=== PATIENT | female | born 1975 | race Caucasian/White ===

== ENCOUNTER → 2018-01-11 14:23 | Outpatient (CLI) | payer BC, SELFPAY ==
[2018-01-11 18:06] LABS: Ferritin 22 ng/mL (8-252); Iron 159 ug/dL (50-170); Iron Binding Capacity,Total 268 ug/dL (250-450); PERCENT IRON SATURATION 59.3 % (15.0-55.0)
== END ==
PROVIDERS: Family Provider Student in an Organized Health Care Education/Training Program; PCP Student in an Organized Health Care Education/Training Program; Visit Provider Dermatology
DX: L64.8 Other androgenic alopecia (principal)
CPT/HCPCS: 36415; 82728; 83540; 83550

== ENCOUNTER → 2018-03-26 13:42 | Outpatient (CLI) | payer BC, SELFPAY ==
[2018-03-26 15:52] LABS: Absolute Lymphocyte Count 2.02 X10^3/ul (0.83-4.51); Absolute Neutrophil Count 3.7 X10^3/uL (2.0-7.7); Basophil# 0.04 X10^3/uL; Basophil% 0.6 % (0-1); Eosinophil# 0.16 X10^3/uL; Eosinophils% 2.5 % (0-5); Hematocrit 39.7 % (37-47); Hemoglobin 13.8 g/dl (12.0-15.0); Lymphocyte # 2.02 X10^3/ul (4.0); Lymphocyte % 31.5 % (19-41); Mean Corp Hgb Conc 34.8 g/gl (32-36); Mean Corpuscular Hgb 30.5 pg (27.0-32.0); Mean Corpuscular Volume 87.6 fL (81-99); Mean Platelet Vol. 11.7 fl (6.2-12.0); Monocyte# 0.45 X10^3/uL; Neutrophil # 3.73 X10^3/uL (2.7-7.7); Neutrophil % 58.2 % (47-70); Platelet Count 270 K/mm3 (150-450); RBC Distribution Width CV 13.3 % (11.6-14.6); RBC Distribution Width SD 41.9 fl (35.1-43.9); Red Blood Count 4.53 M/mm3 (4.2-5.4); White Blood Count 6.4 K/mm3 (4.4-11.0)
[2018-03-26 15:55] LABS: POSITIVE COUNT NO; POSITIVE DIFFERENTIAL NO; POSITIVE MORPHOLOGY NO
[2018-03-26 16:07] LABS: ALB/GLOB Ratio 1.1 RATIO (0.9-2.4); AST(SGOT) 17 U/L (15-37); Alanine Aminotransfer ALT/SGPT 21 U/L (13-56); Albumin, Serum 3.9 g/dL (3.2-5.0); Alkaline Phosphatase 61 U/L (45-117); Anion Gap 7 (5-15); BUN 13 mg/dL (7-18); BUN/Creat Ratio 14.9 RATIO (10-20); Calcium,Total 8.6 mg/dL (8.5-10.1); Chloride 106 mmol/L (98-107); Creatinine, Serum 0.88 mg/dL (0.55-1.02); EST Glomerular Filtration Rate 76 mL/min (>60); Est Glom Filt Rate - Afr Amer 92 mL/min (>60); Globulin 3.6 g/dL (2.2-4.2); Glucose 77 mg/dL (74-106); Protein, Total 7.5 g/dL (6.4-8.2); Sodium Level 140 mmol/L (136-145)
== END ==
PROVIDERS: Family Provider Student in an Organized Health Care Education/Training Program; PCP Student in an Organized Health Care Education/Training Program; Visit Provider Internal Medicine Rheumatology
DX: M06.4 Inflammatory polyarthropathy (principal); M21.40 Flat foot [pes planus] (acquired), unspecified foot; F41.9 Anxiety disorder, unspecified; F32.89 Other specified depressive episodes; G43.909 Migraine, unspecified, not intractable, without status migrainosus
CPT/HCPCS: 36415; 80053; 85025

== ENCOUNTER → 2018-04-26 15:28 | Outpatient (CLI) | payer BC, SELFPAY ==
--- NOTE | 2018-04-26 15:30 | CT_ITS ---
STUDY: CT BRAIN WITH AND WITHOUT CONTRAST REASON FOR EXAM: Female, 42 years old. Visual field disturbance. RADIATION DOSAGE (If Supplied By Facility): CTDIvol = ( 44.99 ) mGy, DLP = ( 1490.98 ) mGycm TECHNIQUE: Transaxial CT imaging of the brain was performed pre and post contrast administration. The examination was performed with intravenous administration of 50 ml of Isovue 370 contrast material. Individualized dose optimization techniques were used for this CT. COMPARISON: None. FINDINGS: There is no acute bleed or infarct. There are normal white matter tracts. There is no abnormal enhancement following contrast administration. There are no intracranial masses identified. The ventricles are normal in configuration. There is no hydrocephalus. The visualized paranasal sinuses are clear. The mastoid air cells are well aerated. There is no skull fracture. CT/Brain/Head W/WO Contrast IMPRESSION: Unremarkable CT of the brain performed without and with intravenous contrast Electronically Signed: Ethan Foster, at 18:36 EDT Tel , Service support ,
--- NOTE | 2018-04-26 15:32 | CT_ITS ---
STUDY: CT ORBITS BILATERAL REASON FOR EXAM: Female, 42 years old. Visual field disturbances. Left eye RADIATION DOSAGE (If Supplied By Facility): CTDIvol = ( 29.38 ) mGy, DLP = ( 595.39 ) mGycm. Individualized dose optimization techniques were used for this CT.? TECHNIQUE: Multiplanar multisequence CT imaging of the orbits was performed with and without IV contrast COMPARISON: None. FINDINGS: Visualized intracranial contents are within normal limits. 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 No discrete orbital mass with extraocular muscles appear symmetric. Normal newsome are within normal limits. Normal caliber of the superior ophthalmic veins. Mild mucosal thickening of the ethmoid air cells. The sphenoid sinuses and the frontal sinuses are clear. The mastoid air cells are clear. IMPRESSION: No discrete orbital mass. No evidence for orbital cellulitis. Left-sided optic nerve drusen Electronically Signed: Harlan Swanson, at 16:11 EDT Tel , Service support , CT/Orb Sella Post Fossa Ear W/WO
== END ==
PROVIDERS: Family Provider Student in an Organized Health Care Education/Training Program; PCP Student in an Organized Health Care Education/Training Program; Visit Provider Ophthalmology
DX: H47.322 Drusen of optic disc, left eye (principal); H53.452 Other localized visual field defect, left eye
CPT/HCPCS: 70470; 70482; Q9967

== ENCOUNTER → 2018-09-23 14:04 | Outpatient (CLI) | payer BC, SELFPAY ==
[2018-09-26 10:38] LABS: HPV Reflexed? NOT INDICATED
== END ==
PROVIDERS: Visit Provider Obstetrics & Gynecology
DX: Z12.4 Encounter for screening for malignant neoplasm of cervix (principal)
CPT/HCPCS: 88175; G0145

== ENCOUNTER → 2018-09-24 12:59 | Outpatient (CLI) | payer BC, SELFPAY ==
[2018-09-24 13:54] LABS: Absolute Lymphocyte Count 2.02 X10^3/ul (0.83-4.51); Absolute Neutrophil Count 4.5 X10^3/uL (2.0-7.7); Basophil# 0.04 X10^3/uL; Basophil% 0.6 % (0-1); Eosinophil# 0.12 X10^3/uL; Eosinophils% 1.7 % (0-5); Hematocrit 41.3 % (37-47); Hemoglobin 14.6 g/dl (12.0-15.0); Lymphocyte # 2.02 X10^3/ul (4.0); Lymphocyte % 28.1 % (19-41); Mean Corp Hgb Conc 35.4 g/gl (32-36); Mean Corpuscular Hgb 30.4 pg (27.0-32.0); Mean Platelet Vol. 10.8 fl (6.2-12.0); Monocyte# 0.45 X10^3/uL; Monocyte% 6.3 % (0-10); Neutrophil # 4.54 X10^3/uL (2.7-7.7); Neutrophil % 63.2 % (47-70); Platelet Count 292 K/mm3 (150-450); RBC Distribution Width CV 12.7 % (11.6-14.6); RBC Distribution Width SD 39.2 fl (35.1-43.9); White Blood Count 7.2 K/mm3 (4.4-11.0)
[2018-09-24 13:55] LABS: POSITIVE COUNT NO; POSITIVE DIFFERENTIAL NO; POSITIVE MORPHOLOGY NO
[2018-09-24 14:07] LABS: AST(SGOT) 15 U/L (15-37); Alanine Aminotransfer ALT/SGPT 20 U/L (13-56); Albumin, Serum 3.8 g/dL (3.2-5.0); Alkaline Phosphatase 61 U/L (45-117); Anion Gap 9 (5-15); BUN 15 mg/dL (7-18); Chloride 105 mmol/L (98-107); Creatinine, Serum 0.88 mg/dL (0.55-1.02); EST Glomerular Filtration Rate 75 mL/min (>60); Est Glom Filt Rate - Afr Amer 90 mL/min (>60); Globulin 3.8 g/dL (2.2-4.2); Glucose 88 mg/dL (74-106); Potassium 4.3 mmol/L (3.5-5.1); Protein, Total 7.6 g/dL (6.4-8.2); Sodium Level 139 mmol/L (136-145)
== END ==
PROVIDERS: Family Provider Student in an Organized Health Care Education/Training Program; PCP Student in an Organized Health Care Education/Training Program; Referring Provider Internal Medicine Rheumatology; Visit Provider Internal Medicine Rheumatology
DX: M06.4 Inflammatory polyarthropathy (principal); M21.40 Flat foot [pes planus] (acquired), unspecified foot; F41.9 Anxiety disorder, unspecified; F32.89 Other specified depressive episodes; G43.909 Migraine, unspecified, not intractable, without status migrainosus
CPT/HCPCS: 36415; 80053; 85025

== ENCOUNTER → 2018-12-16 07:42 | Outpatient (CLI) | payer BC, SELFPAY ==
--- NOTE | 2018-12-16 07:45 | BI_ITS ---
MAMMOGRAPHY - BILATERAL SCREENING REASON FOR EXAM: Female, 43 years old. Routine annual screening examination. PERTINENT HISTORY: Mother with breast cancer. Aunt with breast cancer. Bilateral breast implants. TECHNIQUE: Digital bilateral breast nikita (3D mammographic acquisition) in the CC and MLO projections. 2-D mediolateral oblique (MLO) and craniocaudad (CC) views of both breasts were obtained. CAD: Full Field Digital Mammography with Computer Added Detection was performed. COMPARISON: Comparison is made with prior examination February 02, 2017 and August 26, 2015. FINDINGS: Breast Composition: The breasts are heterogeneously dense, which may obscure small masses. There are no dominant masses or suspicious calcifications. Stable appearance of the bilateral breast implants. No other significant abnormalities are identified. There has been no significant change since the prior study. BI/SCREENING MAMM (CAD), BILAT IMPRESSION: Stable bilateral screening mammogram. Yearly follow-up mammogram recommended. (A) ASSESSMENT CATEGORY: BIRADS Category 2: Benign. A letter regarding these results will be sent to the patient by the facility within 30 days. Approximately 10% of breast cancers are not detected by mammography. A normal mammogram should not delay biopsy of a clinically suspicious abnormality. [id number] Electronically Signed: Bruno Franco MD at 9:16 EST Tel [phone], Service support ,
--- OUTSIDE RECORDS SUMMARY | 2019-02-17 15:13 | XMS RPT_ITS ---
:1975 Author Organization OHIP Care Team Providers Name Role Phone Kellen Mayfield Attending Unavailable Kellen Mayfield Referring Unavailable Kin Muñoz Primary Care Unavailable Rudy Solano Attending Unavailable Kin Muñoz Primary Care Unavailable Nel Monique Attending Unavailable Nel Monique Referring Unavailable Kin Muñoz Primary Care Unavailable Danna Solano Attending Unavailable Danna Solano Referring Unavailable Kin Muñoz Primary Care Unavailable Kellen Mayfield Attending Unavailable Nel Monique Attending Unavailable EneidaNel Referring Unavailable Kin Muñoz Primary Care Unavailable PROBLEMS PROBLEMS DATE TYPE CONDITION / CODE ATTENDING STATUS SOURCE 09/24/2018 Unknown 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, 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 / Community M06.4(ICD-10) Hospital Repository 09/24/2018 Unknown M21.40 - Flat foot Vellanki, Nel Active [place] [pes planus] Community (acquired), Hospital unspecified foot / Repository M21.40(ICD-10) 09/24/2018 Unknown F41.9 - Anxiety Vellanki, Nel Active [place] disorder, unspecified Community / F41.9(ICD-10) Hospital Repository 09/24/2018 Unknown F32.89 - Other Vellanki, Nel Active [place] specified depressive Community episodes / Hospital F32.89(ICD-10) Repository 09/24/2018 Unknown G43.909 - Migraine, Vellanki, Nel Active [place] unspecified, not Community intractable, without Hospital status migrainosus / Repository G43.909(ICD-10) 09/23/2018 Unknown Z12.4 - Encounter for MateojerelIvonKellen Active [place] screening for Community malignant neoplasm of Hospital cervix / Repository Z12.4(ICD-10) PROCEDURES PROCEDURES No Procedure Records FoundRESULTS RESULTS SCREENING MAMM (CAD), Observed: 12/16/2018 Status: F Source: [facility] 7:45 AM [facility] H[facility]PITAL REPOSITORY [facility] Imaging Services [address] [place] [id number] SCREENING MAMM (CAD), BILAT MR#: [id number] Acct: [id number] Name: DOC SHERIFF Rep #: [id number] : 1975 F 43 From: Bruno Franco MD PCP: Kin Foster DO Status: REG CLI Study: SCREENING MAMM (CAD), BILAT Date of Exam: 12/16/18 Exam# [id number] Ordering Dr: Kellen Mayfield MD MAMMOGRAPHY - BILATERAL SCREENING REASON FOR EXAM: Female, 43 years old. Routine annual screening examination. PERTINENT HISTORY: Mother with breast cancer. Aunt with breast cancer. Bilateral breast implants. TECHNIQUE: Digital bilateral breast nikita (3D mammographic acquisition) in the CC and MLO projections. 2-D mediolateral oblique (MLO) and craniocaudad (CC) views of both breasts were obtained. CAD: Full Field Digital Mammography with Computer Added Detection was performed. COMPARISON: Comparison is made with prior examination February 02, 2017 and August 26, 2015. FINDINGS: Breast Composition: The breasts are heterogeneously dense, which may obscure small masses. There are no dominant masses or suspicious calcifications. Stable appearance of the bilateral breast implants. No other significant abnormalities are identified. There has been no significant change since the prior study. BI/SCREENING MAMM (CAD), BILAT IMPRESSION: Stable bilateral screening mammogram. Yearly follow-up mammogram recommended. (A) ASSESSMENT CATEGORY: BIRADS Category 2: Benign. A letter regarding these results will be sent to the patient by the facility within 30 days. Approximately 10% of breast cancers are not detected by mammography. A normal mammogram should not delay biopsy of a clinically suspicious abnormality. [id number] Electronically Signed: Bruno Franco MD at 9:16 EST Tel [phone], Service support , CC: Kellen Mayfield MD; Kin Foster DO Dress Shoe Inspector: Signed CBC W/DIFF, AUTOMATED Collected: 09/24/2018 Status: F Source: [place] 1:05 PM [facility] REPOSITORY TYPE CODE TESTS RESULT OUT OF RANGE REFERENCE UNITS LAB L100.1000 4.4-11.0 K/mm3 Normal WBC 7.2 LAB L100.1200 4.2-5.4 M/mm3 Normal RBC 4.80 LAB L100.1300 12.0-15.0 g/dl Normal HGB 14.6 LAB L100.1400 37-47 % Normal HCT 41.3 LAB L100.1500 81-99 fL Normal MCV 86.0 LAB L100.1600 27.0-32.0 pg Normal MCH 30.4 LAB L100.1700 32-36 g/gl Normal MCHC 35.4 LAB L100.1810 11.6-14.6 % Normal RDW CV 12.7 LAB L100.1820 35.1-43.9 fl Normal RDW SD 39.2 LAB L100.1900 150-450 K/mm3 Normal PLT 292 LAB L100.2000 6.2-12.0 fl Normal MPV 10.8 LAB L100.2100 47-70 % Normal NEUT% 63.2 LAB L100.2200 19-41 % Normal LY% 28.1 LAB L100.2300 0-10 % Normal MONO% 6.3 LAB L100.2400 0-5 % Normal EO% 1.7 LAB L100.2500 0-1 % Normal BASO% 0.6 LAB L100.2550 0.0-0.9 % Normal IM GRAN % 0.100 Result Comment: IG% - Immature Granulocytes (promyelocytes, myelocytes and metamyelocytes) > 1% indicates that a LEFT SHIFT is Present. LAB L100.2620 2.0-7.7 X10 3/uL Normal Absolute Neut 4.5 LAB L100.2720 0.83-4.51 X10 3/ul Normal Absolute Lymph 2.02 Performed By: #### L100.0100 #### [facility] [address] [facility] [place], [address] COMPREHENSIVE METABOLIC Collected: 09/24/2018 Status: F Source: [facility] 1:05 PM [facility] REPOSITORY TYPE CODE TESTS RESULT OUT OF RANGE REFERENCE UNITS LAB L501.0100 74-106 mg/dL Normal GLU 88 Result Comment: Please note revised GLUCOSE reference range effective 2017. LAB L501.1000 7-18 mg/dL Normal BUN 15 LAB L501.1100 0.55-1.02 mg/dL Normal CREAT,SERUM 0.88 Result Comment: The validity of the calculated GFR AND GFRAA in patients over 70 years has not been determined. Clinical correlation is essential. LAB L501.1110 >60 mL/min Normal EST GFR 75 Result Comment: Non- GFR Calc LAB L501.1115 >60 mL/min Normal EST GFR - AA 90 Result Comment: GFR Calc LAB L501.1300 10-20 RATIO Normal BUN/CRE 17.0 LAB L501.1500 6.4-8.2 g/dL T Normal PROT 7.6 LAB L501.1800 3.2-5.0 g/dL Normal ALB 3.8 LAB L501.1950 2.2-4.2 g/dL Normal GLOB 3.8 LAB L501.2000 0.9-2.4 RATIO Normal A/G 1.0 LAB L501.2200 8.5-10.1 mg/dL CA Normal 9.0 LAB L501.4100 15-37 U/L Normal AST 15 LAB L501.4305 45-117 U/L Normal ALK P 61 LAB L501.4405 13-56 U/L Normal ALT 20 LAB L501.4600 0.20-1.00 mg/dL T Normal BILI 0.30 LAB L501.5300 136-145 mmol/L NA Normal 139 LAB L501.5600 3.5-5.1 mmol/L K Normal 4.3 LAB L501.5900 98-107 mmol/L CL Normal 105 LAB L501.6100 21.0-32.0 mmol/L Normal CO2 25.0 LAB L501.6200 5-15 Normal GAP 9 Performed By: #### L500.4050 #### [facility] [address] [facility] [place], [place], [address] PAP I-G W/RFX HRHPV Collected: 09/23/2018 Status: F Source: [place] 1:45 PM [facility] REPOSITORY Order Comment: CYTOLOGY INFORMATION: - CLINICAL INFORMATION: - DATE LMP/MENOPAUSE: 08-26-18 LMP - COLLECTION VIAL: Thin Prep Vial - ENDOSCOPY TECH SOURCE: CERVICAL/ENDOCERVICAL - COLLECTION TECHNIQUE: BRUSH/SPATULA Specimen Comment: [id number] Specimen Comment: Source.............Cervix;Endocervix Specimen Comment: LMP / Prev Treat...[id number] Specimen Comment: No. of containers..01 ThinPrep Vial TYPE CODE TESTS RESULT OUT OF RANGE REFERENCE UNITS LAB L7400.0800 . Normal DIAGN Comment Result Comment: NEGATIVE FOR INTRAEPITHELIAL LESION AND MALIGNANCY. LAB L7400.0900 . Normal ADEQ Comment Result Comment: Satisfactory for evaluation. No endocervical component is identified. LAB L7400.1400 . Normal PERFORM Comment Result Comment: Arianne Page, Horse Breaker (ASCP) LAB L7400.2575 . Normal TEST METHOD Comment Result Comment: This liquid based ThinPrep(R) pap test was screened with the use of an image guided system. LAB L7400.2600 . Normal . COMM LAB L7400.2700 . Normal PAPSMR Comment Result Comment: The Pap smear is a screening test designed to aid in the detection of premalignant and malignant conditions of the uterine cervix. It is not a diagnostic procedure and should not be used as the sole means of detecting cervical cancer. Both false-positive and false-negative reports do occur. LAB L7400.2800 . Normal HPV RFLX Comment Result Comment: The HPV DNA reflex criteria were not met with this specimen result therefore, no HPV testing was performed. Performed at: [address] [id number] Community Living Specialist: Carmen Blankenship MD, Phone: [phone] Performed By: #### L7400.0350 #### [facility] (refer to report for specific site) refer to report for address and phone number BRAIN/HEAD W/WO Observed: 04/26/2018 Status: F Source: [place] CONTRAST 3:33 PM [facility] REPOSITORY [facility] Imaging Services [address] [place] [address] Brain/Head W/WO Contrast MR#: [id number] Acct: [id number] Name: DOC SHERIFF Pratima Rep #: [id number] : 1975 F 42 From: Ethan Foster MD PCP: Kin Foster DO Status: REG CLI Study: Brain/Head W/WO Contrast Date of Exam: 04/26/18 Exam# [id number] Ordering Dr: Danna Solano MD STUDY: CT BRAIN WITH AND WITHOUT CONTRAST REASON FOR EXAM: Female, 42 years old. Visual field disturbance. RADIATION DOSAGE (If Supplied By Facility): CTDIvol = ( 44.99 ) mGy, DLP = ( 1490.98 ) mGycm TECHNIQUE: Transaxial CT imaging of the brain was performed pre and post contrast administration. The examination was performed with intravenous administration of 50 ml of Isovue 370 contrast material. Individualized dose optimization techniques were used for this CT. COMPARISON: None. FINDINGS: There is no acute bleed or infarct. There are normal white matter tracts. There is no abnormal enhancement following contrast administration. There are no intracranial masses identified. The ventricles are normal in configuration. There is no hydrocephalus. The visualized paranasal sinuses are clear. The mastoid air cells are well aerated. There is no skull fracture. CT/Brain/Head W/WO Contrast IMPRESSION: Unremarkable CT of the brain performed without and with intravenous contrast Electronically Signed: Ethan Foster, at 18:36 EDT Tel , Service support , CC: Kin Foster DO; Danna Solano Dress Shoe Inspector: Signed ORB SELLA POST Observed: 04/26/2018 Status: F Source: [place] FOSSA EAR W/WO 3:33 PM [facility] REPOSITORY [facility] Imaging Services [address] [place] [address] Orb Sella Post Fossa Ear W/WO MR#: [id number] Acct: [id number] Name: DOC SHERIFF Rep #: [id number] : 1975 F 42 From: Harlan Swanson MD PCP: Kin Foster DO Status: REG CLI Study: Orb Sella Post Fossa Ear W/WO Date of Exam: 04/26/18 Exam# [id number] Ordering Dr: Danna Solano MD STUDY: CT ORBITS BILATERAL REASON FOR EXAM: Female, 42 years old. Visual field disturbances. Left eye RADIATION DOSAGE (If Supplied By Facility): CTDIvol = ( 29.38 ) mGy, DLP = ( 595.39 ) mGycm. Individualized dose optimization techniques were used for this CT.? TECHNIQUE: Multiplanar multisequence CT imaging of the orbits was performed with and without IV contrast COMPARISON: None. FINDINGS: Visualized intracranial contents are within normal limits. 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 No discrete orbital mass with extraocular muscles appear symmetric. Normal newsome are within normal limits. Normal caliber of the superior ophthalmic veins. Mild mucosal thickening of the ethmoid air cells. The sphenoid sinuses and the frontal sinuses are clear. The mastoid air cells are clear. IMPRESSION: No discrete orbital mass. No evidence for orbital cellulitis. Left-sided optic nerve drusen Electronically Signed: Harlan Sky, at 16:11 EDT Tel , Service support , CT/Orb Sella Post Fossa Ear W/WO CC: Kin Foster DO; Danna Solano Dress Shoe Inspector: Signed CBC W/DIFF, AUTOMATED Collected: 03/26/2018 Status: F Source: [place] 1:48 PM [facility] REPOSITORY TYPE CODE TESTS RESULT OUT OF RANGE REFERENCE UNITS LAB L100.1000 4.4-11.0 K/mm3 Normal WBC 6.4 LAB L100.1200 4.2-5.4 M/mm3 Normal RBC 4.53 LAB L100.1300 12.0-15.0 g/dl Normal HGB 13.8 LAB L100.1400 37-47 % Normal HCT 39.7 LAB L100.1500 81-99 fL Normal MCV 87.6 LAB L100.1600 27.0-32.0 pg Normal MCH 30.5 LAB L100.1700 32-36 g/gl Normal MCHC 34.8 LAB L100.1810 11.6-14.6 % Normal RDW CV 13.3 LAB L100.1820 35.1-43.9 fl Normal RDW SD 41.9 LAB L100.1900 150-450 K/mm3 Normal PLT 270 LAB L100.2000 6.2-12.0 fl Normal MPV 11.7 LAB L100.2100 47-70 % Normal NEUT% 58.2 LAB L100.2200 19-41 % Normal LY% 31.5 LAB L100.2300 0-10 % Normal MONO% 7.0 LAB L100.2400 0-5 % Normal EO% 2.5 LAB L100.2500 0-1 % Normal BASO% 0.6 LAB L100.2550 0.0-0.9 % Normal IM GRAN % 0.200 Result Comment: IG% - Immature Granulocytes (promyelocytes, myelocytes and metamyelocytes) > 1% indicates that a LEFT SHIFT is Present. LAB L100.2620 2.0-7.7 X10 3/uL Normal Absolute Neut 3.7 LAB L100.2720 0.83-4.51 X10 3/ul Normal Absolute Lymph 2.02 Performed By: #### L100.0100 #### [facility] [address] [place], [address] COMPREHENSIVE METABOLIC Collected: 03/26/2018 Status: F Source: [facility] 1:48 PM [facility] REPOSITORY TYPE CODE TESTS RESULT OUT OF RANGE REFERENCE UNITS LAB L501.0100 74-106 mg/dL Normal GLU 77 Result Comment: Please note revised GLUCOSE reference range effective 2017. LAB L501.1000 7-18 mg/dL Normal BUN 13 LAB L501.1100 0.55-1.02 mg/dL Normal CREAT,SERUM 0.88 Result Comment: The validity of the calculated GFR AND GFRAA in patients over 70 years has not been determined. Clinical correlation is essential. LAB L501.1110 >60 mL/min Normal EST GFR 76 Result Comment: Non- GFR Calc LAB L501.1115 >60 mL/min Normal EST GFR - AA 92 Result Comment: GFR Calc LAB L501.1300 10-20 RATIO Normal BUN/CRE 14.9 LAB L501.1500 6.4-8.2 g/dL T Normal PROT 7.5 LAB L501.1800 3.2-5.0 g/dL Normal ALB 3.9 LAB L501.1950 2.2-4.2 g/dL Normal GLOB 3.6 LAB L501.2000 0.9-2.4 RATIO Normal A/G 1.1 LAB L501.2200 8.5-10.1 mg/dL CA Normal 8.6 LAB L501.4100 15-37 U/L Normal AST 17 LAB L501.4305 45-117 U/L Normal ALK P 61 LAB L501.4405 13-56 U/L Normal ALT 21 LAB L501.4600 0.20-1.00 mg/dL T Normal BILI 0.30 LAB L501.5300 136-145 mmol/L NA Normal 140 LAB L501.5600 3.5-5.1 mmol/L K Normal 4.0 LAB L501.5900 98-107 mmol/L CL Normal 106 LAB L501.6100 21.0-32.0 mmol/L Normal CO2 27.0 LAB L501.6200 5-15 Normal GAP 7 Performed By: #### L500.4050 #### [facility] [address] [place], [address] PROGRESS Observed: 03/11/2018 Status: COMPLETED Source: [place] 8:58 AM [facility] [place] REPOSITORY HNO ID: [id number] Author: Tiffani Nguyen) Kristopher Service: (none) Author Type: Physician Controller Repairer And Tester Type: Progress Notes Filed: 03/11/2018 12:58 PM Note Text: 03/11/2018 Patient presents with: Cough: x 2 weeks cough and chest congestion Fatigue: x 2 weeks Ear Pain: x 2 weeks intermittent right ear tenderness SUBJECTIVE: This is a 42 year old that is here today for Complaint(s) of cough and chest congestion x 2 weeks. + fatigue. Notes sinus pressure/pain x 2 weeks. + RUCHI ear pain, intermittent. Right ear is tender. Cough is keeping her awake at night. + purulent drainage. + SOB/wheezing, intermittent. Denies fever/chills, . Non-smoker. PAST MEDICAL HISTORY Diagnosis Date - NONE ALLERGIES Review of patient's allergies indicates no known allergies. MEDICATIONS Current Outpatient Prescriptions: B3,jennifer,clczTGQauc-RA-S3-zn-saumya (NICAZEL FORTE) [phone] vw-jel-kk-mg tab 1 tab daily sertraline (ZOLOFT) 50 mg tablet Take 1 tablet by mouth once daily. spironolactone (ALDACTONE) 50 mg ORAL tablet Take 100 mg by mouth once daily. albuterol HFA (VENTOLIN HFA) 90 mcg/actuation inhaler Inhale 2 Puffs as instructed every 4 hours as needed for Wheezing/Shortness of Breath. codeine-guaiFENesin (ROBITUSSIN AC) 10-100 mg/5 mL syrup Take 5-10 mL by mouth four times daily as needed for Cough. May cause drowsiness. iron polysaccharide complex (FERREX 150) 150 mg iron capsule 1 pill daily No current facility-administered medications for this visit. SOCIAL HISTORY Social History Marital status: Spouse name: Years of education: Number of children: Social History Main Topics Smoking status: Never Smoker Smokeless status: Never Used Alcohol use: Yes Comment: occasionally Drug use: No Sexual activity: Yes Partners with: Male REVIEW OF SYSTEMS All other reviewed and negative other than HPI. OBJECTIVE: BP 110/62 Pulse 91 Temp 36.2 ?C (97.1 ?F) (Left Tympanic) Resp 16 Wt 78 kg (172 lb) SpO2 98% APPEARANCE Well appearing, alert, in no acute distress, well-hydrated, well nourished. EYES PERRLA, conjunctiva and sclera normal. EARS External ears normal, canals clear. TMs normal RUCHI NOSE/SINUS Nares normal. Septum midline. Mucosa erythematous. No drainage. + RUCHI maxillary sinus tenderness. THROAT normal, no erythema NECK Supple, no adenopathy HEART RRR with normal S1 and S2 LUNG clear to auscultation, No wheezing, rhonchi, rales. ASSESSMENT/PLAN: 1. Sinobronchitis - ICD9: 473.9, 490, ICD10: J32.9, J40 - Will begin treatment with as per antibiotic as written, see orders - The patient should also be given OTC cough and cold meds as needed, behind the counter Pseudoephedrine, warm salt water gargles, throat lozenges and/or OTC throat spray as needed and nasal saline gtts and suction prn for the first 5-7 days of treatment. - Supportive care with plenty of fluids, rest, and analgesia prn. - Follow up in 3-5 days if symptoms persist or worsen. - BENZONATATE 100 MG CAPSULE - AMOXICILLIN 875 MG-POTASSIUM CLAVULANATE 125 MG TABLET The patient indicates understanding of these issues and agrees with the plan. Reviewed red flags and when to seek care sooner. SUSHILA Ornelas Observed: 03/11/2018 Status: COMPLETED Source: [place] [address]:45 AM [facility] REPOSITORY Office Visit (UCWSTR) DOC SHERIFF ([id number]) 1975 F Date Time Provider Department 03/11/18 8:45 AM TIFFANI WILLS) [facility] During your visit today, we recorded the following information about you: Temperature Pulse Respiration Blood pressure 97.1 degrees 91/minute 16/minute 110/62 Weight 78 kg Tiffani Wills PA-C 03/11/2018 12:58 PM Signed 03/11/2018 Patient presents with: Cough: x 2 weeks cough and chest congestion Fatigue: x 2 weeks Ear Pain: x 2 weeks intermittent right ear tenderness SUBJECTIVE: This is a 42 year old that is here today for Complaint(s) of cough and chest congestion x 2 weeks. + fatigue. Notes sinus pressure/pain x 2 weeks. + RUCHI ear pain, intermittent. Right ear is tender. Cough is keeping her awake at night. + purulent drainage. + SOB/wheezing, intermittent. Denies fever/chills, . Non-smoker. PAST MEDICAL HISTORY Diagnosis Date - NONE ALLERGIES Review of patient's allergies indicates no known allergies. MEDICATIONS Current Outpatient Prescriptions: jennifer Monge querANDamp;jfr-KN-S7-zn-saumya (NICAZEL FORTE) [phone] oj-iih-yp-mg tab 1 tab daily sertraline (ZOLOFT) 50 mg tablet Take 1 tablet by mouth once daily. spironolactone (ALDACTONE) 50 mg ORAL tablet Take 100 mg by mouth once daily. albuterol HFA (VENTOLIN HFA) 90 mcg/actuation inhaler Inhale 2 Puffs as instructed every 4 hours as needed for Wheezing/Shortness of Breath. codeine-guaiFENesin (ROBITUSSIN AC) 10-100 mg/5 mL syrup Take 5-10 mL by mouth four times daily as needed for Cough. May cause drowsiness. iron polysaccharide complex (FERREX 150) 150 mg iron capsule 1 pill daily No current facility-administered medications for this visit. SOCIAL HISTORY Social History Marital status: Spouse name: Years of education: Number of children: Social History Main Topics Smoking status: Never Smoker Smokeless status: Never Used Alcohol use: Yes Comment: occasionally Drug use: No Sexual activity: Yes Partners with: Male REVIEW OF SYSTEMS All other reviewed and negative other than HPI. OBJECTIVE: BP 110/62 Pulse 91 Temp 36.2 ?C (97.1 ?F) (Left Tympanic) Resp 16 Wt 78 kg (172 lb) SpO2 98% APPEARANCE Well appearing, alert, in no acute distress, well- hydrated, well nourished. EYES PERRLA, conjunctiva and sclera normal. EARS External ears normal, canals clear. TMs normal RUCHI NOSE/SINUS Nares normal. Septum midline. Mucosa erythematous. No drainage. + RUCHI maxillary sinus tenderness. THROAT normal, no erythema NECK Supple, no adenopathy HEART RRR with normal S1 and S2 LUNG clear to auscultation, No wheezing, rhonchi, rales. ASSESSMENT/PLAN: 1. Sinobronchitis - ICD9: 473.9, 490, ICD10: J32.9, J40 - Will begin treatment with as per antibiotic as written, see orders - The patient should also be given OTC cough and cold meds as needed, behind the counter Pseudoephedrine, warm salt water gargles, throat lozenges and/or OTC throat spray as needed and nasal saline gtts and suction prn for the first 5-7 days of treatment. - Supportive care with plenty of fluids, rest, and analgesia prn. - Follow up in 3-5 days if symptoms persist or worsen. - BENZONATATE 100 MG CAPSULE - AMOXICILLIN 875 MG-POTASSIUM CLAVULANATE 125 MG TABLET The patient indicates understanding of these issues and agrees with the plan. Reviewed red flags and when to seek care sooner. Tiffani Wills PA-C Referring Provider: SELF [200] Allergies As of Date: 03/11/2018 (No Known Allergies) Date Reviewed: 03/11/2018 Reviewed by: Karime Mead LPN - Fully Assessed Reason for Visit: Cough [28] Cmt: x 2 weeks cough and chest congestion Fatigue [46] Cmt: x 2 weeks Ear Pain [817] Cmt: x 2 weeks intermittent right ear tenderness Primary Visit Diagnosis:Sinobronchitis [J32.9, J40] Order(s):benzonatate (TESSALON PERLE) 100 mg capsuleTake 2 capsules by mouth three times daily as needed.Disp: 30 capsuleRfl: 0 amoxicillin-clavulanic acid (AUGMENTIN) 875-125 mg per tabletTake 1 tablet by mouth twice daily for 10 days.Disp: 20 tabletRfl: 0 Prescriptions as of 03/11/2018 Sig: [id number]* 1 tab daily SERTRALINE 50 MG TABLET Take 1 tablet by mouth once d* SPIRONOLACTONE 50 MG TABLET Take 100 mg by mouth once joanne* BENZONATATE 100 MG CAPSULE Take 2 capsules by mouth thre* AMOXICILLIN 875 MG-POTASSIUM * Take 1 tablet by mouth twice * ALBUTEROL SULFATE HFA 90 MCG/* Inhale 2 Puffs as instructed * CODEINE 10 MG-GUAIFENESIN 100* Take 5-10 mL by mouth four ti* POLYSACCHARIDE IRON COMPLEX 1* 1 pill daily Medication notes this encounter ALBUTEROL SULFATE HFA 90 MCG/ACTUATION AEROSOL INHALER >> Karime Mead TAIL TRIMMER 03/11/2018 8:44 AM >> KARIME MEAD TAIL TRIMMER SunMar 11, 2018 8:44 AM [place] done POLYSACCHARIDE IRON COMPLEX 150 MG IRON CAPSULE >> Karime E Lilia TAIL TRIMMER 03/11/2018 8:45 AM >> KARIME MEAD TAIL TRIMMER SunMar 11, 2018 8:45 AM Not taking Problem List As Of Date: 03/11/2018 (None) Prescriptions ordered this encounter Disp Refills Start End BENZONATATE 100 MG CAPSULE 30 c* 0 03/11/2018 Route: ORAL Sig: Take 2 capsules by mouth three times daily as needed. AMOXICILLIN 875 MG-POTASSIUM CLAVULA* 20 t* 0 03/11/2018 03/21/2018 Route: ORAL Sig: Take 1 tablet by mouth twice daily for 10 days. Encounter Status:Closed by TIFFANI WILLS PA-C on 03/11/18 IRON+IRON BINDING Collected: 01/11/2018 Status: F Source: [place] [facility] 2:26 PM [facility] REPOSITORY TYPE CODE TESTS RESULT OUT OF RANGE REFERENCE UNITS LAB L503.6075 250-450 ug/dL TIBC Normal 268 LAB L503.6150 50-170 ug/dL IRON Normal 159 LAB L503.6250 15.0-55.0 % High IRON SATURATION 59.3 Performed By: #### L503.6030, L503.6550 #### [facility] [address] [place], [address] FERRITIN Collected: 01/11/2018 Status: F Source: [place] 2:26 PM [facility] REPOSITORY TYPE CODE TESTS RESULT OUT OF RANGE REFERENCE UNITS LAB L503.6550 8-252 ng/mL Normal FERRITIN 22 Performed By: #### L503.6030, L503.6550 #### [facility] [address] [place], [address] ALLERGIES ALLERGIES DATE TYPE / CODE NAME / CODE REACTION SEVERITY SOURCE Drug NO KNOWN [facility] Class/96609 ALLERGIES [place] 1003(SNOMED Repository CT) ENCOUNTERS ENCOUNTERS ADMIT/DISCHARGE ACCOUNT ADMITTING ENCOUNTER LOCATION SOURCE NUMBER CLASS 12/16/2018 [id number] [facility] ing:OPBI Repository 09/24/2018 [id number] [facility] ing:MTLAB Repository 09/23/2018 [id number] [facility] ing:LABSPEC Repository 04/26/2018 [id number] [facility] ing:CT Repository 03/26/2018 [id number] [facility] ing:MTLAB Repository 03/11/2018/03/12/20 [id number] Ambulatory [address] Repository 01/11/2018 [id number] [facility] ing:MTLAB Repository PAYERS PAYERS ENCOUNTER GUARANTOR PAYER SUBSCRIBER SOURCE 12/16/2018 DOC SHERIFFDOB: [place] [id number] WHITE Insurance:ANTHEMPnyu [id number] KAREN, megan Number: [facility] [id number]: [id number] Repository Date:1629-53-33KT [address] () [address]UFERTQT, [place] [address]YU: 12/16/2018 Secondary NOT GIVENUNK [place] Insurance:SELF [facility]Y [facility]: Effective Repository Date:2018-09-24 09/24/2018 DOC D Primary Stacy HudsonDOB: [place] [id number] WHITE Insurance:ANTHEMPolic [id number] [place] Number: [facility] [address]Weu: [id number] Repository Date:3944-41-13CV [address] () [address]OGVQJSBERNARDINO BADILLO [address]KF: 09/24/2018 Secondary NOT GIVENUNK [place] Insurance:SELF PAY [facility]: Effective Repository Date:2018-09-24 09/23/2018 DOC D Primary Stacy HudsonDOB: [place] [id number] WHITE Insurance:ANTHEMPolic [id number] [place] Number: [facility] [id number]: [id number] Repository Date:3847-65-11ZF [address] () [address]LGJCWAO, [place] [address]JQ: 09/23/2018 Secondary NOT GIVENUNK [place] Insurance:SELF PAY [facility] Number: Effective Repository Date:2018-09-23 04/26/2018 DOC D Primary Stacy HudsonDOB: [place] [id number] WHITE Insurance:ANTHEMPolic [id number] [place] Number: [facility] [place] [address]Rgq: [id number] Repository Date:4730-96-63CB [address] () [address]MJPTFGH, [place] [address]EC: 04/26/2018 Secondary NOT GIVENUNK [place] Insurance:SELF PAY [facility] Number: Effective Repository Date:2018-04-18 03/26/2018 Stacy [id number] Primary Stacy EscotoB: [place] Insurance:ANTHEMPolic [id number] [place] Number[facility] [id number]: (330 [id number] Repository [phone] () Date:0786-50-51[address]YUXQYXD, [place] [address]RX: 03/26/2018 Secondary NOT GIVENUNK [place] Insurance:SELF PAY [facility] Number: Effective Repository Date:2018-03-26 01/11/2018 Stacy [id number] Primary Stacy EscotoB: [place] Insurance:[place]HEMPolic [id number] Number: Hospital [id number]: (330 [id number] Repository [phone] () Date:4097-86-40[address]JYPOUY, [place] [address]TF: 01/11/2018 Secondary NOT GIVENUNK [place] Insurance:SELF PAY [facility] Number: Effective Repository Date:2018-01-11
== END ==
PROVIDERS: Family Provider Student in an Organized Health Care Education/Training Program; PCP Student in an Organized Health Care Education/Training Program; Referring Provider Obstetrics & Gynecology; Visit Provider Obstetrics & Gynecology
DX: Z12.31 Encounter for screening mammogram for malignant neoplasm of breast (principal)
CPT/HCPCS: 77063; 77067

== ENCOUNTER → 2019-03-24 | Outpatient (CLI) | payer BC, SELFPAY ==
[2019-03-24 17:49] LABS: Absolute Lymphocyte Count 1.51 X10^3/ul (0.83-4.51); Absolute Neutrophil Count 4.5 X10^3/uL (2.0-7.7); Basophil# 0.05 X10^3/uL; Basophil% 0.7 % (0-1); Eosinophil# 0.29 X10^3/uL; Eosinophils% 4.3 % (0-5); Hematocrit 38.1 % (37-47); Hemoglobin 12.5 g/dl (12.0-15.0); Lymphocyte # 1.51 X10^3/ul (4.0); Lymphocyte % 22.2 % (19-41); Mean Corp Hgb Conc 32.8 g/gl (32-36); Mean Corpuscular Volume 85.2 fL (81-99); Mean Platelet Vol. 10.7 fl (6.2-12.0); Monocyte# 0.43 X10^3/uL; Monocyte% 6.3 % (0-10); Neutrophil % 66.4 % (47-70); Platelet Count 294 K/mm3 (150-450); RBC Distribution Width CV 13.6 % (11.6-14.6); RBC Distribution Width SD 42.1 fl (35.1-43.9); Red Blood Count 4.47 M/mm3 (4.2-5.4); White Blood Count 6.8 K/mm3 (4.4-11.0)
[2019-03-24 17:55] LABS: POSITIVE COUNT NO; POSITIVE DIFFERENTIAL NO; POSITIVE MORPHOLOGY NO
[2019-03-24 18:19] LABS: ALB/GLOB Ratio 1.1 RATIO (0.9-2.4); AST(SGOT) 21 U/L (15-37); Alanine Aminotransfer ALT/SGPT 22 U/L (13-56); Albumin, Serum 3.9 g/dL (3.2-5.0); Alkaline Phosphatase 79 U/L (45-117); Anion Gap 5 (5-15); BUN 9 mg/dL (7-18); BUN/Creat Ratio 9.4 RATIO (10-20); Calcium,Total 8.8 mg/dL (8.5-10.1); Chloride 107 mmol/L (98-107); Creatinine, Serum 0.96 mg/dL (0.55-1.02); EST Glomerular Filtration Rate 68 mL/min (>60); Est Glom Filt Rate - Afr Amer 82 mL/min (>60); Globulin 3.7 g/dL (2.2-4.2); Glucose 83 mg/dL (74-106); Potassium 4.1 mmol/L (3.5-5.1); Protein, Total 7.6 g/dL (6.4-8.2); Sodium Level 140 mmol/L (136-145)
== END | disposition home or self-care (01) ==
LOC: MTLAB 16:39
PROVIDERS: Family Provider Student in an Organized Health Care Education/Training Program; PCP Student in an Organized Health Care Education/Training Program; Referring Provider Internal Medicine Rheumatology; Visit Provider Internal Medicine Rheumatology
DX: M06.4 Inflammatory polyarthropathy (principal); M21.40 Flat foot [pes planus] (acquired), unspecified foot; F41.9 Anxiety disorder, unspecified; F32.89 Other specified depressive episodes; G43.909 Migraine, unspecified, not intractable, without status migrainosus
CPT/HCPCS: 36415; 80053; 85025

== ENCOUNTER → 2019-09-16 | Outpatient (CLI) | payer BC, SELFPAY ==
[2019-09-16 15:24] LABS: Absolute Lymphocyte Count 2.28 X10^3/uL (0.83-4.51); Absolute Neutrophil Count 3.8 X10^3/uL (2.0-7.7); Basophil# 0.05 X10^3/uL; Basophil% 0.7 % (0-1); Eosinophil# 0.06 X10^3/uL; Eosinophils% 0.9 % (0-5); Hematocrit 42.1 % (37-47); Hemoglobin 13.7 g/dL (12.0-15.0); Lymphocyte # 2.28 X10^3/ul (4.0); Lymphocyte % 33.9 % (19-41); Mean Corp Hgb Conc 32.5 g/dL (32-36); Mean Platelet Vol. 10.9 fl (6.2-12.0); Monocyte% 7.4 % (0-10); NRBC Flagged by Analyzer 0 % (0-5); Neutrophil # 3.81 X10^3/uL (2.7-7.7); Neutrophil % 56.8 % (47-70); Platelet Count 295 K/mm3 (150-450); RBC Distribution Width CV 13.4 % (11.6-14.6); RBC Distribution Width SD 43.7 fl (35.1-43.9); Red Blood Count 4.73 M/mm3 (4.2-5.4); White Blood Count 6.7 K/mm3 (4.4-11.0)
[2019-09-16 15:48] LABS: ALB/GLOB Ratio 1.1 RATIO (0.9-2.4); AST(SGOT) 18 U/L (15-37); Alanine Aminotransfer ALT/SGPT 21 U/L (13-56); Alkaline Phosphatase 61 U/L (45-117); Anion Gap 7 (5-15); BUN 11 mg/dL (7-18); BUN/Creat Ratio 10.6 RATIO (10-20); Calcium,Total 8.8 mg/dL (8.5-10.1); Chloride 106 mmol/L (98-107); Creatinine, Serum 1.04 mg/dL (0.55-1.02); EST Glomerular Filtration Rate 62 mL/min (>60); Est Glom Filt Rate - Afr Amer 74 mL/min (>60); Globulin 3.6 g/dL (2.2-4.2); Glucose 63 mg/dL (74-106); Protein, Total 7.6 g/dL (6.4-8.2); Sodium Level 139 mmol/L (136-145)
== END | disposition home or self-care (01) ==
LOC: MTLAB 13:26
PROVIDERS: Family Provider Student in an Organized Health Care Education/Training Program; PCP Student in an Organized Health Care Education/Training Program; Referring Provider Internal Medicine Rheumatology; Visit Provider Internal Medicine Rheumatology
DX: M06.4 Inflammatory polyarthropathy (principal); M21.40 Flat foot [pes planus] (acquired), unspecified foot; F41.9 Anxiety disorder, unspecified; F32.89 Other specified depressive episodes; G43.909 Migraine, unspecified, not intractable, without status migrainosus
CPT/HCPCS: 36415; 80053; 85025

== ENCOUNTER → 2019-12-22 13:11 | Outpatient (CLI) | payer BC, SELFPAY ==
--- NOTE | 2019-12-22 13:14 | BI_ITS ---
MAMMOGRAPHY - BILATERAL SCREENING REASON FOR EXAM: Female, 44 years old. Routine annual screening examination. PERTINENT HISTORY: Mother with breast cancer. Aunt with breast cancer. Bilateral breast implants. TECHNIQUE: Digital bilateral breast concha (3D mammographic acquisition) in the CC and MLO projections. 2-D mediolateral oblique (MLO) and craniocaudad (CC) views of both breasts were obtained. CAD: Full Field Digital Mammography with Computer Added Detection was performed. COMPARISON: Comparison is made with prior study dated June 15, 2019 and February 02, 2017. FINDINGS: Breast Composition: The breasts are heterogeneously dense, which may obscure small masses. There are no dominant masses or suspicious calcifications. Stable appearance of the bilateral prostheses. No other significant abnormalities are identified. There has been no significant change since the prior study. BI/SCREEN MAMM (CAD) W/CONCHA BILAT IMPRESSION: Stable bilateral screening mammogram. Yearly follow-up mammogram recommended. (A) ASSESSMENT CATEGORY: BIRADS Category 2: Benign. A letter regarding these results will be sent to the patient by the facility within 30 days. Approximately 10% of breast cancers are not detected by mammography. A normal mammogram should not delay biopsy of a clinically suspicious abnormality. [id number] Electronically Signed: Bruno Franco, at 14:17 EST , Service support ,
== END ==
PROVIDERS: Family Provider Student in an Organized Health Care Education/Training Program; PCP Student in an Organized Health Care Education/Training Program; Referring Provider Obstetrics & Gynecology; Visit Provider Obstetrics & Gynecology
DX: Z12.31 Encounter for screening mammogram for malignant neoplasm of breast (principal)
CPT/HCPCS: 77063; 77067

== ENCOUNTER → 2020-06-23 17:45 | Outpatient (CLI) | payer BC, SELFPAY | PROVIDERS: PCP Student in an Organized Health Care Education/Training Program; Referring Provider Obstetrics & Gynecology; Visit Provider Obstetrics & Gynecology | DX: N39.0 Urinary tract infection, site not specified (principal) | CPT/HCPCS: 87077; 87086; 87088; 87186 ==

== ENCOUNTER → 2020-09-07 12:49 | Outpatient (CLI) | payer BC, SELFPAY ==
[2020-09-07 15:42] LABS: Absolute Lymphocyte Count 1.55 X10^3/uL (0.83-4.51); Absolute Neutrophil Count 3.2 X10^3/uL (2.0-7.7); Basophil# 0.03 X10^3/uL; Basophil% 0.6 % (0-1); Eosinophil# 0.08 X10^3/uL; Eosinophils% 1.5 % (0-5); Hematocrit 41.9 % (37-47); Hemoglobin 13.8 g/dL (12.0-15.0); Lymphocyte # 1.55 X10^3/ul (4.0); Mean Corp Hgb Conc 32.9 g/dL (32-36); Mean Corpuscular Hgb 30.3 pg (27.0-32.0); Mean Corpuscular Volume 91.9 fL (81-99); Mean Platelet Vol. 11.5 fl (6.2-12.0); Monocyte# 0.28 X10^3/uL; Monocyte% 5.4 % (0-10); NRBC Flagged by Analyzer 0 % (0-5); Neutrophil # 3.22 X10^3/uL (2.7-7.7); Neutrophil % 62.3 % (47-70); Platelet Count 252 K/mm3 (150-450); RBC Distribution Width CV 12.7 % (11.6-14.6); RBC Distribution Width SD 42.7 fl (35.1-43.9); Red Blood Count 4.56 M/mm3 (4.2-5.4); White Blood Count 5.2 K/mm3 (4.4-11.0)
[2020-09-07 16:17] LABS: ALB/GLOB Ratio 1.2 RATIO (0.9-2.4); AST(SGOT) 17 U/L (15-37); Alanine Aminotransfer ALT/SGPT 24 U/L (13-56); Alkaline Phosphatase 44 U/L (45-117); Anion Gap 7 (5-15); BUN 9 mg/dL (7-18); BUN/Creat Ratio 9.5 RATIO (10-20); Calcium,Total 8.8 mg/dL (8.5-10.1); Chloride 104 mmol/L (98-107); Creatinine, Serum 0.95 mg/dL (0.55-1.02); EST Glomerular Filtration Rate 68 mL/min (>60); Est Glom Filt Rate - Afr Amer 83 mL/min (>60); Globulin 3.4 g/dL (2.2-4.2); Glucose 92 mg/dL (74-106); Potassium 3.8 mmol/L (3.5-5.1); Protein, Total 7.4 g/dL (6.4-8.2); Sodium Level 137 mmol/L (136-145)
== END ==
PROVIDERS: PCP Student in an Organized Health Care Education/Training Program; Referring Provider Internal Medicine Rheumatology; Visit Provider Internal Medicine Rheumatology
DX: M06.4 Inflammatory polyarthropathy (principal); M21.40 Flat foot [pes planus] (acquired), unspecified foot; F41.9 Anxiety disorder, unspecified; F32.89 Other specified depressive episodes; G43.909 Migraine, unspecified, not intractable, without status migrainosus
CPT/HCPCS: 36415; 80053; 85025

== ENCOUNTER → 2020-10-18 09:19 | Outpatient (CLI) | payer BC, SELFPAY ==
--- NOTE | 2020-10-18 09:21 | CT_ITS ---
STUDY: LEFT LOWER EXTREMITY CT SCAN REASON FOR EXAM: Female, 44 years old. 5TH METATARSAL FX LEFT FOOT RADIATION DOSAGE (If Supplied By Facility): CTDIvol = ( 15.35 ) mGy, DLP = ( 311.55 ) mGycm. Individualized dose optimization techniques were used for this CT.? TECHNIQUE: Axial multidetector CT scan of the left foot. Coronal and sagittal reformatted images. COMPARISON: None. FINDINGS: Acute minimally displaced fifth metatarsal base fracture (sagittal images 26 through 31 series 601). No acute dislocation. No acute bone destruction. Tiny bone fragment adjacent the fifth metatarsal base (sagittal image 29 01/29/2001). Remainder of the osseous structures intact. No significant joint space narrowing/degenerative features. Ankle mortise maintained. Mild soft tissue swelling. CT/Extremity Lower without Contra IMPRESSION: Acute minimally displaced fifth metatarsal base fracture Mild soft tissue swelling Electronically Signed: Aaron Jose DO at 11:21 EST Tel , Service support ,
== END ==
PROVIDERS: PCP Student in an Organized Health Care Education/Training Program; Referring Provider Registered Nurse; Visit Provider Registered Nurse
DX: S92.352A Displaced fracture of fifth metatarsal bone, left foot, initial encounter for closed fracture (principal)
CPT/HCPCS: 73700

== ENCOUNTER 2020-10-28 05:56 | Day surgery (SDC) | payer BC, SELFPAY ==
--- NOTE | 2020-10-20 15:02 | EKG12_ITS ---
Test Reason : PREO Blood Pressure : / mmHG Vent. Rate : 074 BPM Atrial Rate : 074 BPM P-R Int : 142 ms QRS Dur : 074 ms QT Int : 396 ms P-R-T Axes : 053 002 042 degrees QTc Int : 439 ms Normal sinus rhythm Normal ECG Confirmed by LOLA ROGERS, KYLE ([id number]), development editor DIAMOND ORTEGA ([id number]) on 10/22/2020 11:22:37 AM Referred By: BEVERLY Confirmed By:KYLE DAVILA MD
--- NOTE | 2020-10-20 15:03 | RAD_ITS ---
STUDY: X-RAY CHEST REASON FOR EXAM: Female, 44 years old. Pre-op foot surgery. TECHNIQUE: Frontal and lateral views COMPARISON: 07/20/2011 FINDINGS: The lungs are clear and expanded. There is no demonstrated pleural abnormality. Normal size heart. Normal mediastinum and shanae. Normal visualized pulmonary arteries. Normal visualized aortic arch and descending thoracic aorta. Normal visualized thoracic spine. Normal visualized ribs, clavicles, and shoulders. There is no demonstrated abnormality of the visualized soft tissue structures of the upper abdomen. RAD/Chest PA and Lateral IMPRESSION: Normal x-ray examination of the chest. Electronically Signed: Philip Ball DO at 22:03 EST Tel [phone], Service support ,
[2020-10-20 15:28] LABS: Hematocrit 42.4 % (37-47); Hemoglobin 14.1 g/dL (12.0-15.0); Mean Corp Hgb Conc 33.3 g/dL (32-36); Mean Corpuscular Hgb 30.5 pg (27.0-32.0); Mean Corpuscular Volume 91.6 fL (81-99); Mean Platelet Vol. 11.1 fl (6.2-12.0); Platelet Count 312 K/mm3 (150-450); RBC Distribution Width CV 12.5 % (11.6-14.6); RBC Distribution Width SD 41.4 fl (35.1-43.9); Red Blood Count 4.63 M/mm3 (4.2-5.4); White Blood Count 5.9 K/mm3 (4.4-11.0)
[2020-10-20 15:39] LABS: Prothrombin Time (Protime)PT. 12.3 SECONDS (11.7-14.9)
[2020-10-20 15:40] LABS: Partial Thromboplast Time 25.5 Seconds (24.1-36.2)
[2020-10-20 15:58] LABS: Anion Gap 4 (5-15); BUN 14 mg/dL (7-18); BUN/Creat Ratio 13.2 RATIO (10-20); Calcium,Total 8.6 mg/dL (8.5-10.1); Chloride 106 mmol/L (98-107); Creatinine, Serum 1.06 mg/dL (0.55-1.02); EST Glomerular Filtration Rate 60 mL/min (>60); Est Glom Filt Rate - Afr Amer 72 mL/min (>60); Glucose 84 mg/dL (74-106); Potassium 4.2 mmol/L (3.5-5.1); Sodium Level 138 mmol/L (136-145)
[2020-10-20 16:30] LABS: Hemoglobin A1c 4.9 % (3.8-5.6)
[2020-10-28] VITALS (7 sets, daily range): BP systolic 93–127; BP diastolic 50–71; PULSE 77–90; RESP 16–18; TEMP 36.3–36.6; O2SAT 93–98; BMI 27.6
[2020-10-28] MEDS: Lactated Ringers 1,000 ML 100 ML IV (06:45)
[2020-10-28] MEDS: Cefazolin 2 GM in 0.9% Normal Saline 100 ML IV (07:28)
--- NOTE | 2020-10-28 07:48 | RAD_ITS ---
STUDY: X-RAY - LEFT FOOT CLINICAL: Female, 44 years old. ORIF LEFT 5TH MT TECHNIQUE: 8 intraoperative view(s) of the foot. COMPARISON: None. FINDINGS: Intraoperative imaging provided for screw fixation of the fracture at the base of the fifth metatarsal. RAD/Foot min 3 Views IMPRESSION: Intraoperative imaging provided for screw fixation of the fracture at the base of the fifth metatarsal. There is good alignment. Electronically Signed: Bruno Franco, at 10:40 EST , Service support ,
--- NOTE | 2020-10-28 08:38 | DCINST_ITS ---
Discharge Diet: Light diet - advance as tolerated Discharge Activity: May Not Drive, May Not Shower, Use Walker, Use Crutches Weight Bearing Status: No weight bearing Keep extremity elevated above heart level: Left Leg Additional Activity Instructions:: 1. Keep dressing to left leg clean, dry, intact. Do not get dressing wet. If get dressing wet, call office for further instruction. I recommend sponge bathing at this time. 2. Ice around left knee 30 minutes every hour as needed for pain. 3. Elevate left foot above level of heart as often as possible until further instructed. 4. No walking/standing/placing any pressure or weight on left foot. Use crutches/walker/knee scooter for assistance. 5. Begin taking doxycycline (antibiotic) tomorrow, October 29, 2020 twice a day as instructed. 6. Resume aspirin 81 mg twice a day tomorrow, October 29, 2020. 7. Begin taking Percocet (pain medication) today, October 28, 2020 as needed and as instructed on bottle. 8. Follow-up with Dr. Soto in 1 week as previously scheduled. Call your doctor if your incision/area has: Continuous Slow Oozing, Sudden Increased Bleeding, Increased Pain/ Swelling Call your doctor if you observe: Fever of 101 or Higher, Coldness, Increased Pain, Inability to have a bowel movement, Shortness of breath, Chest pain, Increased palpitations (irregular heartbeat), Calf discomfort, Uncontrolled pain Cleanse incision/area with: Keep Dressing Clean & Dry Allergies/Adverse Reactions: Allergies No Known Allergies Allergy (Verified 10/22/20 14:14) Medications to take at Discharge Aspirin/Acetaminophen/Caffeine [Excedrin Migraine Caplet] 1 ea PO PRN PRN 10/22/20 Hydroxychloroquine Sulfate [Plaquenil] 200 mg PO BID 10/22/20 Omeprazole Magnesium [Prilosec Otc] 20 mg PO PRN PRN 10/22/20 Sertraline HCl [Zoloft] 100 mg PO DAILY 10/22/20 Spironolactone [Aldactone] 50 mg PO DAILY 10/22/20 Primary Care Physician: Kin Muñoz DO [Primary Care Provider] - Test Results: Test results from this visit will be discussed in further detail at your follow- up appointment, if applicable. Please Follow Up With: Dane Soto DPM When: in 1 week in [place] Office as previously scheduled Proposed Discharge Date: 10/28/20
--- NOTE | 2020-10-28 08:41 | OP.PCM_ITS ---
Problem List (1) Fracture of fifth metatarsal bone of left foot Status: Acute Qualifiers: Encounter type: initial encounter Fracture type: closed Fracture alignment: displaced Qualified Code(s): S92.352A - Displaced fracture of fifth metatarsal bone, left foot, initial encounter for closed fracture Report of Operation Date of Procedure: 10/28/20 Pre-Operative Diagnosis: 1. Left foot fifth metatarsal fracture, closed, displaced Post-Operative Diagnosis: 1. Left foot fifth metatarsal fracture, closed, displaced Surgery/Procedure Performed:: 1. Open reduction with internal fixation of left foot fifth metatarsal fracture. Description of Surgical Findings:: Consistent with diagnosis. Reduction of deformity achieved and held with internal fixation. marine structural designer: Judith Castro NP Type of Anesthesia:: General/Regional - With a popliteal block given to the left lower extremity preoperatively Anesthesiologist: Aaron Burnett Special Medications: 2 g of Ancef given preoperatively for antibiotic prophylaxis Specimen's removed: None Drains: None Estimated Blood Loss (mL): 5 Description of Procedure: Hemostasis: Anatomic dissection Estimated blood loss: 5 mL Materials: #1. Arthrex 4.5 x 40 mm partially-threaded screw. 2. Size 3-0 Vicryl. 3. Size 3-0 nylon. Injectables: None Complications: None Condition: Stable Indications: Patient is a 44-year-old female who suffered a left foot injury on October 15, 2020. She was at home and fell off a step. She rolled her left foot and ankle. Patient had pain in the area of the base of the fifth metatarsal after the injury, and was unable to bear weight due to the pain. After the injury, she presented to an urgent care center where x-rays were taken. She was told that she had a fifth metatarsal fracture. She was placed in a pneumatic cam boot and was instructed to remain nonweightbearing with follow-up. A CT scan was performed on 10/18/2020. Patient initially saw Judith Casrto, nurse practitioner, and October 19, 2020 for initial exam. Patient was placed in a below the knee cast at this time, and was sent to me for further evaluation. I initially saw the patient on Sunday, October 25, 2020. I discussed with her the x-rays and the CT scan finding revealing a fifth metatarsal avulsion fracture that was displaced in nature. I discussed these terms in detail along with the nature of her condition. I discussed conservative therapy with her, including continued nonweightbearing and a below the knee cast for a period of up to 3 months. I discussed surgical intervention with her, including an open reduction with internal fixation of the fifth metatarsal fracture. I discussed the risks and benefits of both conservative and surgical intervention. Risks of surgical intervention include but not limited to delayed or nonhealing wounds, delayed or nonhealing bone, DVT, infection, decreased function of limb, continued pain, damage to surrounding structures, loss of limb, loss of life. Furthermore, patient does have a family history of malignant hyperthermia due to anesthesia, and I discussed with her that she is at an increased risk for postoperative complications and intraoperative complications due to this. Furthermore, she is diagnosed with rheumatoid arthritis, which does increase her postoperative complications as well. Patient displayed verbal understanding to this. Due to the fracture that was present and the lifestyle that she leads, I recommended surgical interventi on. Patient displayed verbal understanding, and was willing to accept the risks of surgical intervention and agreed to proceed with surgical intervention at that time. Consent was then signed by the patient. Medical clearance was obtained from the patient's banquet steward. Surgery was planned for today, October 28, 2020. Operative report: Before the patient was brought to the operating room, the risks, benefits, possible outcomes, possible complications of the procedure were discussed with the patient once again. These include but not limited to delayed or nonhealing wounds, delayed or nonhealing bone, DVT, infection, decreased function of limb, continued pain, damage to surrounding structures, loss of limb, loss of life. Furthermore, patient does have a family history of malignant hyperthermia due to anesthesia, and I discussed with her that she is at an increased risk for postoperative complications and intraoperative complications due to this. Furthermore, she is diagnosed with rheumatoid arthritis, which does increase her her postoperative complications as well. Patient displayed verbal understanding to this, was willing to accept the risks and agreed to proceed with surgical intervention. Before the patient was brought to the operating room, the anesthesiologist administered a popliteal block to the left lower extremity. Patient was then brought to the operating room and placed on the operating table in supine position. After a timeout, once general anesthesia was obtained and anesthesia took control the airway and the IV access, 2 g of Ancef was given preoperatively. A well-padded pneumatic calf tourniquet was placed the level of the left calf. The plan was not to inflate this unless it was needed. At this time, the left foot, ankle, leg were then scrubbed, prepped, draped in the usual sterile manner. At this time, radiograph evaluation was used to identify the base of the fifth metatarsal fracture, styloid process, tarsometatarsal joint, and midshaft of the fifth metatarsal. These were all marked on the patient. Next, a K wire for the intramedullary screw was placed posterior to the base of the fifth metatarsal aiming at the fifth metatarsal into the medullary canal. Multiple radiographic views were used to make sure that this K wire was well contained within the medullary canal. The K wire was used to help reduce the fifth metatarsal fracture and hold the fifth metatarsal in the correct the reduced position. Once this K wire had adequate placement, a transverse incision parallel to the plantar foot was made at the level of the K wire and skin junction. This incision was approximately 1 cm in length. This incision was deepened utilizing sharp and blunt dissection to the level of the base of the fifth metatarsal. At this time, the fifth metatarsal was drilled and tapped in standard fashion. A second K wire was used for temporary fixation while the initial K wire was removed. At this time, the Arthrex 4.5 x 40 mm partially-threaded screw was placed through the base of the fifth metatarsal into the medullary canal in standard fashion. Of note during insertion of the screw was the adequate compression of the base of the fifth metatarsal fracture. Furthermore, no shifting of the fracture occurred during insertion of the screw. Once the screw was fully inserted, all temporary fixation was then removed. Radiograph evaluation was then performed. The base of the fifth metatarsal fracture was noted to be reduced when compared to preoperative assessment. The screw was noted to be well contained within the medullary canal and was not penetrating any of the cortices. Overall, reduction was achieved. The surgical site was then irrigated with copious amounts of normal sterile saline. The subcutaneous tissues were then reapproximated and coapted utilizing size 3-0 Vicryl. The skin was reapproximated coapted utilizing size 3-0 nylon in a simple interrupted and horizontal mattress fashion. Neurovascular status was assessed at the end of the procedure and deemed intact to the left lower extremity. The surgical site was then dressed with Betadine soaked gauze, and a dry sterile dressing setting of 4 x 4 gauze, ABD pads, wrapped with Kerlix. The left foot and ankle were then wrapped with an Jamel bandage. Next, a stockinette was placed over the left lower extremity. Cast padding was wrapped from the metatarsal heads extending proximally to the level just distal to the tibial tuberosity. A posterior splint was fashioned to the left lower extremity and was adhered to the left lower extremity utilizing Jamel bandages. Neurovascular status was assessed at the end of the application and deemed intact to left lower extremity. The patient tolerated the anesthesia and the procedure well and was transported to the PACU with vital signs stable and neurovascular status intact to left lower extremity. After period of postoperative monitoring, patient will be discharged home with written and oral instructions for wound care and follow-up. The surgical device sales representative, the nurse practitioner, was utilized at the entire procedure. She helped with patient positioning, holding of limb, holding of retractors. She helped with exposure throughout. She helped with bandage application, and cast application. Without the surgical device sales representative, surgical time would have been increased and surgical outcome could have been less optimal. - Complications None - Admit VTE Documentation VTE Present on Admission: No - Aspirin 81 mg twice a day will be resumed postoperatively for DVT prophylax VTE Mechan Device Prophylaxis: SCD's VTE Pharm Prophylaxis ordered?: Yes
--- NOTE | 2020-10-28 09:00 | RAD_ITS ---
STUDY: X-RAY - LEFT FOOT CLINICAL: Female, 44 years old. POST OP TECHNIQUE: 3 view(s) of the foot. COMPARISON: None. FINDINGS: Normal talus, calcaneus, and tarsal bones. Normal visualized subtalar, talonavicular, calcaneocuboid, tarsal and tarsometatarsal articulations. Status post screw fixation of the transverse fracture at the base of the fifth metatarsal. There is good alignment. Normal metatarsophalangeal joint of the great toe. Normal tibial and fibular sesamoid bones. Normal interphalangeal joint of the great toe. Normal phalanges of the great toe. Normal second through fifth metatarsophalangeal joints. Normal interphalangeal joints and phalanges of the lesser toes. Postoperative soft tissue changes. RAD/Foot min 3 Views IMPRESSION: Status post screw fixation of the transverse fracture at the base of the fifth metatarsal. There is good alignment. Postoperative soft tissue changes. Electronically Signed: Bruno Franco, at 10:38 EST , Service support ,
[2020-10-28] MEDS: HYDROcodone Bitartrate/Apap 5/325 Tablet PO (10:18)
== END 2020-10-28 10:56 | disposition home or self-care (01) ==
LOC: SDC 05:56 → AC 05:57
PROVIDERS: PCP Student in an Organized Health Care Education/Training Program; Visit Provider Podiatrist Foot & Ankle Surgery
PROC: (CPT 28485; principal; 2020-10-28 07:15)
DX: S92.352A Displaced fracture of fifth metatarsal bone, left foot, initial encounter for closed fracture (principal); W10.9XXA Fall (on) (from) unspecified stairs and steps, initial encounter; Y93.9 Activity, unspecified; Y92.9 Unspecified place or not applicable; Y99.9 Unspecified external cause status; Z20.828 Contact with and (suspected) exposure to other viral communicable diseases; M06.9 Rheumatoid arthritis, unspecified; Z79.899 Other long term (current) drug therapy; K21.9 Gastro-esophageal reflux disease without esophagitis
CPT/HCPCS: 01480; 28485; 36415; 71046; 73630; 76000; 80048; 83036; 85027; 85610; 85730; 87426; 93005; C1713; C9803; J7120; A4216; J2405

== ENCOUNTER → 2021-03-04 13:17 | Outpatient (CLI) | payer BC, SELFPAY ==
[2020-10-28 06:24] VITALS: BMI 27.6
[2021-03-04 15:21] LABS: Absolute Lymphocyte Count 1.82 X10^3/uL (0.83-4.51); Absolute Neutrophil Count 2.8 X10^3/uL (2.0-7.7); Basophil# 0.05 X10^3/uL; Eosinophil# 0.14 X10^3/uL; Eosinophils% 2.7 % (0-5); Hemoglobin 13.6 g/dL (12.0-15.0); Lymphocyte # 1.82 X10^3/ul (4.0); Lymphocyte % 35.4 % (19-41); Mean Corpuscular Hgb 30.4 pg (27.0-32.0); Mean Corpuscular Volume 89.3 fL (81-99); Mean Platelet Vol. 11.6 fl (6.2-12.0); Monocyte# 0.31 X10^3/uL; NRBC Flagged by Analyzer 0 % (0-5); Neutrophil # 2.81 X10^3/uL (2.7-7.7); Neutrophil % 54.7 % (47-70); Platelet Count 232 K/mm3 (150-450); RBC Distribution Width CV 12.6 % (11.6-14.6); Red Blood Count 4.48 M/mm3 (4.2-5.4); White Blood Count 5.1 K/mm3 (4.4-11.0)
[2021-03-04 15:50] LABS: ALB/GLOB Ratio 1.2 RATIO (0.9-2.4); AST(SGOT) 21 U/L (15-37); Alanine Aminotransfer ALT/SGPT 25 U/L (13-56); Alkaline Phosphatase 50 U/L (45-117); Anion Gap 4 (5-15); BUN 12 mg/dL (7-18); BUN/Creat Ratio 11.8 RATIO (10-20); Calcium,Total 8.8 mg/dL (8.5-10.1); Chloride 104 mmol/L (98-107); Creatinine, Serum 1.02 mg/dL (0.55-1.02); EST Glomerular Filtration Rate 63 mL/min (>60); Est Glom Filt Rate - Afr Amer 76 mL/min (>60); Globulin 3.4 g/dL (2.2-4.2); Glucose 72 mg/dL (74-106); Potassium 3.9 mmol/L (3.5-5.1); Protein, Total 7.4 g/dL (6.4-8.2); Sodium Level 137 mmol/L (136-145)
== END ==
PROVIDERS: PCP Student in an Organized Health Care Education/Training Program; Referring Provider Internal Medicine Rheumatology; Visit Provider Internal Medicine Rheumatology
DX: M06.4 Inflammatory polyarthropathy (principal); M21.40 Flat foot [pes planus] (acquired), unspecified foot; F41.9 Anxiety disorder, unspecified; F32.89 Other specified depressive episodes; G43.909 Migraine, unspecified, not intractable, without status migrainosus
CPT/HCPCS: 36415; 80053; 85025

== ENCOUNTER → 2021-09-01 15:49 | Outpatient (CLI) | payer BC, SELFPAY ==
[2021-09-01 18:03] LABS: Absolute Lymphocyte Count 2.06 X10^3/uL (0.83-4.51); Absolute Neutrophil Count 4.5 X10^3/uL (2.0-7.7); Basophil# 0.06 X10^3/uL; Basophil% 0.8 % (0-1); Eosinophil# 0.06 X10^3/uL; Eosinophils% 0.8 % (0-5); Hematocrit 40.5 % (37-47); Hemoglobin 13.4 g/dL (12.0-15.0); Lymphocyte # 2.06 X10^3/ul (0.83-4.51); Lymphocyte % 28.9 % (19-41); Mean Corp Hgb Conc 33.1 g/dL (32-36); Mean Corpuscular Hgb 29.4 pg (27.0-32.0); Mean Corpuscular Volume 88.8 fL (81-99); Mean Platelet Vol. 10.8 fl (6.2-12.0); Monocyte# 0.46 X10^3/uL; Monocyte% 6.5 % (0-10); NRBC Flagged by Analyzer 0 % (0-5); Neutrophil # 4.46 X10^3/uL (2.7-7.7); Neutrophil % 62.7 % (47-70); Platelet Count 380 K/mm3 (150-450); RBC Distribution Width CV 12.5 % (11.6-14.6); RBC Distribution Width SD 40.6 fl (35.1-43.9); Red Blood Count 4.56 M/mm3 (4.2-5.4); White Blood Count 7.1 K/mm3 (4.4-11.0)
[2021-09-01 18:22] LABS: AST(SGOT) 18 U/L (15-37); Alanine Aminotransfer ALT/SGPT 24 U/L (13-56); Albumin, Serum 3.9 g/dL (3.2-5.0); Alkaline Phosphatase 52 U/L (45-117); Anion Gap 8 (5-15); BUN 12 mg/dL (7-18); BUN/Creat Ratio 12.7 RATIO (10-20); Chloride 103 mmol/L (98-107); Creatinine, Serum 0.94 mg/dL (0.55-1.02); EST Glomerular Filtration Rate 68 mL/min (>60); Est Glom Filt Rate - Afr Amer 82 mL/min (>60); Globulin 3.9 g/dL (2.2-4.2); Glucose 82 mg/dL (74-106); Protein, Total 7.8 g/dL (6.4-8.2); Sodium Level 137 mmol/L (136-145)
== END ==
PROVIDERS: PCP Student in an Organized Health Care Education/Training Program; Referring Provider Internal Medicine Rheumatology; Visit Provider Internal Medicine Rheumatology
DX: M06.4 Inflammatory polyarthropathy (principal); M21.40 Flat foot [pes planus] (acquired), unspecified foot; F41.9 Anxiety disorder, unspecified; F32.89 Other specified depressive episodes; G43.909 Migraine, unspecified, not intractable, without status migrainosus
CPT/HCPCS: 36415; 80053; 85025

== ENCOUNTER 2022-02-16 10:23 | Outpatient (CLI) | payer BC, SELFPAY ==
[2022-02-22 11:09] LABS: HSV 1 By PCR Negative (Negative)
[2022-02-22 13:58] LABS: HSV 2 By PCR Negative (Negative)
== END 2022-02-16 23:59 | disposition home or self-care (01) ==
LOC: LABSPEC 10:26
PROVIDERS: PCP Student in an Organized Health Care Education/Training Program; Visit Provider Dermatology
DX: L08.9 Local infection of the skin and subcutaneous tissue, unspecified (principal)
CPT/HCPCS: 87070; 87077; 87186; 87205; 87529

== ENCOUNTER 2022-03-02 12:42 | Outpatient (CLI) | payer BC, SELFPAY ==
[2022-03-02 15:15] LABS: Absolute Lymphocyte Count 1.99 X10^3/uL (0.83-4.51); Basophil# 0.06 X10^3/uL; Basophil% 0.8 % (0-1); Eosinophil# 0.11 X10^3/uL; Eosinophils% 1.4 % (0-5); Hematocrit 39.6 % (37-47); Hemoglobin 13.8 g/dL (12.0-15.0); Lymphocyte # 1.99 X10^3/ul (0.83-4.51); Mean Corp Hgb Conc 34.8 g/dL (32-36); Mean Corpuscular Hgb 29.4 pg (27.0-32.0); Mean Corpuscular Volume 84.3 fL (81-99); Mean Platelet Vol. 11.3 fl (6.2-12.0); Monocyte# 0.48 X10^3/uL; Monocyte% 6.3 % (0-10); NRBC Flagged by Analyzer 0 % (0-5); Neutrophil % 65.4 % (47-70); Platelet Count 305 K/mm3 (150-450); RBC Distribution Width CV 13.2 % (11.6-14.6); RBC Distribution Width SD 40.9 fl (35.1-43.9); White Blood Count 7.7 K/mm3 (4.4-11.0)
[2022-03-02 15:36] LABS: ALB/GLOB Ratio 1.2 RATIO (0.9-2.4); AST(SGOT) 23 U/L (15-37); Alanine Aminotransfer ALT/SGPT 28 U/L (13-56); Albumin, Serum 4.1 g/dL (3.2-5.0); Alkaline Phosphatase 54 U/L (45-117); Anion Gap 6 (5-15); BUN 13 mg/dL (7-18); Calcium,Total 8.8 mg/dL (8.5-10.1); Chloride 106 mmol/L (98-107); Creatinine, Serum 0.93 mg/dL (0.55-1.02); EST Glomerular Filtration Rate 69 mL/min (>60); Est Glom Filt Rate - Afr Amer 84 mL/min (>60); Globulin 3.3 g/dL (2.2-4.2); Glucose 93 mg/dL (74-106); Potassium 3.9 mmol/L (3.5-5.1); Protein, Total 7.4 g/dL (6.4-8.2); Sodium Level 137 mmol/L (136-145)
== END 2022-03-02 23:59 | disposition home or self-care (01) ==
LOC: MTLAB 12:44
PROVIDERS: PCP Student in an Organized Health Care Education/Training Program; Referring Provider Internal Medicine Rheumatology; Visit Provider Internal Medicine Rheumatology
DX: M06.4 Inflammatory polyarthropathy (principal); M21.40 Flat foot [pes planus] (acquired), unspecified foot; F41.9 Anxiety disorder, unspecified; F32.89 Other specified depressive episodes; G43.909 Migraine, unspecified, not intractable, without status migrainosus
CPT/HCPCS: 36415; 80053; 85025

== ENCOUNTER → 2022-08-23 | Outpatient (CLI) | payer BC, SELFPAY ==
[2022-08-23 15:23] LABS: Absolute Lymphocyte Count 1.47 X10^3/uL (0.83-4.51); Absolute Neutrophil Count 3.4 X10^3/uL (2.0-7.7); Basophil# 0.02 X10^3/uL; Basophil% 0.4 % (0-1); Eosinophil# 0.04 X10^3/uL; Eosinophils% 0.8 % (0-5); Hematocrit 37.3 % (37-47); Hemoglobin 12.4 g/dL (12.0-15.0); Lymphocyte # 1.47 X10^3/ul (0.83-4.51); Lymphocyte % 27.7 % (19-41); Mean Corp Hgb Conc 33.2 g/dL (32-36); Mean Corpuscular Hgb 29.5 pg (27.0-32.0); Mean Corpuscular Volume 88.8 fL (81-99); Mean Platelet Vol. 11.4 fl (6.2-12.0); Monocyte# 0.36 X10^3/uL; Monocyte% 6.8 % (0-10); NRBC Flagged by Analyzer 0 % (0-5); Neutrophil # 3.41 X10^3/uL (2.7-7.7); Neutrophil % 64.1 % (47-70); Platelet Count 271 K/mm3 (150-450); RBC Distribution Width CV 12.2 % (11.6-14.6); RBC Distribution Width SD 39.4 fl (35.1-43.9); White Blood Count 5.3 K/mm3 (4.4-11.0)
[2022-08-23 15:41] LABS: ALB/GLOB Ratio 1.2 RATIO (0.9-2.4); AST(SGOT) 14 U/L (15-37); Alanine Aminotransfer ALT/SGPT 22 U/L (13-56); Albumin, Serum 3.8 g/dL (3.2-5.0); Alkaline Phosphatase 41 U/L (45-117); Anion Gap 6 (5-15); BUN 10 mg/dL (7-18); Calcium,Total 8.5 mg/dL (8.5-10.1); Chloride 107 mmol/L (98-107); Creatinine, Serum 0.91 mg/dL (0.55-1.02); EST Glomerular Filtration Rate 71 mL/min (>60); Est Glom Filt Rate - Afr Amer 86 mL/min (>60); Globulin 3.2 g/dL (2.2-4.2); Glucose 82 mg/dL (74-106); Potassium 3.9 mmol/L (3.5-5.1); Sodium Level 140 mmol/L (136-145)
== END | disposition home or self-care (01) ==
LOC: MTLAB 13:11
PROVIDERS: PCP Student in an Organized Health Care Education/Training Program; Referring Provider Internal Medicine Rheumatology; Visit Provider Internal Medicine Rheumatology
DX: M06.4 Inflammatory polyarthropathy (principal)
CPT/HCPCS: 36415; 80053; 85025

== ENCOUNTER → 2023-02-14 | Outpatient (CLI) | payer BC, SELFPAY ==
[2023-02-14 15:43] LABS: Absolute Lymphocyte Count 1.66 X10^3/uL (0.83-4.51); Absolute Neutrophil Count 2.8 X10^3/uL (2.0-7.7); Basophil# 0.05 X10^3/uL; Eosinophil# 0.07 X10^3/uL; Eosinophils% 1.4 % (0-5); Hematocrit 35.9 % (37-47); Hemoglobin 11.5 g/dL (12.0-15.0); Lymphocyte # 1.66 X10^3/ul (0.83-4.51); Mean Corpuscular Hgb 27.8 pg (27.0-32.0); Mean Corpuscular Volume 86.7 fL (81-99); Mean Platelet Vol. 11.4 fl (6.2-12.0); Monocyte# 0.34 X10^3/uL; NRBC Flagged by Analyzer 0 % (0-5); Neutrophil # 2.75 X10^3/uL (2.7-7.7); Neutrophil % 56.4 % (47-70); Platelet Count 255 K/mm3 (150-450); RBC Distribution Width CV 14.3 % (11.6-14.6); RBC Distribution Width SD 45.1 fl (35.1-43.9); Red Blood Count 4.14 M/mm3 (4.2-5.4); White Blood Count 4.9 K/mm3 (4.4-11.0)
[2023-02-14 16:21] LABS: ALB/GLOB Ratio 1.1 RATIO (0.9-2.4); AST(SGOT) 22 U/L (15-37); Alanine Aminotransfer ALT/SGPT 26 U/L (13-56); Albumin, Serum 3.6 g/dL (3.2-5.0); Alkaline Phosphatase 46 U/L (45-117); Anion Gap 5 (5-15); BUN 12 mg/dL (7-18); Calcium,Total 8.7 mg/dL (8.5-10.1); Chloride 107 mmol/L (98-107); Creatinine, Serum 0.86 mg/dL (0.55-1.02); EST Glomerular Filtration Rate 76 mL/min (>60); Est Glom Filt Rate - Afr Amer 92 mL/min (>60); Globulin 3.2 g/dL (2.2-4.2); Glucose 117 mg/dL (74-106); Potassium 4.1 mmol/L (3.5-5.1); Protein, Total 6.8 g/dL (6.4-8.2); Sodium Level 140 mmol/L (136-145)
== END | disposition home or self-care (01) ==
LOC: MTLAB 13:19
PROVIDERS: PCP Student in an Organized Health Care Education/Training Program; Visit Provider Internal Medicine Rheumatology
DX: M06.4 Inflammatory polyarthropathy (principal)
CPT/HCPCS: 36415; 80053; 85025

== ENCOUNTER → 2023-08-27 | Outpatient (CLI) | payer BC, SELFPAY ==
[2023-08-27 15:19] LABS: Absolute Lymphocyte Count 2.13 X10^3/uL (0.83-4.51); Absolute Neutrophil Count 4.4 X10^3/uL (2.0-7.7); Basophil# 0.05 X10^3/uL; Basophil% 0.7 % (0-1); Eosinophil# 0.11 X10^3/uL; Eosinophils% 1.5 % (0-5); Hemoglobin 13.4 g/dL (12.0-15.0); Lymphocyte # 2.13 X10^3/ul (0.83-4.51); Lymphocyte % 29.6 % (19-41); Mean Corp Hgb Conc 33.5 g/dL (32-36); Mean Corpuscular Hgb 29.6 pg (27.0-32.0); Mean Corpuscular Volume 88.5 fL (81-99); Mean Platelet Vol. 11.8 fl (6.2-12.0); Monocyte# 0.45 X10^3/uL; Monocyte% 6.3 % (0-10); NRBC Flagged by Analyzer 0 % (0-5); Neutrophil # 4.43 X10^3/uL (2.7-7.7); Neutrophil % 61.6 % (47-70); Platelet Count 265 K/mm3 (150-450); RBC Distribution Width CV 12.4 % (11.6-14.6); RBC Distribution Width SD 40.5 fl (35.1-43.9); Red Blood Count 4.52 M/mm3 (4.2-5.4); White Blood Count 7.2 K/mm3 (4.4-11.0)
[2023-08-27 16:04] LABS: ALB/GLOB Ratio 1.1 RATIO (0.9-2.4); AST(SGOT) 24 U/L (15-37); Alanine Aminotransfer ALT/SGPT 35 U/L (13-56); Albumin, Serum 3.7 g/dL (3.2-5.0); Alkaline Phosphatase 50 U/L (45-117); Anion Gap 6 (5-15); BUN 13 mg/dL (7-18); BUN/Creat Ratio 14.3 RATIO (10-20); Calcium,Total 8.7 mg/dL (8.5-10.1); Chloride 108 mmol/L (98-107); Creatinine, Serum 0.91 mg/dL (0.55-1.02); EST Glomerular Filtration Rate 70 mL/min (>60); Est Glom Filt Rate - Afr Amer 85 mL/min (>60); Globulin 3.4 g/dL (2.2-4.2); Glucose 81 mg/dL (74-106); Potassium 4.1 mmol/L (3.5-5.1); Protein, Total 7.1 g/dL (6.4-8.2); Sodium Level 141 mmol/L (136-145)
== END | disposition home or self-care (01) ==
PROVIDERS: PCP Student in an Organized Health Care Education/Training Program; Referring Provider Internal Medicine Rheumatology; Visit Provider Internal Medicine Rheumatology
DX: M06.4 Inflammatory polyarthropathy (principal); M21.40 Flat foot [pes planus] (acquired), unspecified foot
CPT/HCPCS: 36415; 80053; 85025

== ENCOUNTER → 2024-12-09 | Outpatient (CLI) | payer BC, SELFPAY ==
[2024-12-09 17:48] LABS: Absolute Lymphocyte Count 1.66 X10^3/uL (0.83-4.51); Absolute Neutrophil Count 2.6 X10^3/uL (2.0-7.7); Basophil# 0.04 X10^3/uL; Basophil% 0.8 % (0-1); Eosinophil# 0.09 X10^3/uL; Eosinophils% 1.8 % (0-5); Hematocrit 32.7 % (37-47); Hemoglobin 10.3 g/dL (12.0-15.0); Lymphocyte # 1.66 X10^3/ul (0.83-4.51); Mean Corp Hgb Conc 31.5 g/dL (32-36); Mean Corpuscular Hgb 25.7 pg (27.0-32.0); Mean Corpuscular Volume 81.5 fL (81-99); Mean Platelet Vol. 10.8 fl (6.2-12.0); Monocyte# 0.52 X10^3/uL; Monocyte% 10.7 % (0-10); NRBC Flagged by Analyzer 0 % (0-5); Neutrophil # 2.56 X10^3/uL (2.7-7.7); Neutrophil % 52.5 % (47-70); Platelet Count 282 K/mm3 (150-450); RBC Distribution Width CV 14.6 % (11.6-14.6); RBC Distribution Width SD 42.8 fl (35.1-43.9); Red Blood Count 4.01 M/mm3 (4.2-5.4); White Blood Count 4.9 K/mm3 (4.4-11.0)
[2024-12-09 19:10] LABS: ALB/GLOB Ratio 1.3 RATIO (0.9-2.4); AST(SGOT) 17 U/L (15-37); Alanine Aminotransfer ALT/SGPT 18 U/L (13-56); Albumin, Serum 3.9 g/dL (3.2-5.0); Alkaline Phosphatase 43 U/L (45-117); Anion Gap 2 (5-15); BUN 14 mg/dL (7-18); BUN/Creat Ratio 16.3 RATIO (10-20); Calcium,Total 8.9 mg/dL (8.5-10.1); Chloride 108 mmol/L (98-107); Creatinine, Serum 0.86 mg/dL (0.55-1.02); EST Glomerular Filtration Rate 75 mL/min (>60); Est Glom Filt Rate - Afr Amer 91 mL/min (>60); Globulin 3.1 g/dL (2.2-4.2); Glucose 89 mg/dL (74-106); Sodium Level 138 mmol/L (136-145)
== END | disposition home or self-care (01) ==
LOC: MTLAB 15:22
PROVIDERS: PCP Student in an Organized Health Care Education/Training Program; Referring Provider Internal Medicine Rheumatology; Visit Provider Internal Medicine Rheumatology
DX: M06.4 Inflammatory polyarthropathy (principal); M21.40 Flat foot [pes planus] (acquired), unspecified foot
CPT/HCPCS: 36415; 80053; 85025

== ENCOUNTER → 2025-05-25 | Outpatient (CLI) | payer BC, SELFPAY ==
[2025-05-25 15:08] LABS: Absolute Lymphocyte Count 1.64 X10^3/uL (0.83-4.51); Absolute Neutrophil Count 2.8 X10^3/uL (2.0-7.7); Basophil# 0.06 X10^3/uL; Basophil% 1.2 % (0-1); Eosinophil# 0.13 X10^3/uL; Eosinophils% 2.7 % (0-5); Hematocrit 36.5 % (37-47); Hemoglobin 11.5 g/dL (12.0-15.0); Lymphocyte # 1.64 X10^3/ul (0.83-4.51); Lymphocyte % 33.5 % (19-41); Mean Corp Hgb Conc 31.5 g/dL (32-36); Mean Corpuscular Hgb 24.4 pg (27.0-32.0); Mean Corpuscular Volume 77.5 fL (81-99); Mean Platelet Vol. 10.6 fl (6.2-12.0); Monocyte# 0.28 X10^3/uL; Monocyte% 5.7 % (0-10); NRBC Flagged by Analyzer 0 % (0-5); Neutrophil # 2.79 X10^3/uL (2.7-7.7); Neutrophil % 56.9 % (47-70); Platelet Count 384 K/mm3 (150-450); RBC Distribution Width CV 15.2 % (11.6-14.6); RBC Distribution Width SD 41.6 fl (35.1-43.9); Red Blood Count 4.71 M/mm3 (4.2-5.4); White Blood Count 4.9 K/mm3 (4.4-11.0)
[2025-05-25 15:41] LABS: ALB/GLOB Ratio 1.6 RATIO (0.9-2.4); AST(SGOT) 23 U/L (<=31); Alanine Aminotransfer ALT/SGPT 12 U/L (<=34); Albumin, Serum 4.5 g/dL (3.5-5.0); Alkaline Phosphatase 63 U/L (35-104); Anion Gap 13 (5-15); BUN 12 mg/dL (4-19); BUN/Creat Ratio 11.6 RATIO (10-20); Calcium,Total 9.7 mg/dL (7.6-11.0); Carbon Dioxide 23.7 mmol/L (21.0-32.0); Chloride 104 mmol/L (98-108); EST Glomerular Filtration Rate 70 (>60); Globulin 2.9 g/dL (2.2-4.2); Glucose 82 mg/dL (70-99); Potassium 4.4 mmol/L (3.3-5.1); Protein, Total 7.4 g/dL (5.9-8.4); Sodium Level 141 mmol/L (133-145); Total Bilirubin 0.37 mg/dL (0.00-1.30)
--- OUTSIDE RECORDS SUMMARY | 2025-05-25 23:33 | XMS RPT_ITS | CCD ---
Author Organization [facility] Care Team Providers Care Poultry Pathologist Name Role Phone Kin Muñoz DO Primary Care Provider Kin Muñoz Primary Care Unavailable Nel Monique Referring Unavailable Nel Monique Attending Unavailable Kin Muñoz DO Primary Care Provider Rosario NURSING HOME ASSISTANT.Muna STORY Unavailable Mary NURSING HOME ASSISTANT.Clara STORY Unavailable Rosario NURSING HOME ASSISTANT.Muna STORY Unavailable Sujit NURSING HOME ASSISTANT.Deedee STORY Unavailable KIN MUÑOZ Referring Unavailable KIN MUÑOZ Primary Care Unavailable KIN MUÑOZ Attending Unavailable KIN MUÑOZ Primary Care Unavailable KIN MUÑOZ Primary Care Unavailable JOHN DURON Referring Unavailable JOHN DURON Attending Unavailable CLARA HERNANDEZ Attending Unavailable KIN MUÑOZ Primary Care Unavailable KIN MUÑOZ Primary Care Unavailable KIN MUÑOZ Referring Unavailable TRES CAMPBELL Attending Unavailable KIN MUÑOZ Primary Care Unavailable Medications Current Medications Medication Drug Class(es) Dates Sig (Normalized) Sig (Original) acetaminophen 250 mg / aspirin 250 mg / caffeine 65 mg oral tablet (3 sources) Platelet Aggregation Inhibitor, Nonsteroidal Anti-inflammatory Drug, Central Nervous System Stimulant, Methylxanthine Start: 10-22-2020 Aspirin-Acetamin ophen-Caffeine Active 1 EACH PO NEEDED October 22, 2020 3:36pm [id number] 200 actuat albuterol 0.09 mg/actuat metered dose inhaler (20 sources) beta2-Adrenergic Agonist Start: 08-13-2021 take 2 puff(s) by inhalation every four hours as needed albuterol HFA (PROAIR HFA) 90 mcg/actuation inhaler Inhale 2 Puffs as instructed every 4 hours as needed. 18 g 08/13/2021 Active Start: 01-01-2021 End: 08-13-2021 take 2 puff(s) by inhalation every six hours as needed albuterol HFA (PROAIR HFA) 90 mcg/actuation inhaler Inhale 2 Puffs as instructed every 6 hours as needed. 8 g 01/01/2021 08/13/2021 Discontinued (Course of therapy completed) Start: 03-08-2019 End: 08-13-2021 take 2 puff(s) by inhalation every four hours as needed albuterol HFA (PROAIR HFA) 90 mcg/actuation inhaler Indications: Cough Inhale 2 Puffs as instructed every 4 hours as needed. 1 Inhaler 03/08/2019 08/13/2021 Discontinued (Course of therapy completed) Comment on above: Inhale 2 Puffs as in structed every 4 hours as needed. ALPRAZolam 0.5 mg oral tablet (2 sources) Benzodiazepine Start: 10-30-2024 End: 12-01-2024 ALPRAZolam (XANAX) 0.5 mg tablet Indications: Insomnia secondary to anxiety , Anxiety with depression Take 1 tablet by mouth twice daily as needed for situational anxiety. May take additionally 1-2 tablets as needed at nighttime for anxiety, insomnia. Maximum of 4 pills/day. 45 tablet 10/30/2024 12/01/2024 Active Start: 04-09-2023 End: 05-10-2023 ALPRAZolam (XANAX) 0.25 mg t ablet Indications: Insomnia secondary to anxiety Take 1-2 tablets by mouth as needed at bedtime for anxiety, insomnia 30 tablet 1 04/09/2023 05/10/2023 Active Comment on above: Take 1-2 tablets by mouth as needed at bedtime for anxiety, insomnia amoxicillin 875 mg / clavulanate 125 mg oral tablet (6 sources) Penicillin-class Antibacterial Start: End: take 1 tablet by mouth twice daily amoxicillin-clavula joe potassium (AUGMENTIN) 875-125 mg per tablet Indications: Acute non-recurrent sinusitis, unspecified location Take 1 tablet by mouth two times a day for 5 days. 10 tablet 05/04/2025 05/09/2025 Active Start: 11-15-2022 End: 11-25-2022 take 1 tablet by mouth twice daily amoxicillin-clavulanic acid (AUGMENTIN) 875-125 mg per tablet Indications: Acute cough , Chest congestion , Fever, unspecified fever cause , Chills Take 1 tablet by mouth twice daily for 10 days. 20 tablet 0 11/15/2022 11/25/2022 Active Start: 10-20-2022 End: 10-25-2022 take 1 tablet by mouth twice daily amoxicillin-clavulanic acid (AUGMENTIN) 875-125 mg per tablet Indications: Acute non-recurrent sinusitis, unspecified location Take 1 tablet by mouth twice daily for 5 days. 10 tablet 0 10/20/2022 10/25/2022 Active Start: 03-13-2022 End: 03-20-2022 take 1 tablet by mouth twice daily amoxicillin-clavulanic acid (AUGMENTIN) 875-125 mg per tablet Take 1 tablet by mouth twice daily for 7 days. 14 tablet 0 03/13/2022 03/20/2022 Active Comment on above: Take 1 tablet by maureen twice daily for 7 days. Take 1 tablet by maureen th twice daily for 5 days. Take 1 tablet by maureen twice daily for 10 days. azithromycin 250 mg oral tablet (1 source) Macrolide Antimicrobial Start: 02-14-20 End: 02-19-20 azithromycin (ZITHROMAX Z-JUAN) 250 mg tablet Take 2 tablets day one, then, 1 tablet daily until gone. 6 tablet 02/13/2025 02/18/2025 Active benzonatate 100 mg oral capsule (1 source) Non-narcotic Antitussive Start: 10-20-20 End: 11-04-20 take 1 capsule by mouth every eight hours as needed for cough and cough benzonatate (TESSALON PERLE) 100 mg capsule Indications: Subacute cough Take 1 capsule by mouth every 8 hours as needed for cough for up to 15 days. 30 capsule 0 10/20/2022 11/04/2022 Active Comment on above: Take 1 capsule by mo [facility] every 8 hours as needed for cough for up to 15 days. cephalexin 500 mg oral capsule (1 source) Cephalosporin Antibacterial Start: 09-25-20 End: 09-30-20 take 1 capsule by mouth four times daily cephALEXin (KEFLEX) 500 mg capsule Take 1 capsule by mouth four times daily for 5 days. 20 capsule 0 09/25/2022 09/30/2022 Active Comment on above: Take 1 capsule by mo [facility] four times daily for 5 days. ciprofloxacin 500 mg oral tablet (2 sources) Quinolone Antimicrobial Start: 02-14-20 End: 02-28-20 take 1 tablet by mouth twice daily ciprofloxacin HCl (CIPRO) 500 mg tablet Take 1 tablet by mouth two times a day for 14 days. 28 tablet 02/13/2025 02/27/2025 Active Start: 10-10-2022 End: 10-17-2022 take 1 tablet by mouth twice daily ciprofloxacin HCl (CIPRO) 500 mg tablet Take 1 tablet by mouth twice daily for 7 days. 14 tablet 0 10/10/2022 10/17/2022 Active Comment on above: Take 1 tablet by [facility] twice daily for 7 days. fluconazole 150 mg oral tablet (5 sources) Azole Antifungal Start: 05-19-2025 fluconazole (DIFLUCAN) 150 mg tablet Take 1 tablet once and repeat in 3 days as needed for vaginal itching 2 tablet 05/19/2025 Active Start: 10-30-2024 End: 10-30-2024 take 1 tablet by mouth once fluconazole (DIFLUCAN) 150 mg tablet Take 1 tablet by mouth one time only for 1 dose. 10 tablet 10/30/2024 10/30/2024 Active Start: 10-24-2024 End: 10-24-2024 take 1 tablet by mouth once fluconazole (DIFLUCAN) 150 mg tablet Take 1 tablet by mouth one time only for 1 dose. 1 tablet 10/24/2024 10/24/2024 Active Start: 11-15-2022 End: 11-15-2022 fluconazole (DIFLUCAN) 150 m g tablet Indications: Acute cough , Chest congestion , Fever, unspecified fever cause , Chills Take 1 tablet by mouth one time only for 1 dose. Repeat in 3 days as needed. 10 tablet 1 11/15/2022 11/15/2022 Active Start: 03-22-2022 End: 03-22-2022 take 1 tablet by mouth once fluconazole (DIFLUCAN) 150 mg tablet Indications: Acute vaginitis Take 1 tablet by mouth one time only for 1 dose. 1 tablet 0 03/22/2022 03/22/2022 Active Comment on above: Take 1 tablet by maureen th one time only for 1 dose. Take 1 tablet by maureen th one time only for 1 dose. Repeat in 3 days as needed. fluticasone propionate 0.05 mg/actuat metered dose nasal spray (20 sources) Corticosteroid Start: 2021 take 2 spray(s) by mouth once daily fluticasone (FLONASE) 50 mcg/actuation nasal spray Indications: Acute cough , Chest congestion , Fever, unspecified fever cause , Chills Use 2 Sprays in each nostril once daily. Rinse mouth after use. 16 g 1 11/15/2022 Active Comment on above: Use 2 Sprays in each nostril once daily. Rinse mouth after use. hydroxychloroquine sulfate 200 mg oral tablet (20 sources) Antimalarial, Antirheumatic Agent Start: 2019 take 200 mg by mouth twice daily Hydroxychloroquine Active 200 MG PO TWICE A DAY October 22, 2020 3:15pm Comment on above: Take by mouth twice daily. LORazepam 0.5 mg oral tablet (4 sources) Benzodiazepine Start: 2024 End: 2024 take 1 tablet by mouth twice daily as needed LORazepam (ATIVAN) 0.5 mg Indications: Travel advice encounter Take 1 tablet by mouth two times a day as needed (travel anxiety) for up to 7 days. 14 tablet 02/13/2025 02/20/2025 Active Start: 01-31-2024 End: 02-10-2024 take 1 tablet by mouth three times daily as needed for anxiety LORazepam (ATIVAN) 0.5 mg Indications: Travel advice encounter Take 1 tablet by mouth three times a day as needed (anxiety) for up to 10 days. 20 tablet 0 01/31/2024 02/10/2024 Active Start: 07-12-2023 End: 07-22-2023 take 1 tablet by mouth three times daily as needed for anxiety LORazepam (ATIVAN) 0.5 mg Indications: Travel advice encounter Take 1 tablet by mouth three times daily as needed (anxiety) for up to 10 days. 20 tablet 0 07/12/2023 07/22/2023 Active Start: 01-22-2023 End: 02-01-2023 take 1 tablet by mouth three times daily as needed for anxiety LORazepam (ATIVAN) 0.5 mg Indications: Travel advice encounter Take 1 tablet by mouth three times daily as needed (anxiety) for up to 10 days. 20 tablet 0 01/22/2023 02/01/2023 Active Comment on above: Take 1 tablet by maureen th three times daily as needed (anxiety) for up to 10 days. Take 1 tablet by maureen th three times a day as needed (anxiety) for up to 10 days. 24 hr metoprolol succinate 25 mg extended release oral tablet (20 sources) beta-Adrenergic Kristopher Start: 08-20-20 End: 09-01-20 take 1 tablet by mouth once daily metoprolol succinate ER (TOPROL XL) 25 mg 24 hr tablet Indications: Tachycardia Take 1 tablet by mouth once daily. 360 tablet 3 09/01/2024 Active Comment on above: Take 1 tablet by maureen once daily. metroNIDAZOLE 500 mg oral tablet (1 source) Nitroimidazole Antimicrobial Start: 04-07-20 End: 04-14-20 take 1 tablet by mouth twice daily metroNIDAZOLE (FLAGYL) 500 mg tablet Indications: BV (bacterial vaginosis) Take 1 tablet by mouth twice daily for 7 days. 14 tablet 0 04/07/2022 04/14/2022 Active Comment on above: Take 1 tablet by maureen twice daily for 7 days. minoxidil 2.5 mg oral tablet (20 sources) Arteriolar Vasodilator Start: 08-08-20 minoxidil (LONITEN) 2.5 mg tablet 08/08/2023 Active omeprazole 20 mg delayed release oral tablet (3 sources) Proton Pump Inhibitor Start: 10-22-20 Omeprazole Magnesium Active 20 MG PO NEEDED October 22, 2020 3:36pm ondansetron 8 mg oral tablet (10 sources) Serotonin-3 Receptor Antagonist Start: 02-14-20 take 1 tablet by mouth every eight hours as needed ondansetron (ZOFRAN) 8 mg tablet Take 1 tablet by mouth every 8 hours as needed for nausea/vomiting. 20 tablet 02/13/2025 Active Start: 05-11-2021 End: 08-13-2021 take 1 tablet by mouth every eight hours as needed for nausea ondansetron orally disintegrating (ZOFRAN ODT) 4 mg disintegrating tablet Indications: Travel advice encounter Take 1 tablet by mouth every 8 hours as needed for nausea/vomiting. 15 tablet 05/11/2021 08/13/2021 Discontinued (Course of therapy completed) perflutren lipid microsphere s 1.3 mL in NaCl (PF) 0.9% 10 mL injection (DEFINITY) (18 sources) Start: 08-20-2023 End: 11-18-2024 perflutren lipid microsphere s 1.3 mL in NaCl (PF) 0.9% 10 mL injection (DEFINITY) Start: 09-21-2020 End: 12-21-2021 perflutren lipid microsphere s 1.3 mL in NaCl (PF) 0.9% 10 mL injection (DEFINITY) pramoxine hydrochloride 10 mg/ml rectal foam (5 sources) Start: 05-08-2025 End: 05-17-2025 Pramoxine (PROCTOFOAM) 1 % foam 1 applicator by RECTAL route three times a day as needed for up to 5 days. 15 g 1 05/12/2025 05/17/2025 Active predniSONE 10 mg oral tablet (20 sources) Start: 03-06-2022 take 1 tablet by mouth once daily predniSONE (DELTASONE) 10 mg tablet take 1 tablet by mouth once daily if needed for 3 to 5 days with FLARES 03/06/2022 Active Start: 04-28-2019 End: 03-18-2021 predniSONE (DELTASONE) 10 mg tablet Take 40 mg x 3 days, 20 mg x 3 days, 10 mg x 3 days. Take with food, once daily 21 tablet 04/28/2019 03/18/2021 Discontinued Comment on above: take 1 tablet by maureen once daily if needed for 3 to 5 days with FLARES sertraline 100 mg oral tablet (20 sources) Serotonin Reuptake Inhibitor Start: 10-30-2024 End: 04-28-2025 take 1 tablet by mouth once daily sertraline (ZOLOFT) 100 mg tablet Indications: Insomnia secondary to anxiety , Anxiety with depression Take 1 tablet by mouth once daily. 90 tablet 1 10/30/2024 Active Start: 12-10-2020 End: 10-30-2024 take 1 tablet by mouth once daily sertraline (ZOLOFT) 50 mg tablet Take 1 tablet by mouth once daily. 30 tablet 11 07/08/2024 10/30/2024 Discontinued Start: 10-22-2020 take 100 mg by mouth once marcella y Sertraline Active 100 MG PO DAILY October 22, 2020 3:15pm Start: 10-06-2015 End: 12-08-2020 take 1 tablet by mouth once daily sertraline (ZOLOFT) 50 mg tablet Take 1 tablet by mouth once daily. 0 10/06/2015 12/08/2020 Discontinued Comment on above: Take 1 tablet by maureen th once daily. 125 ml sodium chloride 9 mg/ml prefilled syringe (18 sources) Start: 08-20-2023 End: 11-18-2024 sodium chloride 0.9 % (flush) 10 mL (BD POSIFLUSH) Start: 09-21-2020 End: 12-21-2021 sodium chloride 0.9 % (flush ) 10 mL (BD POSIFLUSH) spironolactone 50 mg oral tablet (19 sources) Aldosterone Antagonist Start: 10-22-2020 take 50 mg by mouth once daily Spironolactone Active 50 MG PO DAILY October 22, 2020 3:15pm Start: 07-06-2011 End: 01-01-2023 take 2 tablets by mouth once daily spironolactone (ALDACTONE) 50 mg tablet Take 100 mg by mouth once daily. 0 07/06/2011 01/01/2023 Discontinued Comment on above: Take 100 mg by mouth once daily. sulfamethoxazole 800 mg / trimethoprim 160 mg oral tablet (1 source) Dihydrofolate Reductase Inhibitor Antibacterial, Sulfonamide Antimicrobial Start: 3 End: 3 take 1 tablet by mouth twice daily sulfamethoxazo le-trimethopri m (BACTRIM DS) 800-160 mg per tablet Take 1 tablet by mouth two times a day for 5 days. 10 tablet 0 09/06/2023 09/11/2023 Active Comment on above: Take 1 tablet by maureen th two times a day for 5 days. Completed/Discontinued Medications Medication Drug Class(es) Dates Sig (Normalized) Sig (Original) nitrofurantoin, macrocrystals 25 mg / nitrofurantoin, monohydrate 75 mg oral capsule (2 sources) Nitrofuran Antibacterial Start: 09-04-2023 End: 09-11-2023 take 1 capsule by mouth twice daily nitrofurantoin monohydrate and macrocrystal (MACROBID) 100 mg capsule Indications: Urinary urgency , Urinary frequency Take 1 capsule by mouth two times a day for 7 days. 14 capsule 0 09/04/2023 09/06/2023 Discontinued Comment on above: Take 1 capsule by mo uth two times a day for 7 days. norethindrone acetate 5 mg oral tablet (11 sources) Start: 06-07-2022 End: 01-01-2023 take 2 tablets by mouth once daily norethindrone (AYGESTIN) 5 mg tablet Take 2 tablets by mouth once daily. 14 tablet 0 06/07/2022 01/01/2023 Discontinued Start: 06-07-2021 End: 04-06-2022 take 1 tablet by mouth once daily norethindrone (AYGESTIN) 5 mg tablet Take 1 tablet by mouth once daily for 14 days. 14 tablet 06/07/2021 04/06/2022 Discontinued Comment on above[facility] Take 2 tablets by mo [facility] once daily. Problems Active Problems Problem Classification Problem Date Documented Date Episodic/Chronic Abdominal pain (1 source) Pain in pelvis; Translations: [Pelvic and perineal pain] 09-04-2023 Episodic Anxiety disorders (5 sources) Insomnia disorder related to another mental disorder; Translations: [Anxiety disorder, unspecified] Onset: 10-30-2024 Chronic Fever of unknown origin (2 sources) Fever; Translations: [Fever, unspecified] Episodic Fracture of lower limb (3 sources) Metatarsal bone fracture; Translations: [Displaced fracture of fifth metatarsal bone, left foot, initial encounter for closed fracture] Episodic Genitourinary symptoms and ill-defined conditions (2 sources) Urgent desire to urinate; Translations: [Urgency of urination] 09-04-2023 Episodic Inflammatory diseases of female pelvic organs (2 sources) Acute vaginitis; Translations: [Acute vaginitis] Episodic Miscellaneous mental health disorders (1 source) Insomnia due to other mental disorder; Translations: [Insomnia secondary to anxiety] Onset: 10-30-2024 Chronic Nonspecific chest pain (2 sources) Tight chest; Translations: [Other chest pain] Episodic Other circulatory disease (1 source) Pulmonary congestion ; Translations: [Other specified symptoms and signs involving the circulatory and respiratory systems] Episodic Other female genital disorders (1 source) Vaginal discharge; Translations: [Other specified noninflammatory disorders of vagina] Episodic Other female genital disorders (1 source) History of gynecological disorder; Translations: [Personal history of other diseases of the female genital tract] 09-04-2023 Episodic Other injuries and conditions due to external causes (1 source) Injury of left foot; Translations: [Unspecified injury of left foot, initial encounter] 10-16-2020 Episodic Other lower respiratory disease (3 sources) Cough; Translations: [Subacute cough] Episodic Other lower respiratory disease (2 sources) Dyspnea on exertion; Translations: [Shortness of breath] Episodic Other nervous system disorders (1 source) Cold extremity; Translations: [Unspecified disturbances of skin sensation] Episodic Other upper respiratory infections (5 sources) Acute maxillary sinusitis; Translations: [Acute maxillary sinusitis, unspecified] Onset: 05-04-2025 Episodic Residual codes; unclassified (1 source) Chill; Translations: [Chills (without fever)] Episodic Residual codes; unclassified (1 source) Family history of malignant neoplasm of breast in first degree relative; Translations: [Family history of malignant neoplasm of breast] 09-23-2024 Episodic Residual codes; unclassified (1 source) Family history of malignant lymphoma; Translations: [Family history of other malignant neoplasms of lymphoid, hematopoietic and related tissues] 09-23-2024 Episodic Rheumatoid arthritis and related disease (20 sources) Rheumatoid arthritis of multiple joints; Translations: [Rheumatoid arthritis with rheumatoid factor of multiple sites without organ or systems involvement] Onset: 01-01-2023 Chronic Past or Other Problems Problem Classification Problem Date Documented Date Episodic/Chronic Cardiac dysrhythmias (20 sources) Palpitations; Translations: [Palpitations] Onset: 02-21-2023 Episodic Immunizations and screening for infectious disease (2 sources) At risk of sexually transmitted infection ; Translations: [Contact with and (suspected) exposure to infections with a predominantly sexual mode of transmission] Onset: 10-30-2024 10-30-2024 Episodic Nutritional deficiencies (20 sources) Cobalamin deficiency; Translations: [Deficiency of other specified B group vitamins] Onset: 02-21-2023 Episodic Other screening for suspected conditions (not mental disorders or infectious disease) (20 sources) Patient encounter status; Translations: [Encounter for screening mammogram for malignant neoplasm of breast] Onset: 02-21-2023 Episodic Residual codes; unclassified (1 source) Family history of malignant neoplasm of breast; Translations: [Family history of breast cancer in mother] Onset: 09-23-2024 Episodic Residual codes; unclassified (1 source) Family history of other malignant neoplasms of lymphoid, hematopoietic and related tissues; Translations: [Family history of lymphoma] Onset: 09-23-2024 Episodic Screening and history of mental health and substance abuse codes (2 sources) Encounter for screening examination for other mental health and behavioral disorders; Translations: [Encounter for screening for depression] Onset: 10-30-2024 Episodic Results Test Name Value Interpretation Reference Range [facility] C[facility] Tele[facility] (FAMPWS) MICHELLE COLLINS ([id number]) 1975 F Date Time Provider Department 05/19/25 KIN MUÑOZ [facility] During your visit today, we recorded the following information about you: Diana Mckenna MA 05/19/2025 10:15 AM Signed Patient was in urgent care on 05/04 treated with Augmentin for sinusitis. Has yeast infection can we send fluconazole? I believe I have a yeast infection from the antibiotic that I was on for my sinus infection. Is there anyway that you can send in a script for Fluconazole? Kin Muñoz DO 05/19/2025 10:54 AM Signed The following approved medication requests have been transmitted electronically. Requested Prescriptions Signed Prescriptions Disp Refills fluconazole (DIFLUCAN) 150 mg tablet 2 tablet 0 Sig: Take 1 tablet once and repeat in 3 days as needed for vaginal itching Authorizing Provider: KIN MUÑOZ DO Detwiler-Green, Arlene WIRER 05/19/2025 10:59 AM Signed Pt. informed Allergies As of Date: 05/19/2025 (No Known Allergies) Date Reviewed: 05/04/2025 Reviewed by: Cristina Perez MA - Fully Assessed Reason for Visit: Vaginal Problem [117] Order(s):fluconazole (DIFLUCAN) 150 mg tabletTake 1 tablet once and repeat in 3 days as needed for vaginal itchingDisp: 2 tabletRfl: 0 Prescriptions as of 05/19/2025 - fluconazole (DIFLUCAN) 150 mg tablet Take 1 tablet once and repeat in 3 days as needed for vaginal itching - ondansetron (ZOFRAN) 8 mg tablet Take 1 tablet by mouth every 8 hours as needed for nausea/vomiting. - sertraline (ZOLOFT) 100 mg tablet Take 1 tablet by mouth once daily. - metoprolol succinate ER (TOPROL XL) 25 mg 24 hr tablet Take 1 tablet by mouth once daily. - minoxidil (LONITEN) 2.5 mg tablet - fluticasone (FLONASE) 50 mcg/actuation nasal spray Use 2 Sprays in each nostril once daily. Rinse mouth after use. - predniSONE (DELTASONE) 10 mg tablet take 1 tablet by mouth once daily if needed for 3 to 5 days with FLARES - albuterol HFA (PROAIR HFA) 90 mcg/actuation inhaler Inhale 2 Puffs as instructed every 4 hours as needed. - hydrOXYchloroQUINE (PLAQUENIL) 200 mg tablet Take by mouth twice daily. Problem List As Of Date 05/19/2025 Noted Resolved RA (rheumatoid arthritis) (HCC) [M06.9] 01/01/2023 Rheumatoid arthritis involving multiple sites w*02/21/2023 Vitamin B12 deficiency [E53.8] 02/21/2023 Tachycardia [R00.0] 02/21/2023 Palpitations [R00.2] 02/21/2023 Borderline abnormal thyroid function test [R94.*02/21/2023 Prescriptions ordered this encounter Disp Refills Start End FLUCONAZOLE 150 MG TABLET 2 ta* 0 05/19/2025 Sig: Take 1 tablet once and repeat in 3 days as needed for vaginal itching Encounter Status:Closed by ARLENE ROLLINS LPN on 05/19/25 [facility] 05-09-2025 CNPN Telephone (FAMPWS) MICHELLE COLLINS ([id number]) 1975 F Date Time Provider Department 05/09/25 [facility] During your visit today, we recorded the following information about you: Keiry Orellana 05/09/2025 9:16 AM Signed Mercedes is calling Kin Muñoz DO today with concern regarding change in pharmacy Patient asking to have the following medication Pramoxine (PROCTOFOAM) 1 % foam sent to [facility] Patient has been identified by name and birthdate. Duration of symptoms: N/A Person calling: self Call patient at: on cell [phone] (home) [phone] (cell) Was an appointment scheduled: No Closing statement: Results or non-symptom based questions: Thank you for calling [facility], your call will be returned within the next business day. Kin Vergara DO 05/12/2025 4:43 PM Signed The following approved medication requests have been transmitted electronically. Requested Prescriptions Signed Prescriptions Disp Refills Pramoxine (PROCTOFOAM) 1 % foam 15 g 1 Si applicator by RECTAL route three times a day as needed for up to 5 days. Authorizing Provider: KIN MUÑOZ DO Allergies As of Date: 05/09/2025 (No Known Allergies) Date Reviewed: 05/04/2025 Reviewed by: Cristina Perez MA - Fully Assessed Reason for Visit: change in pharmacy [Other] Order(s):Pramoxine (PROCTOFOAM) 1 % foam1 applicator by RECTAL route three times a day as needed for up to 5 days.Disp: 15 gRfl: 1 Prescriptions as of 05/12/2025 - Pramoxine (PROCTOFOAM) 1 % foam 1 applicator by RECTAL route three times a day as needed for up to 5 days. - ondansetron (ZOFRAN) 8 mg tablet Take 1 tablet by mouth every 8 hours as needed for nausea/vomiting. - sertraline (ZOLOFT) 100 mg tablet Take 1 tablet by mouth once daily. - metoprolol succinate ER (TOPROL XL) 25 mg 24 hr tablet Take 1 tablet by mouth once daily. - minoxidil (LONITEN) 2.5 mg tablet - fluticasone (FLONASE) 50 mcg/actuation nasal spray Use 2 Sprays in each nostril once daily. Rinse mouth after use. - predniSONE (DELTASONE) 10 mg tablet take 1 tablet by mouth once daily if needed for 3 to 5 days with FLARES - albuterol HFA (PROAIR HFA) 90 mcg/actuation inhaler Inhale 2 Puffs as instructed every 4 hours as needed. - hydrOXYchloroQUINE (PLAQUENIL) 200 mg tablet Take by mouth twice daily. Problem List As Of Date 05/09/2025 Noted Resolved RA (rheumatoid arthritis) (HCC) [M06.9] 01/01/2023 Rheumatoid arthritis involving multiple sites w*02/21/2023 Vitamin B12 deficiency [E53.8] 02/21/2023 Tachycardia [R00.0] 02/21/2023 Palpitations [R00.2] 02/21/2023 Borderline abnormal thyroid function test [R94.*02/21/2023 Prescriptions ordered this encounter Disp Refills Start End PRAMOXINE 1 % TOPICAL FOAM 15 g 1 05/12/2025 05/17/2025 Route: CO Si applicator by RECTAL route three times a day as needed for up to 5 days. Medications Discontinued During This Encounter Prescriptions - Pramoxine (PROCTOFOAM) 1 % foam (Discontinued) 1 applicator by RECTAL route three times a day as needed for up to 5 days. Encounter Status:Closed by ARLENE ROLLINS LPN on 05/12/25 [facility] Cristina 05-08-2025 ORTI[facility] Telephone (NOELLE) MICHELLE COLLINS ([id number]) 1975 F Date Time Provider Department 05/08/25 KIN MUÑOZ During your visit today, we recorded the following information about you: Chrissy Hector MA 05/08/2025 10:42 AM Signed Pt sends Isowalk message below: Mercedes Collins [facility] My Chart Rx Pool I had to go to the walk in clinic the other day for a sinus infection. The antibiotic seems to have given me diarrhea which has then given me hemorrhoids. Over the counter meds seem to help a little but I think I may need something stronger to get rid of them. I had them back when I was a long time ago and I had to have a prescription to get rid of them then too. Muna Rosario APRN.JEZ 05/08/2025 11:38 AM Signed The following approved medication requests have been transmitted electronically. Requested Prescriptions Signed Prescriptions Disp Refills Pramoxine (PROCTOFOAM) 1 % foam 15 g 1 Si applicator by RECTAL route three times a day as needed for up to 5 days. Authorizing Provider: MUNA ROSARIO APRN.CNP Quattrocchi, Beth, LPN 05/08/2025 12:41 PM Signed Patient calling [facility] does not have cream in stock and will not order it, asking to send rx to [facility]'s pharmacy. Reset to file. Please advise The patient has been identified by name and date of : Yes Caregiver verified no other encounters exist for this prescription request: Yes Caregiver confirmed with patient/requestor that no other refills are due, in the near future, with this provider at this time: Yes The last office visit in the department: Visit date not found Does the patient have a future office visit with this provider/department: No no future appt scheduled Requested Prescriptions Pending Prescriptions Disp Refills Pramoxine (PROCTOFOAM) 1 % foam 15 g 1 Si applicator by RECTAL route three times a day as needed for up to 5 days. Signed Prescriptions Disp Refills Pramoxine (PROCTOFOAM) 1 % foam 15 g 1 Si applicator by RECTAL route three times a day as needed for up to 5 days. Authorizing Provider: MUAN ROSARIO LPN May 08, 2025 12:40 PM Muna Rosario APRN.FABRIC SEPARATOR OPERATOR 05/08/2025 12:51 PM Signed The following approved medication requests have been transmitted electronically. Requested Prescriptions Signed Prescriptions Disp Refills Pramoxine (PROCTOFOAM) 1 % foam 15 g 1 Si applicator by RECTAL route three times a day as needed for up to 5 days. Authorizing Provider: MUNA ROSARIO APRN.Batsheva Garcia LPN 05/08/2025 1:11 PM Signed Spoke with pt gave information provided. Pt voices understanding. Allergies As of Date: 05/08/2025 (No Known Allergies) Date Reviewed: 05/04/2025 Reviewed by: Cristina Perez MA - Fully Assessed Reason for Visit: Medication Request [138] Order(s):Pramoxine (PROCTOFOAM) 1 % foam1 applicator by RECTAL route three times a day as needed for up to 5 days.Disp: 15 gRfl: 1 Prescriptions as of 05/08/2025 - Pramoxine (PROCTOFOAM) 1 % foam 1 applicator by RECTAL route three times a day as needed for up to 5 days. - amoxicillin-clavulanate potassium (AUGMENTIN) 875-125 mg per tablet Take 1 tablet by mouth two times a day for 5 days. - ondansetron (ZOFRAN) 8 mg tablet Take 1 tablet by mouth every 8 hours as needed for nausea/vomiting. - sertraline (ZOLOFT) 100 mg tablet Take 1 tablet by mouth once daily. - metoprolol succinate ER (TOPROL XL) 25 mg 24 hr tablet Take 1 tablet by mouth once daily. - minoxidil (LONITEN) 2.5 mg tablet - fluticasone (FLONASE) 50 mcg/actuation nasal spray Use 2 Sprays in each nostril once daily. Rinse mouth after use. - predniSONE (DELTASONE) 10 mg tablet take 1 tablet by mouth once daily if needed for 3 to 5 days with FLARES - albuterol HFA (PROAIR HFA) 90 mcg/actuation inhaler Inhale 2 Puffs as instructed every 4 hours as needed. - hydrOXYchloroQUINE (PLAQUENIL) 200 mg tablet Take by mouth twice daily. Problem List As Of Date 05/08/2025 Noted Resolved RA (rheumatoid arthritis) (HCC) [M06.9] 01/01/2023 Rheumatoid arthritis involving multiple sites w*02/21/2023 Vitamin B12 deficiency [E53.8] 02/21/2023 Tachycardia [R00.0] 02/21/2023 Palpitations [R00.2] 02/21/2023 Borderline abnormal thyroid function test [R94.*02/21/2023 Prescriptions ordered this encounter Disp Refills Start End PRAMOXINE 1 % TOPICAL FOAM 15 g 1 05/08/2025 05/08/2025 Route: CO Si applicator by RECTAL route three times a day as needed for up to 5 days. PRAMOXINE 1 % TOPICAL FOAM 15 g 1 05/08/2025 05/13/2025 Route: CO Si applicator by RECTAL route three times a day as needed for up to 5 days. Medications Discontinued During This Encounter Prescriptions - Pramoxine (PROCTOFOAM) 1 % foam (D (more content not included)... Normal [facility] CNOVon 05-04-2025 CNOV Office Visit (UCWSTR ) MICHELLE COLLINS ([id number]) 1975 F Date Time Provider Department 05/04/25 11:15 AM [facility] During your visit today, we recorded the following information about you: Temperature Pulse Respiration Blood pressure 100 degrees 114/minute 20/minute 100/64 Weight 66.2 kg Tres Campbell MD 05/04/2025 11:59 AM Signed [facility] Subjective Michelle Collins is a 49 year old female. Patient presents with: Nasal Congestion: Sinus issues, RUCHI ear pain x 2 weeks Feeling congested for 1-1/2 to 2 weeks. Symptoms worse in the last couple of days. She has ear pressure, increasing cough sinus pressure, resolved sore throat. Denies shortness of breath, wheezing, chest pain. She was unaware of low-grade fever today. She has been using Sudafed and nasal steroid spray. Denies known history of seasonal allergies. Her daughter was sick along with her at the onset of symptoms. Nasal Congestion Associated symptoms include congestion. Review of Systems HENT: Positive for congestion. Objective BP 100/64 Pulse 114 Temp 37.8 ?C (100 ?F) Resp 20 Wt 66.2 kg (145 lb 15.1 oz) LMP 08/11/2024 (Exact Date) SpO2 99% BMI 24.02 kg/m? Physical Exam Constitutional: General: She is not in acute distress. HENT: Right Ear: Ear canal normal. No middle ear effusion. Tympanic membrane is retracted. Tympanic membrane is not injected or erythematous. Left Ear: Tympanic membrane and ear canal normal. Nose: Congestion present. Right Sinus: No maxillary sinus tenderness or frontal sinus tenderness. Left Sinus: No maxillary sinus tenderness or frontal sinus tenderness. Mouth/Throat: Mouth: Mucous membranes are moist. Pharynx: No oropharyngeal exudate or posterior oropharyngeal erythema. Eyes: Extraocular Movements: Extraocular movements intact. Conjunctiva/sclera: Conjunctivae normal. Pupils: Pupils are equal, round, and reactive to light. Cardiovascular: Rate and Rhythm: Normal rate and regular rhythm. Heart sounds: No murmur heard. Pulmonary: Effort: No respiratory distress. Breath sounds: No wheezing, rhonchi or rales. Musculoskeletal: Cervical back: Neck supple. Lymphadenopathy: Cervical: No cervical adenopathy. Neurological: Mental Status: She is alert. {ASSESSMENT/PLAN: 1. Acute non-recurrent sinusitis, unspecified location - ICD9: 461.9, ICD10: J01.90 Continue supportive care treatment with decongestant and nasal steroid spray. - Will begin treatment with - AMOXICILLIN 875 MG-POTASSIUM CLAVULANATE 125 MG TABLET She may also had as needed ibuprofen for pain. Tres Campbell MD Differential Diagnoses - secondary bacterial sinusitis is more likely for the following reason(s): suggested by HANDP - multiple viral URIs - seasonal allergic rhinitis is less likely for the following reason(s): no prior history of condition Procedures Allergies As of Date: 05/04/2025 (No Known Allergies) Date Reviewed: 05/04/2025 Reviewed by: Cristina Perez MA - Fully Assessed Reason for Visit: Nasal Congestion [235] Cmt: Sinus issues, RUCHI ear pain x 2 weeks Primary Visit Diagnosis:Acute non-recurrent sinusitis, unspecified location [J01.90] Order(s):amoxicillin-clavul anate potassium (AUGMENTIN) 875-125 mg per tabletTake 1 tablet by mouth two times a day for 5 days.Disp: 10 tabletRfl: 0 Prescriptions as of 05/04/2025 - amoxicillin-clavulanate potassium (AUGMENTIN) 875-125 mg per tablet Take 1 tablet by mouth two times a day for 5 days. - ondansetron (ZOFRAN) 8 mg tablet Take 1 tablet by mouth every 8 hours as needed for nausea/vomiting. - sertraline (ZOLOFT) 100 mg tablet Take 1 tablet by mouth once daily. - metoprolol succinate ER (TOPROL XL) 25 mg 24 hr tablet Take 1 tablet by mouth once daily. - minoxidil (LONITEN) 2.5 mg tablet - fluticasone (FLONASE) 50 mcg/actuation nasal spray Use 2 Sprays in each nostril once daily. Rinse mouth after use. - predniSONE (DELTASONE) 10 mg tablet take 1 tablet by mouth once daily if needed for 3 to 5 days with FLARES - albuterol HFA (PROAIR HFA) 90 mcg/actuation inhaler Inhale 2 Puffs as instructed every 4 hours as needed. - hydrOXYchloroQUINE (PLAQUENIL) 200 mg tablet Take by mouth twice daily. Problem List As Of Date 05/04/2025 Noted Resolved RA (rheumatoid arthritis) ([facility]) [M06.9] 01/01/2023 Rheumatoid arthritis involving multiple sites w*02/21/2023 Vitamin B12 deficiency [E53.8] 02/21/2023 Tachycardia [R00.0] 02/21/2023 Palpitations [R00.2] 02/21/2023 Borderline abnormal thyroid function test [R94.*02/21/2023 Prescriptions ordered this encounter Disp Refills Start End AMOXICILLIN 875 MG-POTASSIUM CLAVULA* 10 t* 0 05/04/2025 05/09/2025 Route: PO Sig: Take 1 tablet by mouth two times a day for 5 days. Level of Service: OFFICE/OUTPATIENT ESTABLISHED MOD MDM 30 MIN [65425] (more content not included)... Normal [facility] CBC W/Diff, Automatedon 11-26 Absolute Lymph 1.66 X10 3/uL Normal 0.83-4.51 [facility] Comment on above: Performed By: #### L 100.0100, L500.4050 #### [facility] [address] [place], [address] Absolute Neut 2.6 X10 3/uL Normal 2.0-7.7 [facility] Comment on above: Performed By: #### L 100.0100, [id number] #### [facility] [address] [place], [address] Basophils/100 WBC (Bld) 0.8 % Normal 0-1 [facility] Comment on above: Performed By: #### L 100.0100, [id number] #### [facility] [address] [place], [address] Eosinophils/100 WBC (Bld) 1.8 % Normal 0-5 [facility] Comment on above: Performed By: #### L 100.0100, [id number] #### [facility] [address] [place], [address] Erythrocyte distribution width (RBC) [Ratio] 14.6 % Normal 11.6-14.6 [facility] Comment on above: Performed By: #### L 100.0100, [id number] #### [facility] [address] [place], [address] Hematocrit (Bld) [Volume fraction] 32.7 % Low 37-47 [facility] Comment on above: Performed By: #### L 100.0100, [id number] #### [facility] [address] [place], [address] Hemoglobin (Bld) [Mass/Vol] 10.3 g/dL Low 12.0-15.0 [facility] Comment on above: Performed By: #### L 100.0100, L500.4050 #### [facility] [address] [place], [address] IG% 0.200 Normal 0.0-0.9 [facility] Comment on above: Result Comment: IG% - Immature Granulocytes (promyelocytes, myelocytes and metamyelocytes) > 1% indicates that a LEFT SHIFT is Present. Performed By: #### L 100.0100, L500.4050 #### [facility] [address] [place], [address] Lymphocytes/100 WBC (Bld) 34.0 % Normal 19-41 [facility] Comment on above: Performed By: #### L 100.0100, [id number] #### [facility] [address] [place], [address] MCH (RBC) [Entitic mass] 25.7 pg Low 27.0-32.0 [facility] Comment on above: Performed By: #### L 100.0100, [id number] #### [facility] [address] [place], [address] MCHC (RBC) [Mass/Vol] 31.5 g/dL Low 32-36 [facility] Comment on above: Performed By: #### L 100.0100, [id number] #### [facility] [address] [place], [address] MCV (RBC) [Entitic vol] 81.5 fL Normal 81-99 [facility] Comment on above: Performed By: #### L 100.0100, [id number] #### [facility] [address] [place], [address] Monocytes/100 WBC (Bld) 10.7 % High 0-10 [facility] Comment on above: Performed By: #### L 100.0100, [id number] #### [facility] [address] [place], [address] Neutrophils/100 WBC (Bld) 52.5 % Normal 47-70 [facility] Comment on above: Performed By: #### L 100.0100, [id number] #### [facility] [address] [place], [address] Nucleated RBC (Bld) [#/Vol] 0 10*3/uL Normal 0-5 [facility] Comment on above: Performed By: #### L 100.0100, [id number] #### [facility] [address] [place], [address] Platelet mean volume (Bld) [Entitic vol] 10.8 fL Normal 6.2-12.0 [facility] Comment on above: Performed By: #### L 100.0100, [id number] #### [facility] [address] [place], [address] Platelets (Bld) [#/Vol] 282 10*3/uL Normal 150-450 [facility] Comment on above: Performed By: #### L 100.0100, [id number] #### [facility] [address] [place], [address] RBC (Bld) [#/Vol] 4.01 10*6/uL Low 4.2-5.[address] [facility] Comment on above: Performed By: #### L 100.0100, [id number] #### [facility] [address] [place], [address] RDW SD 42.8 fl Normal 35.1-43.9 [facility] Comment on above: Performed By: #### L 100.0100, [id number] #### [facility] [address] [place], [address] WBC (Bld) [#/Vol] 4.9 10*3/uL Normal 4.4-11.0 [facility] Comment on above: Performed By: #### L 100.0100, [id number] #### [facility] [address] [place], [address] Comprehensive Metabolic Prof ilon 12-09-2024 Albumin [Mass/Vol] 3.9 g/dL Normal 3.2-5.0 [facility] Comment on above: Performed By: #### L 100.0100, [id number] #### [facility] [address] [place], [address] Albumin/Globulin [Mass ratio] 1.3 {ratio} Normal 0.9-2.4 [facility] Comment on above: Performed By: #### L 100.0100, [id number] #### [facility] [address] [place], [address] ALK P 43 U/L Low 45-117 [facility] Comment on above: Performed By: #### L 100.0100, [id number] #### [facility] [address] [place], [address] ALT [Catalytic activity/Vol] 18 U/L Normal 13-56 [facility] Comment on above: Performed By: #### L 100.0100, [id number] #### [facility] [address] [place], [address] AST [Catalytic activity/Vol] 17 U/L Normal 15-37 [facility] Comment on above: Performed By: #### L 100.0100, [id number] #### [facility] [address] [place], [address] Bilirubin [Mass/Vol] 0.20 mg/dL Normal 0.20-1.00 [facility] Comment on above: Result Comment: For patients on eltrombopag therapy, use of Dimension [place] TBIL is not recommended. Performed By: #### L 100.0100, [id number] #### [facility] [address] [place], [address] BUN/CRE 16.3 RATIO Normal 10-20 [facility] Comment on above: Performed By: #### L 100.0100, [id number] #### [facility] [address] [place], [address] CA,Total 8.9 mg/dL Normal 8.5-10.1 [facility] Comment on above: Performed By: #### L 100.0100, [id number] #### [facility] [address] [place], [address] Chloride [Moles/Vol] 108 mmol/L High 98-107 [facility] Comment on above: Performed By: #### L 100.0100, [id number] #### [facility] [address] [place], [address] CO2 [Moles/Vol] 28.0 mmol/L Normal 21.0-32.0 [facility] Comment on above: Performed By: #### L 100.0100, [id number] #### [facility] [address] [place], [address] Creatinine [Mass/Vol] 0.86 mg/dL Normal 0.55-1.02 [facility] Comment on above: Result Comment: The validity of the calculated GFR GFRAA in patients over 70 years has not been determined. Clinical correlation is essential. Performed By: #### L 100.0100, [id number] #### [facility] [address] [place], [address] EST GFR - AA 91 mL/min Normal >60 [facility] Comment on above: Result Comment: Afri can Danish GFR Calc Performed By: #### L 100.0100, [id number] #### [facility] [address] [place], [address] GAP 2 Low 5-15 [facility] Comment on above: Performed By: #### L 100.0100, [id number] #### [facility] [address] [place], [address] GFR/1.73 sq M.predicted among non-blacks MDRD (S/P/Bld) [Vol rate/Area] 75 mL/min/{1.73_m2} Normal >60 [facility] Comment on above: Result Comment: Non- GFR Calc Performed By: #### L 100.0100, [id number] #### [facility] [address] [place], [address] Globulin (S) [Mass/Vol] 3.1 g/dL Normal 2.2-4.2 [facility] Comment on above: Performed By: #### L 100.0100, [id number] #### [facility] [address] [place], [address] Glucose [Mass/Vol] 89 mg/dL Normal 74-106 [facility] Comment on above: Performed By: #### L 100.0100, [id number] #### [facility] [address] [place], [address] Potassium [Moles/Vol] 4.0 mmol/L Normal 3.5-5.1 [facility] Comment on above: Performed By: #### L 100.0100, [id number] #### [facility] [address] [place], [address] Sodium [Moles/Vol] 138 mmol/L Normal 136-145 [facility] Comment on above: Performed By: #### L 100.0100, [id number] #### [facility] [address] [place], [address] T PROT 7.0 g/dL Normal 6.4-8.2 [facility] Comment on above: Performed By: #### L 100.0100, [id number] #### [facility] [address] [place], [address] Urea nitrogen [Mass/Vol] 14 mg/dL Normal 7-18 [facility] Comment on above: Performed By: #### L 100.0100, [id number] #### [facility] [address] [place], [address] [facility] ([facility]) MICHELLE COLLINS ([id number]) 1975 F Date Time Provider Department 11/05/24 CLARA HERNANDEZ [facility] During your visit today, we recorded the following information about you: Clara Hernandez APRN.FABRIC SEPARATOR OPERATOR 11/05/2024 6:06 PM Signed Please let her know that her test results show a likely yeast infection. I'm sending in 3 days of tx for this for her. Otherwise everything is negative, no concerns. The following approved medication requests have been transmitted electronically. Requested Prescriptions Signed Prescriptions Disp Refills fluconazole (DIFLUCAN) 100 mg tablet 3 tablet 0 Sig: Take 1 tablet by mouth once daily for 3 days. Authorizing Provider: CLARA HERNANDEZ APRN.FABRIC SEPARATOR OPERATOR Cami Wong MA 11/05/2024 6:28 PM Signed Pt informed, verbalized understanding Cami Wong MA Allergies As of Date: 11/05/2024 (No Known Allergies) Date Reviewed: 10/30/2024 Reviewed by: Cami Wong MA - Fully Assessed Reason for Visit: Results [95] Order(s):fluconazole (DIFLUCAN) 100 mg tabletTake 1 tablet by mouth once daily for 3 days.Disp: 3 tabletRfl: 0 Prescriptions as of 11/05/2024 - fluconazole (DIFLUCAN) 100 mg tablet Take 1 tablet by mouth once daily for 3 days. - ALPRAZolam (XANAX) 0.5 mg tablet Take 1 tablet by mouth twice daily as needed for situational anxiety. May take additionally 1-2 tablets as needed at nighttime for anxiety, insomnia. Maximum of 4 pills/day. - sertraline (ZOLOFT) 100 mg tablet Take 1 tablet by mouth once daily. - metoprolol succinate ER (TOPROL XL) 25 mg 24 hr tablet Take 1 tablet by mouth once daily. - minoxidil (LONITEN) 2.5 mg tablet - fluticasone (FLONASE) 50 mcg/actuation nasal spray Use 2 Sprays in each nostril once daily. Rinse mouth after use. - predniSONE (DELTASONE) 10 mg tablet take 1 tablet by mouth once daily if needed for 3 to 5 days with FLARES - albuterol HFA (PROAIR HFA) 90 mcg/actuation inhaler Inhale 2 Puffs as instructed every 4 hours as needed. - hydrOXYchloroQUINE (PLAQUENIL) 200 mg tablet Take by mouth twice daily. Facility-Administered Medications as of 11/05/2024 - perflutren lipid microspheres 1.3 mL in NaCl (PF) 0.9% 10 mL injection (DEFINITY) - sodium chloride 0.9 % (flush) 10 mL (BD POSIFLUSH) Problem List As Of Date 11/05/2024 Noted Resolved RA (rheumatoid arthritis) (HCC) [M06.9] 01/01/2023 Rheumatoid arthritis involving multiple sites w*02/21/2023 Vitamin B12 deficiency [E53.8] 02/21/2023 Tachycardia [R00.0] 02/21/2023 Palpitations [R00.2] 02/21/2023 Borderline abnormal thyroid function test [R94.*02/21/2023 Prescriptions ordered this encounter Disp Refills Start End FLUCONAZOLE 100 MG TABLET 3 ta* 0 11/05/2024 11/08/2024 Route: ORAL Sig: Take 1 tablet by mouth once daily for 3 days. Encounter Status:Closed by CAMI WONG on 11/05/24 Normal [facility] BACTERIAL VAGINOSIS NAATon 1 12-31-2023 Lactobacillus crispatus+gasseri +jensenii + Gardnerella vaginalis + Atopobium vaginae rRNA YUMIKO+probe Ql (Vag fld) Not detected Normal Not detected [facility] Comment on above: Order Comment: Speci men Type: SWABOrdering Facility: [facility] Address: [address] [place] [address] Performed By: #### 3 6902-5, BVAMP, CVTV ####[facility] LABCLIA [id number] [place] [address] [place] C. trachomatis+N. gonorrhoea e DNA YUMIKO+probe Ql (Unsp spec)on 10-30-2024 C. trachomatis rRNA YUMIKO+probe Ql (Unsp spec) Not detected Normal Not detected [facility] Comment on above: Order Comment: Speci men Type: SWABOrdering Facility: [facility] Address: [address] [place] [address] Performed By: #### 3 6902-5, BVAMP, CVTV ####[facility] LABIA [id number] [place] [address] [place] N. gonorrhoeae rRNA YUMIKO+probe Ql (Unsp spec) Not detected Normal Not detected [facility] Comment on above: Order Comment: Speci men Type: SWABOrdering Facility: [facility] Address: [address] [place] [address] Performed By: #### 3 6902-5, BVAMP, CVTV ####[facility] LABCLIA [id number] [place] [address] [place] [facility] [place] LEE/TRICHOMONAS NAATon 1 12-31-2023 C. glabrata RNA YUMIKO+probe Ql (Vag fld) Not detected Normal Not detected [facility] Comment on above: Order Comment: Speci men Type: SWABOrdering Facility: [facility] Address: [address] [place] [address] Performed By: #### 3 6902-5, BVAMP, CVTV ####[facility] LABCLIA [id number] [place] [address] [place] Lee sp DNA YUMIKO+probe Ql (Vag fld) Detected Abnormal Not detected [facility] Comment on above: Order Comment: Speci men Type: SWABOrdering Facility: [facility] Address: [address] [place] [address] Result Comment: The Lee species group target includes C. albicans, C. tropicalis, C. parapsilosis, and C. dubliniensis. Performed By: #### 3 6902-5, BVAMP, CVTV ####[facility] LABIA [id number] [place] [address] [place] T. vaginalis DNA YUMIKO+probe Ql (Unsp spec) Not detected Normal Not detected [facility] Comment on above: Order Comment: Speci men Type: SWABOrdering Facility: [facility] Address: [address] [place] [address] Performed By: #### 3 6902-5, BVAMP, CVTV ####[facility] LABIA [id number] [place] [address] [place] CNOVon 10-30-2024 CNOV Office Visit (FAMPWS ) MICHELLE COLLINS ([id number]) 1975 F Date Time Provider Department 10/30/24 12:40 PM CLARA HERNANDEZ During your visit today, we recorded the following information about you: Pulse Respiration Blood pressure Weight 101/minute 16/minute 120/72 66.1 kg Clara Hernandez APRN.FABRIC SEPARATOR OPERATOR 10/30/2024 2:50 PM Signed Chief Complaint Patient presents with: Anxiety: Situational Insomnia HPI Michelle Collins is a 48 year old female who presents here today for Above Complaints.. Recently found out over the weekend that her is having an affair. She is having a host of mood swings-anger, irritability, sadness, anxiety, insomnia. Denies SI/HI. Past medical history, appointments, medications, allergies reviewed. Previous Medical History PAST MEDICAL HISTORY Diagnosis Date Palpitations 2022 metoprolol RA (rheumatoid arthritis) (HCC) Previous Surgical History PAST SURGICAL HISTORY Procedure Laterality Date BREAST AUGMENTATION W/PROSTHETIC IMPLANT Bilateral 2006 BREAST BIOPSY NEEDLE LEFT 2020 benign DELIVERY ONLY 11/26/2002 , low cervical - x2 FOOT SURGERY HX Left LIGATE FALLOPIAN TUBE 2006 Family History FAMILY HISTORY Problem Relation Age of Onset Breast Cancer Mother 32 other (non-Hodgkin's lymphoma) Mother 72 Heart disease Maternal Grandmother Heart Paternal Grandmother Cancer Paternal Grandfather lung, smoker Breast Cancer Paternal Aunt 35 Patient Allergies ALLERGIES No Known Allergies Current Medications Current Outpatient Medications on File Prior to Visit Medication Sig metoprolol succinate ER (TOPROL XL) 25 mg 24 hr tablet Take 1 tablet by mouth once daily. sertraline (ZOLOFT) 50 mg tablet Take 1 tablet by mouth once daily. minoxidil (LONITEN) 2.5 mg tablet fluticasone (FLONASE) 50 mcg/actuation nasal spray Use 2 Sprays in each nostril once daily. Rinse mouth after use. predniSONE (DELTASONE) 10 mg tablet take 1 tablet by mouth once daily if needed for 3 to 5 days with FLARES albuterol HFA (PROAIR HFA) 90 mcg/actuation inhaler Inhale 2 Puffs as instructed every 4 hours as needed. hydrOXYchloroQUINE (PLAQUENIL) 200 mg tablet Take by mouth twice daily. Current Facility-Administered Medications on File Prior to Visit Medication perflutren lipid microspheres 1.3 mL in NaCl (PF) 0.9% 10 mL injection (DEFINITY) sodium chloride 0.9 % (flush) 10 mL (BD POSIFLUSH) Social History Social History Tobacco Use Smoking status: Never Smokeless tobacco: Never Vaping Use Vaping status: Never Used Substance Use Topics Alcohol use: Yes Comment: occasionally Drug use: No Review of Symptoms REVIEW OF SYSTEMS See HPI, otherwise negative EXAM: BP 120/72 (BP Site: Left Arm, BP Position: Sitting, BP Cuff Size: Regular Adult) Pulse 101 Resp 16 Wt 66.1 kg (145 lb 12.8 oz) LMP 08/11/2024 (Exact Date) SpO2 96% BMI 24.00 kg/m? General Appearance: Well appearing, alert, in no acute distress, well-hydrated, well nourished.. Lungs: Lungs clear to auscultation. No wheezing, rhonchi, rales.. Heart: RRR without murmur, gallop, or rubs. No ectopy. Psychiatric: pleasant, cooperative, tearful. Health Maintenance List Depression Screening Never done Anxiety Screening Never done HIV Screening Never done DTaP,Tdap,Td Vaccine(1 - Tdap) Never done Influenza Vaccine(1) due on 05/25/2025 Covid-19 Vaccine(3 - season) due on 09/23/2025 Mammogram Screening due on 10/01/2025 Cervical Cancer Screening due on 03/18/2026 Diabetes Screening due on 10/04/2027 Colorectal Cancer Screening due on 10/11/2027 Lipid Screening due on 10/04/2029 Hepatitis C Screening Completed Data reviewed Previous records, office notes, PDMP report PDMP website checked and validated. All prescriptions have been APPROPRIATELY filled. No suspicious activity was identified. 10/30/2024 by Clara Hernandez CNP. ASSESSMENT/PLAN: 1. 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 Encounter for screening examination for other mental health and behavioral disorders - ICD9: V79.8, ICD10: Z13.39 - ANXIETY SCREENING - GONORRHEA/CHLAMYDIA NAAT - LEE/TRICHOMONAS NAAT - BACTERIAL VAGINOSIS NAAT 3. Screening for depression - ICD9: V79.0, ICD10: Z13.31 - DEPRESSION SCREENING 4. Anxiety with depression - ICD9: 300.4, ICD10: F41.8 - ALPRAZOLAM 0.5 MG TABLET - SERTRALINE 100 MG TABLET 5. Possible exposure to STD - ICD9: V01.6, ICD10: Z20.2 - GONORRHEA/CHLAMYDIA NAAT - LEE/TRICHOMONAS NAAT - BACTERIAL VAGINOSIS NAAT Clara Hernandez APRN.Kyle Borja 11/01/2024 12:43 AM Signed Addended by: KYLE PENN on: 11/01/2024 12:43 AM Modules accepted: Orders Allergies As of Date: 10/30/2024 ( (more content not included)... Normal [facility] 10-24-2024 [facility] MICHELLE COLLINS ([id number]) 1975 F Date Time Provider Department 10/24/24 [facility] During your visit today, we recorded the following information about you: Nader Collins RN 10/24/2024 9:10 AM Signed Patient reports she was seen by morgue attendant the other day for an infected bite on her face, and prescribed doxycycline. Since starting doxy has developed a vaginal yeast infection: discharge, itching, burning. Asking if provider could send diflucan Rx to [facility]. Pended previous Rx. Please phone patient with reply Muna Rosario APRN.JEZ 10/24/2024 10:29 AM Signed Rx sent. If no improvement, needs office visit. Thank you, Muan Rosario APRN.[facility] The following approved medication requests have been transmitted electronically. Requested Prescriptions Signed Prescriptions Disp Refills fluconazole (DIFLUCAN) 150 mg tablet 1 tablet 0 Sig: Take 1 tablet by mouth one time only for 1 dose. Authorizing Provider: MUNA ROSARIO APRN.Batsheva Garcia LPN 10/24/2024 10:48 AM Signed Pt notified of below. Allergies As of Date: 10/24/2024 (No Known Allergies) Date Reviewed: 09/23/2024 Reviewed by: Arlene Rollins LPN - Fully Assessed Reason for Visit: Patient Question [6567] Order(s):fluconazole (DIFLUCAN) 150 mg tabletTake 1 tablet by mouth one time only for 1 dose.Disp: 1 tabletRfl: 0 Prescriptions as of 10/24/2024 - fluconazole (DIFLUCAN) 150 mg tablet Take 1 tablet by mouth one time only for 1 dose. - metoprolol succinate ER (TOPROL XL) 25 mg 24 hr tablet Take 1 tablet by mouth once daily. - sertraline (ZOLOFT) 50 mg tablet Take 1 tablet by mouth once daily. - minoxidil (LONITEN) 2.5 mg tablet - fluticasone (FLONASE) 50 mcg/actuation nasal spray Use 2 Sprays in each nostril once daily. Rinse mouth after use. - predniSONE (DELTASONE) 10 mg tablet take 1 tablet by mouth once daily if needed for 3 to 5 days with FLARES - albuterol HFA (PROAIR HFA) 90 mcg/actuation inhaler Inhale 2 Puffs as instructed every 4 hours as needed. - hydrOXYchloroQUINE (PLAQUENIL) 200 mg tablet Take by mouth twice daily. Facility-Administered Medications as of 10/24/2024 - perflutren lipid microspheres 1.3 mL in NaCl (PF) 0.9% 10 mL injection (DEFINITY) - sodium chloride 0.9 % (flush) 10 mL (BD POSIFLUSH) Problem List As Of Date 10/24/2024 Noted Resolved RA (rheumatoid arthritis) ([facility]) [M06.9] 01/01/2023 Rheumatoid arthritis involving multiple sites w*02/21/2023 Vitamin B12 deficiency [E53.8] 02/21/2023 Tachycardia [R00.0] 02/21/2023 Palpitations [R00.2] 02/21/2023 Borderline abnormal thyroid function test [R94.*02/21/2023 Prescriptions ordered this encounter Disp Refills Start End FLUCONAZOLE 150 MG TABLET 1 ta* 0 10/24/2024 10/24/2024 Route: ORAL Sig: Take 1 tablet by mouth one time only for 1 dose. Medications Discontinued During This Encounter Prescriptions - fluconazole (DIFLUCAN) 150 mg tablet (Discontinued) Take 1 tablet by mouth one time only for 1 dose. Encounter Status:Closed by BATSHEVA RAMON on 10/24/24 [facility] Cristina 10-22-2024 [facility] Telephone ([facility]) MICHELLE COLLINS ([id number]) 1975 F Date Time Provider Department 10/22/24 [facility] During your visit today, we recorded the following information about you: Kin Muñoz DO 10/22/2024 2:36 PM Signed Please let her know that cologuard is negative DO Ayleen Maharaj Susan LPN 10/22/2024 3:06 PM Signed Pt. informed via my Chart. Allergies As of Date: 10/22/2024 (No Known Allergies) Date Reviewed: 09/23/2024 Reviewed by: Arlene Rollins LPN - Fully Assessed Prescriptions as of 10/22/2024 - metoprolol succinate ER (TOPROL XL) 25 mg 24 hr tablet Take 1 tablet by mouth once daily. - sertraline (ZOLOFT) 50 mg tablet Take 1 tablet by mouth once daily. - minoxidil (LONITEN) 2.5 mg tablet - fluticasone (FLONASE) 50 mcg/actuation nasal spray Use 2 Sprays in each nostril once daily. Rinse mouth after use. - predniSONE (DELTASONE) 10 mg tablet take 1 tablet by mouth once daily if needed for 3 to 5 days with FLARES - albuterol HFA (PROAIR HFA) 90 mcg/actuation inhaler Inhale 2 Puffs as instructed every 4 hours as needed. - hydrOXYchloroQUINE (PLAQUENIL) 200 mg tablet Take by mouth twice daily. Facility-Administered Medications as of 10/22/2024 - perflutren lipid microspheres 1.3 mL in NaCl (PF) 0.9% 10 mL injection (DEFINITY) - sodium chloride 0.9 % (flush) 10 mL (BD POSIFLUSH) Problem List As Of Date 10/22/2024 Noted Resolved RA (rheumatoid arthritis) (HCC) [M06.9] 01/01/2023 Rheumatoid arthritis involving multiple sites w*02/21/2023 Vitamin B12 deficiency [E53.8] 02/21/2023 Tachycardia [R00.0] 02/21/2023 Palpitations [R00.2] 02/21/2023 Borderline abnormal thyroid function test [R94.*02/21/2023 Encounter Status:Closed by ARLENE ROLLINS LPN on 10/22/24 Normal [facility] 25(OH)D3 SerPl-tomion 2023 25-hydroxyvitamin D3 [Mass/Vol] 34.6 ng/mL Normal 31.0-80.0 [facility] Comment on above: Order Comment: Speci men Type: BLOOD SPECIMENOrdering Facility: [facility] Address: [address] [place] [address] Result Comment: Clas sification of 25 OH Vitamin D status: Deficiency/Insufficiency: < or = 30 ng/ml. Sufficiency/Optimal Levels: 31-80 ng/mL Toxicity: > 100 ng/mL. Test performed by chemiluminescent immunoassay. Performed By: #### 1 989-3 ####[facility] LABCLIA [id number] [place] [address] [place] CBC W Auto Differential pane l (Bld)on 10-04-2024 Basophils (Bld) [#/Vol] 0.05 10*3/uL Normal <0.11 [facility] Comment on above: Order Comment: Speci men Type: BLOOD SPECIMENOrdering Facility: [facility] Address: [address] [place] [address] Performed By: #### 5 7021-8 ####[facility] LABCLIA [id number] [place] [address] [place] Basophils/100 WBC (Bld) 1.1 % Normal [facility] Comment on above: Order Comment: Speci men Type: BLOOD SPECIMENOrdering Facility: [facility] Address: [address] [place] [address] Performed By: #### 5 7021-8 ####[facility] LABCLIA [id number] [place] [address] [place] Differential cell count method Nom (Bld) Auto Normal [facility] Comment on above: Order Comment: Speci men Type: BLOOD SPECIMENOrdering Facility: [facility] Address: [address] [place] [address] Performed By: #### 5 7021-8 ####[facility] LABCLIA [id number] [place] [address] [place] Eosinophils (Bld) [#/Vol] 0.11 10*3/uL Normal <0.46 [facility] Comment on above: Order Comment: Speci men Type: BLOOD SPECIMENOrdering Facility: [facility] Address: [address] [place] [address] Performed By: #### 5 7021-8 ####[facility] LABCLIA [id number] [place] [address] [place] Eosinophils/100 WBC (Bld) 2.4 % Normal [facility] Comment on above: Order Comment: Speci men Type: BLOOD SPECIMENOrdering Facility: [facility] Address: [address] [place] [address] Performed By: #### 5 7021-8 ####[facility] LABCLIA [id number] [place] [address] [place] Erythrocyte distribution width (RBC) [Ratio] 13.6 % Normal 11.5-15.0 [facility] Comment on above: Order Comment: Speci men Type: BLOOD SPECIMENOrdering Facility: [facility] Address: [address] [place] [address] Performed By: #### 5 7021-8 ####[facility] LABCLIA [id number] [place] [address] [place] Hematocrit (Bld) [Volume fraction] 37.8 % Normal 36.0-46.0 [facility] Comment on above: Order Comment: Speci men Type: BLOOD SPECIMENOrdering Facility: [facility] Address: [address] [place] [address] Performed By: #### 5 7021-8 ####[facility] LABCLIA [id number] [place] [address] [place] Hemoglobin (Bld) [Mass/Vol] 12.3 g/dL Normal 11.5-15.5 [facility] Comment on above: Order Comment: Speci men Type: BLOOD SPECIMENOrdering Facility: [facility] Address: [address] [place] [address] Performed By: #### 5 7021-8 ####[facility] LABIA [id number] [place] [address] [place] Immature granulocytes (Bld) [#/Vol] 10*3/uL Normal <0.10 [facility] Comment on above: Order Comment: Speci men Type: BLOOD SPECIMENOrdering Facility: [facility] Address: [address] [place] [address] Performed By: #### 5 7021-8 ####[facility] LABCLIA [id number] [place] [address] [place] Immature granulocytes/100 WBC (Bld) 0.2 % Normal [facility] Comment on above: Order Comment: Speci men Type: BLOOD SPECIMENOrdering Facility: [facility] Address: [address] [place] [address] Performed By: #### 5 7021-8 ####[facility] LABCLIA [id number] [place] [address] [place] Lymphocytes (Bld) [#/Vol] 1.62 10*3/uL Normal 1.00-4.00 [facility] Comment on above: Order Comment: Speci men Type: BLOOD SPECIMENOrdering Facility: [facility] Address: [address] [place] [address] Performed By: #### 5 7021-8 ####[facility] LABCLIA [id number] [place] [address] [place] Lymphocytes/100 WBC (Bld) 35.1 % Normal [facility] Comment on above: Order Comment: Speci men Type: BLOOD SPECIMENOrdering Facility: [facility] Address: [address] [place] [address] Performed By: #### 5 7021-8 ####[facility] LABCLIA [id number] [place] [address] [place] MCH (RBC) [Entitic mass] 26.8 pg Normal 26.0-34.0 [facility] Comment on above: Order Comment: Speci men Type: BLOOD SPECIMENOrdering Facility: [facility] Address: [address] [place] [address] Performed By: #### 5 7021-8 ####[facility] LABCLIA [id number] [place] [address] [place] MCHC (RBC) [Mass/Vol] 32.5 g/dL Normal 30.5-36.0 [facility] Comment on above: Order Comment: Speci men Type: BLOOD SPECIMENOrdering Facility: [facility] Address: [address] [place] [address] Performed By: #### 5 7021-8 ####[facility] LABCLIA [id number] [place] [address] [place] MCV (RBC) [Entitic vol] 82.4 fL Normal 80.0-100.0 [facility] Comment on above: Order Comment: Speci men Type: BLOOD SPECIMENOrdering Facility: [facility] Address: [address] [place] [address] Performed By: #### 5 7021-8 ####[facility] LABCLIA [id number] [place] [address] [place] Monocytes (Bld) [#/Vol] 0.36 10*3/uL Normal <0.87 [facility] Comment on above: Order Comment: Speci men Type: BLOOD SPECIMENOrdering Facility: [facility] Address: [address] [place] [address] Performed By: #### 5 7021-8 ####[facility] LABCLIA [id number] [place] [address] [place] Monocytes/100 WBC (Bld) 7.8 % Normal [facility] Comment on above: Order Comment: Speci men Type: BLOOD SPECIMENOrdering Facility: [facility] Address: [address] [place] [address] Performed By: #### 5 7021-8 ####[facility] LABCLIA [id number] [place] [address] [place] Neutrophils (Bld) [#/Vol] 2.47 10*3/uL Normal 1.45-7.50 [facility] Comment on above: Order Comment: Speci men Type: BLOOD SPECIMENOrdering Facility: [facility] Address: [address] [place] [address] Performed By: #### 5 7021-8 ####[facility] LABCLIA [id number] [place] [address] [place] Neutrophils/100 WBC (Bld) 53.4 % Normal [facility] Comment on above: Order Comment: Speci men Type: BLOOD SPECIMENOrdering Facility: [facility] Address: [address] [place] [address] Performed By: #### 5 7021-8 ####[facility] LABCLIA [id number] [place] [address] [place] Nucleated RBC (Bld) [#/Vol] 10*3/uL Normal <0.01 [facility] Comment on above: Order Comment: Speci men Type: BLOOD SPECIMENOrdering Facility: [facility] Address: [address] [place] [address] Performed By: #### 5 7021-8 ####[facility] LABCLIA [id number] [place] [address] [place] Nucleated RBC/100 WBC (Bld) [Ratio] 0.0 /100 WBC Normal [facility] Comment on above: Order Comment: Speci men Type: BLOOD SPECIMENOrdering Facility: [facility] Address: [address] [place] [address] Performed By: #### 5 7021-8 ####[facility] LABCLIA [id number] [place] [address] [place] Platelet mean volume (Bld) [Entitic vol] 11.0 fL Normal 9.0-12.7 [facility] Comment on above: Order Comment: Speci men Type: BLOOD SPECIMENOrdering Facility: [facility] Address: [address] [place] [address] Performed By: #### 5 7021-8 ####[facility] LABCLIA [id number] [place] [address] [place] Platelets (Bld) [#/Vol] 313 10*3/uL Normal 150-400 [facility] Comment on above: Order Comment: Speci men Type: BLOOD SPECIMENOrdering Facility: [facility] Address: [address] [place] [address] Performed By: #### 5 7021-8 ####[facility] LABCLIA [id number] [address] [address] [place] RBC (Bld) [#/Vol] 4.59 10*6/uL Normal 3.90-5.20 [facility] Comment on above: Order Comment: Speci men Type: BLOOD SPECIMENOrdering Facility: [facility] Address: [address] [place] [address] Performed By: #### 5 7021-8 ####[facility] LABCLIA [id number] [place] [id number] [place] WBC (Bld) [#/Vol] 4.62 10*3/uL Normal 3.70-11.00 [facility] Comment on above: Order Comment: Speci men Type: BLOOD SPECIMENOrdering Facility: [facility] Address: [address] [place] [address] Performed By: #### 5 7021-8 ####[facility] LABIA [id number] [place] [address] [place] [facility] Comprehensive metabolic 2000 panelon 10-04-2024 Albumin [Mass/Vol] 4.3 g/dL Normal 3.9-4.9 [facility] Comment on above: Order Comment: Speci men Type: BLOOD SPECIMENOrdering Facility: [facility] Address: [address] [place] [address] Performed By: #### 2 132-9, 16078-3 ####[facility] LABIA [id number] [place] [id number] [place] ALP [Catalytic activity/Vol] 47 U/L Normal 34-123 [facility] Comment on above: Order Comment: Speci men Type: BLOOD SPECIMENOrdering Facility: [facility] Address: [address] [place] [address] Performed By: #### 2 132-9, 61954-2 ####[facility] LABIA [id number] [place] [address] [place] ALT [Catalytic activity/Vol] 14 U/L Normal 7-38 [facility] Comment on above: Order Comment: Speci men Type: BLOOD SPECIMENOrdering Facility: [facility] Address: [address] [place] [address] Performed By: #### 2 132-9, 92634-7 ####[facility] LABCLIA [id number] [place] [address] [place] Anion gap [Moles/Vol] 10 mmol/L Normal 8-15 [facility] Comment on above: Order Comment: Speci men Type: BLOOD SPECIMENOrdering Facility: [facility] Address: [address] [place] [address] Performed By: #### 2 132-9, 04442-9 ####[facility] LABCLIA [id number] [place] [address] [place] AST [Catalytic activity/Vol] 21 U/L Normal 13-35 [facility] Comment on above: Order Comment: Speci men Type: BLOOD SPECIMENOrdering Facility: [facility] Address: [address] [place] [address] Performed By: #### 2 132-9, ####[facility] LABCLIA [id number] [place] [address] [place] Bilirubin [Mass/Vol] 0.2 mg/dL Normal 0.2-1.3 [facility] Comment on above: Order Comment: Speci men Type: BLOOD SPECIMENOrdering Facility: [facility] Address: [address] [place] [address] Performed By: #### 2 132-9, 16932-1 ####[facility] LABCLIA [id number] [place] [address] [place] Calcium [Mass/Vol] 9.0 mg/dL Normal 8.5-10.2 [facility] Comment on above: Order Comment: Speci men Type: BLOOD SPECIMENOrdering Facility: [facility] Address: [address] [place] [address] Performed By: #### 2 132-9, 66160-6 ####[facility] LABCLIA [id number] [place] [id number] [place] Chloride [Moles/Vol] 107 mmol/L Normal 98-107 [facility] Comment on above: Order Comment: Speci men Type: BLOOD SPECIMENOrdering Facility: [facility] Address: [address] [place] [address] Performed By: #### 2 132-9, 50064-2 ####[facility] LABCLIA [id number] [place] [address] [place] CO2 [Moles/Vol] 22 mmol/L Normal 22-30 [facility] Comment on above: Order Comment: Speci men Type: BLOOD SPECIMENOrdering Facility: [facility] Address: [address] [place] [address] Performed By: #### 2 132-9, 43486-9 ####[facility] LABCLIA [id number] [place] [address] [place] Creatinine [Mass/Vol] 0.99 mg/dL High 0.58-0.96 [facility] Comment on above: Order Comment: Speci men Type: BLOOD SPECIMENOrdering Facility: [facility] Address: [address] [place] [address] Performed By: #### 2 132-9, 38806-5 ####[facility] LABCLIA [id number] [place] [id number] [place] Creatinine and Glomerular filtration rate.predicted panel (S/P/Bld) 71 mL/min/1.73m??? Normal >=60 [facility] Comment on above: Order Comment: Speci men Type: BLOOD SPECIMENOrdering Facility: [facility] Address: [address] [place] [address] Result Comment: Kavya mated Glomerular Filtration Rate (eGFR) is calculated using the 2020 CKD-EPI creatinine equation. This equation utilizes serum creatinine, sex, and age as parameters. The creatinine assay has traceable calibration to isotope dilution-mass spectrometry. Refer to KDIGO guidelines for clinical interpretation. In patients with unstable renal function, e.g. those with acute kidney injury, the eGFR may not accurately reflect actual GFR. Performed By: #### 2 132-9, 42617-7 ####[facility] LABCLIA [id number] [place] [address] [place] Glucose [Mass/Vol] 86 mg/dL Normal 74-99 [facility] Comment on above: Order Comment: Zora greco Type: BLOOD SPECIMENOrdering Facility: [facility] Address: [address] [place] [address] Result Comment: The [place] Diabetes Association (ADA) provides guidance for cutoff values for fasting glucose and random glucose. The ADA defines fasting as no caloric intake for at least 8 hours. Fasting plasma glucose results between 100 to 125 mg/dL indicate increased risk for diabetes (prediabetes). Fasting plasma glucose results greater than or equal to 126 mg/dL meet the criteria for diagnosis of diabetes. In the absence of unequivocal hyperglycemia, results should be confirmed by repeat testing. In a patient with classic symptoms of hyperglycemia or hyperglycemic crisis, random plasma glucose results greater than or equal to 200 mg/dL meet the criteria for diagnosis of diabetes. Reference: Standards of Medical Care in Diabetes 2016, [place] Diabetes Association. Diabetes Care. 2016.39(Suppl 1). Performed By: #### 2 132-9, 82423-1 ####[facility] LABCLIA [id number] [place] [address] [place] Potassium [Moles/Vol] 4.7 mmol/L Normal 3.7-5.1 [facility] Comment on above: Order Comment: Zora greco Type: BLOOD SPECIMENOrdering Facility: [facility] Address: [address] [place] [id number] Performed By: #### 2 132-9, 53118-0 ####[facility] LABCLIA [id number] [place] [address] [place] Protein [Mass/Vol] 6.5 g/dL Normal 6.3-8.0 [facility] Comment on above: Order Comment: Speci men Type: BLOOD SPECIMENOrdering Facility: [facility] Address: [address] [place] [address] Performed By: #### 2 132-9, 25896-3 ####[facility] LABCLIA [id number] [place] [address] [place] Sodium [Moles/Vol] 139 mmol/L Normal 136-144 [facility] Comment on above: Order Comment: Speci men Type: BLOOD SPECIMENOrdering Facility: [facility] Address: [address] [place] [address] Performed By: #### 2 132-9, 04178-9 ####[facility] LABCLIA [id number] [place] [address] [place] Urea nitrogen [Mass/Vol] 14 mg/dL Normal 7-21 [facility] Comment on above: Order Comment: Speci men Type: BLOOD SPECIMENOrdering Facility: [facility] Address: [address] [place] [address] Performed By: #### 2 132-9, 65939-5 ####[facility] LABCLIA [id number] [place] [address] [place] HbA1c (Bld)on 10-04-2024 Average glucose Estimated from glycated hemoglobin (Bld) [Mass/Vol] 94 mg/dL Normal [facility] Comment on above: Order Comment: Speci men Type: BLOOD SPECIMENOrdering Facility: [facility] Address: [address] [place] [address] Result Comment: eAG: (Estimated average glucose) is a calculated value from HgbA1c and is employee representative of the average blood glucose level in the last 2-3 month period. Performed By: #### 5 5454-3 ####[facility] LABCLIA [id number] [place] [address] [place] HbA1c (Bld) [Mass fraction] 4.9 % Normal 4.3-5.6 [facility] Comment on above: Order Comment: Zora greco Type: BLOOD SPECIMENOrdering Facility: [facility] Address: [address] [place] [address] Result Comment: Sara ican Diabetes Association guidelines indicate that patients with HgbA1c in the range 5.7-6.4% are at increased risk for development of diabetes, and intervention by lifestyle modification may be beneficial. HgbA1c greater or equal to 6.5% is considered diagnostic of diabetes. Performed By: #### 5 5454-3 ####[facility] LABCLIA [id number] [place] [address] [place] Iron and Iron binding capaci ty panelon 10-04-2024 Iron [Mass/Vol] 38 ug/dL Low 41-186 [facility] Comment on above: Order Comment: Zora greco Type: BLOOD SPECIMENOrdering Facility: [facility] Address: [address] [place] [address] Performed By: #### 2 4331-1, 3016-3, 85042-7, 3024-7 ####[facility] LABIA [id number] [address] [place] Iron binding capacity [Mass/Vol] 299 ug/dL Normal 232-386 [facility] Comment on above: Order Comment: Zora greco Type: BLOOD SPECIMENOrdering Facility: [facility] Address: [address] [place] [address] Performed By: #### 2 4331-1, 3016-3, 39905-4, 3024-7 ####[facility] LABIA [id number] [address] [place] Iron/TIBC [Molar ratio] 12.7 % Low 15.0-57.0 [facility] Comment on above: Order Comment: Zora greco Type: BLOOD SPECIMENOrdering Facility: [facility] Address: [address] [place] [address] Performed By: #### 2 4331-1, 3016-3, 75398-9, 302-7 ####[facility] LABCLIA [id number] [address] [address] [place] Lipid 1996 panelon 4 Cholesterol [Mass/Vol] 193 mg/dL Normal <200 [facility] Comment on above: Order Comment: Cindyi men Type: BLOOD SPECIMENOrdering Facility: [facility] Address: [address] [place] [address] Result Comment: <200 mg/dL, Desirable 200-239 mg/dL, Borderline high >239 mg/dL, High Performed By: #### 2 4331-1, 3016-3, 89148-4, 3023-7 ####[facility] LABCLIA [id number] [place] [address] [place] Cholesterol in HDL [Mass/Vol] 55 mg/dL Normal >39 [facility] Comment on above: Order Comment: Zora greco Type: BLOOD SPECIMENOrdering Facility: [facility] Address: [address] [place] [address] Result Comment: 40-5 9 mg/dL, Acceptable >59 mg/dL, High: Negative risk factor for coronary heart disease <40 mg/dL, Low: Positive risk factor for coronary heart disease Performed By: #### 2 4331-1, 3016-3, 84838-5, 3023-7 ####[facility] LABCLIA [id number] [address] [place] Cholesterol in LDL [Mass/Vol] 126 mg/dL High <100 [facility] Comment on above: Order Comment: Zora men Type: BLOOD SPECIMENOrdering Facility: [facility] Address: [address] [place] [address] Result Comment: <100 mg/dL, Optimal 100-129 mg/dL, Near optimal/above optimal 130-159 mg/dL, Borderline high 160-189 mg/dL, High >189 mg/dL, Very high Secondary prevention optimal LDL Cholesterol levels are recommended to be < 70 mg/dL Performed By: #### 2 4331-1, 3016-3, 73206-3, 3024-7 ####[facility] LABIA [id number] [place] [address] [place] Cholesterol in LDL/Cholesterol in HDL [Mass ratio] 2.29 {ratio} Normal <2.54 [facility] Comment on above: Order Comment: Speci men Type: BLOOD SPECIMENOrdering Facility: [facility] Address: [address] [place] [address] Result Comment: Refe humzace: 1. National Cholesterol Education Program ATP III Guideline At-A-Glance Quick Desk Reference: National Heart, Lung, and Blood [place]. National Institutes of Health. 2001: NIH Publication No. 01-3305. 2. An International Atherosclerosis Society position paper: global recommendations for the management of dyslipidemia: executive summary, Atherosclerosis. 2014: 232(2):410-413. Performed By: #### 2 4331-1, 3016-3, 50383-5, 3024-7 ####[facility] LABIA [id number] [place] [address] [place] Cholesterol in VLDL [Mass/Vol] 12 mg/dL Normal <30 [facility] Comment on above: Order Comment: Speci men Type: BLOOD SPECIMENOrdering Facility: [facility] Address: [address] [place] [address] Performed By: #### 2 4331-1, 3016-3, 56391-8, 3024-7 ####[facility] LABIA [id number] [address] [address] [place] Cholesterol non HDL [Mass/Vol] 138 mg/dL High <130 [facility] Comment on above: Order Comment: Speci men Type: BLOOD SPECIMENOrdering Facility: [facility] Address: [address] [place] [address] Result Comment: <130 mg/dL, Optimal 130-159 mg/dL, Near optimal/above optimal 160-189 mg/dL, Borderline high 190-219 mg/dL, High >219 mg/dL, Very high Secondary prevention optimal non HDL Cholesterol levels are recommended to be <100 mg/dL Performed By: #### 2 4331-1, 6-3, 02204-0, 7 ####[facility] LABCLIA [id number] [address] [address] [place] Cholesterol.total /Cholesterol in HDL [Mass ratio] 3.51 {ratio} Normal <5.10 [facility] Comment on above: Order Comment: Speci men Type: BLOOD SPECIMENOrdering Facility: [facility] Address: [address] [place] [address] Performed By: #### 2 4331-1, 3015-3, 93240-3, 3024-05 ####[facility] LABCLIA [id number] [place] [address] [place] FASTING TIME 11 hrs Normal [facility] Comment on above: Order Comment: Speci men Type: BLOOD SPECIMENOrdering Facility: [facility] Address: [address] [place] [address] Performed By: #### 2 4331-1, 3015-3, 43299-2, 3024-05 ####[facility] LABCLIA [id number] [place] [address] [place] Triglyceride [Mass/Vol] 60 mg/dL Normal <150 [facility] Comment on above: Order Comment: Speci men Type: BLOOD SPECIMENOrdering Facility: [facility] Address: [address] [place], [place] [address] Result Comment: <150 mg/dL, Normal 150-199 mg/dL, Borderline high 200-499 mg/dL, High >499 mg/dL, Very high Performed By: #### 2 4331-1, 3015-3, 01676-9, 7 ####[facility] LABCLIA [id number] [address] [address] [place] T4 Free SerPl-mCncon 024 Free T4 [Mass/Vol] 1.1 ng/dL Normal 0.9-1.7 [facility] Comment on above: Order Comment: Speci men Type: BLOOD SPECIMENOrdering Facility: [facility] Address: [address] [place] [address] Performed By: #### 2 4331-1, 3016-3, 05223-3, 3024-7 ####[facility] LABCLIA [id number] [place] [address] [place] TSH SerPl-aCncon 10-04-2024 TSH Qn 1.650 m[IU]/L Normal 0.270-4.200 [facility] Comment on above: Order Comment: Zora greco Type: BLOOD SPECIMENOrdering Facility: [facility] Address: [address] [place] [address] Result Comment: If t he patient is , TSH reference range varies by gestational period: First Trimester (weeks 9-12): 0.180-2.990 mIU/L Second Trimester: 0.110-3.980 mIU/L Third Trimester: 0.480-4.710 mIU/L Elie Garrison et al. A Practical Approach for the Verifications and Determination of Site- and Trimester-Specific Reference Intervals for Thyroid Function tests in . Thyroid, 2019:29:3:412-420. Stefan Prabhakar, et al. 2017 Guidelines of the [place] Thyroid Association for the Diagnosis and Management of Thyroid Disease during and the . Thyroid, 2017:27:3:315-389. Performed By: #### 2 4331-1, 3016-3, 99113-3, 3024-7 ####[facility] LABCLIA [id number] [place] [address] [place] Vit B12 SerPl-mCncon 024 Cobalamin (Vitamin B12) [Mass/Vol] 380 pg/mL Normal 232-1245 [facility] Comment on above: Order Comment: Speci men Type: BLOOD SPECIMENOrdering Facility: [facility] Address: [address] [place] [address] Performed By: #### 2 132-9, 41644-3 ####[facility] LABCLIA [id number] [place] [address] [place] JANEEN SCREENING W TOMOon 10-01 JANEEN SCREENING W CONCHA * * *Final Report* * * DATE OF EXAM: Oct 01 2024 1:31PM [facility] [id number] - JANEEN SCREENING W CONCHA / PROCEDURE REASON: Encounter for screening mammogram for breast cancer * * * * Physician Interpretation * * * * RESULT: [facility] [address] [place] [address] HISTORY: Patient is 48 years old and is seen for screening and is asymptomatic in both breasts. Patient states no personal history of breast cancer. Patient states no personal history of other cancers. COMPARISON STUDIES: The present examination has been compared to prior imaging studies dated 04/17/2022 (mammogram) and 02/28/2023 (mammogram). MAMMOGRAM TECHNIQUE: The study was acquired using full field digital technology and interpreted from soft copy. Digital Breast Tomosynthesis (DBT) images were obtained and used to assist in the interpretation of this examination. Computer-aided detection was utilized by the radiologist in the interpretation of this examination. MAMMOGRAM FINDINGS: The breasts are heterogeneously dense, which may obscure small masses. There are bilateral saline implants. The implants appear smooth in contour with no evidence of rupture or leak. No suspicious masses, calcifications or other abnormalities are seen in either breast. IMPRESSION: There is no mammographic evidence of malignancy. Routine screening mammogram is recommended. Annual mammogram will be due in 1 year. BI-RADS Category 2: Benign RISK: Based on the Tyrer-Cuzick (TC) risk assessment model, this patient has a 22.4% lifetime risk of developing breast cancer, meaning they are at high risk for developing breast cancer. However, this is only an estimate based on available history provided on the patient's questionnaire. Because patients with a lifetime risk of 20% or greater may benefit from additional supplemental screening, we encourage a full breast clinical evaluation and comprehensive breast cancer risk assessment to guide further decision making. For more information regarding the management of high-risk patients, the following is a link to the [facility] care path [email or web address]://ccf.IBTgames.Telnic/ dotNet/documents/?glfqb=702 04. Additionally, a referral to the [facility] is also appropriate. Interpreting Radiologist: Darien Sellers M.D. Electronically signed on: 10/05/2024 [employer]: [id number] Transcribe Date/Time: Oct 01 2024 1:14P Dictated by: DARIEN SELLERS MD This examination was interpreted and the report reviewed and electronically signed by: DARIEN SELLERS MD on Oct 05 2024 11:07AM EST [id number] Normal [facility] CNOVon 09-23-2024 CNOV Office Visit (FAMPWS ) MICHELLE COLLINS ([id number]) 1975 F Date Time Provider Department 09/23/24 1:20 PM KIN MUÑOZ FAMPWS During your visit today, we recorded the following information about you: Temperature Pulse Respiration Blood pressure 97.1 degrees 80/minute 12/minute 120/60 Weight Height Last Period 68.5 kg 1.66 m 08/11/24 Kin Muñoz, DO 09/23/2024 5:11 PM Signed CC: Michelle Andujar Dennis is a 48 year old female who presents to the office for physical HPI: Overall she is doing well Palpitations, she was seen by Clinical Biostatistics Director, improved symptoms with metoprolol medication use. No new symptoms Has occasional fatigue Would like to consider meeting with genetics regarding genetic testing- mother with breast cancer and lymphoma, father with prostate CA PAST MEDICAL HISTORY Diagnosis Date Palpitations 2022 metoprolol RA (rheumatoid arthritis) (HCC) PAST SURGICAL HISTORY Procedure Laterality Date BREAST AUGMENTATION W/PROSTHETIC IMPLANT Bilateral 2006 BREAST BIOPSY NEEDLE LEFT 2020 benign DELIVERY ONLY 11/26/2002 , low cervical - x2 FOOT SURGERY HX Left LIGATE FALLOPIAN TUBE 2005 Social History: Social History Tobacco Use Smoking status: Never Smokeless tobacco: Never Vaping Use Vaping status: Never Used Substance Use Topics Alcohol use: Yes Comment: occasionally Drug use: No FAMILY HISTORY Problem Relation Age of Onset Breast Cancer Mother 32 other (non-Hodgkin's lymphoma) Mother 72 Heart disease Maternal Grandmother Heart Paternal Grandmother Cancer Paternal Grandfather lung, smoker Breast Cancer Paternal Aunt 35 Current Outpatient prescriptions: metoprolol succinate ER (TOPROL XL) 25 mg 24 hr tabletTake 1 tablet by mouth once daily.Disp: 360 tabletRfl: 3 sertraline (ZOLOFT) 50 mg tabletTake 1 tablet by mouth once daily.Disp: 30 tabletRfl: 11 minoxidil (LONITEN) 2.5 mg tabletDisp: Rfl: fluticasone (FLONASE) 50 mcg/actuation nasal sprayUse 2 Sprays in each nostril once daily. Rinse mouth after use.Disp: 16 gRfl: 1 predniSONE (DELTASONE) 10 mg tablettake 1 tablet by mouth once daily if needed for 3 to 5 days with FLARESDisp: Rfl: albuterol HFA (PROAIR HFA) 90 mcg/actuation inhalerInhale 2 Puffs as instructed every 4 hours as needed.Disp: 18 gRfl: 0 hydrOXYchloroQUINE (PLAQUENIL) 200 mg tabletTake by mouth twice daily.Disp: Rfl: Allergies: ALLERGIES No Known Allergies ROS: See HPI PE: 09/23/24 1321 BP: 120/60 Pulse: 80 Resp: 12 Temp: 36.2 ?C (97.1 ?F) TempSrc: Temporal Weight: 68.5 kg (151 lb 0.2 oz) Height: 166 cm (5' 5.35) Gen: AANDO, NAD, non-toxic appearing, Pleasant, cooperative HEENT: NT/AC, PERRLA, EOMs intact b/l, nares clear and patent b/l, pharynx without erythema, exudate or lesions. MMM, Uvula midline. EACs without erythema or debris. TMs pearly zhang with intact landmarks b/l. Neck: supple, No cervical LAD, no thyromegaly, no carotid bruits CV: RRR, normal S1 and S2, no murmurs, no gallops, no rubs, Pulses 2+ and symmetric in UE and LE b/l Lungs: normal respiratory effort, CTA b/l, no wheezing or rhonchi or rales Abd: soft, NT, ND, +BS, no hepatosplenomegaly MS: FROM all 4 extremities Neuro: CN II-XII intact b/l, strength 5/5 b/l UE and LE, DTRs 2/4 UE and LE, sensation intact. Skin: warm, dry, intact, No rashes or lesions on exposed skin. No edema, normal pulses ASSESSMENT/PLAN: 1. Well adult exam - ICD9: V70.0, ICD10: Z00.00 (primary diagnosis) - Counseled on healthy diet and regular exercise - THYROID STIMULATING HORMONE - COMPLETE BLOOD COUNT AND DIFFERENTIAL - COMPREHENSIVE METABOLIC PANEL - LIPID PANEL BASIC - HEMOGLOBIN A1C - T4 FREE/FREE THYROXINE - VITAMIN B12 - VITAMIN D 25 HYDROXY - IRON AND TIBC 2. Family history of breast cancer in mother - ICD9: V16.3, ICD10: Z80.3 - CONSULT TO MEDICAL GENETICS - CANCER 3. Family history of lymphoma - ICD9: V16.7, ICD10: Z80.7 - CONSULT TO MEDICAL GENETICS - CANCER 4. Screening for colon cancer - ICD9: V76.51, ICD10: Z12.11 She is willing to do cologuard, not colonoscopy although she is aware this is the gold standard that is recommended for colon cancer screening. - COLOGUARD 5. Rheumatoid arthritis involving multiple sites with positive rheumatoid factor (HCC) - ICD9: 714.0, ICD10: M05.79 stable 6. Palpitations - ICD9: 785.1, ICD10: R00.2 Stable, taking metoprolol Kin Muñoz DO To ER if develops chest pain, shortness of breath, or severe worsening of symptoms. Discussed risks, benefits, alternatives, and potential side effects of medications. Patient expressed understanding and agreed with the plan. Kin Muñoz DO [address] [place] [address] Allergies As of Date: 09/23/2024 (No Known Allergies) Date Reviewed: (more content not included)... Normal [facility] CNOVon 09-01-2024 CNOV Office Visit (CAWSTR ) MICHELLE COLLINS ([id number]) 1975 F Date Time Provider Department 09/01/24 1:20 PM JOHN DURON During your visit today, we recorded the following information about you: Pulse Blood pressure Weight 87/minute 115/72 69.4 kg John Duron MD 09/01/2024 1:28 PM Signed [facility] Cardiology ([facility]) [address] [facility] [id number] OUTPATIENT VISIT DATE 09/01/2024 PRIMARY CARE PHYSICIAN: Kin Muñoz [address] [place] [address] REFERRING PHYSICIAN: Kin Muñoz [address] [facility] [address] CHIEF COMPLAINT: Palpitations HISTORY OF PRESENT ILLNESS: Ms. Collins is a 48 year old woman with a history of palpitations and SVT who presents for follow-up. Since her last visit, she has been doing well. She does note that if she misses her metoprolol she has increased symptoms of palpitations. Her functional capacity has remained adequate. She has not had symptoms of shortness of breath or dyspnea on exertion. PAST MEDICAL HISTORY Diagnosis Date Palpitations 2022 metoprolol RA (rheumatoid arthritis) (HCC) PAST SURGICAL HISTORY Procedure Laterality Date BREAST AUGMENTATION W/PROSTHETIC IMPLANT Bilateral 2006 BREAST BIOPSY NEEDLE LEFT 2020 benign DELIVERY ONLY 11/26/2002 , low cervical - x2 FOOT SURGERY HX Left LIGATE FALLOPIAN TUBE 2006 SOCIAL HISTORY Social History Tobacco Use Smoking status: Never Smokeless tobacco: Never Vaping Use Vaping status: Never Used Substance Use Topics Alcohol use: Yes Comment: occasionally Drug use: No FAMILY HISTORY Problem Relation Age of Onset Breast Cancer Mother 32 other (non-Hodgkin's lymphoma) Mother 72 Heart disease Maternal Grandmother Heart Paternal Grandmother Cancer Paternal Grandfather lung, smoker Breast Cancer Paternal Aunt 35 ALLERGIES: ALLERGIES No Known Allergies MEDICATIONS: metoprolol succinate ER (TOPROL XL) 25 mg 24 hr tablettake 1 tablet by mouth once dailyDisp: 360 tabletRfl: 3 sertraline (ZOLOFT) 50 mg tabletTake 1 tablet by mouth once daily.Disp: 30 tabletRfl: 11 minoxidil (LONITEN) 2.5 mg tabletDisp: Rfl: fluticasone (FLONASE) 50 mcg/actuation nasal sprayUse 2 Sprays in each nostril once daily. Rinse mouth after use.Disp: 16 gRfl: 1 predniSONE (DELTASONE) 10 mg tablettake 1 tablet by mouth once daily if needed for 3 to 5 days with FLARESDisp: Rfl: albuterol HFA (PROAIR HFA) 90 mcg/actuation inhalerInhale 2 Puffs as instructed every 4 hours as needed.Disp: 18 gRfl: 0 hydrOXYchloroQUINE (PLAQUENIL) 200 mg tabletTake by mouth twice daily.Disp: Rfl: REVIEW OF SYSTEMS: Review of Systems Constitutional: Negative for chills, fever, malaise/fatigue and weight loss. HENT: Negative for hearing loss and sore throat. Eyes: Negative for blurred vision and double vision. Respiratory: Negative. Cardiovascular: Positive for palpitations. Gastrointestinal: Negative. Genitourinary: Negative for dysuria, frequency, hematuria and urgency. Musculoskeletal: Negative. Skin: Negative. Neurological: Negative for dizziness, seizures, loss of consciousness, weakness and headaches. Endo/Heme/Allergies: Negative for environmental allergies. Does not bruise/bleed easily. Psychiatric/Behavioral: Negative for depression. PHYSICAL EXAMINATION: BP 115/72 Pulse 87 Wt 153 lb (69.4kg) SpO2 99% LMP 06/19/2023 General: Pleasant woman sitting appears comfortable no apparent distress she is alert and oriented x3 HEENT: Carotid upstrokes are brisk without bruits no JVD appreciated. Pulmonary: Lungs are clear no rales, wheezes, rhonchi Cardiovascular: Normal S1, S2 with regular rate and rhythm. No murmurs, rubs, or gallops Extremities: Warm, well-perfused, no lower extremity edema. 2+ distal pulses CARDIOVASCULAR MEDICINE TESTING: Echocardiogram 11/20/2023: - The left ventricle is normal in size. Left ventricular systolic function is normal. EF = 56 ? 5% (2D 4-ch.) Normal left ventricular diastolic function. - The right ventricle is normal in size. Right ventricular systolic function is normal. - There are no significant valvular abnormalities. - Estimated right ventricular systolic pressure is not reported due to an insufficient tricuspid regurgitation signal. Estimated right atrial pressure is 3 mmHg (although IVC not seen). - The patient has not had a prior CC echocardiographic exam for comparison. Echocardiogram 09/30/2020 - Technically difficult exam due to body habitus and breast augmentation. - Exam indication: Rheumatoid arthritis - The left ventricle is normal in size. Left ventricular systolic function is normal. EF = 61 ? 5% (2D 4-ch.) Normal left ventricular lee (more content not included)... Normal [facility] BACTERIAL VAGINOSIS NAATon 1 Lactobacillus crispatus+gasseri +jensenii + Gardnerella vaginalis + Atopobium vaginae rRNA YUMIKO+probe Ql (Vag fld) Negative Negative for bacterial vaginosis [facility] LEE/TRICHOMONAS NAATon 1 C. glabrata RNA YUMIKO+probe Ql (Vag fld) Negative Negative for Lee glabrata [facility] Lee sp DNA YUMIKO+probe Ql (Vag fld) Negative Negative for Lee species [facility] T. vaginalis DNA YUMIKO+probe Ql (Unsp spec) Negative Negative for Trichomonas vaginalis by amplification [facility] UA DIP, URINE (POC)on 2022 BILIRUBIN UA (POCT) Negative Negative [facility] CLARITY UA (POCT) Clear [facility] COLOR UA (POCT) Yellow [facility] GLUCOSE UA (POCT) Negative Negative mg/dL [facility] Hemoglobin Ql (U) Trace-intact Abnormal Negative [facility] KETONE UA (POCT) Negative Negative mg/dL [facility] LEUKOCYTES UA (POCT) Small Abnormal Negative [facility] NITRITE UA (POCT) Negative Negative [facility] PH UA (POCT) 5.5 4.5 - 8.0 [facility] Protein Ql (U) 30 mg/dL Abnormal Negative mg/dL [facility] SPECIFIC GRAVITY UA (POCT) >=1.030 1.005 - 1.030 [facility] UROBILINOGEN UA (POCT) 0.2 E.U./dL Normal E.U./dL [facility] JANEEN SCREENING W TOMOon 02-28 [facility] Iron and Iron binding capaci ty panelon 02-17-2023 Iron [Mass/Vol] 37 ug/dL Low 41 - 186 ug/dL [facility] Iron binding capacity [Mass/Vol] 309 ug/dL 232 - 386 ug/dL [facility] Iron/TIBC [Molar ratio] 12.0 % Low 15.0 - 57.0 % [facility] MAGNESIUM [facility] 02-17-2023 Magnesium [Mass/Vol] 1.8 mg/dL 1.7 - 2.3 mg/dL [facility] T3 FREE BLDon 02-17-2023 Free T3 [Mass/Vol] 2.6 pg/mL 2.3 - 4.1 pg/mL [facility] T4 FREE/FREE THYROXon 2022 Free T4 [Mass/Vol] 0.9 ng/dL 0.9 - 1.7 ng/dL [facility] TSH [facility] 02-17-2023 TSH Qn 2.080 m[IU]/L 0.270 - 4.200 mIU/L [facility] VITAMIN B12 BLOODon 02-18-20 Cobalamin (Vitamin B12) [Mass/Vol] 388 pg/mL 232 - 1,245 pg/mL [facility] CBC W Auto Differential pane l (Bld)on 01-01-2023 Basophils (Bld) [#/Vol] 0.06 10*3/uL <0.11 k/uL [facility] Basophils/100 WBC (Bld) 1.0 % [facility] Differential cell count method Nom (Bld) Auto [facility] Eosinophils (Bld) [#/Vol] 0.05 10*3/uL <0.46 k/uL [facility] Eosinophils/100 WBC (Bld) 0.8 % [facility] Erythrocyte distribution width (RBC) [Ratio] 13.6 % 11.5 - 15.0 % [facility] Hematocrit (Bld) [Volume fraction] 39.2 % 36.0 - 46.0 % [facility] Hemoglobin (Bld) [Mass/Vol] 12.7 g/dL 11.5 - 15.5 g/dL [facility] Immature granulocytes (Bld) [#/Vol] <0.10 k/uL [facility] Immature granulocytes/100 WBC (Bld) 0.2 % [facility] Lymphocytes (Bld) [#/Vol] 2.16 10*3/uL 1.00 - 4.00 k/uL [facility] Lymphocytes/100 WBC (Bld) 35.8 % [facility] MCH (RBC) [Entitic mass] 27.6 pg 26.0 - 34.0 pg [facility] MCHC (RBC) [Mass/Vol] 32.4 g/dL 30.5 - 36.0 g/dL [facility] MCV (RBC) [Entitic vol] 85.2 fL 80.0 - 100.0 fL [facility] Monocytes (Bld) [#/Vol] 0.33 10*3/uL <0.87 k/uL [facility] Monocytes/100 WBC (Bld) 5.5 % [facility] Neutrophils (Bld) [#/Vol] 3.42 10*3/uL 1.45 - 7.50 k/uL [facility] Neutrophils/100 WBC (Bld) 56.7 % [facility] Nucleated RBC (Bld) [#/Vol] <0.01 k/uL [facility] Nucleated RBC/100 WBC (Bld) [Ratio] 0.0 /100 WBC [facility] Platelet mean volume (Bld) [Entitic vol] 10.9 fL 9.0 - 12.7 fL [facility] Platelets (Bld) [#/Vol] 307 10*3/uL 150 - 400 k/uL [facility] RBC (Bld) [#/Vol] 4.60 10*6/uL 3.90 - 5.2 0 m/uL [facility] WBC (Bld) [#/Vol] 6.03 10*3/uL 3.70 - 11. 00 k/uL [facility] HbA1c (Bld)on 01-01-2023 Average glucose Estimated from glycated hemoglobin (Bld) [Mass/Vol] 88 mg/dL [facility] HbA1c (Bld) [Mass fraction] 4.7 % 4.3 - 5.6 % [facility] Absolute lymphocyte counton 08-23-2022 Lymphocytes Auto (Unsp spec) [#/Vol] 1.47 10*3/uL 0.83-4.51 [facility] Work Phone: Basophil percentageon 2021 Basophils/100 WBC (Bld) 0.4 % 0-1 [facility] Work Phone: [phone] Bilirubin [Mass/Vol] 0.40 mg/dL 0.20-1.00 [facility] Work Phone: [phone] Comment on above: For patients on eltr ombopag therapy, use of Dimension [place] TBIL is not recommended. Chloride [Moles/Vol] 107 mmol/L 98-107 [facility] Work Phone: [phone] Eosinophils/100 WBC (Bld) 0.8 % 0-5 [facility] Work Phone: [phone] Glucose [Mass/Vol] 82 mg/dL 74-106 [facility] Work Phone: Neutrophils (Bld) [#/Vol] 3.4 10*3/uL 2.0-7.7 [facility] Work Phone: Neutrophils/100 WBC (Bld) 64.1 % 47-70 [facility] Work Phone: Potassium [Moles/Vol] 3.9 mmol/L 3.5-5.1 [facility] Work Phone: Protein [Mass/Vol] 7.0 g/dL 6.4-8.2 [facility] Work Phone: Sodium [Moles/Vol] 140 mmol/L 136-145 [facility] Work Phone: [phone] WBC (Bld) [#/Vol] 5.3 10*3/uL 4.4-11.0 [facility] Work Phone: Blood erythrocytes count (nu mber/volume)on 08-23-2022 RBC (Bld) [#/Vol] 4.20 10*6/uL 4.2-5.[address] [facility] Work Phone: Blood hemoglobin measurement (mass/volume)on 08-23-2022 Hemoglobin (Bld) [Mass/Vol] 12.4 g/dL 12.0-15.0 [facility] Work Phone: Blood lymphocytes/100 leukoc yteson 08-23-2022 Lymphocytes/100 WBC (Bld) 27.7 % 19-41 [facility] Work Phone: Blood monocytes/100 leukocyt eson 08-23-2022 Monocytes/100 WBC (Bld) 6.8 % 0-10 [facility] Work Phone: Blood platelet mean volumeon 08-23-2022 Platelet mean volume (Bld) [Entitic vol] 11.4 fL 6.2-12.0 [facility] Work Phone: Determination of erythrocyte mean corpuscular volume (MCV)on 08-23-2022 MCV (RBC) [Entitic vol] 88.8 fL 81-99 [facility] Work Phone: Hematocrit Auto (Bld) [Volum e fraction]on 08-23-2022 Hematocrit (Bld) [Volume fraction] 37.3 % 37-47 [facility] Work Phone: Laboratory - Chemistry and C hemistry - challengeon 08-23-2022 ALP [Catalytic activity/Vol] 41 U/L 45-117 [facility] Work Phone: ALT [Catalytic activity/Vol] 22 U/L 13-56 [facility] Work Phone: CO2 [Moles/Vol] 27.0 mmol/L 21.0-32.0 [facility] Work Phone: Globulin (S) [Mass/Vol] 3.2 g/dL 2.2-4.2 [facility] Work Phone: [phone] Urea nitrogen/Creatini ne [Mass ratio] 11.0 mg/mg 10-20 [facility] Work Phone: Laboratory - Hematology and Cell countson 08-23-2022 Erythrocyte distribution width (RBC) [Entitic vol] 39.4 fL 35.1-43.9 [facility] Work Phone: Erythrocyte distribution width (RBC) [Ratio] 12.2 % 11.6-14.6 [facility] Work Phone: Immature granulocytes/100 WBC (Bld) 0.200 % 0.0-0.9 [facility] Work Phone: Comment on above: IG% - Immature Granu locytes (promyelocytes, myelocytes and metamyelocytes) > 1% indicates that a LEFT SHIFT is Present. MCH (RBC) [Entitic mass] 29.5 pg 27.0-32.0 [facility] Work Phone: Nucleated RBC/100 WBC (Bld) [Ratio] 0 % 0-5 [facility] Work Phone: MCHC Auto (RBC) [Mass/Vol]on 08-23-2022 MCHC (RBC) [Mass/Vol] 33.2 g/dL 32-36 [facility] Work Phone: No Panel Informationon 08-23 Estimated GFR (MDRD) Amer 86 mL/min >60 [facility] Work Phone: Comment on above: GFR Calc Estimated GFR (MDRD) Non-Af Amer 71 mL/min >60 [facility] Work Phone: Comment on above: Non- GFR Calc Platelets bldon 08-23-2022 Platelets (Bld) [#/Vol] 271 10*3/uL 150-450 [facility] Work Phone: Serum or plasma albumin bradly urement (mass/volume)on 08-23-2022 Albumin [Mass/Vol] 3.8 g/dL 3.2-5.0 [facility] Work Phone: Serum or plasma albumin/glob ulin mass ratioon 08-23-2022 Albumin/Globulin [Mass ratio] 1.2 {ratio} 0.9-2.4 [facility] Work Phone: Serum or plasma calcium bradly urement (mass/volume)on 08-23-2022 Calcium [Mass/Vol] 8.5 mg/dL 8.5-10.1 [facility] Work Phone: Serum or plasma creatinine m easurement (mass/volume)on 08-23-2022 Creatinine [Mass/Vol] 0.91 mg/dL 0.55-1.02 [facility] Work Phone: Comment on above: The validity of the calculated GFR & GFRAA in patients over 70 years has not been determined. Clinical correlation is essential. Serum or plasma urea nitroge n measurement (mass/volume)on 08-23-2022 Urea nitrogen [Mass/Vol] 10 mg/dL 7-18 [facility] Work Phone: Thin prep Papanicolaou smear with manual screeningon 08-23-2022 Thin prep Papanicolaou smear with manual screening 14 U/L 15-37 [facility] Work Phone: Thin prep Papanicolaou smear with manual screening 6 5-15 [facility] Work Phone: Absolute lymphocyte counton 03-02-2022 Lymphocytes Auto (Unsp spec) [#/Vol] 1.99 10*3/uL 0.83-4.51 [facility] Work Phone: Basophil percentageon 2021 Basophils/100 WBC (Bld) 0.8 % 0-1 [facility] Work Phone: Bilirubin [Mass/Vol] 0.40 mg/dL 0.20-1.00 [facility] Work Phone: Comment on above: For patients on eltr ombopag therapy, use of [place] TBIL is not recommended. Chloride [Moles/Vol] 106 mmol/L 98-107 [facility] Work Phone: Eosinophils/100 WBC (Bld) 1.4 % 0-5 [facility] Work Phone: Glucose [Mass/Vol] 93 mg/dL 74-106 [facility] Work Phone: Neutrophils (Bld) [#/Vol] 5.0 10*3/uL 2.0-7.7 [facility] Work Phone: Neutrophils/100 WBC (Bld) 65.4 % 47-70 [facility] Work Phone: Potassium [Moles/Vol] 3.9 mmol/L 3.5-5.1 [facility] Work Phone: Protein [Mass/Vol] 7.4 g/dL 6.4-8.2 [facility] Work Phone: Sodium [Moles/Vol] 137 mmol/L 136-145 [facility] Work Phone: WBC (Bld) [#/Vol] 7.7 10*3/uL 4.4-11.0 [facility]: Blood erythrocytes count (nu mber/volume)on 03-02-2022 RBC (Bld) [#/Vol] 4.70 10*6/uL 4.2-5.[address] [facility] Work Phone: Blood hemoglobin measurement (mass/volume)on 03-02-2022 Hemoglobin (Bld) [Mass/Vol] 13.8 g/dL 12.0-15.0 [facility] Work Phone: [phone] Blood lymphocytes/100 leukoc yteson 03-02-2022 Lymphocytes/100 WBC (Bld) 26.0 % 19-41 [facility] Work Phone: Blood monocytes/100 leukocyt eson 03-02-2022 Monocytes/100 WBC (Bld) 6.3 % 0-10 [facility] Work Phone: Blood platelet mean volumeon 03-02-2022 Platelet mean volume (Bld) [Entitic vol] 11.3 fL 6.2-12.0 [facility] Work Phone: Determination of erythrocyte mean corpuscular volume (MCV)on 03-02-2022 MCV (RBC) [Entitic vol] 84.3 fL 81-99 [facility] Work Phone: Hematocrit Auto (Bld) [Volum e fraction]on 03-02-2022 Hematocrit (Bld) [Volume fraction] 39.6 % 37-47 [facility] Work Phone: Laboratory - Chemistry and C hemistry - challengeon 03-02-2022 ALP [Catalytic activity/Vol] 54 U/L 45-117 [facility] Work Phone: ALT [Catalytic activity/Vol] 28 U/L 13-56 [facility] Work Phone: CO2 [Moles/Vol] 25.0 mmol/L 21.0-32.0 [facility] Work Phone: Globulin (S) [Mass/Vol] 3.3 g/dL 2.2-4.2 [facility] Work Phone: Urea nitrogen/Creatini ne [Mass ratio] 14.0 mg/mg 10-20 [facility] Work Phone: Laboratory - Hematology and Cell countson 03-02-2022 Erythrocyte distribution width (RBC) [Entitic vol] 40.9 fL 35.1-43.9 [facility] Work Phone: Erythrocyte distribution width (RBC) [Ratio] 13.2 % 11.6-14.6 [facility] Work Phone: Immature granulocytes/100 WBC (Bld) 0.100 % 0.0-0.9 [facility] Work Phone: Comment on above: IG% - Immature Granu locytes (promyelocytes, myelocytes and metamyelocytes) > 1% indicates that a LEFT SHIFT is Present. MCH (RBC) [Entitic mass] 29.4 pg 27.0-32.0 [facility] Work Phone: Nucleated RBC/100 WBC (Bld) [Ratio] 0 % 0-5 [facility] Work Phone: MCHC Auto (RBC) [Mass/Vol]on 03-02-2022 MCHC (RBC) [Mass/Vol] 34.8 g/dL 32-36 [facility] Work Phone: No Panel Informationon 03-02 Estimated GFR (MDRD) Amer 84 mL/min >60 [facility] Work Phone: Comment on above: GFR Calc Estimated GFR (MDRD) Non-Af Amer 69 mL/min >60 [facility] Work Phone: Comment on above: Non- GFR Calc Platelets bldon 03-02-2022 Platelets (Bld) [#/Vol] 305 10*3/uL 150-450 [facility] Work Phone: Serum or plasma albumin bradly urement (mass/volume)on 03-02-2022 Albumin [Mass/Vol] 4.1 g/dL 3.2-5.0 [facility] Work Phone: Serum or plasma albumin/glob ulin mass ratioon 03-02-2022 Albumin/Globulin [Mass ratio] 1.2 {ratio} 0.9-2.4 [facility] Work Phone: Serum or plasma calcium bradly urement (mass/volume)on 03-02-2022 Calcium [Mass/Vol] 8.8 mg/dL 8.5-10.1 [facility] Work Phone: Serum or plasma creatinine m easurement (mass/volume)on 03-02-2022 Creatinine [Mass/Vol] 0.93 mg/dL 0.55-1.02 [facility] Work Phone: Comment on above: The validity of the calculated GFR & GFRAA in patients over 70 years has not been determined. Clinical correlation is essential. Serum or plasma urea nitroge n measurement (mass/volume)on 03-02-2022 Urea nitrogen [Mass/Vol] 13 mg/dL 7-18 [facility] Work Phone: Thin prep Papanicolaou smear with manual screeningon 03-02-2022 Thin prep Papanicolaou smear with manual screening 23 U/L 15-37 [facility] Work Phone: Thin prep Papanicolaou smear with manual screening 6 5-15 [facility] Work Phone: Bacteria identified Cx Nom ( Wound)on 02-16-2022 Wound Culture Staphylococcus aureus [facility] Work Phone: Gram stain for investigation of transfusion reactionon 02-16-2022 Microscopic observation Gram stain Nom (Unsp spec) [facility] Work Phone: Herpes simplex virus 1+2 DNA detection by probe and target amplification methodon 02-16-2022 HSV 1+2 DNA YUMIKO+probe Ql (Unsp spec) Negative Negative [facility] Work Phone: No Panel Informationon 02-16 Herpes Simplex Virus II DNA (PCR) Negative Negative [facility] Work Phone: Comment on above: This test was develo ped and its performance characteristicsdetermined by [employer]. It has not been clearedor approved by the U.S. Food and Drug Administration. TheFDA has determined that such clearance or approval is notnecessary. This test is used for clinical purposes. Itshould not be regarded as investigational or research.Performed at: [facility] [address] [id number] Director: Akira Jenkins MD, Phone: [phone] XR Chest PA and Lateralon IMPRESSION: Relative ly shallow inspiration. Patchy infrahilar and lower lobe airspace opacities, concerning for multifocal infection, given history of cough and fever. [employer]: [employer] Transcribe Date/Time: Aug 13 2021 10:43A Dictated by : CHELSIE DAMON MD This examination was interpreted and the report reviewed and electronically signed by: CHELSIE DAMON MD on Aug 13 2021 10:45AM [facility] DIVISION OF RADIOLOGY * * *Final Report* * * DATE OF EXAM: Aug 13 2021 10:36AM WOX 5291 - XR CHEST 2V FRONTAL/LAT / PROCEDURE REASON: multiple diagnoses * * * * Physician Interpretation * * * * EXAMINATION: CHEST RADIOGRAPH (2 VIEW FRONTAL & LATERAL) CLINICAL HISTORY: Cough Fever, unspecified fever cause MQ: [id number] EXAM DATE/TIME: 08/13/2021 10:36 AM COMPARISON: 03/08/2019 RESULT: There has been a relatively shallow inspiration. There are patchy infrahilar and lower lobe airspace opacities, concerning for multifocal infection, given history of cough and fever. There is no overt pleural effusion, pneumothorax, or pulmonary vascular redistribution. There is scoliosis of the spine. The heart is normal in size. DIVISION OF RADIOLOGY Provider, Jose valencia Dillingham - 08/13/2021 * * *Final Report* * * DATE OF EXAM: Aug 13 2021 10:36AM WOX 5291 - XR CHEST 2V FRONTAL/LAT / PROCEDURE REASON: multiple diagnoses * * * * Physician Interpretation * * * * EXAMINATION: CHEST RADIOGRAPH (2 VIEW FRONTAL & LATERAL) CLINICAL HISTORY: Cough Fever, unspecified fever cause MQ: [id number] EXAM DATE/TIME: 08/13/2021 10:36 AM COMPARISON: 03/08/2019 RESULT: There has been a relatively shallow inspiration. There are patchy infrahilar and lower lobe airspace opacities, concerning for multifocal infection, given history of cough and fever. There is no overt pleural effusion, pneumothorax, or pulmonary vascular redistribution. There is scoliosis of the spine. The heart is normal in size. IMPRESSION IMPRESSION: Relatively shallow inspiration. Patchy infrahilar and lower lobe airspace opacities, concerning for multifocal infection, given history of cough and fever. [employer]: [employer] Transcribe Date/Time: Aug 13 2021 10:43A Dictated by : CHELSIE DAMON MD This examination was interpreted and the report reviewed and electronically signed by: CHELSIE DAMON MD on Aug 13 2021 10:45AM EST [facility] Radiology Study observation (narrative) [facility] XR Chest PA and LateralOrder ed By: [facility] Provider on 08-13-2021 [facility] XR Foot - left AP and Latera l and obliqueon 10-16-2020 IMPRESSION: Fracture of the proximal LEFT 5th metatarsal. [employer]: [employer] Transcribe Date/Time: Oct 16 2020 9:06A Dictated by : DIANA SCHWARTZ MD This examination was interpreted and the report reviewed and electronically signed by: DIANA SCHWARTZ MD on Oct 16 2020 9:08AM EST DIVISION OF RADIOLOGY * * *Final Report* * * DATE OF EXAM: Oct 16 2020 8:58AM WOX 5336 - XR FOOT 3V AP/LAT/OBL LT / PROCEDURE REASON: Foot injury, left, initial encounter * * * * Physician Interpretation * * * * EXAMINATION: XR FOOT 3V AP/LAT/OBL LT CLINICAL HISTORY: rolled left foot. pain lateral 5th PIP of metatarsal Foot injury, left, initial encounter Technique: XR FOOT 3V AP/LAT/OBL LT -- LEFT foot with 3 views on 3 images Comparison: None RESULT: There is an acute fracture of the base of the LEFT 5th metatarsal. No additional fracture or dislocation is identified. No radiopaque foreign body.z DIVISION OF RADIOLOGY [facility]16/2020 * * *Final Report* * * DATE OF EXAM: Oct 16 2020 8:58AM WOX 5336 - XR FOOT 3V AP/LAT/OBL LT / PROCEDURE REASON: Foot injury, left, initial encounter * * * * Physician Interpretation * * * * EXAMINATION: XR FOOT 3V AP/LAT/OBL LT CLINICAL HISTORY: rolled left foot. pain lateral 5th PIP of metatarsal Foot injury, left, initial encounter Technique: XR FOOT 3V AP/LAT/OBL LT -- LEFT foot with 3 views on 3 images Comparison: None RESULT: There is an acute fracture of the base of the LEFT 5th metatarsal. No additional fracture or dislocation is identified. No radiopaque foreign body.z IMPRESSION IMPRESSION: Fracture of the proximal LEFT 5th metatarsal. [employer]: [employer] Transcribe Date/Time: Oct 16 2020 9:06A Dictated by : DIANA SCHWARTZ MD This examination was interpreted and the report reviewed and electronically signed by: DIANA SCHWARTZ MD on Oct 16 2020 9:08AM EST [facility] Radiology Study observation (narrative) [facility] XR Foot - left AP and Latera l and obliqueOrdered By: [facility] Provider on 10-16-2020 [facility] Vital Signs Date Time Vital Sign Value Performing Clinician Edson reese 05-04-2025 11:16-0400 Body mass index (BMI) [Ratio] 24.02 kg/m2 Tres Campbell MD Work Phone: [facility] 05-04-2025 [id number] Body temperature 100 [degF] Tres Campbell MD Work Phone: [facility] 05-04-2025 [id number] Body weight 66.2 kg Tres Campbell MD Work Phone: [facility] 05-04-2025 11:16-0400 Diastolic blood pressure 64 mm[Hg] Tres Campbell MD Work Phone: [facility] 05-04-2025 11:16-0400 Heart rate 114 /min Tres Campbell MD Work Phone: [facility] 05-04-2025 11:16-0400 Respiratory rate 20 /min Tres Campbell MD Work Phone: [facility] 05-04-2025 11:16-0400 SaO2% (BldA) [Mass fraction] 99 % Tres Campbell MD Work Phone: [facility] 05-04-2025 11:16-0400 Systolic blood pressure 100 mm[Hg] Tres Campbell MD Work Phone: [facility] 10-30-2024 12:36-0500 Body mass index (BMI) [Ratio] 24 kg/m2 Clara Mary NURSING HOME ASSISTANT.FABRIC SEPARATOR OPERATOR Work Phone: [facility] 10-30-2024 12:36-0500 Body weight 66.13 kg Clara Mary NURSING HOME ASSISTANT.FABRIC SEPARATOR OPERATOR Work Phone: [facility] 10-30-2024 12:36-0500 Diastolic blood pressure 72 mm[Hg] Clara Mary NURSING HOME ASSISTANT.FABRIC SEPARATOR OPERATOR Work Phone: [facility] 10-30-2024 12:36-0500 Heart rate 101 /min Clara Mary NURSING HOME ASSISTANT.FABRIC SEPARATOR OPERATOR Work Phone: [facility] 10-30-2024 12:36-0500 Respiratory rate 16 /min Clara Mary NURSING HOME ASSISTANT.FABRIC SEPARATOR OPERATOR Work Phone: [facility] 10-30-2024 12:36-0500 SaO2% (BldA) [Mass fraction] 96 % Clara Mary NURSING HOME ASSISTANT.FABRIC SEPARATOR OPERATOR Work Phone: [facility] 10-30-2024 12:36-0500 Systolic blood pressure 120 mm[Hg] Clara Mary NURSING HOME ASSISTANT.FABRIC SEPARATOR OPERATOR Work Phone: [facility] 09-23-2024 13:21-0400 Body height 166 cm Kin Muñoz DO Work Phone: [facility] 09-23-2024 13:21-0400 Body mass index (BMI) [Ratio] 24.86 kg/m2 Kin Muñoz DO Work Phone: [facility] 09-23-2024 13:21-0400 Body temperature 97.11 [degF] Kin Muñoz DO Work Phone: [facility] 09-23-2024 13:040 Body weight 68.5 kg Kin Muñoz DO Work Phone: [facility] 09-23-2024 13:21-040 Diastolic blood pressure 60 mm[Hg] Kin Muñoz DO Work Phone: [facility] 09-23-2024 13:21-0400 Heart rate 80 /min Kin Muñoz DO Work Phone: [facility] 09-23-2024 13:21-0400 Respiratory rate 12 /min Kin Muñoz DO Work Phone: [facility] 09-23-2024 13:21-0400 Systolic blood pressure 120 mm[Hg] Kin Muñoz DO Work Phone: [facility] 09-01-2024 13:13-0400 Body mass index (BMI) [Ratio] 25.46 kg/m2 John Duron MD Work Phone: [facility] 09-01-2024 13:13-0400 Body weight 69.4 kg John Duron MD Work Phone: [facility] 09-01-2024 13:13-0400 Diastolic blood pressure 72 mm[Hg] John Duron MD Work Phone: [facility] 09-01-2024 13:13-0400 Heart rate 87 /min John Duron MD Work Phone: [facility] 09-01-2024 13:13-0400 SaO2% (BldA) [Mass fraction] 99 % John Duron MD Work Phone: [facility] 09-01-2024 13:13-0400 Systolic blood pressure 115 mm[Hg] John Duron MD Work Phone: [facility] 09-04-2023 13:48-0400 Body height 165.1 cm Shavonne Brown NURSING HOME ASSISTANT.FABRIC SEPARATOR OPERATOR Work Phone: [facility] 09-04-2023 13:48-0400 Body weight 69.85 kg Shavonne Brown NURSING HOME ASSISTANT.FABRIC SEPARATOR OPERATOR Work Phone: [facility] 09-04-2023 13:48-0400 Diastolic blood pressure 70 mm[Hg] Shavonne Brown NURSING HOME ASSISTANT.FABRIC SEPARATOR OPERATOR Work Phone: [facility] 09-04-2023 13:48-0400 Systolic blood pressure 116 mm[Hg] Shavonne Brown NURSING HOME ASSISTANT.FABRIC SEPARATOR OPERATOR Work Phone: [facility] 08-20-2023 08:12-0400 Body height 165.1 cm John Duron MD Work Phone: [facility] 08-20-2023 08:12-0400 Body weight 68.49 kg John Duron MD Work Phone: [facility] 08-20-2023 08:12-0400 Diastolic blood pressure 84 mm[Hg] John Duron MD Work Phone: [facility] 08-20-2023 08:12-0400 Heart rate 93 /min John Duron MD Work Phone: [facility] 08-20-2023 08:12-0400 SaO2% (BldA) [Mass fraction] 96 % John Duron MD Work Phone: [facility] 08-20-2023 08:12-0400 Systolic blood pressure 120 mm[Hg] John Duron MD Work Phone: [facility] 02-17-2023 08:19-0400 Body height 167.4 cm Kin Muñoz DO Work Phone: [facility] 02-17-2023 08:19-0400 Body weight 66.13 kg Kin Christierison DO Work Phone: [facility] 02-17-2023 08:19-0400 Diastolic blood pressure 78 mm[Hg] Kin Muñoz DO Work Phone: [facility] 02-17-2023 08:19-0400 Heart rate 83 /min Kin Muñoz DO Work Phone: [facility] 02-17-2023 08:19-0400 SaO2% (BldA) [Mass fraction] 99 % Kin Muñoz DO Work Phone: [facility] 02-17-2023 08:19-0400 Systolic blood pressure 108 mm[Hg] Kin Muñoz DO Work Phone: [facility] 01-01-2023 13:35-0500 Body weight 63.05 kg Clara Mary NURSING HOME ASSISTANT.FABRIC SEPARATOR OPERATOR Work Phone: [facility] 01-01-2023 13:35-0500 Diastolic blood pressure 70 mm[Hg] Clara Mary NURSING HOME ASSISTANT.FABRIC SEPARATOR OPERATOR Work Phone: [facility] 01-01-2023 13:35-0500 Heart rate 94 /min Clara Mary NURSING HOME ASSISTANT.FABRIC SEPARATOR OPERATOR Work Phone: [facility] 01-01-2023 13:35-0500 Respiratory rate 16 /min Clara Mary NURSING HOME ASSISTANT.FABRIC SEPARATOR OPERATOR Work Phone: [facility] 01-01-2023 13:35-0500 SaO2% (BldA) [Mass fraction] 98 % Clara Mary NURSING HOME ASSISTANT.FABRIC SEPARATOR OPERATOR Work Phone: [facility] 01-01-2023 13:35-0500 Systolic blood pressure 120 mm[Hg] Clara Mary NURSING HOME ASSISTANT.FABRIC SEPARATOR OPERATOR Work Phone: [facility] 11-15-2022 08:36-0500 Body temperature 97.39 [degF] Clara Mary NURSING HOME ASSISTANT.FABRIC SEPARATOR OPERATOR Work Phone: [facility] 11-15-2022 08:36-0500 Body weight 64.86 kg Clara Mary NURSING HOME ASSISTANT.FABRIC SEPARATOR OPERATOR Work Phone: [facility] 11-15-2022 08:36-0500 Diastolic blood pressure 68 mm[Hg] Clara Mary NURSING HOME ASSISTANT.FABRIC SEPARATOR OPERATOR Work Phone: [facility] 11-15-2022 08:36-0500 Heart rate 114 /min Clara Mary NURSING HOME ASSISTANT.FABRIC SEPARATOR OPERATOR Work Phone: [facility] 11-15-2022 08:36-0500 SaO2% (BldA) [Mass fraction] 96 % Clara Kirbyman NURSING HOME ASSISTANT.FABRIC SEPARATOR OPERATOR Work Phone: [facility] 11-15-2022 08:36-0500 Systolic blood pressure 116 mm[Hg] Clara Mary NURSING HOME ASSISTANT.FABRIC SEPARATOR OPERATOR Work Phone: [facility] 10-20-2022 11:17-0500 Body temperature 98.1 [degF] Tres Campbell MD Work Phone: [facility] 10-20-2022 11:17-0500 Body weight 66.5 kg Tres Campbell MD Work Phone: [facility] 10-20-2022 11:17-0500 Diastolic blood pressure 72 mm[Hg] Tres Campbell MD Work Phone: [facility] 10-20-2022 11:17-0500 Heart rate 110 /min Tres Campbell MD Work Phone: [facility] 10-20-2022 11:17-0500 Respiratory rate 18 /min Tres Campbell MD Work Phone: [facility] 10-20-2022 11:17-0500 SaO2% (BldA) [Mass fraction] 98 % Tres Campbell MD Work Phone: [facility] 10-20-2022 11:17-0500 Systolic blood pressure 126 mm[Hg] Tres Campbell MD Work Phone: [facility] 04-06-2022 12:59-0400 Body height 165.1 cm Shavonne Brown NURSING HOME ASSISTANT.FABRIC SEPARATOR OPERATOR Work Phone: [facility] 04-06-2022 12:59-0400 Body weight 78.02 kg Shavonne Brown NURSING HOME ASSISTANT.FABRIC SEPARATOR OPERATOR Work Phone: [facility] 04-06-2022 12:59-0400 Diastolic blood pressure 70 mm[Hg] Shavonne Brown NURSING HOME ASSISTANT.FABRIC SEPARATOR OPERATOR Work Phone: [facility] 04-06-2022 12:59-0400 Systolic blood pressure 116 mm[Hg] Shavonne Brown NURSING HOME ASSISTANT.FABRIC SEPARATOR OPERATOR Work Phone: [facility] 03-22-2022 13:28-0400 Body weight 78.47 kg Shavonne Brown NURSING HOME ASSISTANT.FABRIC SEPARATOR OPERATOR Work Phone: [facility] 03-22-2022 13:28-0400 Diastolic blood pressure 70 mm[Hg] Shavonne Brown NURSING HOME ASSISTANT.FABRIC SEPARATOR OPERATOR Work Phone: [facility] 03-22-2022 13:28-0400 Systolic blood pressure 126 mm[Hg] Shavonne Brown NURSING HOME ASSISTANT.FABRIC SEPARATOR OPERATOR Work Phone: [facility] 03-13-2022 11:21-0400 Body temperature 96.6 [degF] Dennys Ramos NURSING HOME ASSISTANT.FABRIC SEPARATOR OPERATOR Work Phone: [facility] 03-13-2022 11:21-0400 Body weight 79.11 kg Dennys Ramos NURSING HOME ASSISTANT.FABRIC SEPARATOR OPERATOR Work Phone: [facility] 03-13-2022 11:21-0400 Diastolic blood pressure 76 mm[Hg] Dennys Ramos NURSING HOME ASSISTANT.FABRIC SEPARATOR OPERATOR Work Phone: [facility] 03-13-2022 11:21-0400 Heart rate 105 /min Dennys Ramos NURSING HOME ASSISTANT.FABRIC SEPARATOR OPERATOR Work Phone: [facility] 03-13-2022 11:21-0400 Respiratory rate 21 /min Dennys Ramos NURSING HOME ASSISTANT.FABRIC SEPARATOR OPERATOR Work Phone: [facility] 03-13-2022 11:21-0400 SaO2% (BldA) [Mass fraction] 99 % Dennys Ramos NURSING HOME ASSISTANT.FABRIC SEPARATOR OPERATOR Work Phone: [facility] 03-13-2022 11:21-0400 Systolic blood pressure 138 mm[Hg] Dennys Ramos FLAKITA.FABRIC SEPARATOR OPERATOR Work Phone: [facility] Encounters Encounter Date Encounter Type Care Provider Facility Start: 05-19-2025 End: 05-19-2025 ambulatory Kin Meli Muñoz DO Work Phone: [facility] Comment on above: Yeast infection Start: 05-19-2025 End: 05-19-2025 Telephone encounter Kin Christierison DO Work Phone: [facility] Comment on above: Vaginal Problem Start: 05-12-2025 End: 05-14-2025 Refill Kin Meli ChristieMuñoz DO Work Phone: [facility] [place] Comment on above: Refill Request Start: 05-09-2025 End: 05-12-2025 Telephone encounter Kin Christierison DO Work Phone: [facility] [place] Comment on above: change in pharmacy Start: 05-08-2025 End: 05-08-2025 ambulatory Kin Meli Muñoz DO Work Phone: [facility] [place] Comment on above: Hemorrhoids Start: 05-08-2025 End: 05-08-2025 Telephone encounter Kin Christierison DO Work Phone: Hematology/Oncology Comment on above: Medication Request Start: 05-04-2025 End: 05-04-2025 Office outpatient visit 25 minutes Tres Campbell MD Work Phone: [facility] Comment on above: Acute non-recurrent sinusitis, unspecified location (Primary Dx) Start: 05-04-2025 End: 05-04-2025 ambulatory TRES CAMPBELL Facility:[facility] Start: 04-06-2025 End: 04-06-2025 Follow-up encounter John Duron MD Work Phone: [facility] Start: 02-12-2025 End: 02-13-2025 ambulatory Clara Hernandez APRN.FABRIC SEPARATOR OPERATOR Work Phone: [facility] Comment on above: Travel to [place] Start: 01-25-2025 End: 03-02-2025 ambulatory John Duron MD Work Phone: Cardiology Comment on above: Rapid heart rate Start: 12-09-2024 End: 12-09-2024 ambulatory Kin Muñoz Facility:[facility] Start: 10-30-2024 End: 10-30-2024 Office outpatient visit 25 minutes Clara Kirbysoham ESPINAL Work Phone: [facility] Comment on above: Insomnia secondary t o anxiety (Primary Dx); Encounter for screening examination for other mental health and behavioral disorders; Screening for depression; Anxiety with depression; Possible exposure to STD Start: 10-30-2024 End: 10-30-2024 ambulatory CLARA MARY Facility:[facility] Start: 10-28-2024 End: 10-29-2024 ambulatory Kin Christierison DO Work Phone: [facility] Comment on above: Not sleeping Start: 10-24-2024 End: 10-24-2024 Telephone encounter Kin Christierison DO Work Phone: [facility] Comment on above: Patient Question Start: 10-22-2024 End: 10-22-2024 Telephone encounter Kin Robisonon DO Work Phone: [facility] Start: 10-04-2024 End: 10-04-2024 ambulatory KNI ROBISONON Facility:[facility] Start: 10-04-2024 Encounter for genera l adult medical examination without abnormal findings KIN MUÑOZ [facility] Start: 10-01-2024 End: 10-01-2024 ambulatory KIN L MUÑOZ Facility:[facility] Start: 10-01-2024 End: 10-01-2024 Subsequent hospital visit by physician [facility] Comment on above: Encounter for screen ing mammogram for breast cancer [Z12.31] Start: 09-23-2024 End: 09-23-2024 Patient encounter procedure Kin Christierison DO Work Phone: [facility] Comment on above: Well adult exam (Leesa maryjane Dx); Family history of breast cancer in mother; Family history of lymphoma; Screening for colon cancer; Rheumatoid arthritis involving multiple sites with positive rheumatoid factor (HCC); Palpitations Start: 09-23-2024 End: 09-23-2024 Patient encounter status Kin Muñoz DO Work Phone: [facility] Start: 09-23-2024 End: 09-23-2024 ambulatory KIN MUÑOZ Facility:[facility] Start: 09-01-2024 End: 09-01-2024 ambulatory KIN MUÑOZ Facility:[facility] Start: 09-01-2024 End: 09-01-2024 Patient encounter procedure John Duron MD Work Phone: Cardiology Comment on above: Tachycardia (Primary Dx); Palpitations Start: 08-28-2024 End: 08-28-2024 Refill John Duron MD Work Phone: Cardiology Comment on above: Refill Request Start: 08-20-2024 End: 08-25-2024 ambulatory Kin Muñoz DO Work Phone: Internal Medicine [facility] Start: 07-07-2024 Refill Jenn prabhakar APRN.[facility] Work Phone: [facility] [place] Comment on above: Refill Request Start: 05-04-2024 Get Medical Advice Clara Hernandez APRN.FABRIC SEPARATOR OPERATOR Work Phone: [facility] [place] Comment on above: Ativan refill Start: 01-30-2024 Get Medical Advice Clara Hernandez APRN.FABRIC SEPARATOR OPERATOR Work Phone: [facility] [place] Comment on above: Refill Start: 09-06-2023 Orders Only Shavonne WILDE RN.FABRIC SEPARATOR OPERATOR Work Phone: OB/Gynecology Start: 09-04-2023 End: 09-04-2023 Patient encounter procedure Shavonne Brown APRN.FABRIC SEPARATOR OPERATOR Work Phone: OB/Gynecology Comment on above: Encounter for gyneco logical examination with abnormal finding (Primary Dx); Encounter for screening mammogram for breast cancer; Urinary urgency; Urinary frequency; Pelvic pain; History of ovarian cyst Start: 09-04-2023 End: 09-04-2023 Patient encounter status Shavonne Brown APRN.FABRIC SEPARATOR OPERATOR Work Phone: [facility] Work Phone: Start: 08-29-2023 ambulatory Shavonne WILDE RN.FABRIC SEPARATOR OPERATOR Work Phone: OB/Gynecology Comment on above: Question regarding U RINE CULTURE LAB USE ON Start: 08-20-2023 End: 08-20-2023 Patient encounter procedure John Duron MD Work Phone: Cardiology Comment on above: Palpitations (Primar y Dx); Tachycardia Start: 07-09-2023 Get Medical Advice Kin Muñoz DO Work Phone: [facility] [place] Comment on above: Refill Start: 04-09-2023 ambulatory Clara elias APRN.FABRIC SEPARATOR OPERATOR Work Phone: [facility] [place] Comment on above: Trouble sleeping Start: 03-05-2023 Telephone encounter John Duron MD Work Phone: Cardiology Comment on above: New Cardiac Patient Start: 02-28-2023 End: 02-28-2023 Subsequent hospital visit by physician [facility] Comment on above: Encounter for screen ing mammogram for malignant neoplasm of breast [Z12.31] Start: 02-17-2023 End: 02-17-2023 Patient encounter procedure Kin Muñoz DO Work Phone: [facility] [place] Comment on above: Well adult exam (Leesa maryjane Dx); Encounter for screening mammogram for breast cancer; Palpitations; Tachycardia; Vitamin B12 deficiency; Borderline abnormal thyroid function test; Encounter for screening mammogram for malignant neoplasm of breast; Rheumatoid arthritis involving multiple sites with positive rheumatoid factor (HCC) Start: 02-17-2023 End: 02-17-2023 Patient encounter status Kin Muñoz DO Work Phone: [facility] [place] Start: 01-24-2023 Telephone encounter Clara Barros APRN.FABRIC SEPARATOR OPERATOR Work Phone: [facility] [place] Comment on above: Results Start: 01-01-2023 End: 01-01-2023 Patient encounter procedure Clara Hernandez NURSING HOME ASSISTANT.FABRIC SEPARATOR OPERATOR Work Phone: [facility] Comment on above: Palpitations (Primar y Dx); Tachycardia; Chest tightness; SOB (shortness of breath) on exertion; Cold extremities; Rheumatoid arthritis involving multiple sites with positive rheumatoid factor (HCC); Screening for diabetes mellitus; Screening for lipid disorders Start: 11-15-2022 End: 11-15-2022 Patient encounter procedure Clara Mary NURSING HOME ASSISTANT.FABRIC SEPARATOR OPERATOR Work Phone: [facility] Comment on above: URI, acute (Primary Dx); Acute cough; Chest congestion; Fever, unspecified fever cause; Chills Start: 10-20-2022 End: 10-20-2022 Patient encounter procedure Tres Campbell MD Work Phone: [facility] Comment on above: Acute non-recurrent sinusitis, unspecified location (Primary Dx); Subacute cough Start: 10-10-2022 Telephone encounter [facility] NURSING HOME ASSISTANT.FABRIC SEPARATOR OPERATOR Work Phone: OB/Gynecology Comment on above: Results Start: 09-25-2022 Telephone encounter [facility] NURSING HOME ASSISTANT.FABRIC SEPARATOR OPERATOR Work Phone: OB/Gynecology Comment on above: Results Start: 09-23-2022 ambulatory Shavonne WILDE RN.FABRIC SEPARATOR OPERATOR Work Phone: OB/Gynecology Comment on above: Question regarding U RINALYSIS WITH MICROSCOPIC Start: 08-23-2022 End: 08-23-2022 ambulatory [facility] Work Phone: Start: 08-23-2022 End: 08-23-2022 Patient encounter procedure [facility] Start: 06-10-2022 Refill Shavonne WILDE RN.FABRIC SEPARATOR OPERATOR Work Phone: OB/Gynecology Comment on above: Refill Request Start: 06-04-2022 ambulatory Shavonne WILDE RN.FABRIC SEPARATOR OPERATOR Work Phone: OB/Gynecology Comment on above: Vacation Start: 04-18-2022 Documentation procedure Mammog willie Coordinator [facility] Start: 04-18-2022 Letter encounter Mammography Coordinator [facility] Department Start: 04-17-2022 End: 04-17-2022 Subsequent hospital visit by physician [facility] Comment on above: Encounter for screen ing mammogram for breast cancer [Z12.31] Start: 04-07-2022 Telephone encounter Shavonne prabhakar APRN.FABRIC SEPARATOR OPERATOR Work Phone: OB/Gynecology Comment on above: Results; New Medicat ion Start: 04-06-2022 End: 04-06-2022 Patient encounter procedure Shavonne Brown APRN.FABRIC SEPARATOR OPERATOR Work Phone: OB/Gynecology Comment on above: Encounter for gyneco logical examination with abnormal finding (Primary Dx); Vaginal discharge; Encounter for screening mammogram for breast cancer; Dense breast tissue on mammogram Start: 04-06-2022 End: 04-06-2022 Patient encounter status Shavonne Brown APRN.FABRIC SEPARATOR OPERATOR Work Phone: OB/Gynecology Start: 03-22-2022 End: 03-22-2022 Patient encounter procedure Shavonne Brown APRN.FABRIC SEPARATOR OPERATOR Work Phone: OB/Gynecology Comment on above: Acute vaginitis (Leesa maryjane Dx) Start: 03-13-2022 End: 03-13-2022 Patient encounter procedure Dennys Ramos APRN.FABRIC SEPARATOR OPERATOR Work Phone: [facility] Comment on above: Acute non-recurrent maxillary sinusitis (Primary Dx) Start: 03-02-2022 End: 03-02-2022 Patient encounter procedure [facility] Start: 02-16-2022 End: 02-16-2022 Patient encounter procedure [facility], Specimen Start: 08-13-2021 End: 08-13-2021 Subsequent hospital visit by physician Lynda [facility] [place] Work Phone: Radiology Comment on above: Cough [R05] Start: 10-16-2020 End: 10-16-2020 Subsequent hospital visit by physician Lynda [facility] [place] Work Phone: Radiology Comment on above: Foot injury, left, i nitial encounter [S99.922E] Procedures Date Procedure Procedure Detail Performing Clinician Start: 10-04-2024 Lipid 1996 panel - S vamshi or Plasma Kin Muñoz DO Work Phone: Start: 09-04-2023 BACTERIAL VAGINOSIS NAAT Shavonne Brown NURSING HOME ASSISTANT.FABRIC SEPARATOR OPERATOR Work Phone: Start: 09-04-2023 Iadna trichomonas va ginalis amplified probe tech Shavonne Brown APRN.FABRIC SEPARATOR OPERATOR Work Phone: Start: 09-04-2023 Urnls dip stick/tabl et rgnt auto w/o microscopy Shavonne Brown NURSING HOME ASSISTANT.FABRIC SEPARATOR OPERATOR Work Phone: Start: 02-28-2023 JANEEN SCREENING W CONCHA Muñoz DO Work Phone: Start: 02-28-2023 Mammography John baldwin MD Work Phone: Start: 01-01-2023 Ecg routine ecg w/le ast 12 lds i&r only [facility] Provider Start: 01-01-2023 Lipid 1996 panel - S vamshi or Plasma John Duron MD Work Phone: Start: 04-17-2022 JANEEN SCREENING W CONCHA Brown APRN.FABRIC SEPARATOR OPERATOR Work Phone: Start: 04-17-2022 Mammography Screen Wst r Start: 02-16-2022 Investigation of transfusion reaction Start: 02-16-2022 Microbial culture, routine Start: 08-13-2021 Radiologic exam ches t 2 views Zenobia Berrios NURSING HOME ASSISTANT.FABRIC SEPARATOR OPERATOR Work Phone: Start: 03-23-2021 Mammography Dennys puga NURSING HOME ASSISTANT.FABRIC SEPARATOR OPERATOR Work Phone: Start: 10-16-2020 Radex foot complete minimum 3 views Marline Sy PA-C Work Phone: Start: 04-28-2019 Adult depression scr eening assessment Dennys Ramos NURSING HOME ASSISTANT.FABRIC SEPARATOR OPERATOR Work Phone: Plan of Treatment Date Care Activity Detail Author Start: 10-04-2029 Lipid panel [facility] Start: 01-01-2028 Lipid 1996 panel - S vamshi or Plasma Lipid Screening [facility] Start: 01-01-2028 Lipid panel Lipid Screening [facility] Start: 01-01-2028 LIPID SCREEN LIPID SCREEN [facility] Start: 10-11-2027 Screening for malign ant neoplasm of colon [facility] Start: 10-04-2027 Diabetes Screening Diabetes Screenin g [facility] Start: 03-18-2026 HPV TESTING HPV TESTING [facility] Start: 03-18-2026 PAP TESTING PAP TESTING [facility] Start: 03-18-2026 Screening for malign ant neoplasm of cervix [facility] Start: 01-01-2026 DIABETES SCREEN DIABETES SCREEN [facility] Start: 01-01-2026 Diabetes Screening Diabetes Screenin g [facility] Start: 10-01-2025 Screening for malign ant neoplasm of breast Mammogram Screening [facility] Start: 09-29-2025 LIPID SCREEN LIPID SCREEN [facility] Start: 09-23-2025 Covid-19 Vaccine ( season) Covid-19 Vaccine ( season) [facility] Comment on above: Postponed from 07/27 (Declined at this time) Start: 07-27-2025 Influenza vaccination Influenz a Vaccine (Season Ended) [facility] Start: 06-22-2025 End: 06-22-2025 Patient encounter procedure Cardiology Comment on above: 9 month follow up Start: 05-25-2025 Influenza vaccination Influenza Vacc ine (#1) [facility] Comment on above: Postponed from 07/27 (Declined at this time) Start: 12-11-2024 End: 12-11-2024 Patient encounter procedure 12/11/2024 1:00 PM EST Office Visit [facility] [place] [address] [facility] [place] [id number] Clara Hernandez APRN.FABRIC SEPARATOR OPERATOR [address] [facility] [place] [place] [id number] 6 week med follow up [facility] [place] Comment on above: 6 week med follow up Start: 12-02-2024 End: 12-02-2024 ambulatory 12/02/2024 1:30 PM EST [address] [place] [address] Yoder Jyoti Breanna, MS [address] [place] [address] Being tested for breast cancer [facility] Comment on above: Being tested for dany ast cancer Start: 10-30-2024 End: 10-30-2024 Patient encounter procedure 10/30/2024 12:40 PM EST Office Visit [facility] [place] [address] [place] [address] Clara Hernandez APRN.FABRIC SEPARATOR OPERATOR [address] [place], [place] [phone] anxiety and sleeping issues [facility] [place] Comment on above: anxiety and sleeping issues Start: 10-01-2024 End: 10-01-2024 Patient encounter procedure 10/01/2024 1:10 PM EST Appointment Mammogram [address] [place], [place] [address] Mammogram Start: 09-23-2024 End: 12-23-2024 25-hydroxyvitamin D3 [Mass/volume] in Serum or Plasma VITAMIN D 25 HYDROXY Lab Routine Well adult exam Expected: 09/23/2024, Expires: 12/23/2024 [facility] Comment on above: Expected: 09/23/2024 , Expires: 12/23/2024 Start: 09-23-2024 End: 12-23-2024 CBC W Auto Differential panel - Blood COMPLETE BLOOD COUNT AND DIFFERENTIAL Lab Routine Well adult exam Expected: 09/23/2024, Expires: 12/23/2024 [facility] Comment on above: Expected: 09/23/2024 , Expires: 12/23/2024 Start: 09-23-2024 End: 12-23-2024 Cobalamin (Vitamin B12) [Mass/volume] in Serum or Plasma VITAMIN B12 Lab Routine Well adult exam Expected: 09/23/2024, Expires: 12/23/2024 [facility] Comment on above: Expected: 09/23/2024 , Expires: 12/23/2024 Start: 09-23-2024 End: 12-23-2024 Comprehensive metabolic 2000 panel - Serum or Plasma COMPREHENSIVE METABOLIC PANEL Lab Routine Well adult exam Expected: 09/23/2024, Expires: 12/23/2024 [facility] Comment on above: Expected: 09/23/2024 , Expires: 12/23/2024 Start: 09-23-2024 End: 12-23-2024 Hemoglobin A1c in Blood HEMOGLOBIN A1C Lab Routine Well adult exam Expected: 09/23/2024, Expires: 12/23/2024 [facility] Comment on above: Expected: 09/23/2024 , Expires: 12/23/2024 Start: 09-23-2024 End: 12-23-2024 Iron and Iron binding capacity panel - Serum or Plasma IRON AND TIBC Lab Routine Well adult exam Expected: 09/23/2024, Expires: 12/23/2024 [facility] Comment on above: Expected: 09/23/2024 , Expires: 12/23/2024 Start: 09-23-2024 End: 12-23-2024 Lipid 1996 panel - Serum or Plasma LIPID PANEL BASIC Lab Routine Well adult exam Expected: 09/23/2024, Expires: 12/23/2024 [facility] Comment on above: Expected: 09/23/2024 , Expires: 12/23/2024 Start: 09-23-2024 End: 12-23-2024 Thyrotropin [Units/volume] in Serum or Plasma THYROID STIMULATING HORMONE Lab Routine Well adult exam Expected: 09/23/2024, Expires: 12/23/2024 [facility] Work Phone: Comment on above: Expected: 09/23/2024 , Expires: 12/23/2024 Start: 09-23-2024 End: 12-23-2024 Thyroxine (T4) free [Mass/volume] in Serum or Plasma T4 FREE/FREE THYROXINE Lab Routine Well adult exam Expected: 09/23/2024, Expires: 12/23/2024 [facility] Comment on above: Expected: 09/23/2024 , Expires: 12/23/2024 Start: 09-23-2024 End: 09-23-2024 Patient encounter procedure 09/23/2024 1:20 PM EDT Office Visit [facility] [place] [address] [place] [address] Kin Muñoz DO [address] [place] [address] Yearly Physical [facility] [place] Comment on above: Yearly Physical Start: 09-01-2024 End: 09-01-2024 Patient encounter procedure 09/01/2024 1:20 PM EDT Office Visit Cardiology [address] [place] [id number] John Duron MD [address] [facility] [address] [place] [address] 6 month follow up Cardiology Comment on above: 6 month follow up Start: 07-27-2024 Covid-19 Vaccine ( season) Covid-19 Vaccine () [facility] Start: 07-27-2024 Influenza vaccination [facility] Start: 02-29-2024 Mammography [facility] Start: 02-29-2024 Screening for malign ant neoplasm of breast Mammogram Screening [facility] Start: 01-01-2024 COVID-19 VACCINE (3 - Booster for Pfizer series) COVID-19 VACCINE (3 - Booster for Pfizer series) [facility] Comment on above: Postponed from 03/23 (Declined at this time) Start: 01-01-2024 COVID-19 VACCINE (3 - Pfizer risk series) COVID-19 VACCINE (3 - Pfizer risk series) [facility] Comment on above: Postponed from 02/23 (Declined at this time) Start: 01-01-2024 COVID-19 VACCINE (3 - Pfizer series) COVID-19 VACCINE (3 - Pfizer series) [facility] Comment on above: Postponed from 03/23 (Declined at this time) Start: 01-01-2024 PNEUMOCOCCAL (2 - PCV) PNEUMOCOCCAL (2 - PCV) [facility] Comment on above: Postponed from 10/25 (Declined at this time) Start: 01-01-2024 Urine microalbumin profile [facility] Comment on above: Postponed from 11/12 (Declined at this time) Start: 11-26-2023 Behavioral Health Screening Behavioral Health Screening [facility] Start: 11-26-2023 Depression Assessment Depression Ass essment [facility] Start: 10-20-2023 DIABETES SCREEN [facility] Start: 09-04-2023 End: 09-04-2024 PELVIC US WHI PELVIC US I Anc Imaging Routine Pelvic pain History of ovarian cyst Expected: 09/04/2023, Expires: 09/04/2024 [facility] Work Phone: Comment on above: Expected: 09/04/2023 , Expires: 09/04/2024 Start: 07-27-2023 Covid-19 Vaccine () Covid-19 Vaccine () [facility] Start: 07-27-2023 Influenza vaccination [facility] Start: 05-25-2023 Influenza vaccination INFLUENZA (#1) [facility] Comment on above: Postponed from 07/27 (Declined at this time) Start: 04-17-2023 Mammography MAMMOGRAM [facility] Start: 01-01-2023 End: 03-03-2023 25-hydroxyvitamin D3 [Mass/volume] in Serum or Plasma [facility] Work Phone: Comment on above: Expected: 01/01/2023 , Expires: 03/03/2023 Start: 01-01-2023 End: 03-03-2023 Cobalamin (Vitamin B12) [Mass/volume] in Serum or Plasma [facility] Work Phone: Comment on above: Expected: 01/01/2023 , Expires: 03/03/2023 Start: 01-01-2023 End: 03-03-2023 Comprehensive metabolic 2000 panel - Serum or Plasma [facility] Work Phone: Comment on above: Expected: 01/01/2023 , Expires: 03/03/2023 Start: 01-01-2023 End: 03-03-2023 Lipid 1996 panel - Serum or Plasma [facility] Work Phone: Comment on above: Expected: 01/01/2023 , Expires: 03/03/2023 Start: 01-01-2023 End: 03-03-2023 Nuclear Ab [Presence] in Serum by Immunoassay [facility] Work Phone: Comment on above: Expected: 01/01/2023 , Expires: 03/03/2023 Start: 01-01-2023 End: 03-03-2023 Rheumatoid factor [Units/volume] in Serum or Plasma [facility] Work Phone: Comment on above: Expected: 01/01/2023 , Expires: 03/03/2023 Start: 01-01-2023 End: 03-03-2023 Thyroglobulin Ab [Units/volume] in Serum or Plasma [facility] Work Phone: Comment on above: Expected: 01/01/2023 , Expires: 03/03/2023 Start: 01-01-2023 End: 03-03-2023 THYROID PEROXIDASE ANTIBODY BLOOD [facility] Work Phone: Comment on above: Expected: 01/01/2023 , Expires: 03/03/2023 Start: 01-01-2023 End: 03-03-2023 Thyrotropin [Units/volume] in Serum or Plasma [facility] Work Phone: Comment on above: Expected: 01/01/2023 , Expires: 03/03/2023 Start: 01-01-2023 End: 03-03-2023 Thyroxine (T4) free [Mass/volume] in Serum or Plasma [facility] Work Phone: Comment on above: Expected: 01/01/2023 , Expires: 03/03/2023 Start: 01-01-2023 End: 03-03-2023 Triiodothyronine (T3) [Mass/volume] in Serum or Plasma [facility] Work Phone: Comment on above: Expected: 01/01/2023 , Expires: 03/03/2023 Start: 10-25-2022 PNEUMOCOCCAL (2 - PCV) PNEUMOCOCCAL (2 - PCV) [facility] Start: 07-27-2022 Influenza vaccination [facility] Start: 03-23-2022 Mammography MAMMOGRAM [facility] Start: 11-26-2021 DEPRESSION ASSESSMENT DEPRESSION ASS ESSMENT [facility] Start: 2021 COLOGUARD (FIT-DNA) COLOGUARD (FIT-D NA) [facility] Start: 2021 Colonoscopy COLONOSCOPY [facility] Start: 2021 COLORECTAL CANCER SCREENING COLORECTAL CANCER SCREENING [facility] Start: [address] COLONOGRAPHY [facility] Start: 2021 FECAL OCCULT BLOOD FECAL OCCULT BLOO D [facility] Start: 2021 Screening for malign ant neoplasm of colon [facility] Start: 2021 SIGMOIDOSCOPY SIGMOIDOSCOPY [facility] Start: 02-23-2021 COVID-19 VACCINE (3 - Pfizer risk 4-dose series) COVID-19 VACCINE (3 - Pfizer risk 4-dose series) [facility] Start: 02-23-2021 COVID-19 VACCINE (3 - Pfizer risk series) COVID-19 VACCINE (3 - Pfizer risk series) [facility] Start: 04-28-2020 Adult depression scr eening assessment DEPRESSION SCREENING [facility] Start: 1995 SHINGRIX VACCINE (1 of 2) SCHILLING GRIX VACCINE (1 of 2) [facility] Start: 1995 Urine microalbumin profile [facility] Start: 1994 Anxiety Screening Anxiety Screening [facility] Start: 1994 Depression Screening Depression Scre ening [facility] Start: 1994 HIV SCREENING HIV SCREENING [facility] Start: 1994 HIV screening HIV Screening [facility] Bacteria identified in Urine by Culture URINE CULTURE Microbiology Routine Urinary urgency Urinary frequency 09/04/2023 2:33 PM EDT [facility] Work Phone: BACTERIAL VAGINOSIS NAAT BACTERI AL VAGINOSIS NAAT Lab Routine Encounter for screening examination for other mental health and behavioral disorders Possible exposure to STD 10/30/2024 2:03 PM EST [facility] LEE/TRICHOMONAS NAAT LEE /TRICHOMONAS NAAT Lab Routine Encounter for screening examination for other mental health and behavioral disorders Possible exposure to STD 10/30/2024 2:03 PM EST [facility] Chlamydia trachomatis+Neisseria gonorrhoeae DNA [Presence] in Unspecified specimen by YUMIKO with probe detection GONORRHEA/CHLAMYDIA NAAT Lab Routine Encounter for screening examination for other mental health and behavioral disorders Possible exposure to STD 10/30/2024 2:03 PM EST [facility] Work Phone: COLOGUARD COLOGUARD Lab Ro utine Screening for colon cancer Ordered: 09/23/2024 [facility] Comment on above: Ordered: 09/23/2024 End: 09-19-2025 DBT Breast - bilateral screening JANEEN SCREENING [facility] Radiology Routine Encounter for screening mammogram for breast cancer 1 Occurrences starting 08/20/2024 until 09/19/2025 [facility] Work Phone: Comment on above: 1 Occurrences starti ng 08/20/2024 until 09/19/2025 DBT Breast - bilater al screening [facility]ANE[facility] SCREENING [facility] Radiology Routine Encounter for screening mammogram for breast cancer 10/01/2024 1:31 PM [facility] Work Phone: ECG B/O W INTERP (ME D OFFICE) ECG B/O W INTERP (MED OFFICE) ECG Routine Rheumatoid arthritis involving multiple sites with positive rheumatoid factor (HCC) Tachycardia Palpitations Chest tightness SOB (shortness of breath) on exertion Cold extremities Ordered: 01/01/2023 [facility] Work Phone: Comment on above: Ordered: 01/01/2023 ECG COMPLETE ECG COMPLETE ECG 01/01/2023 1:33 PM [facility] End: 08-14-2024 ECG COMPLETE ECG COMPLETE ECG Routine Palpitations 1 Occurrences starting 08/14/2023 until 08/14/2024 [facility] Work Phone: Comment on above: 1 Occurrences starti ng 08/14/2023 until 08/14/2024 End: 08-20-2024 Echocardiography ECHO Cardiology Routine Palpitations Tachycardia 1 Occurrences starting 08/20/2023 until 08/20/2024 [facility] Work Phone: Comment on above: 1 Occurrences starti ng 08/20/2023 until 08/20/2024 Influenza virus A an d B RNA and SARS-CoV-2 (COVID-19) N gene panel - Respiratory specimen by YUMIKO with probe detection COVID WITH FLUA+B, ROUTINE Microbiology Routine Acute cough Chest congestion Fever, unspecified fever cause Chills Ordered: 11/15/2022 [facility] Work Phone: Comment on above: Ordered: 11/15/2022 End: 05-06-2023 [facility]ANEEN SCREENING [facility]CRE[facility] Radiology Routine Encounter for screening mammogram for breast cancer Dense breast tissue on mammogram 1 Occurrences starting 04/06/2022 until 05/06/2023 [facility] Work Phone: Comment on above: 1 Occurrences starti ng 04/06/2022 until 05/06/2023 JANEEN SCREENING [facility] JANEEN SCREENI NG [facility] Radiology Routine Encounter for screening mammogram for breast cancer Dense breast tissue on mammogram 04/17/2022 3:31 PM EDT [facility] Work Phone: End: 03-18-2024 JANEEN SCREENING [facility] SCREENING [facility] Radiology Routine Encounter for screening mammogram for malignant neoplasm of breast 1 Occurrences starting 02/17/2023 until 03/18/2024 [facility] Work Phone: Comment on above: 1 Occurrences starti ng 02/17/2023 until 03/18/2024 End: 10-03-2024 JANEEN SCREENING [facility]ANEEN SCREENING [facility] Radiology Routine Encounter for gynecological examination with abnormal finding Encounter for screening mammogram for breast cancer 1 Occurrences starting 09/04/2023 until 10/03/2024 [facility] Work Phone: Comment on above: 1 Occurrences starti ng 09/04/2023 until 10/03/2024 Microscopic observat ion [Identifier] in Vaginal fluid by Gram stain BACT/LEE VAG GRAM STAIN Microbiology Routine Acute vaginitis 03/22/2022 1:47 PM EDT [facility] Work Phone: Microscopic observat ion [Identifier] in Vaginal fluid by Gram stain BACT/LEE VAG GRAM STAIN Microbiology Routine Vaginal discharge 04/06/2022 1:50 PM EDT [facility] Work Phone: OUTSIDE VENDOR CARDI AC OUTPATIENT EXTENDED RHYTHM RECORDING (WITHOUT TELEMETRY) OUTSIDE VENDOR CARDIAC OUTPATIENT EXTENDED RHYTHM RECORDING (WITHOUT TELEMETRY) Holter Routine Tachycardia Palpitations Chest tightness SOB (shortness of breath) on exertion Ordered: 01/01/2023 [facility] Work Phone: Comment on above: Ordered: 01/01/2023 OUTSIDE VENDOR CARDI AC OUTPATIENT EXTENDED RHYTHM RECORDING (WITHOUT TELEMETRY) OUTSIDE VENDOR CARDIAC OUTPATIENT EXTENDED RHYTHM RECORDING (WITHOUT TELEMETRY) Holter Routine Palpitations Ordered: 03/02/2025 [facility] Work Phone: Comment on above: Ordered: 03/02/2025 Tdap vaccine 7 yrs/> im TDAP VAC CINE, AGE 7+ YR (ADACEL, BOOSTRIX) Immunization/Injection Routine Ordered: 09/23/2024 [facility] Comment on above: Ordered: 09/23/2024 End: 10-03-2024 Us transvaginal US FEMALE PELVIS TRANSVAG Radiology Routine Pelvic pain History of ovarian cyst 1 Occurrences starting 09/04/2023 until 10/03/2024 [facility] Work Phone: Comment on above: 1 Occurrences starti ng 09/04/2023 until 10/03/2024 [facility] Immunizations Immunization Date Immunization Notes Care Provider Renetta brown 10-25-2021 pneumococcal polysaccharide vaccine, 23 valent Dennys Ramos NURSING HOME ASSISTANT.FABRIC SEPARATOR OPERATOR Work Phone: [facility] Work Phone: 07-05-2017 hepatitis B vaccine, adult dosage Dennys Ramos NURSING HOME ASSISTANT.FABRIC SEPARATOR OPERATOR Work Phone: [facility] 09-08-2015 influenza, seasonal, injectable Dennys Ramos NURSING HOME ASSISTANT.FABRIC SEPARATOR OPERATOR Work Phone: [facility] 09-08-2015 influenza virus vaccine, unspecified formulation John Duron MD Work Phone: [facility] NEGATED: Highlighted row has not occurred!09-23-2024 tetanus toxoid, reduced diphtheria toxoid, and acellular pertussis vaccine, adsorbed Kin Muñoz DO Work Phone: [facility] Comment on above: Deferred: Postponed Payers Date Payer Category Payer Self-pay [id number] 2022 [employer] BLUE CARD PPO OOS [id number] 2019 Unknown [employer] BLUE ACCE SS PPO [id number] 2019-Present [phone] [address] [place] [address] PPO [id number] 2015 Unknown SELF PAY INSURANCE [id number] 2015 Unknown [id number] 2015 Unknown [id number] Unknown [id number] Social History Date Type Detail Facility Start: 10-22-2020 Tobacco smoking status NHIS Unknown if ever smoked [facility] Work Phone: Start: 1975 Sex Assigned At Female [facility] Start: 07-06-2011 End: 10-20-2022 Tobacco smoking status NHIS Never smoked tobacco [facility] Work Phone: Start: 03-13-2022 End: 10-30-2024 Alcohol intake Current drinker of alcohol (finding) [facility] Start: 04-09-2020 History SDOH Alcohol Frequency 3 [facility] Start: 04-09-2020 End: 04-14-2020 History SDOH Alcohol Std Drinks 1 [facility] Start: 04-09-2020 End: 04-14-2020 History SDOH Social Connections Phone 5 [facility] Start: 04-09-2020 End: 04-14-2020 History SDOH Social Connections Get Together 2 [facility] Start: 04-09-2020 History SDOH Social Connections Meetings 98 [facility] Start: 04-09-2020 Education 12 [facility] Start: 09-16-2020 End: 04-17-2022 Exposure to SARS-CoV-2 (event) Not sure [facility] Work Phone: Start: 07-06-2011 End: 10-20-2022 Tobacco use and exposure Smokeless tobacco non-user [facility] Work Phone: Start: 04-09-2020 End: 08-20-2023 History of Social function [facility] Start: 04-09-2020 End: 08-20-2023 Social connection and isolation panel [facility] Do you belong to any clubs or organizations such as yazdanism groups, unions, fraternal or athletic groups, or school groups? No [facility] How often do you att end meetings of the clubs or organizations you belong to? Patient refused [facility] Are you now , , , , never or living with a partner? [facility] How often to you hav e a drink containing alcohol? 2-4 times a month [facility] How many standard dr inks containing alcohol do you have on a typical day? 1 or 2 [facility] How often do you hav e 6 or more drinks on 1 occasion? Never [facility] Do you feel stress - tense, restless, nervous, or anxious, or unable to sleep at night because your mind is troubled all the time - these days [OSQ] Not at all [facility] (I/We) worried jacqueline er (my/our) food would run out before (I/we) got money to buy more. Never true [facility] Start: 04-28-2019 Gender identity Identifies as female gender (finding) [facility] Start: 04-28-2019 Sexual orientation Heterosexual (finding) [facility] Medical Equipment Procedure Code Equipment Code Equipment Origin al Text Equipment Identifier Dates ORIF, fracture, metatarsal bone 4.5MM X 40MM SCREW FDA Start: 10-28-2020 ORIF, fracture, metatarsal bone 4.5MM X 40MM SCREW FDA Start: 10-28-2020 ORIF, fracture, metatarsal bone 4.5MM X 40MM SCREW FDA Start: 10-28-2020 Functional Status Date Assessment Result Facility 11-03-2014 Are you deaf, or do you have serious difficulty hearing No 11/03/2014 10:55 AM Alysa Harris MA No [facility] 11-03-2014 Are you blind, or do you have serious difficulty seeing, even when wearing glasses No 11/03/2014 10:55 AM Alysa Harris MA No [facility] 11-03-2014 Do you have serious difficulty walking or climbing stairs No 11/03/2014 10:55 AM Alysa Harris MA No [facility] 11-03-2014 Do you have difficul ty dressing or bathing No 11/03/2014 10:55 AM Alysa Harris MA No [facility] 11-03-2014 Because of a physica l, mental, or emotional condition, do you have difficulty doing errands alone such as visiting a physician's office or shopping No 11/03/2014 10:55 AM Alysa Harris MA No [facility] Mental Status Date Assessment Result Facility 11-03-2014 Because of a physica l, mental, or emotional condition, do you have serious difficulty concentrating, remembering, or making decisions No 11/03/2014 10:55 AM Alysa Harris MA No [facility] Clinical Notes 10-16-2020 to 05-19-2025 Telephone Encounter - Arlene Rollins LPN - 05/19/2025 10:59 AM EDTTelephone Encounter - Arlene Rollins LPN - 05/19/2025 10:59 AM Tres Ness MD - 05/04/2025 11:39 AM EDT Note Date & Type Note Facility 05-19-2025 Telephone encounter Note Pt. informed [facility] Work Phone: 05-19-2025 Miscellaneous Notes Pt. informed The following approved medication requests have been transmitted electronically. Requested Prescriptions Signed Prescriptions Disp Refills fluconazole (DIFLUCAN) 150 mg tablet 2 tablet 0 Sig: Take 1 tablet once and repeat in 3 days as needed for vaginal itching Authorizing Provider: KIN MUÑOZ DO Patient was in urgent care on 05/04 treated with Augmentin for sinusitis. Has yeast infection can we send fluconazole? I believe I have a yeast infection from the antibiotic that I was on for my sinus infection. Is there anyway that you can send in a script for Fluconazole? documented in this encounter [facility] 05-19-2025 Telephone encounter Note The following approved medication requests have been transmitted electronically. Requested Prescriptions Signed Prescriptions Disp Refills fluconazole (DIFLUCAN) 150 mg tablet 2 tablet 0 Sig: Take 1 tablet once and repeat in 3 days as needed for vaginal itching Authorizing Provider: KIN MUÑOZ DO [facility] 05-19-2025 Telephone encounter Note Patient was in urgent care on 05/04 treated with Augmentin for sinusitis. Has yeast infection can we send fluconazole? I believe I have a yeast infection from the antibiotic that I was on for my sinus infection. Is there anyway that you can send in a script for Fluconazole? [facility] 05-12-2025 Telephone encounter Note The following approved medication requests have been transmitted electronically. Requested Prescriptions Signed Prescriptions Disp Refills Pramoxine (PROCTOFOAM) 1 % foam 15 g 1 Si applicator by RECTAL route three times a day as needed for up to 5 days. Authorizing Provider: KIN MUÑOZ DO [facility] 05-12-2025 Miscellaneous Notes The following approved medication requests have been transmitted electronically. Requested Prescriptions Signed Prescriptions Disp Refills Pramoxine (PROCTOFOAM) 1 % foam 15 g 1 Si applicator by RECTAL route three times a day as needed for up to 5 days. Authorizing Provider: KIN MUÑOZ DO Mercedes is calling Kin Muñoz DO today with concern regarding change in pharmacy Patient asking to have the following medication Pramoxine (PROCTOFOAM) 1 % foam sent to [facility] Patient has been identified by name and birthdate. Duration of symptoms: N/A Person calling: self Call patient at: on cell [phone] (home) [phone] (cell) Was an appointment scheduled: No Closing statement: Results or non-symptom based questions: Thank you for calling [facility], your call will be returned within the next business day. Keiry Orellana documented in this encounter [facility] 05-12-2025 Telephone encounter Note Prescription Refill Information The patient has been identified by name and date of : Yes Caregiver verified no other encounters exist for this prescription request: Yes Caregiver confirmed with patient/requestor that no other refills are due, in the near future, with this provider at this time: Yes The last office visit in the department: Visit date not found Does the patient have a future office visit with this provider/department: No Requested Prescriptions Pending Prescriptions Disp Refills Pramoxine (PROCTOFOAM) 1 % foam 15 g 1 Si applicator by RECTAL route three times a day as needed for up to 5 days. Mary Alonso MA May 12, 2025 11:16 AM [facility] 05-12-2025 Miscellaneous Notes Prescription Refill Information The patient has been identified by name and date of : Yes Caregiver verified no other encounters exist for this prescription request: Yes Caregiver confirmed with patient/requestor that no other refills are due, in the near future, with this provider at this time: Yes The last office visit in the department: Visit date not found Does the patient have a future office visit with this provider/department: No Requested Prescriptions Pending Prescriptions Disp Refills Pramoxine (PROCTOFOAM) 1 % foam 15 g 1 Si applicator by RECTAL route three times a day as needed for up to 5 days. Mary Alonso MA May 12, 2025 11:16 AM documented in this encounter [facility] 05-09-2025 Telephone encounter Note Mercedes is calling Kin Muñoz DO today with concern regarding change in pharmacy Patient asking to have the following medication Pramoxine (PROCTOFOAM) 1 % foam sent to [facility] Patient has been identified by name and birthdate. Duration of symptoms: N/A Person calling: self Call patient at: on cell [phone] (home) [phone] (cell) Was an appointment scheduled: No Closing statement: Results or non-symptom based questions: Thank you for calling [facility], your call will be returned within the next business day. Keiry Orellana [facility] 05-08-2025 Telephone encounter Note Spoke with pt gave information provided. Pt voices understanding. [facility] 05-08-2025 Miscellaneous Notes Spoke with pt gave information provided. Pt voices understanding. The following approved medication requests have been transmitted electronically. Requested Prescriptions Signed Prescriptions Disp Refills Pramoxine (PROCTOFOAM) 1 % foam 15 g 1 Si applicator by RECTAL route three times a day as needed for up to 5 days. Authorizing Provider: MUNA ROSARIO APRN.FABRIC SEPARATOR OPERATOR Patient calling [facility] does not have cream in stock and will not order it, asking to send rx to [facility] pharmacy. Reset to file. Please advise The patient has been identified by name and date of : Yes Caregiver verified no other encounters exist for this prescription request: Yes Caregiver confirmed with patient/requestor that no other refills are due, in the near future, with this provider at this time: Yes The last office visit in the department: Visit date not found Does the patient have a future office visit with this provider/department: No no future appt scheduled Requested Prescriptions Pending Prescriptions Disp Refills Pramoxine (PROCTOFOAM) 1 % foam 15 g 1 Si applicator by RECTAL route three times a day as needed for up to 5 days. Signed Prescriptions Disp Refills Pramoxine (PROCTOFOAM) 1 % foam 15 g 1 Si applicator by RECTAL route three times a day as needed for up to 5 days. Authorizing Provider: MUNA ROSARIO LPN May 08, 2025 12:40 PM The following approved medication requests have been transmitted electronically. Requested Prescriptions Signed Prescriptions Disp Refills Pramoxine (PROCTOFOAM) 1 % foam 15 g 1 Si applicator by RECTAL route three times a day as needed for up to 5 days. Authorizing Provider: MUNA ROSARIO APRN.CNP Images from the original note were not included. Pt sends Isowalk message below: Mercedes Collins [facility] My Chart Rx Pool I had to go to the walk in clinic the other day for a sinus infection. The antibiotic seems to have given me diarrhea which has then given me hemorrhoids. Over the counter meds seem to help a little but I think I may need something stronger to get rid of them. I had them back when I was a long time ago and I had to have a prescription to get rid of them then too. documented in this encounter [facility] 05-08-2025 Telephone encounter Note The following approved medication requests have been transmitted electronically. Requested Prescriptions Signed Prescriptions Disp Refills Pramoxine (PROCTOFOAM) 1 % foam 15 g 1 Si applicator by RECTAL route three times a day as needed for up to 5 days. Authorizing Provider: MUNA ROSARIO APRN.FABRIC SEPARATOR OPERATOR [facility] 05-08-2025 Telephone encounter Note Patient calling [facility] does not have cream in stock and will not order it, asking to send rx to [facility] pharmacy. Reset to file. Please advise The patient has been identified by name and date of : Yes Caregiver verified no other encounters exist for this prescription request: Yes Caregiver confirmed with patient/requestor that no other refills are due, in the near future, with this provider at this time: Yes The last office visit in the department: Visit date not found Does the patient have a future office visit with this provider/department: No no future appt scheduled Requested Prescriptions Pending Prescriptions Disp Refills Pramoxine (PROCTOFOAM) 1 % foam 15 g 1 Si applicator by RECTAL route three times a day as needed for up to 5 days. Signed Prescriptions Disp Refills Pramoxine (PROCTOFOAM) 1 % foam 15 g 1 Si applicator by RECTAL route three times a day as needed for up to 5 days. Authorizing Provider: MUNA ROSARIO LPN May 08, 2025 12:40 PM T [facility] 05-08-2025 Telephone encounter Note The following approved medication requests have been transmitted electronically. Requested Prescriptions Signed Prescriptions Disp Refills Pramoxine (PROCTOFOAM) 1 % foam 15 g 1 Si applicator by RECTAL route three times a day as needed for up to 5 days. Authorizing Provider: MUNA ROSARIO APRN.FABRIC SEPARATOR OPERATOR T [facility] 05-08-2025 Telephone encounter Note Images from the original note were not included. Pt sends Isowalk message below: Mercedes Collins [facility] My Chart Rx Pool I had to go to the walk in clinic the other day for a sinus infection. The antibiotic seems to have given me diarrhea which has then given me hemorrhoids. Over the counter meds seem to help a little but I think I may need something stronger to get rid of them. I had them back when I was a long time ago and I had to have a prescription to get rid of them then too. [facility] 05-08-2025 Telephone encounter Note See TE May 08, 2025 [facility] 05-08-2025 Miscellaneous Notes See TE May 08, 2025 documented in this encounter [facility] 05-04-2025 Note HNO ID: [id number] Author: TRES CAMPBELL MD Service: ? Author Type: Physician Type: Progress Notes Filed: 05/04/2025 11:59 Note Text: [facility] Subjective Michelle Collins is a 49 year old female. Patient presents with: Nasal Congestion: Sinus issues, RUCHI ear pain x 2 weeks Feeling congested for 1-1/2 to 2 weeks. Symptoms worse in the last couple of days. She has ear pressure, increasing cough sinus pressure, resolved sore throat. Denies shortness of breath, wheezing, chest pain. She was unaware of low-grade fever today. She has been using Sudafed and nasal steroid spray. Denies known history of seasonal allergies. Her daughter was sick along with her at the onset of symptoms. Nasal Congestion Associated symptoms include congestion. Review of Systems HENT: Positive for congestion. Objective BP 100/64 Pulse 114 Temp 37.8 ?C (100 ?F) Resp 20 Wt 66.2 kg (145 lb 15.1 oz) LMP 08/11/2024 (Exact Date) SpO2 99% BMI 24.02 kg/m? Physical Exam Constitutional: General: She is not in acute distress. HENT: Right Ear: Ear canal normal. No middle ear effusion. Tympanic membrane is retracted. Tympanic membrane is not injected or erythematous. Left Ear: Tympanic membrane and ear canal normal. Nose: Congestion present. Right Sinus: No maxillary sinus tenderness or frontal sinus tenderness. Left Sinus: No maxillary sinus tenderness or frontal sinus tenderness. Mouth/Throat: Mouth: Mucous membranes are moist. Pharynx: No oropharyngeal exudate or posterior oropharyngeal erythema. Eyes: Extraocular Movements: Extraocular movements intact. Conjunctiva/sclera: Conjunctivae normal. Pupils: Pupils are equal, round, and reactive to light. Cardiovascular: Rate and Rhythm: Normal rate and regular rhythm. Heart sounds: No murmur heard. Pulmonary: Effort: No respiratory distress. Breath sounds: No wheezing, rhonchi or rales. Musculoskeletal: Cervical back: Neck supple. Lymphadenopathy: Cervical: No cervical adenopathy. Neurological: Mental Status: She is alert. {ASSESSMENT/PLAN: 1. Acute non-recurrent sinusitis, unspecified location - ICD9: 461.9, ICD10: J01.90 Continue supportive care treatment with decongestant and nasal steroid spray. - Will begin treatment with - AMOXICILLIN 875 MG-POTASSIUM CLAVULANATE 125 MG TABLET She may also had as needed ibuprofen for pain. Tres Campbell MD Differential Diagnoses - secondary bacterial sinusitis is more likely for the following reason(s): suggested by HANDP - multiple viral URIs - seasonal allergic rhinitis is less likely for the following reason(s): no prior history of condition Procedures [facility] 05-04-2025 History of Present illness Narrative [facility] Subjective Michelle Collins is a 49 year old female. Patient presents with: Nasal Congestion: Sinus issues, RUCHI ear pain x 2 weeks Feeling congested for 1-1/2 to 2 weeks. Symptoms worse in the last couple of days. She has ear pressure, increasing cough sinus pressure, resolved sore throat. Denies shortness of breath, wheezing, chest pain. She was unaware of low-grade fever today. She has been using Sudafed and nasal steroid spray. Denies known history of seasonal allergies. Her daughter was sick along with her at the onset of symptoms. Nasal Congestion Associated symptoms include congestion. Review of Systems HENT: Positive for congestion. Objective BP 100/64 Pulse 114 Temp 37.8 C (100 F) Resp 20 Wt 66.2 kg (145 lb 15.1 oz) LMP 08/11/2024 (Exact Date) SpO2 99% BMI 24.02 kg/m Physical Exam Constitutional: General: She is not in acute distress. HENT: Right Ear: Ear canal normal. No middle ear effusion. Tympanic membrane is retracted. Tympanic membrane is not injected or erythematous. Left Ear: Tympanic membrane and ear canal normal. Nose: Congestion present. Right Sinus: No maxillary sinus tenderness or frontal sinus tenderness. Left Sinus: No maxillary sinus tenderness or frontal sinus tenderness. Mouth/Throat: Mouth: Mucous membranes are moist. Pharynx: No oropharyngeal exudate or posterior oropharyngeal erythema. Eyes: Extraocular Movements: Extraocular movements intact. Conjunctiva/sclera: Conjunctivae normal. Pupils: Pupils are equal, round, and reactive to light. Cardiovascular: Rate and Rhythm: Normal rate and regular rhythm. Heart sounds: No murmur heard. Pulmonary: Effort: No respiratory distress. Breath sounds: No wheezing, rhonchi or rales. Musculoskeletal: Cervical back: Neck supple. Lymphadenopathy: Cervical: No cervical adenopathy. Neurological: Mental Status: She is alert. {ASSESSMENT/PLAN: 1. Acute non-recurrent sinusitis, unspecified location - ICD9: 461.9, ICD10: J01.90 Continue supportive care treatment with decongestant and nasal steroid spray. - Will begin treatment with - AMOXICILLIN 875 MG-POTASSIUM CLAVULANATE 125 MG TABLET She may also had as needed ibuprofen for pain. Tres Campbell MD Differential Diagnoses - secondary bacterial sinusitis is more likely for the following reason(s): suggested by H&P - multiple viral URIs - seasonal allergic rhinitis is less likely for the following reason(s): no prior history of condition Procedures documented in this encounter [facility] 04-06-2025 Telephone encounter Note Spoke with pt. Notified of test results. Pt voices understanding. Margot Anne RN [facility] 04-06-2025 Miscellaneous Notes Spoke with pt. Notified of test results. Pt voices understanding. Margot Anne RN ----- Message from John Duron MD sent at 04/06/2025 2:28 PM EDT ----- Please call the patient to let her know that her heart monitor was normal. There was no evidence of SVT Thank you John Duron documented in this encounter [facility] 04-06-2025 Telephone encounter Note ----- Message from John Duron MD sent at 04/06/2025 2:28 PM EDT ----- Please call the patient to let her know that her heart monitor was normal. There was no evidence of SVT Thank you John Duron [facility] 02-13-2025 Telephone encounter Note The following approved medication requests have been transmitted electronically. Requested Prescriptions Signed Prescriptions Disp Refills LORazepam (ATIVAN) 0.5 mg 14 tablet 0 Sig: Take 1 tablet by mouth two times a day as needed (travel anxiety) for up to 7 days. ondansetron (ZOFRAN) 8 mg tablet 20 tablet 0 Sig: Take 1 tablet by mouth every 8 hours as needed for nausea/vomiting. ciprofloxacin HCl (CIPRO) 500 mg tablet 28 tablet 0 Sig: Take 1 tablet by mouth two times a day for 14 days. azithromycin (ZITHROMAX Z-JUAN) 250 mg tablet 6 tablet 0 Sig: Take 2 tablets day one, then, 1 tablet daily until gone. Clara Hernandez APRN.JEZ [facility] 02-13-2025 Miscellaneous Notes The following approved medication requests have been transmitted electronically. Requested Prescriptions Signed Prescriptions Disp Refills LORazepam (ATIVAN) 0.5 mg 14 tablet 0 Sig: Take 1 tablet by mouth two times a day as needed (travel anxiety) for up to 7 days. ondansetron (ZOFRAN) 8 mg tablet 20 tablet 0 Sig: Take 1 tablet by mouth every 8 hours as needed for nausea/vomiting. ciprofloxacin HCl (CIPRO) 500 mg tablet 28 tablet 0 Sig: Take 1 tablet by mouth two times a day for 14 days. azithromycin (ZITHROMAX Z-UJAN) 250 mg tablet 6 tablet 0 Sig: Take 2 tablets day one, then, 1 tablet daily until gone. Clara Hernandez APRN.FABRIC SEPARATOR OPERATOR documented in this encounter [facility] 01-28-2025 Telephone encounter Note MARQUIS - 09/01/24 Next 06/22/25 Currently on Metoprolol 25mg Daily Zio Monitor 01/01/2023: Patient had a min HR of 60 bpm, max HR of 203 bpm, and avg HR of 87 bpm. Predominant underlying rhythm was Sinus Rhythm. 1 run of Ventricular Tachycardia occurred lasting 4 beats with a max rate of 203 bpm (avg 193 bpm). Isolated SVEs were rare (<1.0%), SVE Couplets were rare (<1.0%), and SVE Triplets were rare (<1.0%). Isolated VEs were rare (<1.0%, 9), VE Triplets were rare (<1.0%, 1), and no VE Couplets were present. Ayesha Peters, RN [facility] 01-28-2025 Miscellaneous Notes MARQUIS 09/01/24 Next OV 06/22/25 Currently on Metoprolol 25mg Daily Zio Monitor 01/01/2023: Patient had a min HR of 60 bpm, max HR of 203 bpm, and avg HR of 87 bpm. Predominant underlying rhythm was Sinus Rhythm. 1 run of Ventricular Tachycardia occurred lasting 4 beats with a max rate of 203 bpm (avg 193 bpm). Isolated SVEs were rare (<1.0%), SVE Couplets were rare (<1.0%), and SVE Triplets were rare (<1.0%). Isolated VEs were rare (<1.0%, 9), VE Triplets were rare (<1.0%, 1), and no VE Couplets were present. Ayesha Peters RN documented in this encounter [facility] 10-30-2024 Note HNO ID: [id number] Author: CLARA HERNANDEZ APRN.FABRIC SEPARATOR OPERATOR Service: ? Author Type: Nurse Practitioner Type: Progress Notes Filed: 10/30/2024 14:50 Note Text: Chief Complaint Patient presents with: Anxiety: Situational Insomnia HPI Michelle Collins is a 48 year old female who presents here today for Above Complaints.. Recently found out over the weekend that her is having an affair. She is having a host of mood swings-anger, irritability, sadness, anxiety, insomnia. Denies SI/HI. Past medical history, appointments, medications, allergies reviewed. Previous Medical History PAST MEDICAL HISTORY Diagnosis Date Palpitations 2022 metoprolol RA (rheumatoid arthritis) (HCC) Previous Surgical History PAST SURGICAL HISTORY Procedure Laterality Date BREAST AUGMENTATION W/PROSTHETIC IMPLANT Bilateral 2006 BREAST BIOPSY NEEDLE LEFT 2020 benign DELIVERY ONLY 11/26/2002 , low cervical - x2 FOOT SURGERY HX Left LIGATE FALLOPIAN TUBE 2006 Family History FAMILY HISTORY Problem Relation Age of Onset Breast Cancer Mother 32 other (non-Hodgkin's lymphoma) Mother 72 Heart disease Maternal Grandmother Heart Paternal Grandmother Cancer Paternal Grandfather lung, smoker Breast Cancer Paternal Aunt 35 Patient Allergies ALLERGIES No Known Allergies Current Medications Current Outpatient Medications on File Prior to Visit Medication Sig metoprolol succinate ER (TOPROL XL) 25 mg 24 hr tablet Take 1 tablet by mouth once daily. sertraline (ZOLOFT) 50 mg tablet Take 1 tablet by mouth once daily. minoxidil (LONITEN) 2.5 mg tablet fluticasone (FLONASE) 50 mcg/actuation nasal spray Use 2 Sprays in each nostril once daily. Rinse mouth after use. predniSONE (DELTASONE) 10 mg tablet take 1 tablet by mouth once daily if needed for 3 to 5 days with FLARES albuterol HFA (PROAIR HFA) 90 mcg/actuation inhaler Inhale 2 Puffs as instructed every 4 hours as needed. hydrOXYchloroQUINE (PLAQUENIL) 200 mg tablet Take by mouth twice daily. Current Facility-Administered Medications on File Prior to Visit Medication perflutren lipid microspheres 1.3 mL in NaCl (PF) 0.9% 10 mL injection (DEFINITY) sodium chloride 0.9 % (flush) 10 mL (BD POSIFLUSH) Social History Social History Tobacco Use Smoking status: Never Smokeless tobacco: Never Vaping Use Vaping status: Never Used Substance Use Topics Alcohol use: Yes Comment: occasionally Drug use: No Review of Symptoms REVIEW OF SYSTEMS See HPI, otherwise negative EXAM: BP 120/72 (BP Site: Left Arm, BP Position: Sitting, BP Cuff Size: Regular Adult) Pulse 101 Resp 16 Wt 66.1 kg (145 lb 12.8 oz) LMP 08/11/2024 (Exact Date) SpO2 96% BMI 24.00 kg/m? General Appearance: Well appearing, alert, in no acute distress, well-hydrated, well nourished.. Lungs: Lungs clear to auscultation. No wheezing, rhonchi, rales.. Heart: RRR without murmur, gallop, or rubs. No ectopy. Psychiatric: pleasant, cooperative, tearful. Health Maintenance List Depression Screening Never done Anxiety Screening Never done HIV Screening Never done DTaP,Tdap,Td Vaccine(1 - Tdap) Never done Influenza Vaccine(1) due on 05/25/2025 Covid-19 Vaccine(3 - season) due on 09/23/2025 Mammogram Screening due on 10/01/2025 Cervical Cancer Screening due on 03/18/2026 Diabetes Screening due on 10/04/2027 Colorectal Cancer Screening due on 10/11/2027 Lipid Screening due on 10/04/2029 Hepatitis C Screening Completed Data reviewed Previous records, office notes, PDMP report PDMP website checked and validated. All prescriptions have been APPROPRIATELY filled. No suspicious activity was identified. 10/30/2024 by Clara Hernandez CNP. ASSESSMENT/PLAN: 1. 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 Encounter for screening examination for other mental health and behavioral disorders - ICD9: V79.8, ICD10: Z13.39 - ANXIETY SCREENING - GONORRHEA/CHLAMYDIA NAAT - LEE/TRICHOMONAS NAAT - BACTERIAL VAGINOSIS NAAT 3. Screening for depression - ICD9: V79.0, ICD10: Z13.31 - DEPRESSION SCREENING 4. Anxiety with depression - ICD9: 300.4, ICD10: F41.8 - ALPRAZOLAM 0.5 MG TABLET - SERTRALINE 100 MG TABLET 5. Possible exposure to STD - ICD9: V01.6, ICD10: Z20.2 - GONORRHEA/CHLAMYDIA NAAT - LEE/TRICHOMONAS NAAT - BACTERIAL VAGINOSIS NAAT Clara Hernandez APRN.[facility] 10-30-2024 History of Present illness Narrative Chief Complaint Patient presents with: Anxiety: Situational Insomnia HPI Michelle Collins is a 48 year old female who presents here today for Above Complaints.. Recently found out over the weekend that her is having an affair. She is having a host of mood swings-anger, irritability, sadness, anxiety, insomnia. Denies SI/HI. Past medical history, appointments, medications, allergies reviewed. Previous Medical History PAST MEDICAL HISTORY Diagnosis Date Palpitations 2022 metoprolol RA (rheumatoid arthritis) (HCC) Previous Surgical History PAST SURGICAL HISTORY Procedure Laterality Date BREAST AUGMENTATION W/PROSTHETIC IMPLANT Bilateral 2006 BREAST BIOPSY NEEDLE LEFT 2020 benign DELIVERY ONLY 11/26/2002 , low cervical - x2 FOOT SURGERY HX Left LIGATE FALLOPIAN TUBE 2006 Family History FAMILY HISTORY Problem Relation Age of Onset Breast Cancer Mother 32 other (non-Hodgkin's lymphoma) Mother 72 Heart disease Maternal Grandmother Heart Paternal Grandmother Cancer Paternal Grandfather lung, smoker Breast Cancer Paternal Aunt 35 Patient Allergies ALLERGIES No Known Allergies Current Medications Current Outpatient Medications on File Prior to Visit Medication Sig metoprolol succinate ER (TOPROL XL) 25 mg 24 hr tablet Take 1 tablet by mouth once daily. sertraline (ZOLOFT) 50 mg tablet Take 1 tablet by mouth once daily. minoxidil (LONITEN) 2.5 mg tablet fluticasone (FLONASE) 50 mcg/actuation nasal spray Use 2 Sprays in each nostril once daily. Rinse mouth after use. predniSONE (DELTASONE) 10 mg tablet take 1 tablet by mouth once daily if needed for 3 to 5 days with FLARES albuterol HFA (PROAIR HFA) 90 mcg/actuation inhaler Inhale 2 Puffs as instructed every 4 hours as needed. hydrOXYchloroQUINE (PLAQUENIL) 200 mg tablet Take by mouth twice daily. Current Facility-Administered Medications on File Prior to Visit Medication perflutren lipid microspheres 1.3 mL in NaCl (PF) 0.9% 10 mL injection (DEFINITY) sodium chloride 0.9 % (flush) 10 mL (BD POSIFLUSH) Social History Social History Tobacco Use Smoking status: Never Smokeless tobacco: Never Vaping Use Vaping status: Never Used Substance Use Topics Alcohol use: Yes Comment: occasionally Drug use: No Review of Symptoms REVIEW OF SYSTEMS See HPI, otherwise negative EXAM: BP 120/72 (BP Site: Left Arm, BP Position: Sitting, BP Cuff Size: Regular Adult) Pulse 101 Resp 16 Wt 66.1 kg (145 lb 12.8 oz) LMP 08/11/2024 (Exact Date) SpO2 96% BMI 24.00 kg/m General Appearance: Well appearing, alert, in no acute distress, well-hydrated, well nourished.. Lungs: Lungs clear to auscultation. No wheezing, rhonchi, rales.. Heart: RRR without murmur, gallop, or rubs. No ectopy. Psychiatric: pleasant, cooperative, tearful. Health Maintenance List Depression Screening Never done Anxiety Screening Never done HIV Screening Never done DTaP,Tdap,Td Vaccine(1 - Tdap) Never done Influenza Vaccine(1) due on 05/25/2025 Covid-19 Vaccine( season) due on 09/23/2025 Mammogram Screening due on 10/01/2025 Cervical Cancer Screening due on 03/18/2026 Diabetes Screening due on 10/04/2027 Colorectal Cancer Screening due on 10/11/2027 Lipid Screening due on 10/04/2029 Hepatitis C Screening Completed Data reviewed Previous records, office notes, PDMP report PDMP website checked and validated. All prescriptions have been APPROPRIATELY filled. No suspicious activity was identified. 10/30/2024 by Clara Hernandez CNP. ASSESSMENT/PLAN: 1. 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 Encounter for screening examination for other mental health and behavioral disorders - ICD9: V79.8, ICD10: Z13.39 - ANXIETY SCREENING - GONORRHEA/CHLAMYDIA NAAT - LEE/TRICHOMONAS NAAT - BACTERIAL VAGINOSIS NAAT 3. Screening for depression - ICD9: V79.0, ICD10: Z13.31 - DEPRESSION SCREENING 4. Anxiety with depression - ICD9: 300.4, ICD10: F41.8 - ALPRAZOLAM 0.5 MG TABLET - SERTRALINE 100 MG TABLET 5. Possible exposure to STD - ICD9: V01.6, ICD10: Z20.2 - GONORRHEA/CHLAMYDIA NAAT - LEE/TRICHOMONAS NAAT - BACTERIAL VAGINOSIS NAAT Clara Hernandez APRN.FABRIC SEPARATOR OPERATOR documented in this encounter [facility] 10-29-2024 Telephone encounter Note Patient scheduled to see [facility] tomorrow 10/30/2024. Carolann Mcneill RN [facility] 10-29-2024 Miscellaneous Notes Patient scheduled to see [facility] tomorrow 10/30/2024. Carolann Mcneill RN documented in this encounter [facility] 10-24-2024 Telephone encounter Note Pt notified of below. [facility] 10-24-2024 Miscellaneous Notes Pt notified of below. Rx sent. If no improvement, needs office visit. Thank you, Muna Rosario APRN.FABRIC SEPARATOR OPERATOR The following approved medication requests have been transmitted electronically. Requested Prescriptions Signed Prescriptions Disp Refills fluconazole (DIFLUCAN) 150 mg tablet 1 tablet 0 Sig: Take 1 tablet by mouth one time only for 1 dose. Authorizing Provider: MUNA ROSARIO APRN.CNP Patient reports she was seen by morgue attendant the other day for an infected bite on her face, and prescribed doxycycline. Since starting doxy has developed a vaginal yeast infection: discharge, itching, burning. Asking if provider could send diflucan Rx to [facility]. Pended previous Rx. Please phone patient with reply documented in this encounter [facility] 10-24-2024 Telephone encounter Note Rx sent. If no improvement, needs office visit. Thank you, Muna Rosario APRN.CNP The following approved medication requests have been transmitted electronically. Requested Prescriptions Signed Prescriptions Disp Refills fluconazole (DIFLUCAN) 150 mg tablet 1 tablet 0 Sig: Take 1 tablet by mouth one time only for 1 dose. Authorizing Provider: MUNA ROSARIO APRN.CNP [facility] 10-24-2024 Telephone encounter Note Patient reports she was seen by morgue attendant the other day for an infected bite on her face, and prescribed doxycycline. Since starting doxy has developed a vaginal yeast infection: discharge, itching, burning. Asking if provider could send diflucan Rx to [facility]. Pended previous Rx. Please phone patient with reply [facility] 10-22-2024 Telephone encounter Note Pt. informed via my Chart. [facility] 10-22-2024 Miscellaneous Notes Pt. informed via my Chart. Please let her know that cologuard is negative Kin Muñoz DO documented in this encounter [facility] 10-22-2024 Telephone encounter Note Please let her know that cologuard is negative Kin Muñoz DO [facility] 10-01-2024 History of Present illness Narrative Radiology Service Progress Note PATIENT NAME: Michelle Collins DATE OF SERVICE: October 01, 2024 TIME: 2:02 PM PATIENT IDENTITY VERIFICATION COMPLETED USING TWO (2) IDENTIFIERS: Name and Date of confirmed by patient verbally. FALL SCREENING: Has the patient had 2 falls in the last year or 1 fall with injury or currently using an Ambulatory Assistive Device (Walker, Cane, Wheelchair, Crutches, etc.)? No PATIENT GENDER DATA: Female. status: : No status: NO. PATIENT RELEVANT IMPLANT DATA REVIEWED: Not Applicable PATIENT PRESENTS WITH AN IMPLANTABLE OR ATTACHED DESK INTERVIEWER: No RADIOLOGY DEPARTMENT: Mammography PERIPHERAL IV DATA: Not applicable SIGNED BY: Kameron Calvillo October 01, 2024 2:02 PM documented in this encounter [facility] 10-01-2024 Note HNO ID: [id number] Author: VERNON PIERRE Mammo Tech Service: ? Author Type: Fleet Sales Manager Type: Progress Notes Filed: 10/01/2024 14:02 Note Text: Radiology Service Progress Note PATIENT NAME: Michelle Collins DATE OF SERVICE: October 01, 2024 TIME: 2:02 PM PATIENT IDENTITY VERIFICATION COMPLETED USING TWO (2) IDENTIFIERS: Name and Date of confirmed by patient verbally. FALL SCREENING: Has the patient had 2 falls in the last year or 1 fall with injury or currently using an Ambulatory Assistive Device (Walker, Cane, Wheelchair, Crutches, etc.)? No PATIENT GENDER DATA: Female. status: : No status: NO. PATIENT RELEVANT IMPLANT DATA REVIEWED: Not Applicable PATIENT PRESENTS WITH AN IMPLANTABLE OR ATTACHED DESK INTERVIEWER: No RADIOLOGY DEPARTMENT: Mammography PERIPHERAL IV DATA: Not applicable SIGNED BY: Vernon Pierre [employer] October 01, 2024 2:02 PM [facility] 09-23-2024 Note HNO ID: [id number] Author: KIN MUÑOZ, DO Service: ? Author Type: Physician Type: Progress Notes Filed: 09/23/2024 17:11 Note Text: CC: Michelle Collins is a 48 year old female who presents to the office for physical HPI: Overall she is doing well Palpitations, she was seen by Clinical Biostatistics Director, improved symptoms with metoprolol medication use. No new symptoms Has occasional fatigue Would like to consider meeting with genetics regarding genetic testing- mother with breast cancer and lymphoma, father with prostate CA PAST MEDICAL HISTORY Diagnosis Date Palpitations 2022 metoprolol RA (rheumatoid arthritis) (HCC) PAST SURGICAL HISTORY Procedure Laterality Date BREAST AUGMENTATION W/PROSTHETIC IMPLANT Bilateral 2006 BREAST BIOPSY NEEDLE LEFT 2020 benign DELIVERY ONLY 11/26/2002 , low cervical - x2 FOOT SURGERY HX Left LIGATE FALLOPIAN TUBE 2006 Social History: Social History Tobacco Use Smoking status: Never Smokeless tobacco: Never Vaping Use Vaping status: Never Used Substance Use Topics Alcohol use: Yes Comment: occasionally Drug use: No FAMILY HISTORY Problem Relation Age of Onset Breast Cancer Mother 32 other (non-Hodgkin's lymphoma) Mother 72 Heart disease Maternal Grandmother Heart Paternal Grandmother Cancer Paternal Grandfather lung, smoker Breast Cancer Paternal Aunt 35 Current Outpatient prescriptions: metoprolol succinate ER (TOPROL XL) 25 mg 24 hr tabletTake 1 tablet by mouth once daily.Disp: 360 tabletRfl: 3 sertraline (ZOLOFT) 50 mg tabletTake 1 tablet by mouth once daily.Disp: 30 tabletRfl: 11 minoxidil (LONITEN) 2.5 mg tabletDisp: Rfl: fluticasone (FLONASE) 50 mcg/actuation nasal sprayUse 2 Sprays in each nostril once daily. Rinse mouth after use.Disp: 16 gRfl: 1 predniSONE (DELTASONE) 10 mg tablettake 1 tablet by mouth once daily if needed for 3 to 5 days with FLARESDisp: Rfl: albuterol HFA (PROAIR HFA) 90 mcg/actuation inhalerInhale 2 Puffs as instructed every 4 hours as needed.Disp: 18 gRfl: 0 hydrOXYchloroQUINE (PLAQUENIL) 200 mg tabletTake by mouth twice daily.Disp: Rfl: Allergies: ALLERGIES No Known Allergies ROS: See HPI PE: 09/23/24 1321 BP: 120/60 Pulse: 80 Resp: 12 Temp: 36.2 ?C (97.1 ?F) TempSrc: Temporal Weight: 68.5 kg (151 lb 0.2 oz) Height: 166 cm (5' 5.35) Gen: AANDO, NAD, non-toxic appearing, Pleasant, cooperative HEENT: NT/AC, PERRLA, EOMs intact b/l, nares clear and patent b/l, pharynx without erythema, exudate or lesions. MMM, Uvula midline. EACs without erythema or debris. TMs pearly zhang with intact landmarks b/l. Neck: supple, No cervical LAD, no thyromegaly, no carotid bruits CV: RRR, normal S1 and S2, no murmurs, no gallops, no rubs, Pulses 2+ and symmetric in UE and LE b/l Lungs: normal respiratory effort, CTA b/l, no wheezing or rhonchi or rales Abd: soft, NT, ND, +BS, no hepatosplenomegaly MS: FROM all 4 extremities Neuro: CN II-XII intact b/l, strength 5/5 b/l UE and LE, DTRs 2/4 UE and LE, sensation intact. Skin: warm, dry, intact, No rashes or lesions on exposed skin. No edema, normal pulses ASSESSMENT/PLAN: 1. Well adult exam - ICD9: V70.0, ICD10: Z00.00 (primary diagnosis) - Counseled on healthy diet and regular exercise - THYROID STIMULATING HORMONE - COMPLETE BLOOD COUNT AND DIFFERENTIAL - COMPREHENSIVE METABOLIC PANEL - LIPID PANEL BASIC - HEMOGLOBIN A1C - T4 FREE/FREE THYROXINE - VITAMIN B12 - VITAMIN D 25 HYDROXY - IRON AND TIBC 2. Family history of breast cancer in mother - ICD9: V16.3, ICD10: Z80.3 - CONSULT TO MEDICAL GENETICS - CANCER 3. Family history of lymphoma - ICD9: V16.7, ICD10: Z80.7 - CONSULT TO MEDICAL GENETICS - CANCER 4. Screening for colon cancer - ICD9: V76.51, ICD10: Z12.11 She is willing to do cologuard, not colonoscopy although she is aware this is the gold standard that is recommended for colon cancer screening. - COLOGUARD 5. Rheumatoid arthritis involving multiple sites with positive rheumatoid factor (HCC) - ICD9: 714.0, ICD10: M05.79 stable 6. Palpitations - ICD9: 785.1, ICD10: R00.2 Stable, taking metoprolol Kin Muñoz DO To ER if develops chest pain, shortness of breath, or severe worsening of symptoms. Discussed risks, benefits, alternatives, and potential side effects of medications. Patient expressed understanding and agreed with the plan. Kin Muñoz DO [address] [place] [address] [facility] 09-23-2024 History of Present illness Narrative CC: Michelle Collins is a 48 year old female who presents to the office for physical HPI: Overall she is doing well Palpitations, she was seen by Clinical Biostatistics Director, improved symptoms with metoprolol medication use. No new symptoms Has occasional fatigue Would like to consider meeting with genetics regarding genetic testing- mother with breast cancer and lymphoma, father with prostate CA PAST MEDICAL HISTORY Diagnosis Date Palpitations 2022 metoprolol RA (rheumatoid arthritis) (HCC) PAST SURGICAL HISTORY Procedure Laterality Date BREAST AUGMENTATION W/PROSTHETIC IMPLANT Bilateral 2006 BREAST BIOPSY NEEDLE LEFT 2020 benign DELIVERY ONLY 11/26/2002 , low cervical - x2 FOOT SURGERY HX Left LIGATE FALLOPIAN TUBE 2006 Social History: Social History Tobacco Use Smoking status: Never Smokeless tobacco: Never Vaping Use Vaping status: Never Used Substance Use Topics Alcohol use: Yes Comment: occasionally Drug use: No FAMILY HISTORY Problem Relation Age of Onset Breast Cancer Mother 32 other (non-Hodgkin's lymphoma) Mother 72 Heart disease Maternal Grandmother Heart Paternal Grandmother Cancer Paternal Grandfather lung, smoker Breast Cancer Paternal Aunt 35 Current Outpatient prescriptions: metoprolol succinate ER (TOPROL XL) 25 mg 24 hr tablet^Take 1 tablet by mouth once daily.^Disp: 360 tablet^Rfl: 3 sertraline (ZOLOFT) 50 mg tablet^Take 1 tablet by mouth once daily.^Disp: 30 tablet^Rfl: 11 minoxidil (LONITEN) 2.5 mg tablet^^Disp: ^Rfl: fluticasone (FLONASE) 50 mcg/actuation nasal spray^Use 2 Sprays in each nostril once daily. Rinse mouth after use.^Disp: 16 g^Rfl: 1 predniSONE (DELTASONE) 10 mg tablet^take 1 tablet by mouth once daily if needed for 3 to 5 days with FLARES^Disp: ^Rfl: albuterol HFA (PROAIR HFA) 90 mcg/actuation inhaler^Inhale 2 Puffs as instructed every 4 hours as needed.^Disp: 18 g^Rfl: 0 hydrOXYchloroQUINE (PLAQUENIL) 200 mg tablet^Take by mouth twice daily.^Disp: ^Rfl: Allergies: ALLERGIES No Known Allergies ROS: See HPI PE: 09/23/24 1321 BP: 120/60 Pulse: 80 Resp: 12 Temp: 36.2 C (97.1 F) TempSrc: Temporal Weight: 68.5 kg (151 lb 0.2 oz) Height: 166 cm (5' 5.35) Gen: A&O, NAD, non-toxic appearing, Pleasant, cooperative HEENT: NT/AC, PERRLA, EOMs intact b/l, nares clear and patent b/l, pharynx without erythema, exudate or lesions. MMM, Uvula midline. EACs without erythema or debris. TMs pearly zhang with intact landmarks b/l. Neck: supple, No cervical LAD, no thyromegaly, no carotid bruits CV: RRR, normal S1 and S2, no murmurs, no gallops, no rubs, Pulses 2+ and symmetric in UE and LE b/l Lungs: normal respiratory effort, CTA b/l, no wheezing or rhonchi or rales Abd: soft, NT, ND, +BS, no hepatosplenomegaly MS: FROM all 4 extremities Neuro: CN II-XII intact b/l, strength 5/5 b/l UE and LE, DTRs 2/4 UE and LE, sensation intact. Skin: warm, dry, intact, No rashes or lesions on exposed skin. No edema, normal pulses ASSESSMENT/PLAN: 1. Well adult exam - ICD9: V70.0, ICD10: Z00.00 (primary diagnosis) - Counseled on healthy diet and regular exercise - THYROID STIMULATING HORMONE - COMPLETE BLOOD COUNT AND DIFFERENTIAL - COMPREHENSIVE METABOLIC PANEL - LIPID PANEL BASIC - HEMOGLOBIN A1C - T4 FREE/FREE THYROXINE - VITAMIN B12 - VITAMIN D 25 HYDROXY - IRON AND TIBC 2. Family history of breast cancer in mother - ICD9: V16.3, ICD10: Z80.3 - CONSULT TO MEDICAL GENETICS - CANCER 3. Family history of lymphoma - ICD9: V16.7, ICD10: Z80.7 - CONSULT TO MEDICAL GENETICS - CANCER 4. Screening for colon cancer - ICD9: V76.51, ICD10: Z12.11 She is willing to do cologuard, not colonoscopy although she is aware this is the gold standard that is recommended for colon cancer screening. - COLOGUARD 5. Rheumatoid arthritis involving multiple sites with positive rheumatoid factor (HCC) - ICD9: 714.0, ICD10: M05.79 stable 6. Palpitations - ICD9: 785.1, ICD10: R00.2 Stable, taking metoprolol Kin Muñoz DO To ER if develops chest pain, shortness of breath, or severe worsening of symptoms. Discussed risks, benefits, alternatives, and potential side effects of medications. Patient expressed understanding and agreed with the plan. Kin Muñoz DO [address] [place] [address] documented in this encounter [facility] 09-01-2024 History of Present illness Narrative Images from the original note were not included. [facility] SECTION [facility] REGIONAL CARDIOLOGY Cardiology ([address]) [address] [facility] [address] OUTPATIENT VISIT DATE 09/01/2024 PRIMARY CARE PHYSICIAN: Kin Muñoz [address] [place] [address] REFERRING PHYSICIAN: Kin Muñoz [address] [facility] [address] CHIEF COMPLAINT: Palpitations HISTORY OF PRESENT ILLNESS: Ms. Collins is a 48 year old woman with a history of palpitations and SVT who presents for follow-up. Since her last visit, she has been doing well. She does note that if she misses her metoprolol she has increased symptoms of palpitations. Her functional capacity has remained adequate. She has not had symptoms of shortness of breath or dyspnea on exertion. PAST MEDICAL HISTORY Diagnosis Date Palpitations 2022 metoprolol RA (rheumatoid arthritis) (HCC) PAST SURGICAL HISTORY Procedure Laterality Date BREAST AUGMENTATION W/PROSTHETIC IMPLANT Bilateral 2006 BREAST BIOPSY NEEDLE LEFT 2020 benign DELIVERY ONLY 11/26/2002 , low cervical - x2 FOOT SURGERY HX Left LIGATE FALLOPIAN TUBE 2006 SOCIAL HISTORY Social History Tobacco Use Smoking status: Never Smokeless tobacco: Never Vaping Use Vaping status: Never Used Substance Use Topics Alcohol use: Yes Comment: occasionally Drug use: No FAMILY HISTORY Problem Relation Age of Onset Breast Cancer Mother 32 other (non-Hodgkin's lymphoma) Mother 72 Heart disease Maternal Grandmother Heart Paternal Grandmother Cancer Paternal Grandfather lung, smoker Breast Cancer Paternal Aunt 35 ALLERGIES: ALLERGIES No Known Allergies MEDICATIONS: metoprolol succinate ER (TOPROL XL) 25 mg 24 hr tablet^take 1 tablet by mouth once daily^Disp: 360 tablet^Rfl: 3 sertraline (ZOLOFT) 50 mg tablet^Take 1 tablet by mouth once daily.^Disp: 30 tablet^Rfl: 11 minoxidil (LONITEN) 2.5 mg tablet^^Disp: ^Rfl: fluticasone (FLONASE) 50 mcg/actuation nasal spray^Use 2 Sprays in each nostril once daily. Rinse mouth after use.^Disp: 16 g^Rfl: 1 predniSONE (DELTASONE) 10 mg tablet^take 1 tablet by mouth once daily if needed for 3 to 5 days with FLARES^Disp: ^Rfl: albuterol HFA (PROAIR HFA) 90 mcg/actuation inhaler^Inhale 2 Puffs as instructed every 4 hours as needed.^Disp: 18 g^Rfl: 0 hydrOXYchloroQUINE (PLAQUENIL) 200 mg tablet^Take by mouth twice daily.^Disp: ^Rfl: REVIEW OF SYSTEMS: Review of Systems Constitutional: Negative for chills, fever, malaise/fatigue and weight loss. HENT: Negative for hearing loss and sore throat. Eyes: Negative for blurred vision and double vision. Respiratory: Negative. Cardiovascular: Positive for palpitations. Gastrointestinal: Negative. Genitourinary: Negative for dysuria, frequency, hematuria and urgency. Musculoskeletal: Negative. Skin: Negative. Neurological: Negative for dizziness, seizures, loss of consciousness, weakness and headaches. Endo/Heme/Allergies: Negative for environmental allergies. Does not bruise/bleed easily. Psychiatric/Behavioral: Negative for depression. PHYSICAL EXAMINATION: BP 115/72 Pulse 87 Wt 153 lb (69.4kg) SpO2 99% LMP 06/19/2023 General: Pleasant woman sitting appears comfortable no apparent distress she is alert and oriented x3 HEENT: Carotid upstrokes are brisk without bruits no JVD appreciated. Pulmonary: Lungs are clear no rales, wheezes, rhonchi Cardiovascular: Normal S1, S2 with regular rate and rhythm. No murmurs, rubs, or gallops Extremities: Warm, well-perfused, no lower extremity edema. 2+ distal pulses CARDIOVASCULAR MEDICINE TESTING: Echocardiogram 11/20/2023: - The left ventricle is normal in size. Left ventricular systolic function is normal. EF = 56 5% (2D 4-ch.) Normal left ventricular diastolic function. - The right ventricle is normal in size. Right ventricular systolic function is normal. - There are no significant valvular abnormalities. - Estimated right ventricular systolic pressure is not reported due to an insufficient tricuspid regurgitation signal. Estimated right atrial pressure is 3 mmHg (although IVC not seen). - The patient has not had a prior CC echocardiographic exam for comparison. Echocardiogram 09/30/2020 - Technically difficult exam due to body habitus and breast augmentation. - Exam indication: Rheumatoid arthritis - The left ventricle is normal in size. Left ventricular systolic function is normal. EF = 61 5% (2D 4-ch.) Normal left ventricular diastolic function. - The right ventricle is normal in size. Right ventricular systolic function is normal. - No significant valvular disease. - The patient has not had a prior CC echocardiographic exam for comparison. [facility] Monitor 01/01/2023: Patient had a min HR of 60 bpm, max HR of 203 bpm, and avg HR of 87 bpm. Predominant underlying rhythm was Sinus Rhythm. 1 run of Ventricular Tachycardia occurred lasting 4 beats with a max rate of 203 bpm (avg 193 bpm). Isolated SVEs were rare (<1.0%), SVE Couplets were rare (<1.0%), and SVE Triplets were rare (<1.0%). Isolated VEs were rare (<1.0%, 9), VE Triplets were rare (<1.0%, 1), and no VE Couplets were present. I have personally reviewed the Electrocardiogram, Laboratory Testing, and Echocardiogram. IMPRESSION: Ms. Collins is a 48 year old woman with a history of palpitations possible SVT who presents for follow-up after initiation of beta-kristopher therapy PLAN AND RECOMMENDATIONS: 1. Tachycardia - ICD9: 785.0, ICD10: R00.0 (primary diagnosis) Patient doing well with good symptom control on low-dose beta-kristopher therapy. No change in management. - METOPROLOL SUCCINATE ER 25 MG TABLET,EXTENDED RELEASE 24 HR 2. Palpitations - ICD9: 785.1, ICD10: R00.2 John Duron MD documented in this encounter [facility] 09-01-2024 Note HNO ID: [id number] Author: JOHN DURON MD Service: ? Author Type: Physician Type: Progress Notes Filed: 09/01/2024 13:28 Note Text: [facility] SECTION OF REGIONAL CARDIOLOGY Cardiology ([facility]) [address] [facility] [address] OUTPATIENT VISIT DATE 09/01/2024 PRIMARY CARE PHYSICIAN: Kin Muñoz [address] [place] [address] REFERRING PHYSICIAN: Kin Muñoz [address] [facility] [address] CHIEF COMPLAINT: Palpitations HISTORY OF PRESENT ILLNESS: Ms. Collins is a 48 year old woman with a history of palpitations and SVT who presents for follow-up. Since her last visit, she has been doing well. She does note that if she misses her metoprolol she has increased symptoms of palpitations. Her functional capacity has remained adequate. She has not had symptoms of shortness of breath or dyspnea on exertion. PAST MEDICAL HISTORY Diagnosis Date Palpitations 2022 metoprolol RA (rheumatoid arthritis) (HCC) PAST SURGICAL HISTORY Procedure Laterality Date BREAST AUGMENTATION W/PROSTHETIC IMPLANT Bilateral 2006 BREAST BIOPSY NEEDLE LEFT 2020 benign DELIVERY ONLY 11/26/2002 , low cervical - x2 FOOT SURGERY HX Left LIGATE FALLOPIAN TUBE 2006 SOCIAL HISTORY Social History Tobacco Use Smoking status: Never Smokeless tobacco: Never Vaping Use Vaping status: Never Used Substance Use Topics Alcohol use: Yes Comment: occasionally Drug use: No FAMILY HISTORY Problem Relation Age of Onset Breast Cancer Mother 32 other (non-Hodgkin's lymphoma) Mother 72 Heart disease Maternal Grandmother Heart Paternal Grandmother Cancer Paternal Grandfather lung, smoker Breast Cancer Paternal Aunt 35 ALLERGIES: ALLERGIES No Known Allergies MEDICATIONS: metoprolol succinate ER (TOPROL XL) 25 mg 24 hr tablettake 1 tablet by mouth once dailyDisp: 360 tabletRfl: 3 sertraline (ZOLOFT) 50 mg tabletTake 1 tablet by mouth once daily.Disp: 30 tabletRfl: 11 minoxidil (LONITEN) 2.5 mg tabletDisp: Rfl: fluticasone (FLONASE) 50 mcg/actuation nasal sprayUse 2 Sprays in each nostril once daily. Rinse mouth after use.Disp: 16 gRfl: 1 predniSONE (DELTASONE) 10 mg tablettake 1 tablet by mouth once daily if needed for 3 to 5 days with FLARESDisp: Rfl: albuterol HFA (PROAIR HFA) 90 mcg/actuation inhalerInhale 2 Puffs as instructed every 4 hours as needed.Disp: 18 gRfl: 0 hydrOXYchloroQUINE (PLAQUENIL) 200 mg tabletTake by mouth twice daily.Disp: Rfl: REVIEW OF SYSTEMS: Review of Systems Constitutional: Negative for chills, fever, malaise/fatigue and weight loss. HENT: Negative for hearing loss and sore throat. Eyes: Negative for blurred vision and double vision. Respiratory: Negative. Cardiovascular: Positive for palpitations. Gastrointestinal: Negative. Genitourinary: Negative for dysuria, frequency, hematuria and urgency. Musculoskeletal: Negative. Skin: Negative. Neurological: Negative for dizziness, seizures, loss of consciousness, weakness and headaches. Endo/Heme/Allergies: Negative for environmental allergies. Does not bruise/bleed easily. Psychiatric/Behavioral: Negative for depression. PHYSICAL EXAMINATION: BP 115/72 Pulse 87 Wt 153 lb (69.4kg) SpO2 99% LMP 06/19/2023 General: Pleasant woman sitting appears comfortable no apparent distress she is alert and oriented x3 HEENT: Carotid upstrokes are brisk without bruits no JVD appreciated. Pulmonary: Lungs are clear no rales, wheezes, rhonchi Cardiovascular: Normal S1, S2 with regular rate and rhythm. No murmurs, rubs, or gallops Extremities: Warm, well-perfused, no lower extremity edema. 2+ distal pulses CARDIOVASCULAR MEDICINE TESTING: Echocardiogram 11/20/2023: - The left ventricle is normal in size. Left ventricular systolic function is normal. EF = 56 ? 5% (2D 4-ch.) Normal left ventricular diastolic function. - The right ventricle is normal in size. Right ventricular systolic function is normal. - There are no significant valvular abnormalities. - Estimated right ventricular systolic pressure is not reported due to an insufficient tricuspid regurgitation signal. Estimated right atrial pressure is 3 mmHg (although IVC not seen). - The patient has not had a prior CC echocardiographic exam for comparison. Echocardiogram 09/30/2020 - Technically difficult exam due to body habitus and breast augmentation. - Exam indication: Rheumatoid arthritis - The left ventricle is normal in size. Left ventricular systolic function is normal. EF = 61 ? 5% (2D 4-ch.) Normal left ventricular diastolic function. - The right ventricle is normal in size. Right ventricular systolic function is normal. - No significant valvular disease. - The patient has not had a prior CC echocardiographic exam for comparison. [employer] Monitor 01/01/2023: Patient velez (more content not included)... [facility] 08-28-2024 Telephone encounter Note Pt was last seen 12/24/23 yuli Duron and has a future appointment on 09/01/24 yuli Duron. Needs Rx refill. Patient's request for medication is as follows: Requested Prescriptions Pending Prescriptions Disp Refills metoprolol succinate ER (TOPROL XL) 25 mg 24 hr tablet [Pharmacy Med Name: METOPROLOL SUCC ER 25 MG TAB] 360 tablet 3 Sig: take 1 tablet by mouth once daily Prescription(s) as above. Please process accordingly. Yari Funez MA [facility] 08-28-2024 Miscellaneous Notes Pt was last seen 12/24/23 yuli Duron and has a future appointment on 09/01/24 yuli Duron. Needs Rx refill. Patient's request for medication is as follows: Requested Prescriptions Pending Prescriptions Disp Refills metoprolol succinate ER (TOPROL XL) 25 mg 24 hr tablet [Pharmacy Med Name: METOPROLOL SUCC ER 25 MG TAB] 360 tablet 3 Sig: take 1 tablet by mouth once daily Prescription(s) as above. Please process accordingly. Yari Funez MA documented in this encounter [facility] 08-20-2024 Note Patient Outreach (IN [facility]) MICHELLE COLLINS ([id number]) 1975 F Date Time Provider Department 08/20/24 KIN MUÑOZ During your visit today, we recorded the following information about you: Allergies As of Date: 08/20/2024 (No Known Allergies) Date Reviewed: 12/24/2023 Reviewed by: John Duron MD - Fully Assessed Visit Diagnosis:Encounter for screening mammogram for breast cancer [Z12.31] Order(s):JANEEN SCREENING W CONCHA [[id number]] Order #: [id number] FUTURE Prescriptions as of 08/25/2024 - sertraline (ZOLOFT) 50 mg tablet Take 1 tablet by mouth once daily. - minoxidil (LONITEN) 2.5 mg tablet - metoprolol succinate ER (TOPROL XL) 25 mg 24 hr tablet Take 1 tablet by mouth once daily. - fluticasone (FLONASE) 50 mcg/actuation nasal spray Use 2 Sprays in each nostril once daily. Rinse mouth after use. - predniSONE (DELTASONE) 10 mg tablet take 1 tablet by mouth once daily if needed for 3 to 5 days with FLARES - albuterol HFA (PROAIR HFA) 90 mcg/actuation inhaler Inhale 2 Puffs as instructed every 4 hours as needed. - hydrOXYchloroQUINE (PLAQUENIL) 200 mg tablet Take by mouth twice daily. Facility-Administered Medications as of 08/25/2024 - perflutren lipid microspheres 1.3 mL in NaCl (PF) 0.9% 10 mL injection (DEFINITY) - sodium chloride 0.9 % (flush) 10 mL (BD POSIFLUSH) Problem List As Of Date 08/20/2024 Noted Resolved RA (rheumatoid arthritis) (HCC) [M06.9] 01/01/2023 Rheumatoid arthritis involving multiple sites w*02/21/2023 Vitamin B12 deficiency [E53.8] 02/21/2023 Tachycardia [R00.0] 02/21/2023 Palpitations [R00.2] 02/21/2023 Borderline abnormal thyroid function test [R94.*02/21/2023 Encounter Status:Closed by POLLY JACINTO on 08/25/24 [facility] 07-07-2024 Telephone encounter Note Patient has been identified by name and date of : Patient phones for refill(s): Requested Prescriptions Pending Prescriptions Disp Refills sertraline (ZOLOFT) 50 mg tablet 30 tablet 11 Sig: Take 1 tablet by mouth once daily. Date of last office visit in primary care: 02/17/2023 Date of next office visit in primary care: 09/23/2024 Please advise. Thank you. Arlene Rollins LPN. [facility] Work Phone: 07-07-2024 Miscellaneous Notes Patient has been identified by name and date of : Patient phones for refill(s): Requested Prescriptions Pending Prescriptions Disp Refills sertraline (ZOLOFT) 50 mg tablet 30 tablet 11 Sig: Take 1 tablet by mouth once daily. Date of last office visit in primary care: 02/17/2023 Date of next office visit in primary care: 09/23/2024 Please advise. Thank you. Arlene Rollins LPN. documented in this encounter [facility] 01-31-2024 Miscellaneous Notes The following approved medication requests have been transmitted electronically. Requested Prescriptions Signed Prescriptions Disp Refills LORazepam (ATIVAN) 0.5 mg 20 tablet 0 Sig: Take 1 tablet by mouth three times a day as needed (anxiety) for up to 10 days. Clara Hernandez APRN.CNP PDMP website checked and validated. All prescriptions have been APPROPRIATELY filled. No suspicious activity was identified. 01/31/2024 by Clara Hernandez CNP. documented in this encounter [facility] 09-04-2023 History of Present illness Narrative Framework Developer offered: Patient declines. Mercedes is a 47 year old who presents for an annual gynecologic exam with complaints - UTI symptoms of urinary urgency and frequency one week ago - UA 1+ protein, 500 leuks, >25 WBC, few calcium oxalate crystals and few budding yeast. Urine culture showed mixed microbiota. Treated with fluconazole but no decrease in symptoms. Continues with urinary urgency and frequency. Denies dysuria, blood in urine, fever or chills or back pain. Menses: every 2-3 months lasting 5 days Contraception: tubal sterilization HPV vaccine: No Last Pap: normal 2020 HPV: normal History of abnormal pap: No Last mammogram: 2022 normal Abnormal mammogram: 2020- benign left breast bx, marker placed. History of dense breasts Sexually active: Yes History of STDS: None Patient concerns for STD exposure: No. Time with current partner: 24 years History of ovarian cyst - feels cyst pain only on left side for one week just prior to beginning menses every 2-3 months. Pain with intercourse: No Postcoital bleeding: No Hot flashes: Yes 1-6/day Night sweats: No Documentation from previous visit of 04/06/2022 was copied and pasted, documentation has been reviewed and edited as necessary for today's visit. OB History T0 L2 SAB0 IAB0 Ectopic0 Multiple0 Live Births0 Family Practice Medical Doctor History LMP: 06/19/2023, Having periods Age at Menarche: Age at First : Age at Menopause: Family Practice Medical Doctor History Comments: Sexual Activity: Yes; Male Contraception: Surgical, Tubal Ligation PAST MEDICAL HISTORY Diagnosis Date RA (rheumatoid arthritis) (HCC) PAST SURGICAL HISTORY Procedure Laterality Date BREAST AUGMENTATION W/PROSTHETIC IMPLANT Bilateral 2006 BREAST BIOPSY NEEDLE LEFT 2020 benign DELIVERY ONLY 11/26/2002 , low cervical - x2 FOOT SURGERY HX Left LIGATE FALLOPIAN TUBE 2006 FAMILY HISTORY Problem Relation Age of Onset Breast Cancer Mother 32 Heart disease Maternal Grandmother Heart Paternal Grandmother Cancer Paternal Grandfather lung, smoker Breast Cancer Paternal Aunt 35 SOCIAL HISTORY Social History Tobacco Use Smoking status: Never Smokeless tobacco: Never Vaping Use Vaping Use: Never used Substance Use Topics Alcohol use: Yes Comment: occasionally Drug use: No Component Ref Range & Units 1:57 PM GLUCOSE UA (POCT) Negative mg/dL Negative BILIRUBIN UA (POCT) Negative Negative KETONE UA (POCT) Negative mg/dL Negative SPECIFIC GRAVITY UA (POCT) 1.005 - 1.030 >=1.030 HEMOGLOBIN/BLOOD UA (POCT) Negative Trace-intact Abnormal PH UA (POCT) 4.5 - 8.0 5.5 PROTEIN UA (POCT) Negative mg/dL 30 Abnormal UROBILINOGEN UA (POCT) Normal E.U./dL 0.2 NITRITE UA (POCT) Negative Negative LEUKOCYTES UA (POCT) Negative Small Abnormal COLOR UA (POCT) Yellow CLARITY UA (POCT) Clear REVIEW OF SYSTEMS Abdomen: No abdominal pain, nausea, vomiting, diarrhea, or constipation. No bloating, early satiety, indigestion, or increased flatulence. Bladder: No dysuria, gross hematuria, urinary frequency, urinary urgency, or incontinence. Breast: No breast lumps, nipple d/c, overlying skin changes, redness or skin retraction. Allergies and current medication updated:Yes EXAM: BP 116/70 Ht 5' 5 (1.65m) Wt 154 lb (69.9kg) LMP 06/19/2023 BMI 25.63 kg/(m^2). GENERAL: pleasant, female in no apparent distress HEENT: Normocephalic, atraumatic, mucus membranes moist, and no lesions NECK: Supple, full range of motion, no adenopathy, and thyroid normal DERMATOLOGY: Normal, without lesions, non-icteric, and non-hirsute BREAST: soft, non-tender, symmetric, no dominant mass, normal nipple-areolar complex, no lymphadenopathy, and no nipple discharge CHEST: Normal inspiratory effort ABDOMEN: soft, non-tender, and no masses PELVIC: external genitalia normal, normal Bartholin's glands, urethra, Marrowstone's glands, no vulvar lesions, no cervical lesions, physiologic discharge present, normal appearing perineal body and perianal region BIMANUAL: uterus normal size, shape and consistency, no adnexal masses, and Mild tenderness left adnexal area RECTOVAGINAL: deferred. NEURO: alert and oriented x3,exam grossly non-focal EXTREMITIES: normal ASSESSMENT/PLAN: 1) Health Pap/HPV up to date. Mammogram ordered. Nutrition, exercise and routine health maintenance exams reviewed. Colon cancer screening to discuss with PCP 2. Urinary urgency - ICD9: 788.63, ICD10: R39.15 - POC UA - trace blood, 30 protein and small leuks - URINE CULTURE - NITROFURANTOIN MONOHYDRATE & MACROCRYSTAL 100 MG ORAL CAP 3. Urinary frequency - ICD9: 788.41, ICD10: R35.0 - see above - URINE CULTURE - NITROFURANTOIN MONOHYDRATE & MACROCRYSTAL 100 MG ORAL CAP 4. Pelvic pain - ICD9: [id number], ICD10: R10.2 - US FEMALE PELVIS TRANSVAG - PELVIC US WHI - LEE/TRICHOMONAS NAAT - BACTERIAL VAGINOSIS NAAT 5. History of ovarian cyst - ICD9: V13.29, ICD10: Z87.42 - US FEMALE PELVIS TRANSVAG - PELVIC US WHI 6) Contraception: tubal sterilization. Contraceptive options reviewed and information provided. 7) STD screening: Declined STD check. 8) Follow up one year or sooner as needed Shavonne Brown APRN.CNP Medical Decision Making: Problems: Low: Acute, uncomplicated illness or injury Data: Unique test(s) ordered: 2 Risk: Moderate: Drug management and Moderate risk from testing/treatment Medical Decision Making Level: 3 - Low ] documented in this encounter [facility] 08-20-2023 Instructions John Duron MD - 08/20/2023 8:27 AM EDT We are adding Metoprolol Succinate 25 mg once per day We are ordering an echocardiogram documented in this encounter [facility] 08-20-2023 History of Present illness Narrative Images from the original note were not included. [facility] SE[facility] OF [facility]IONAL CARDIOLOGY Cardiology ([facility]) [address] [id number] OUTPATIENT VISIT DATE 08/20/2023 PRIMARY CARE PHYSICIAN: Kin Muñoz [address] [place] [address] REFERRING PHYSICIAN: Kin Muñoz [address] [facility] [address] CHIEF COMPLAINT: Palpitations HISTORY OF PRESENT ILLNESS: Ms. Collins is a 47 year old woman with a history of rheumatoid arthritis who is referred for evaluation of palpitations. She reports having heart rate settled jump up to 114-120 beats a minute spontaneously. She does not notice palpitations with activity. She tracks her heart rate on her watch. She tells me that the arrhythmia will occur almost on a daily basis. She has no associated lightheadedness or dizziness with the events. She has not had symptoms concerning for congestive heart failure including PND, orthopnea, or lower extremity edema. PAST MEDICAL HISTORY Diagnosis Date RA (rheumatoid arthritis) (HCC) PAST SURGICAL HISTORY Procedure Laterality Date BREAST AUGMENTATION W/PROSTHETIC IMPLANT Bilateral 2006 BREAST BIOPSY NEEDLE LEFT 2020 benign DELIVERY ONLY 11/26/2002 , low cervical - x2 FOOT SURGERY HX Left LIGATE FALLOPIAN TUBE 2006 SOCIAL HISTORY Social History Tobacco Use Smoking status: Never Smokeless tobacco: Never Vaping Use Vaping Use: Never used Substance Use Topics Alcohol use: Yes Comment: occasionally Drug use: No FAMILY HISTORY Problem Relation Age of Onset Breast Cancer Mother 32 Heart disease Maternal Grandmother Heart Paternal Grandmother Cancer Paternal Grandfather lung, smoker Breast Cancer Paternal Aunt 35 ALLERGIES: ALLERGIES No Known Allergies MEDICATIONS: sertraline (ZOLOFT) 50 mg tablet Take 1 tablet by mouth once daily. fluticasone (FLONASE) 50 mcg/actuation nasal spray Use 2 Sprays in each nostril once daily. Rinse mouth after use. predniSONE (DELTASONE) 10 mg tablet take 1 tablet by mouth once daily if needed for 3 to 5 days with FLARES albuterol HFA (PROAIR HFA) 90 mcg/actuation inhaler Inhale 2 Puffs as instructed every 4 hours as needed. hydrOXYchloroQUINE (PLAQUENIL) 200 mg tablet Take by mouth twice daily. REVIEW OF SYSTEMS: Review of Systems Constitutional: Negative for chills, fever, malaise/fatigue and weight loss. HENT: Negative for hearing loss and sore throat. Eyes: Negative for blurred vision and double vision. Respiratory: Negative. Cardiovascular: Positive for palpitations. Gastrointestinal: Negative. Genitourinary: Negative for dysuria, frequency, hematuria and urgency. Musculoskeletal: Negative. Skin: Negative. Neurological: Negative for dizziness, seizures, loss of consciousness, weakness and headaches. Endo/Heme/Allergies: Negative for environmental allergies. Does not bruise/bleed easily. Psychiatric/Behavioral: Negative for depression. PHYSICAL EXAMINATION: BP 120/84 Pulse 93 Ht 5' 5 (1.65m) Wt 151 lb (68.5kg) SpO2 96% LMP 03/16/2022 BMI 25.13 kg/(m^2). General: Pleasant woman sitting appears comfortable no apparent distress she is alert and oriented x3 HEENT: Carotid upstrokes are brisk without bruits no JVD appreciated. Pulmonary: Lungs are clear no rales, wheezes, rhonchi Cardiovascular: Normal S1, S2 with regular rate and rhythm. No murmurs, rubs, or gallops Extremities: Warm, well-perfused, no lower extremity edema. 2+ distal pulses CARDIOVASCULAR MEDICINE TESTING: Echocardiogram 09/30/2020 - Technically difficult exam due to body habitus and breast augmentation. - Exam indication: Rheumatoid arthritis - The left ventricle is normal in size. Left ventricular systolic function is normal. EF = 61 5% (2D 4-ch.) Normal left ventricular diastolic function. - The right ventricle is normal in size. Right ventricular systolic function is normal. - No significant valvular disease. - The patient has not had a prior CC echocardiographic exam for comparison. [employer] Monitor 01/01/2023: Patient had a min HR of 60 bpm, max HR of 203 bpm, and avg HR of 87 bpm. Predominant underlying rhythm was Sinus Rhythm. 1 run of Ventricular Tachycardia occurred lasting 4 beats with a max rate of 203 bpm (avg 193 bpm). Isolated SVEs were rare (<1.0%), SVE Couplets were rare (<1.0%), and SVE Triplets were rare (<1.0%). Isolated VEs were rare (<1.0%, 9), VE Triplets were rare (<1.0%, 1), and no VE Couplets were present. I have personally reviewed the Electrocardiogram, Laboratory Testing, and Echocardiogram. IMPRESSION: Ms. Collins is a 47 year old woman with a history of palpitations possible SVT. I reviewed her monitor results with her during the office visit. No significant arrhythmia noted. PLAN AND RECOMMENDATIONS: 1. Palpitations - ICD9: 785.1, ICD10: R00.2 (primary diagnosis) Patient is at risk for SVT. Although not noted on her Holter monitor. We will attempt a trial of low-dose beta-kristopher therapy. I have added metoprolol 25 mg daily to her medical regimen. I will also check a 2D echocardiogram. Plan to see the patient back in follow-up after testing is completed. - ECG COMPLETE - ECHO - PERFLUTREN LIPID MICROSPHERES 1.1 MG/ML INJECTION IN NS 10 ML - SODIUM CHLORIDE 0.9 % (FLUSH) INJECTION SYRINGE 2. Tachycardia - ICD9: 785.0, ICD10: R00.0 - METOPROLOL SUCCINATE ER 25 MG TABLET,EXTENDED RELEASE 24 HR - ECHO - PERFLUTREN LIPID MICROSPHERES 1.1 MG/ML INJECTION IN NS 10 ML - SODIUM CHLORIDE 0.9 % (FLUSH) INJECTION SYRINGE John Duron MD documented in this encounter [facility] 07-12-2023 Miscellaneous Notes The following approved medication requests have been transmitted electronically. Requested Prescriptions Signed Prescriptions Disp Refills LORazepam (ATIVAN) 0.5 mg 20 tablet 0 Sig: Take 1 tablet by mouth three times daily as needed (anxiety) for up to 10 days. Muna Rosario APRN.CNP PDMP website checked and validated. All prescriptions have been APPROPRIATELY filled. No suspicious activity was identified. 07/12/2023 by Muna Rosario APRN.CNP Last OV: 02/17/23 Next OV: None Last Rx: 01/22/23 #20 w/0. Pt also Rx'd Xanax? Brianda Daley Ma documented in this encounter [facility] 04-09-2023 Miscellaneous Notes The following approved medication requests have been transmitted electronically. Requested Prescriptions Signed Prescriptions Disp Refills ALPRAZolam (XANAX) 0.25 mg tablet 30 tablet 1 Sig: Take 1-2 tablets by mouth as needed at bedtime for anxiety, insomnia Clara Hernandez APRN.CNP PDMP website checked and validated. All prescriptions have been APPROPRIATELY filled. No suspicious activity was identified. 04/09/2023 by Clara Hernandez CNP. Advised pt to schedule appt. Cami Holiday documented in this encounter [facility] 03-05-2023 Miscellaneous Notes Noted, thank you. Clara Hernandez APRN.CNP Nothing available at this point any sooner. Pt can be seen in [place] or [place] if able. Deja Radford RN DX: Palpitations [R00.2] Tachycardia [R00.0] Referred by: Dr. Muñoz Scheduled: 08/20/23 Please inform the patient if she can be seen sooner documented in this encounter [facility] 02-28-2023 History of Present illness Narrative Radiology Service Progress Note PATIENT NAME: Michelle Collins DATE OF SERVICE: February 28, 2023 TIME: 9:15 AM PATIENT IDENTITY VERIFICATION COMPLETED USING TWO (2) IDENTIFIERS: Name and Date of confirmed by patient verbally. FALL SCREENING: Has the patient had 2 falls in the last year or 1 fall with injury or currently using an Ambulatory Assistive Device (Walker, Cane, Wheelchair, Crutches, etc.)? No PATIENT GENDER DATA: Female. status: : No status: NO. PATIENT RELEVANT IMPLANT DATA REVIEWED: Not Applicable RADIOLOGY DEPARTMENT: Mammography PERIPHERAL IV DATA: Not applicable SIGNED BY: RT Fariba(R) February 28, 2023 9:15 AM documented in this encounter [facility] 02-17-2023 History of Present illness Narrative CC: Michelle Collins is a 47 year old female who presents to the office for physical HPI: RA, overall has been stable, she is still seeing Dr. Gong Radio Assembler for care. Taking plaquenil as prescribed. Seeing Support Team Member Dr. Danna lee for eye exams. Mood, taking Zoloft as prescribed. Has had a lot of stress over the last 1 year. Feels she is overall coping with this the best she can. No SI or HI. Thinks causing her to feel fatigue symptoms and difficulty with weight management. Episodes of tachycardia and palpitations. Had recent ECG and laboratory monitor testing which just showed 1 episode of ventricular tachycardia, otherwise was normal. Has intermittent symptoms. No chest pain or pressure. PAST MEDICAL HISTORY Diagnosis Date RA (rheumatoid arthritis) (HCC) PAST SURGICAL HISTORY Procedure Laterality Date BREAST AUGMENTATION W/PROSTHETIC IMPLANT Bilateral 2006 BREAST BIOPSY NEEDLE LEFT 2020 benign DELIVERY ONLY 11/26/2002 , low cervical - x2 FOOT SURGERY HX Left LIGATE FALLOPIAN TUBE 2005 Social History: Social History Tobacco Use Smoking status: Never Smokeless tobacco: Never Vaping Use Vaping Use: Never used Substance Use Topics Alcohol use: Yes Comment: occasionally Drug use: No FAMILY HISTORY Problem Relation Age of Onset Breast Cancer Mother 32 Heart disease Maternal Grandmother Heart Paternal Grandmother Cancer Paternal Grandfather lung, smoker Breast Cancer Paternal Aunt 35 Current Outpatient prescriptions: fluticasone (FLONASE) 50 mcg/actuation nasal spray Use 2 Sprays in each nostril once daily. Rinse mouth after use. predniSONE (DELTASONE) 10 mg tablet take 1 tablet by mouth once daily if needed for 3 to 5 days with FLARES sertraline (ZOLOFT) 50 mg tablet Take 1 tablet by mouth once daily. albuterol HFA (PROAIR HFA) 90 mcg/actuation inhaler Inhale 2 Puffs as instructed every 4 hours as needed. hydrOXYchloroQUINE (PLAQUENIL) 200 mg tablet Take by mouth twice daily. Allergies: ALLERGIES No Known Allergies ROS: See HPI PE: 02/17/23 0819 BP: 108/78 BP Site: Left Arm BP Position: Sitting BP Cuff Size: Regular Adult Pulse: 83 SpO2: 99% Weight: 66.1 kg (145 lb 12.8 oz) Height: 167.4 cm (5' 5.91) Gen: A&O, NAD, non-toxic appearing, Pleasant, cooperative HEENT: NT/AC, PERRLA, EOMs intact b/l, nares clear and patent b/l, pharynx without erythema, exudate or lesions. Uvula midline. MMM, EACs without erythema or debris. TMs pearly zhang with intact landmarks b/l. Neck: supple, No cervical LAD, no thyromegaly, no carotid bruits CV: RRR, normal S1 and S2, no murmurs, no gallops, no rubs, Pulses 2+ and symmetric in UE and LE b/l Lungs: normal respiratory effort, CTA b/l, no wheezing or rhonchi or rales Abd: soft, NT, ND, +BS, no hepatosplenomegaly MS: arthritis changes in hand and knees and feet etc Neuro: CN II-XII intact b/l, strength 5/5 b/l UE and LE, DTRs 2/4 UE and LE, sensation intact. Skin: warm, dry, intact, No rashes or lesions on exposed skin. ASSESSMENT/PLAN: 1. Well adult exam - ICD9: V70.0, ICD10: Z00.00 (primary diagnosis) - Counseled on healthy diet and regular exercise - Calcium intake with supplements or by diet of 1000 mg/day for under 50, 8979-4876 mg/day for 50+ 2. Encounter for screening mammogram for breast cancer - ICD9: V76.12, ICD10: Z12.31 - Set up for mammogram, yearly mammogram recommended - Encouraged monthly BSE - Follow up for annual exam in one year. - JANEEN SCREENING 3. Palpitations - ICD9: 785.1, ICD10: R00.2 Referral to specialist. Have completed ECG and laboratory monitor as recorded. - CONSULT TO CARDIOLOGY - CONSULT TO CARDIOLOGY - VITAMIN B12 BLOOD - IRON + TIBC - MAGNESIUM BLD - TSH BLD - T4 FREE/FREE THYROX - T3 FREE BLD 4. Tachycardia - ICD9: 785.0, ICD10: R00.0 See above - CONSULT TO CARDIOLOGY - CONSULT TO CARDIOLOGY - VITAMIN B12 BLOOD - IRON + TIBC - MAGNESIUM BLD - TSH BLD - T4 FREE/FREE THYROX - T3 FREE BLD 5. Vitamin B12 deficiency - ICD9: 266.2, ICD10: E53.8 - VITAMIN B12 BLOOD 6. Borderline abnormal thyroid function test - ICD9: 794.5, ICD10: R94.6 - Instructed patient on importance of taking on an empty stomach either first thing in the morning or at bedtime. - TSH BLD - T4 FREE/FREE THYROX - T3 FREE BLD 7. Encounter for screening mammogram for malignant neoplasm of breast - ICD9: V76.12, ICD10: Z12.31 - Set up for mammogram, yearly mammogram recommended - Encouraged monthly BSE - Increase calcium intake with supplements or by diet (goal of 0913-3353 mg/day - Colon cancer screening reviewed and colonoscopy recommended - Follow up for annual exam in one year. - JANEEN SCREENING W CONCHA 8. Rheumatoid arthritis involving multiple sites with positive rheumatoid factor (HCC) - ICD9: 714.0, ICD10: M05.79 F/u with Radio Assembler, continue Plaquenil Kin Muñoz DO To ER if develops chest pain, shortness of breath, or severe worsening of symptoms. Discussed risks, benefits, alternatives, and potential side effects of medications. Patient expressed understanding and agreed with the plan. Kin Muñoz DO [address] [place] [address] documented in this encounter [facility] 02-17-2023 Instructions Kin Muñoz DO - 02/17/2023 8:[address] Wendy [facility] - colon test for stool that gets mailed to your house. documented in this encounter [facility] 01-24-2023 Miscellaneous Notes Patient returned call and given provider's message below with verbalized understanding. Transferred to [facility]. Left message for patient to return call Cami Wong Please let Mercedes know that I received her heart monitor results. It did show a few different times that her heart rate did jump up but didn't last more that a few seconds. Given her symptoms, I'm placing a cardiology consult just to make sure they don't have any other concerns. Please assist her to schedule this appointment. Clara Hernandez APRN.CNP documented in this encounter [facility] 01-01-2023 Nurse Note EVENT MONITOR DISPOSABLE PATCH INSTRUCTIONS Patient Name: Michelle Collins Clinic Number: [id number] Skin prepped and cleansed with alcohol Patch secured to prepped area Monitor Activated Serial #: [id number] Patient Instructed: Prescribed order timeframe Bathing guidelines Usage of event button and diary documentation Return of monitor at the end of prescribed order Call with problems [phone] or [phone] ext. [phone] Patient expresses a good understanding of instructions Cami Wong MA documented in this encounter [facility] 01-01-2023 History of Present illness Narrative Chief Complaint Patient presents with: abnormal heart rate: For past month started out being every once in a while now it became more often. Chest feels funny when this happens and lft arm pit. HPI Michelle Collins is a 47 year old female who presents here today for Above Complaints. Today: For the past month has been feeling palpitations in her chest more prominently. Feels a heavy pressure in her chest and occasional SOB with it. Is typically when on her feet/exertional (but not strenuous). Does not wake her up at night. No increased stress or anxiety. Was sweeping at work yesterday and per watch HR was 156. When getting ready for work a few days ago got a notification that her HR was elevated for >10 minutes. Has lost 35 pounds over the past few months without trying-just isn't very hungry. Hands and feet are always cold. Can feel her pulse/heartbeat in her armpit. Past medical history, appointments, medications, allergies reviewed. Previous Medical History PAST MEDICAL HISTORY Diagnosis Date RA (rheumatoid arthritis) (HCC) Previous Surgical History PAST SURGICAL HISTORY Procedure Laterality Date BREAST AUGMENTATION W/PROSTHETIC IMPLANT Bilateral 2006 BREAST BIOPSY NEEDLE LEFT 2020 benign DELIVERY ONLY 11/26/2002 , low cervical - x2 FOOT SURGERY HX Left LIGATE FALLOPIAN TUBE 2006 Family History FAMILY HISTORY Problem Relation Age of Onset Breast Cancer Mother 32 Heart disease Maternal Grandmother Heart Paternal Grandmother Cancer Paternal Grandfather lung, smoker Breast Cancer Paternal Aunt 35 Patient Allergies ALLERGIES No Known Allergies Current Medications Current Outpatient Medications on File Prior to Visit Medication Sig fluticasone (FLONASE) 50 mcg/actuation nasal spray Use 2 Sprays in each nostril once daily. Rinse mouth after use. norethindrone (AYGESTIN) 5 mg tablet Take 2 tablets by mouth once daily. predniSONE (DELTASONE) 10 mg tablet take 1 tablet by mouth once daily if needed for 3 to 5 days with FLARES sertraline (ZOLOFT) 50 mg tablet Take 1 tablet by mouth once daily. albuterol HFA (PROAIR HFA) 90 mcg/actuation inhaler Inhale 2 Puffs as instructed every 4 hours as needed. hydrOXYchloroQUINE (PLAQUENIL) 200 mg tablet Take by mouth twice daily. spironolactone (ALDACTONE) 50 mg tablet Take 100 mg by mouth once daily. No current facility-administered medications on file prior to visit. Social History Social History Tobacco Use Smoking status: Never Smokeless tobacco: Never Vaping Use Vaping Use: Never used Substance Use Topics Alcohol use: Yes Comment: occasionally Drug use: No Review of Symptoms REVIEW OF SYSTEMS See HPI, otherwise negative EXAM: BP 120/70 (BP Site: Right Arm, BP Position: Sitting, BP Cuff Size: Regular Adult) Pulse 94 Resp 16 Wt 63 kg (139 lb) LMP 03/16/2022 SpO2 98% BMI 23.13 kg/m General Appearance: Well appearing, alert, in no acute distress, well-hydrated, well nourished.. Lungs: Lungs clear to auscultation. No wheezing, rhonchi, rales.. Heart: RRR without murmur, gallop, or rubs. No ectopy. Health Maintenance List HIV SCREENING Never done SHINGRIX VACCINE(1 of 2) Never done COLORECTAL CANCER SCREENING Never done DEPRESSION ASSESSMENT Never done INFLUENZA(1) due on 05/25/2023 DTAP,TDAP,TD(1 - Tdap) due on 01/01/2024 COVID-19 VACCINE(3 - Pfizer risk series) due on 01/01/2024 PNEUMOCOCCAL(2 - PCV) due on 01/01/2024 MAMMOGRAM due on 04/17/2023 DIABETES SCREEN due on 10/20/2023 LIPID SCREEN due on 09/29/2025 PAP TESTING due on 03/18/2026 HPV TESTING due on 03/18/2026 HEPATITIS C SCREENING Completed Data reviewed Previous records, office notes ASSESSMENT/PLAN: 1. Palpitations - ICD9: 785.1, ICD10: R00.2 (primary diagnosis) Concern for thyroid etiology. EKG NSR. 14 day laboratory monitor. Labs to r/o contributing factors. - ECG B/O W INTERP (MED OFFICE) - TSH BLD - T3 BLD - T4 FREE/FREE THYROX - CBC + DIFF - COMP METABOLIC PANEL - THYROID PEROXIDASE ANTIBODY BLOOD - THYROGLOBULIN AB - VITAMIN B12 BLOOD - VITAMIN D 25 HYDROXY - OUTSIDE VENDOR CARDIAC OUTPATIENT EXTENDED RHYTHM RECORDING (WITHOUT TELEMETRY) 2. Tachycardia - ICD9: 785.0, ICD10: R00.0 Concern for thyroid etiology. EKG NSR. 14 day laboratory monitor. Labs to r/o contributing factors. - ECG B/O W INTERP (MED OFFICE) - TSH BLD - T3 BLD - T4 FREE/FREE THYROX - CBC + DIFF - COMP METABOLIC PANEL - THYROID PEROXIDASE ANTIBODY BLOOD - THYROGLOBULIN AB - VITAMIN B12 BLOOD - VITAMIN D 25 HYDROXY - OUTSIDE VENDOR CARDIAC OUTPATIENT EXTENDED RHYTHM RECORDING (WITHOUT TELEMETRY) 3. Chest tightness - ICD9: 786.59, ICD10: R07.89 Concern for thyroid etiology. EKG NSR. 14 day laboratory monitor. Labs to r/o contributing factors. - ECG B/O W INTERP (MED OFFICE) - TSH BLD - T3 BLD - T4 FREE/FREE THYROX - CBC + DIFF - COMP METABOLIC PANEL - THYROID PEROXIDASE ANTIBODY BLOOD - THYROGLOBULIN AB - VITAMIN B12 BLOOD - VITAMIN D 25 HYDROXY - OUTSIDE VENDOR CARDIAC OUTPATIENT EXTENDED RHYTHM RECORDING (WITHOUT TELEMETRY) 4. SOB (shortness of breath) on exertion - ICD9: 786.05, ICD10: R06.02 Concern for thyroid etiology. EKG NSR. 14 day laboratory monitor. Labs to r/o contributing factors. - ECG B/O W INTERP (MED OFFICE) - TSH BLD - T3 BLD - T4 FREE/FREE THYROX - CBC + DIFF - COMP METABOLIC PANEL - THYROID PEROXIDASE ANTIBODY BLOOD - THYROGLOBULIN AB - VITAMIN B12 BLOOD - VITAMIN D 25 HYDROXY - OUTSIDE VENDOR CARDIAC OUTPATIENT EXTENDED RHYTHM RECORDING (WITHOUT TELEMETRY) 5. Cold extremities - ICD9: 780.99, ICD10: R20.9 Concern for thyroid etiology. EKG NSR. 14 day laboratory monitor. Labs to r/o contributing factors. - ECG B/O W INTERP (MED OFFICE) - TSH BLD - T3 BLD - T4 FREE/FREE THYROX - CBC + DIFF - COMP METABOLIC PANEL - THYROID PEROXIDASE ANTIBODY BLOOD - THYROGLOBULIN AB - VITAMIN B12 BLOOD - VITAMIN D 25 HYDROXY 6. Rheumatoid arthritis involving multiple sites with positive rheumatoid factor (HCC) - ICD9: 714.0, ICD10: M05.79 - ECG B/O W INTERP (MED OFFICE) - PAULA BLOOD - RHEUMATOID FACTOR BL 7. Screening for diabetes mellitus - ICD9: V77.1, ICD10: Z13.1 - CBC + DIFF - COMP METABOLIC PANEL - HGB A1C 8. Screening for lipid disorders - ICD9: V77.91, ICD10: Z13.220 - LIPID PANEL BASIC Clara Hernandez APRN.JEZ documented in this encounter [facility] 11-15-2022 Instructions Clara Hernandez APRN.CNP - 11/15/2022 9:13 AM EST Start a probiotic. Ok to get any over the counter. Refrigerated are the best. documented in this encounter [facility] 11-15-2022 History of Present illness Narrative Chief Complaint Patient presents with: Viral Syndrome: Concern for influenza- Cough , congestion x 3 days HPI Michelle Collins is a 47 year old female who presents here today for Above Complaints.. Today: Started with cough (green productive) and congestion (green mucous) 2 days ago. Fever and chills yesterday, headache. Pressure in ears. Has taken Nyquil at bedtime. Tylenol yesterday only. 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 Past medical history, appointments, medications, allergies reviewed. Previous Medical History PAST MEDICAL HISTORY Diagnosis Date RA (rheumatoid arthritis) (HCC) Previous Surgical History PAST SURGICAL HISTORY Procedure Laterality Date BREAST AUGMENTATION W/PROSTHETIC IMPLANT Bilateral 2006 BREAST BIOPSY NEEDLE LEFT 2020 benign DELIVERY ONLY 11/26/2002 , low cervical - x2 FOOT SURGERY HX Left LIGATE FALLOPIAN TUBE 2006 Family History FAMILY HISTORY Problem Relation Age of Onset Breast Cancer Mother 32 Heart disease Maternal Grandmother Heart Paternal Grandmother Cancer Paternal Grandfather lung, smoker Breast Cancer Paternal Aunt 35 Patient Allergies ALLERGIES No Known Allergies Current Medications Current Outpatient Medications on File Prior to Visit Medication Sig norethindrone (AYGESTIN) 5 mg tablet Take 2 tablets by mouth once daily. predniSONE (DELTASONE) 10 mg tablet take 1 tablet by mouth once daily if needed for 3 to 5 days with FLARES sertraline (ZOLOFT) 50 mg tablet Take 1 tablet by mouth once daily. albuterol HFA (PROAIR HFA) 90 mcg/actuation inhaler Inhale 2 Puffs as instructed every 4 hours as needed. hydrOXYchloroQUINE (PLAQUENIL) 200 mg tablet Take by mouth twice daily. spironolactone (ALDACTONE) 50 mg tablet Take 100 mg by mouth once daily. No current facility-administered medications on file prior to visit. Social History Social History Tobacco Use Smoking status: Never Smokeless tobacco: Never Vaping Use Vaping Use: Never used Substance Use Topics Alcohol use: Yes Comment: occasionally Drug use: No Review of Symptoms REVIEW OF SYSTEMS See HPI, otherwise negative EXAM: BP 116/68 (BP Site: Left Arm, BP Position: Sitting, BP Cuff Size: Regular Adult) Pulse 114 Temp 36.3 C (97.4 F) Wt 64.9 kg (143 lb) LMP 03/16/2022 SpO2 96% BMI 23.80 kg/m General Appearance: Well appearing, alert, in no acute distress, well-hydrated, well nourished.. Head: Normocephalic, no masses, lesions, tenderness or abnormalities. Eyes: Anicteric sclera. Pupils are equally round and reactive to light. Extraocular movements are intact. . Ears: fluid bubbles noted to bilateral posterior TMs. Nose/Sinuses: Positive findings: mucosa erythematous and swollen, purulent rhinorrhea. Oropharynx: Lips, mucosa, and tongue normal, teeth and gums normal, oropharynx normal. Neck: Supple, thyroid symmetric, normal size, no bruits. Mild tonsillar adenopathy. Lungs: Lungs clear to auscultation. No wheezing, rhonchi, rales.. Heart: RRR without murmur, gallop, or rubs. No ectopy, tachycardia. Health Maintenance List HIV SCREENING Never done DTAP,TDAP,TD(1 - Tdap) Never done SHINGRIX VACCINE(1 of 2) Never done COVID-19 VACCINE(3 - Pfizer risk series) due on 02/23/2021 COLORECTAL CANCER SCREENING Never done DEPRESSION ASSESSMENT Never done INFLUENZA(1) due on 07/27/2022 PNEUMOCOCCAL(2 - PCV) due on 10/25/2022 MAMMOGRAM due on 04/17/2023 DIABETES SCREEN due on 10/20/2023 LIPID SCREEN due on 09/29/2025 PAP TESTING due on 03/18/2026 HPV TESTING due on 03/18/2026 HEPATITIS C SCREENING Completed Data reviewed Previous records, office notes ASSESSMENT/PLAN: 1. URI, acute - ICD9: 465.9, ICD10: J06.9 (primary diagnosis) - Discussed viral etiology and rationale for treatment. - Symptomatic treatment with prn analgesia - Supportive care with fluids and rest - The patient may also use OTC decongestants prn and OTC cough and cold meds as needed. - Follow up in one week if symptoms persist or sooner if worsening of symptoms - COVID WITH FLUA+B, ROUTINE - AMOXICILLIN 875 MG-POTASSIUM CLAVULANATE 125 MG TABLET - FLUCONAZOLE 150 MG TABLET - FLUTICASONE PROPIONATE 50 MCG/ACTUATION NASAL SPRAY,SUSPENSION 2. Acute cough - ICD9: 786.2, ICD10: R05.1 - Discussed viral etiology and rationale for treatment. - Symptomatic treatment with prn analgesia - Supportive care with fluids and rest - The patient may also use OTC decongestants prn and OTC cough and cold meds as needed. - Follow up in one week if symptoms persist or sooner if worsening of symptoms - COVID WITH FLUA+B, ROUTINE - AMOXICILLIN 875 MG-POTASSIUM CLAVULANATE 125 MG TABLET - FLUCONAZOLE 150 MG TABLET - FLUTICASONE PROPIONATE 50 MCG/ACTUATION NASAL SPRAY,SUSPENSION 3. Chest congestion - ICD9: 786.9, ICD10: R09.89 - Discussed viral etiology and rationale for treatment. - Symptomatic treatment with prn analgesia - Supportive care with fluids and rest - The patient may also use OTC decongestants prn and OTC cough and cold meds as needed. - Follow up in one week if symptoms persist or sooner if worsening of symptoms - COVID WITH FLUA+B, ROUTINE - AMOXICILLIN 875 MG-POTASSIUM CLAVULANATE 125 MG TABLET - FLUCONAZOLE 150 MG TABLET - FLUTICASONE PROPIONATE 50 MCG/ACTUATION NASAL SPRAY,SUSPENSION 4. Fever, unspecified fever cause - ICD9: 780.60, ICD10: R50.9 - Discussed viral etiology and rationale for treatment. - Symptomatic treatment with prn analgesia - Supportive care with fluids and rest - The patient may also use OTC decongestants prn and OTC cough and cold meds as needed. - Follow up in one week if symptoms persist or sooner if worsening of symptoms - COVID WITH FLUA+B, ROUTINE - AMOXICILLIN 875 MG-POTASSIUM CLAVULANATE 125 MG TABLET - FLUCONAZOLE 150 MG TABLET - FLUTICASONE PROPIONATE 50 MCG/ACTUATION NASAL SPRAY,SUSPENSION 5. Chills - ICD9: 780.64, ICD10: R68.83 - Discussed viral etiology and rationale for treatment. - Symptomatic treatment with prn analgesia - Supportive care with fluids and rest - The patient may also use OTC decongestants prn and OTC cough and cold meds as needed. - Follow up in one week if symptoms persist or sooner if worsening of symptoms - COVID WITH FLUA+B, ROUTINE - AMOXICILLIN 875 MG-POTASSIUM CLAVULANATE 125 MG TABLET - FLUCONAZOLE 150 MG TABLET - FLUTICASONE PROPIONATE 50 MCG/ACTUATION NASAL SPRAY,SUSPENSION Clara Hernandez APRN.CNP documented in this encounter [facility] 10-20-2022 History of Present illness Narrative Patient presents with: Cough: Cough, congestion x 3 weeks HPI: Feeling sick for 3 weeks. Positive symptoms: Cough, left Earache, Nasal Congestion, Rhinorrhea, improved Post nasal drainage/Sore throat, Negative symptoms: Shortness of breath, Wheezing, Fever, Chills, Nausea, Vomiting, Diarrhea, OTC: aleve-D or sudafed. No inhaler or prednisone use. Had second Pfizer COVID-19 vaccine January 2021. Has not had positive COVID test. PAST MEDICAL HISTORY Diagnosis Date RA (rheumatoid arthritis) ([facility]) MEDICATIONS: Current Outpatient Medications Medication Sig norethindrone (AYGESTIN) 5 mg tablet Take 2 tablets by mouth once daily. predniSONE (DELTASONE) 10 mg tablet take 1 tablet by mouth once daily if needed for 3 to 5 days with FLARES sertraline (ZOLOFT) 50 mg tablet Take 1 tablet by mouth once daily. albuterol HFA (PROAIR HFA) 90 mcg/actuation inhaler Inhale 2 Puffs as instructed every 4 hours as needed. hydrOXYchloroQUINE (PLAQUENIL) 200 mg tablet Take by mouth twice daily. spironolactone (ALDACTONE) 50 mg tablet Take 100 mg by mouth once daily. No current facility-administered medications for this visit. ALLERGIES: ALLERGIES No Known Allergies VITALS: BP 126/72 Pulse 110 Temp 36.7 C (98.1 F) Resp 18 Wt 66.5 kg (146 lb 9.6 oz) LMP 03/16/2022 SpO2 98% BMI 24.40 kg/m PHYSICAL EXAM: GEN: mildly ill appearing HEENT: PERRL, EOMI, conjunctiva clear Ears: canals clear. TMs without erythema, bulge, or effusion Sinuses: non-tender frontal sinus, non-tender maxillary sinuses Throat: moist mucous membranes, no erythema, no exudate Neck: supple, no thyromegaly, no lymphadenopathy HEART: regular rate and rhythm, no murmurs LUNGS: clear to auscultation, no wheezes or crackles, no increased WOB; frequent non-productive cough ASSESSMENT/PLAN: 1. Acute non-recurrent sinusitis, unspecified location - ICD9: 461.9, ICD10: J01.90 (primary diagnosis) - AMOXICILLIN 875 MG-POTASSIUM CLAVULANATE 125 MG TABLET 2. Subacute cough - ICD9: 786.2, ICD10: R05.2 - BENZONATATE 100 MG CAPSULE Consider trying inhaler and prednisone to treat possible RAD component. Tres Campbell MD documented in this encounter [facility] 10-10-2022 Miscellaneous Notes Patient notified. Malorie Lemus RN UA is +for UTI. I sent cipro in for her. Radha Prado APRN.JEZ documented in this encounter [facility] 09-25-2022 Miscellaneous Notes Patient calling in with more questions in regard to the UA results. Patient concerned with the Bilirubin, protein, urobilinogen, and nitrates that were present. Patient wanting to know if she should follow up with her PCP or if she should repeat UA after her antibiotic. Kami Watkins RN Reply sent to patient's [employer] message. Malorie Lemus RN Pt is positive for a UTI, Keflex sent to her pharmacy. (I [facility] a [facility]) Radha Prado APRN.JEZ documented in this encounter [facility] 06-07-2022 Miscellaneous Notes See phone note - norethindrone prescribed. Shavonne Brown APRN.CNP Please review pt's [employer] message and advise. Pt was alerted to the fact that you are out of the office until Sunday06/06/22. Martha Winters LPN documented in this encounter [facility] 04-18-2022 Miscellaneous Notes April 18, 2022 PID: [id number] Michelle Collins [address] [place] [address] Dear Ms. Collins, We are pleased to inform you that the results of your recent breast imaging exam on 04/17/2022 are normal. Your mammogram demonstrates that you have dense breast tissue, which could hide abnormalities. Dense breast tissue, in and of itself, is a relatively common condition. Therefore, this information is not provided to cause undue concern; rather, it is to raise your awareness and promote discussion with your health care provider regarding the presence of dense breast tissue in addition to other risk factors. Early detection of cancer is very important. We also understand recommendations regarding breast cancer screening are controversial. Please discuss with your primary care provider which strategy is best for you and whether a mammogram is right for you. Your imaging studies and report will be kept on file at [facility] as part of your permanent medical record and are available for your continuing care. Thank you for allowing us to help in meeting your health care needs. Sincerely, Dr. Schuler Interpreting Radiologist [facility] (Normal over 40) documented in this encounter [facility] 04-17-2022 History of Present illness Narrative Radiology Service Progress Note PATIENT NAME: Michelle Collins DATE OF SERVICE: April 17, 2022 TIME: 2:41 PM PATIENT IDENTITY VERIFICATION COMPLETED USING TWO (2) IDENTIFIERS: Name and Date of confirmed by patient verbally. FALL SCREENING: Has the patient had 2 falls in the last year or 1 fall with injury or currently using an Ambulatory Assistive Device (Walker, Cane, Wheelchair, Crutches, etc.)? No PATIENT GENDER DATA: Female. status: : No status: NO. PATIENT RELEVANT IMPLANT DATA REVIEWED: Not Applicable RADIOLOGY DEPARTMENT: Mammography PERIPHERAL IV DATA: Not applicable SIGNED BY: Kameron Hernandez April 17, 2022 2:41 PM documented in this encounter [facility] 04-07-2022 Miscellaneous Notes Patient notified. Malorie Lemus RN Left message for patient to call office. Malorie Lemus RN Please notify - vaginal culture positive for bacterial vaginosis. Metronidazole sent to pharmacy. No alcohol during antibiotic or for 2 days after completion of antibiotic. No sexual activity during treatment unless condoms are used. Probiotic - recommend [employer] or Clairvee probiotic. Shavonne Brown APRN.JEZ documented in this encounter [facility] 04-06-2022 Instructions Shavonne Brown APRN.JEZ - 04/06/2022 1:25 PM EDT Menopause Symptoms Not all women experiences menopause in the same way. For some, menopause can bring on an array of uncomfortable symptoms. Others may experience few if any discomforts. This information has been prepared to help you manage the most common changes associated with the midlife transition. RELIEVING HOT FLASHES * Identify and avoid your hot flash triggers. Common triggers may include stress, caffeine, alcohol, spicy foods, tight clothing, heat and cigarette smoke. * Keep the bedroom cool. Use fans during the day. Wear light layers of clothes with natural fibers. * Try deep, slow abdominal paced breathing (6 to 8 breaths per minute). Practice deep breathing for 15 minutes in the morning, 15 minutes in the evening and at the onset of hot flashes. * Exercise daily. Walking, swimming, dancing and bicycling with helmet are good choices along with yoga. * Add soy protein in the form of food (40-60 mg) to your diet daily in place of animal protein. Promensil and isoflavone tablets have NOT been shown to significantly help menopausal symptoms * Black cohosh (in the form of Remifemin) can be used for hot flashes and has been approved by [place] [employer] [place] for only 6 months of use, however has NOT been well studied in the [place] for care home effects and THERE HAVE BEEN REPORTS OF LIVER TOXICITY WITH BLACK COHOSH USE. (Avoid kava kava, valerian root and beware that most herbal products are NOT regulated in the [place] and some have been associated with liver toxicity) NOTE: HORMONE THERAPY (HT) is the MOST EFFECTIVE treatment and the only FDA approved treatment for menopausal symptoms. Any form of hormones, including 'bioidentical' hormones have risks as well as benefits. * Antidepressants like Effexor (venlaflaxine) a NSRI or Pristiq (desvenlafaxine) another agent, Neurontin (gabapentin) may help block hot flashes and all have risks and benefits like any prescription or off the shelf medicine. * Use of Bellergal is discouraged as it contains an addictive barbiturate. RELIEVING INSOMNIA * Keep the bedroom cool to prevent night sweats. Special chill pillows that are cool are available. * Avoid using sleeping pills. * Exercise daily but not right before bedtime. * Avoid caffeine and alcohol at night. * Take a warm shower at bedtime. COPING WITH MOOD SWINGS, FEARS AND DEPRESSION * Find a self-calming skill to practice, such as yoga, meditation or slow deep breathing. * Avoid tranquilizers, if possible, however prescription anti-depressants can be very effective. * Engage in a creative outlet that fosters a sense of achievement. * Stay connected with your family and community; nurture your friendships. RELIEVING PAINFUL INTERCOURSE * Try using a vaginal water-based moisturizing lotion 3 times a week (like Replens or SILK-E) or lubricant during intercourse like KY jelly or Astroglide. *Local estrogen treatments for the vagina/bladder are available as a cream, tablet or vaginal ring. HELPFUL WEB SITES [email or web address] [employer] or Mohan dominguez documented in this encounter [facility] 04-06-2022 History of Present illness Narrative Framework Developer offered: Patient declines. Mercedes is a 46 year old who presents for an annual gynecologic exam without complaints. Menses: every 1-2 months lasting 5 days Contraception: tubal sterilization HPV vaccine: No Last Pap: normal 2020 HPV: normal History of abnormal pap: No Last mammogram: 2020- benign left breast bx, marker placed. History of dense breasts Sexually active: Yes History of STDS: None Patient concerns for STD exposure: No. Time with current partner: 23 years + history of ovarian cyst Pain with intercourse: No Postcoital bleeding: No Hot flashes: Yes, occasional Night sweats: No Documentation from previous visit of 03/18/2021 was copied and pasted, documentation has been reviewed and edited as necessary for today's visit. OB History T0 L2 SAB0 IAB0 Ectopic0 Multiple0 Live Births0 Family Practice Medical Doctor History LMP: 03/13/2022, Having periods Age at Menarche: Age at First : Age at Menopause: Family Practice Medical Doctor History Comments: Sexual Activity: Yes; Male Contraception: Surgical, Tubal Ligation PAST MEDICAL HISTORY Diagnosis Date RA (rheumatoid arthritis) (HCC) PAST SURGICAL HISTORY Procedure Laterality Date BREAST AUGMENTATION W/PROSTHETIC IMPLANT Bilateral 2007 DELIVERY ONLY 11/26/2002 , low cervical - x2 FOOT SURGERY HX Left LIGATE FALLOPIAN TUBE 2006 FAMILY HISTORY Problem Relation Age of Onset Breast Cancer Mother 32 Heart disease Maternal Grandmother Heart Paternal Grandmother Cancer Paternal Grandfather lung, smoker Breast Cancer Paternal Aunt 35 SOCIAL HISTORY Social History Tobacco Use Smoking status: Never Smoker Smokeless tobacco: Never Used Vaping Use Vaping Use: Never used Substance Use Topics Alcohol use: Yes Comment: occasionally Drug use: No REVIEW OF SYSTEMS Abdomen: No abdominal pain, nausea, vomiting, diarrhea, or constipation. No bloating, early satiety, indigestion, or increased flatulence. Bladder: No dysuria, gross hematuria, urinary frequency, urinary urgency, or incontinence. Breast: No breast lumps, nipple d/c, overlying skin changes, redness or skin retraction. Allergies and current medication updated:Yes EXAM: BP 116/70 Ht 5' 5 (1.65m) Wt 172 lb (78.0kg) LMP 03/16/2022 BMI 28.62 kg/(m^2). GENERAL: pleasant, female in no apparent distress HEENT: Normocephalic, atraumatic, mucus membranes moist and no lesions NECK: Supple, full range of motion, no adenopathy and thyroid normal DERMATOLOGY: Normal, without lesions, non-icteric and non-hirsute BREAST: soft, non-tender, symmetric, no dominant mass, normal nipple-areolar complex, no lymphadenopathy and no nipple discharge CHEST: Normal inspiratory effort ABDOMEN: soft, non-tender and no masses PELVIC: external genitalia normal, normal Bartholin's glands, urethra, Marrowstone's glands, no vulvar lesions, no cervical lesions, good vaginal support, thick white discharge present, normal appearing perineal body and perianal region BIMANUAL: uterus normal size, shape and consistency, no adnexal masses and non-tender RECTOVAGINAL: deferred. NEURO: alert and oriented x3,exam grossly non-focal EXTREMITIES: normal ASSESSMENT/PLAN: 1) Health maintenance: Pap/HPV up to date. Mammogram ordered. Nutrition, exercise and routine health maintenance exams reviewed. Calcium/Vitamin D supplementation information provided. 2. Vaginal discharge - ICD9: 623.5, ICD10: N89.8 - BACT/LEE VAG GRAM STAIN 3) Contraception: tubal sterilization. Contraceptive options reviewed and information provided. 4) STD screening: Declined STD check. 5) Follow up one year or sooner as needed Shavonne Brown APRN.JEZ documented in this encounter [facility] 03-22-2022 Instructions Shavonne Brown APRN.JEZ - 03/22/2022 1:45 PM EDT Monistat 7 or generic - a applicator full at bedtime every night for 7 nights. Minimizing irritation of the vulva (area around the vagina) Wear white cotton underwear. Avoid synthetic fabrics and tight clothing. Sleep wearing shorts or pajama bottoms without underwear. Shower as soon as possible after exercise. Avoid clothing detergents and soaps with perfumes or dyes. Use warm (not hot) water to wash the vulva and if you use soap use a product designed for sensitive skin (like Dove or Cetaphil). Do not douche or use creams/powders in the vulvar area unless instructed by your physician. If you must douche, use only plain warm water. Make sure the vulva is dry before dressing by patting dry with a towel. Avoid vigorous rubbing with the towel. You may want to use the blow dryer (on the cool setting only!) on the vulva. The most important way to let your body heal is by avoiding scratching. Many patients find it difficult to avoid scratching at night when they are most aware of the itchiness. You can try taking Benadryl just before bedtime. Some women find it helpful to wear cotton gloves to bed to avoid scratching at night. documented in this encounter [facility] 03-22-2022 History of Present illness Narrative Michelle Collins is a 46 year old female who presents for vaginal pruritis for 5 days. Just finished antibiotic for sinus infection. Vaginal discharge: none. Itching: YES Dyspareunia: N/A Fever/chills: No Abdominal pain: No Bladder: Negative for dysuria or frequency Bowel: No blood in stool, pain with BM, tarry stool, persistent diarrhea or constipation Any new sexual partners or concern for STD exposure: No Any history of STDs: None Does your partner have any new complaints: No Are you currently taking any medications to treat vaginitis: Yes, Monistat 3 - finished one day ago Do you use feminine sprays, douches or deodorants: No Menstrual cycle: irregular - perimenopausal Contraception: tubal sterilization Last pap: 2018, normal Past medical, surgical, social history, medications and allergies reviewed and updated. OBJECTIVE: BP 126/70 Wt 173 lb (78.5kg) LMP 03/13/2022 GENERAL: Well developed, well nourished in no apparent distress ABDOMEN: soft, non-tender and no masses PELVIC: external genitalia normal, normal Bartholin's glands, urethra, Marrowstone's glands, no cervical lesions, thick white discharge present, normal appearing perineal body and perianal region. Bilateral fissures at labial fold. BIMANUAL: uterus normal size, shape and consistency, no adnexal masses and non-tender. ASSESSMENT/PLAN: 1. Acute vaginitis - ICD9: 616.10, ICD10: N76.0 - BACT/LEE VAG GRAM STAIN - FLUCONAZOLE 150 MG TABLET - Monistat 7 or generic - a applicator full at bedtime every night for 7 nights. Also apply to vulva to fissures - shown with mirror. - vulvar hygiene instructions. Will notify of results. Follow- up as needed and at annual exam. Shavonne Brown APRN.CNP Medical Decision Making: Problems: Low: Acute, uncomplicated illness or injury Data: Unique test(s) ordered: 1 Risk: Moderate: Drug management Medical Decision Making Level: 3 - Low documented in this encounter [facility] 03-13-2022 History of Present illness Narrative Subjective HPI Nontoxic-appearing female presents urgent care chief complaint possible sinus infection. Duration of symptoms 2 weeks. Associated symptoms increased sinus pressure pain and left ear pain. Patient does have a cough. This is only present in the morning. Describes it as a postnasal drip cough. Denies any known sick contacts. Denies any OTC medication use today. Has used a Leonarda pot few days ago this did not help. History of sinus infections this feels similar. Denies any fever body aches chills productive cough chest pain shortness of breath pleuritic pain hemoptysis or change in bowel or bladder habits. Past medical history prescription medication use allergies reviewed. Denies chance of is not breast-feeding. .Patient presents with: Chest Congestion: sinus, cough, left ear pain x 2 weeks PAST MEDICAL HISTORY Diagnosis Date RA (rheumatoid arthritis) (HCC) PAST SURGICAL HISTORY Procedure Laterality Date BREAST AUGMENTATION W/PROSTHETIC IMPLANT Bilateral 2007 DELIVERY ONLY 11/26/2002 , low cervical - x2 FOOT SURGERY HX Left LIGATE FALLOPIAN TUBE 2006 ALLERGIES Patient has no known allergies. MEDICATIONS sertraline (ZOLOFT) 50 mg tablet Take 1 tablet by mouth once daily. albuterol HFA (PROAIR HFA) 90 mcg/actuation inhaler Inhale 2 Puffs as instructed every 4 hours as needed. hydrOXYchloroQUINE (PLAQUENIL) 200 mg tablet Take by mouth twice daily. spironolactone (ALDACTONE) 50 mg ORAL tablet Take 100 mg by mouth once daily. norethindrone (AYGESTIN) 5 mg tablet Take 1 tablet by mouth once daily for 14 days. FAMILY HISTORY Problem Relation Age of Onset Breast Cancer Mother 32 Heart disease Maternal Grandmother Heart Paternal Grandmother Cancer Paternal Grandfather lung, smoker Breast Cancer Paternal Aunt 35 Social History Tobacco Use Smoking status: Never Smoker Smokeless tobacco: Never Used Vaping Use Vaping Use: Never used Substance Use Topics Alcohol use: Yes Comment: occasionally Drug use: No BP 138/76 Pulse 105 Temp (!) 35.9 C (96.6 F) Resp 21 Wt 79.1 kg (174 lb 6.4 oz) LMP 12/01/2021 SpO2 99% BMI 29.02 kg/m Review of Systems Constitutional: Negative for chills, fever and malaise/fatigue. HENT: Positive for congestion, ear pain and sinus pain. Negative for ear discharge and sore throat. Eyes: Negative for blurred vision, pain, discharge and redness. Respiratory: Positive for cough. Negative for hemoptysis, sputum production, shortness of breath, wheezing and stridor. Cardiovascular: Negative for chest pain. Gastrointestinal: Negative for abdominal pain, diarrhea, nausea and vomiting. Musculoskeletal: Negative for myalgias. Skin: Negative for itching and rash. Neurological: Negative for dizziness and headaches. Objective Physical Exam Vitals and nursing note reviewed. Constitutional: General: She is not in acute distress. Appearance: She is not diaphoretic. HENT: Head: Normocephalic and atraumatic. Jaw: No trismus, tenderness, swelling, pain on movement or malocclusion. Right Ear: Hearing, tympanic membrane, ear canal and external ear normal. No decreased hearing noted. No drainage, swelling or tenderness. No mastoid tenderness. Tympanic membrane is not perforated, erythematous or bulging. Left Ear: Hearing, tympanic membrane, ear canal and external ear normal. No decreased hearing noted. No drainage, swelling or tenderness. No mastoid tenderness. Tympanic membrane is not perforated, erythematous or bulging. Nose: Congestion present. Right Sinus: Maxillary sinus tenderness present. Left Sinus: Maxillary sinus tenderness present. Mouth/Throat: Lips: [place]. Pharynx: Uvula midline. No pharyngeal swelling, oropharyngeal exudate, posterior oropharyngeal erythema or uvula swelling. Tonsils: No tonsillar exudate or tonsillar abscesses. Eyes: General: Right eye: No discharge. Left eye: No discharge. Conjunctiva/sclera: Conjunctivae normal. Pupils: Pupils are equal, round, and reactive to light. Cardiovascular: Rate and Rhythm: Normal rate and regular rhythm. Heart sounds: Normal heart sounds. Pulmonary: Effort: Pulmonary effort is normal. No respiratory distress. Breath sounds: Normal breath sounds. No stridor. No wheezing, rhonchi or rales. Chest: Chest wall: No tenderness. Abdominal: Palpations: Abdomen is soft. Tenderness: There is no abdominal tenderness. Musculoskeletal: General: No tenderness. Normal range of motion. Cervical back: Normal range of motion and neck supple. Lymphadenopathy: Head: Right side of head: No submental, submandibular, tonsillar, preauricular, posterior auricular or occipital adenopathy. Left side of head: No submental, submandibular, tonsillar, preauricular, posterior auricular or occipital adenopathy. Cervical: No cervical adenopathy. Right cervical: No superficial or posterior cervical adenopathy. Left cervical: No superficial or posterior cervical adenopathy. Skin: General: Skin is warm and dry. Findings: No rash. Neurological: Mental Status: She is alert and oriented to person, place, and time. ASSESSMENT/PLAN: 1. Acute non-recurrent maxillary sinusitis - ICD9: 461.0, ICD10: J01.00 Patient diagnosed with maxillary sinusitis. Patiently placed on Augmentin. Patient was educated on supportive therapies. Patient will follow up with primary care provider as needed. Patient was instructed to immediately proceed to emergency room for any new, worsening, or symptoms lasting longer than anticipated. The patient's clinical presentation is otherwise unremarkable at this time. Based on exam and clinical finding, the patient is stable for discharge. Plan of care was discussed with patient. Patient verbalizes understanding and agrees to plan of care. This note was generated using [employer] software. It may contain errors in wording, punctuation, or spelling. Dennys Ramos APRN.JEZ documented in this encounter [facility] 09-18-2021 History of Present illness Narrative Radiology Service Progress Note PATIENT NAME: Michelle Collins DATE OF SERVICE: August 13, 2021 TIME: 10:29 AM PATIENT IDENTITY VERIFICATION COMPLETED USING TWO (2) IDENTIFIERS: Name and Date of confirmed by patient verbally. FALL SCREENING: Has the patient had 2 falls in the last year or 1 fall with injury or currently using an Ambulatory Assistive Device (Walker, Cane, Wheelchair, Crutches, etc.)? No PATIENT GENDER DATA: Female. status: : No status: NO. PATIENT RELEVANT IMPLANT DATA REVIEWED: Not Applicable RADIOLOGY DEPARTMENT: General X-ray: Exam(s) Completed: Chest X-Ray PERIPHERAL IV DATA: Not applicable SIGNED BY: RT Kings(R) August 13, 2021 10:29 AM documented in this encounter [facility] 10-16-2020 History of Present illness Narrative Radiology Service Progress Note PATIENT NAME: Michelle Collins DATE OF SERVICE: October 16, 2020 TIME: 8:44 AM PATIENT IDENTITY VERIFICATION COMPLETED USING TWO (2) IDENTIFIERS: Name and Date of confirmed by patient verbally. FALL SCREENING: Has the patient had 2 falls in the last year or 1 fall with injury or currently using an Ambulatory Assistive Device (Walker, Cane, Wheelchair, Crutches, etc.)? Yes, Patient High Risk for Falls What interventions were put in place to prevent falls during this visit? Increased Observations by Caregivers PATIENT GENDER DATA: Female. status: : No status: NO. PATIENT RELEVANT IMPLANT DATA REVIEWED: Not Applicable RADIOLOGY DEPARTMENT: General X-ray: Exam(s) Completed: Lower Extremity X-Ray(s): Foot, Left and Wt. Bearing: PERIPHERAL IV DATA: Not applicable SIGNED BY: Rafi Malik October 16, 2020 8:44 AM documented in this encounter [facility] Evaluation note No assessment inform ation available [facility] Work Phone: Evaluation note Diagnosis Acute non-recurrent maxillary sinusitis- Primary [facility] Acute vaginitis- Primary Vaginitis and vulvovaginitis, unspecified [facility] Diagnosis Encounter for gynecological examination with abnormal finding- Primary Routine gynecological examination Vaginal discharge Leukorrhea, not specified as infective Encounter for screening mammogram for breast cancer Dense breast tissue on mammogram [facility] Diagnosis BV (bacterial vaginosis)- Primary Vaginitis and vulvovaginitis, unspecified [facility] Diagnosis Encounter for screening mammogram for breast cancer Dense breast tissue on mammogram [facility] Diagnosis Acute non-recurrent sinusitis, unspecified location- Primary Subacute cough Cough [facility] Diagnosis URI, acute- Primary Acute upper respiratory infections of unspecified site Acute cough Chest congestion Other symptoms involving respiratory system and chest Fever, unspecified fever cause Chills Chills (without fever) [facility] Diagnosis Palpitations- Primary Tachycardia Tachycardia, unspecified Chest tightness Other chest pain SOB (shortness of breath) on exertion Shortness of breath Cold extremities Rheumatoid arthritis involving multiple sites with positive rheumatoid factor (HCC) Screening for diabetes mellitus Screening for lipid disorders [facility] Diagnosis Palpitations- Primary Tachycardia Tachycardia, unspecified Chest tightness Other chest pain SOB (shortness of breath) on exertion Shortness of breath [facility] Diagnosis Well adult exam- Primary Routine general medical examination at a health care facility Encounter for screening mammogram for breast cancer Palpitations Tachycardia Tachycardia, unspecified Vitamin B12 deficiency Other B-complex deficiencies Borderline abnormal thyroid function test Nonspecific abnormal results of thyroid function study Encounter for screening mammogram for malignant neoplasm of breast Other screening mammogram Rheumatoid arthritis involving multiple sites with positive rheumatoid factor (HCC) [facility] Diagnosis 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 Anxiety state, unspecified [facility] Diagnosis Travel advice encounter Other specified counseling [facility] Diagnosis Palpitations- Primary Tachycardia Tachycardia, unspecified [facility] Diagnosis Encounter for gynecological examination with abnormal finding- Primary Routine gynecological examination Encounter for screening mammogram for breast cancer Urinary urgency Urgency of urination Urinary frequency Pelvic pain History of ovarian cyst Personal history of other genital system and obstetric disorders [facility]* Diagnosis Encounter for screening mammogram for malignant neoplasm of breast Other screening mammogram documented in this encounter [facility] note* Diagnosis Travel advice encounter Other specified counseling [facility] Diagnosis Travel advice encounter Other specified counseling [facility] in [facility]* Diagnosis Encounter for screening mammogram for breast cancer [facility]* Diagnosis Tachycardia Tachycardia, unspecified [facility] Diagnosis Cough Fever, unspecified fever cause [facility]* Diagnosis Tachycardia- Primary Tachycardia, unspecified Palpitations documented in this encounter [facility] note* Diagnosis Foot injury, left, initial encounter documented in this encounter [facility] note* Diagnosis Well adult exam- Primary Routine general medical examination at a health care facility Family history of breast cancer in mother Family history of malignant neoplasm of breast Family history of lymphoma Family history of other lymphatic and hematopoietic neoplasms Screening for colon cancer Special screening for malignant neoplasms, colon Rheumatoid arthritis involving multiple sites with positive rheumatoid factor (HCC) Palpitations documented in this encounter [facility] note* Diagnosis Encounter for screening mammogram for breast cancer [facility]* Diagnosis 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 Anxiety state, unspecified Encounter for screening examination for other mental health and behavioral disorders Screening for depression Anxiety with depression Possible exposure to STD Other specified personal history presenting hazards to health documented in this encounter [facility] note* Diagnosis Travel advice encounter Other specified counseling documented in this encounter [facility] note* Diagnosis Palpitations- Primary documented in this encounter [facility] note* Diagnosis Acute non-recurrent sinusitis, unspecified location- Primary documented in this encounter [facility] for referral (narrative)* Diagnostic Procedure Only (Routine) - Pending Review Specialty Diagnoses / Procedures Referred By Ramila barba Referred To Contact [facility] Diagnoses Encounter for screening mammogram for breast cancer Dense breast tissue on mammogram Procedures JANEEN SCREENING W CONCHA SCREENING DIGITAL BREAST TOMOSYNTHESIS BI SCREENING MAMMOGRAPHY BI 2-VIEW BREAST INC CAD Shavonne Brown APRN.FABRIC SEPARATOR OPERATOR [address] [place] [place] [address] [facility] [address] [place] [address] Referral ID Status Reason Start Date Expiration Date Visits Requested Visits Authorized [id number] Pending Review Auto-Generat ed Referral 04/06/2022 05/06/2023 1 1 [facility] for referral (narrative)* Diagnostic Procedure Only (Routine) - Closed Specialty Diagnoses / Procedures Referred By Ramila t Referred To Contact [facility] Diagnoses Encounter for screening mammogram for breast cancer Dense breast tissue on mammogram Procedures JANEEN SCREENING W CONCHA SCREENING DIGITAL BREAST TOMOSYNTHESIS BI SCREENING MAMMOGRAPHY BI 2-VIEW BREAST INC Shavonne Marques APRN.FABRIC SEPARATOR OPERATOR [address] [place] [place] [address] [facility] [address] [place] [address] Referral ID Status Reason Start Date Expiration Date V isits Requested Visits Authorized [id number] Closed Auto-Generate d Referral 04/06/2022 05/06/2023 1 1 [facility] for referral (narrative)* Diagnostic Procedure Only (Routine) - Authorized Specialty Diagnoses / Procedures Referred By Contgarrett t Referred To Contact [facility] Diagnoses Encounter for screening mammogram for malignant neoplasm of breast Procedures JANEEN SCREENING W CONCHA SCREENING DIGITAL BREAST TOMOSYNTHESIS BI SCREENING MAMMOGRAPHY BI 2-VIEW BREAST INC CAD Kin Muñoz, [address] [place] [address] [facility] [address] [place] [address] Referral ID Status Reason Start Date Expiration Date Visits Requested Visits Authorized [id number] Authorized Auto-Generat ed Referral 02/17/2023 03/18/2024 1 1 * Consult, Test, Treat (Routine) - Authorized Specialty Diagnoses / Procedures Referred By Contac t Referred To Contact Cardiology Diagnoses Palpitations Tachycardia Procedures CONSULT TO CARDIOLOGY OFFICE/OUTPATIENT [facility] 60-74 MINUTES Kin Muñoz DO [address] [place] [address] Referral ID Status Reason Start Date Expiration Date Visits Requested Visits Authorized [id number] Authorized PCP Requested Referral 02/17/2023 02/17/2024 1 1 * Consult, Test, Treat (Routine) - Authorized Specialty Diagnoses / Procedures Referred By Contac t Referred To Contact Cardiology Diagnoses Palpitations Tachycardia Procedures CONSULT TO CARDIOLOGY OFFICE/OUTPATIENT [facility] 60-74 MINUTES Kin Muñoz DO [address] [place] [address] Referral ID Status Reason Start Date Expiration Date Visits Requested Visits Authorized [id number] Authorized PCP Requested Referral 02/17/2023 02/17/2024 1 1 [facility] for referral (narrative)* Outpatient Procedure (Routine) - Pending Review Specialty Diagnoses / Procedures Referred By Contgarrett t Referred To Contact [facility] [place] Diagnoses Palpitations Tachycardia Procedures ECHO ECHO TTHRC R-T 2D W/WOM-MODE COMPL SPEC&COLR D John Duron MD [address] [place] [id number] [facility] [address] [address] Referral ID Status Reason Start Date Expiration Date Visits Requested Visits Authorized [id number] Pending Review Auto-Generat ed Referral 08/20/2023 08/19/2024 1 1 * Outpatient Procedure (Routine) - Authorized Specialty Diagnoses / Procedures Referred By Contac t Referred To Contact [facility] [place] Diagnoses Palpitations Procedures ECG COMPLETE ECG ROUTINE ECG W/LEAST 12 LDS W/I&R John Duron MD [address] [place] [address] [facility] [address] [place] [id number] Referral ID Status Reason Start Date Expiration Date Visits Requested Visits Authorized [id number] Authorized Auto-Generat ed Referral 08/14/2023 11/25/2023 1 1 [facility] for referral (narrative)* Diagnostic Procedure Only (Routine) - Pending Review Specialty Diagnoses / Procedures Referred By Contac t Referred To Contact [facility] Diagnoses Pelvic pain History of ovarian cyst Procedures PELVIC US I US PELVIC NONOBSTETRIC REAL-TIME IMAGE COMPLETE Shavonne Brown APRN.FABRIC SEPARATOR OPERATOR [address] [place] [address] [address] Referral ID Status Reason Start Date Expiration Date Visits Requested Visits Authorized [id number] Pending Review Auto-Generat ed Referral 3 09/03/2024 1 1 * Diagnostic Procedure Only (Routine) - Pending Review Specialty Diagnoses / Procedures Referred By Contac t Referred To Contact [facility] Diagnoses Pelvic pain History of ovarian cyst Procedures US FEMALE PELVIS TRANSVAG US TRANSVAGINAL Shavonne Brown APRN.FABRIC SEPARATOR OPERATOR [address] [place] [address] [place] [address] Referral ID Status Reason Start Date Expiration Date Visits Requested Visits Authorized [id number] Pending Review Auto-Generat ed Referral 3 10/03/2024 1 1 * Diagnostic Procedure Only (Routine) - Pending Review Specialty Diagnoses / Procedures Referred By Contac t Referred To Contact [facility] Diagnoses Encounter for gynecological examination with abnormal finding Encounter for screening mammogram for breast cancer Procedures JANEEN SCREENING W CONCHA SCREENING DIGITAL BREAST TOMOSYNTHESIS BI SCREENING MAMMOGRAPHY BI 2-VIEW BREAST INC Shavonne Marques APRN.FABRIC SEPARATOR OPERATOR [address] [place] [address] [facility] [address] [place] [address] Referral ID Status Reason Start Date Expiration Date Visits Requested Visits Authorized [id number] Pending Review Auto-Generat ed Referral 10/03/2024 1 1 [facility] for referral (narrative)* Diagnostic Procedure Only (Routine) - Closed Specialty Diagnoses / Procedures Referred By Ramila barba Referred To Contact [facility] Diagnoses Encounter for screening mammogram for malignant neoplasm of breast Procedures JANEEN SCREENING W CONCHA SCREENING DIGITAL BREAST TOMOSYNTHESIS BI SCREENING MAMMOGRAPHY BI 2-VIEW BREAST INC CAD Kin Muñoz, DO [address] [place] [address] [facility] [address] [place] [address] Referral ID Status Reason Start Date Expiration Date V isits Requested Visits Authorized [id number] Closed Auto-Generate d Referral 02/17/2023 03/18/2024 1 1 [facility] for referral (narrative)* Diagnostic Procedure Only (Routine) - New Request Specialty Diagnoses / Procedures Referred By Ramila barba Referred To Contact [facility] Diagnoses Encounter for screening mammogram for breast cancer Procedures JANEEN SCREENING W CONCHA SCREENING DIGITAL BREAST TOMOSYNTHESIS BI SCREENING MAMMOGRAPHY BI 2-VIEW BREAST INC CAD Kin Muñoz, DO [address] [place] [address] [facility] [address] [place] [address] Referral ID Status Reason Start Date Expiration Date Visits Requested Visits Authorized [id number] New Request Auto-Generat ed Referral 08/20/2024 09/19/2025 1 1 [facility] for visit Narrative* Diagnostic Procedure Only (Routine) - Closed Specialty Diagnoses / Procedures Referred By Ramila barba Referred To Contact [facility] Diagnoses Encounter for screening mammogram for breast cancer Dense breast tissue on mammogram Procedures JANEEN SCREENING W CONCHA SCREENING DIGITAL BREAST TOMOSYNTHESIS BI SCREENING MAMMOGRAPHY BI 2-VIEW BREAST INC CAD Shavonne Brown, NURSING HOME ASSISTANT.FABRIC SEPARATOR OPERATOR [address] [place] [address] [facility] [address] [place] [address] Referral ID Status Reason Start Date Expiration Date V isits Requested Visits Authorized [id number] Closed Auto-Generate d Referral 04/06/2022 05/06/2023 1 1 [facility] for visit Narrative* Diagnostic Procedure Only (Routine) - Closed Specialty Diagnoses / Procedures Referred By Ramila barba Referred To Contact [facility] Diagnoses Encounter for screening mammogram for malignant neoplasm of breast Procedures JANEEN SCREENING W CONCHA SCREENING DIGITAL BREAST TOMOSYNTHESIS BI SCREENING MAMMOGRAPHY BI 2-VIEW BREAST INC CAD Kin Muñoz L, DO [address] [place] [address] [facility] [address] [place] [address] Referral ID Status Reason Start Date Expiration Date V isits Requested Visits Authorized [id number] Closed Auto-Generate d Referral 02/17/2023 03/18/2024 1 1 [facility] for visit Narrative* Diagnostic Procedure Only (Routine) - Closed Specialty Diagnoses / Procedures Referred By Ramila barba Referred To Contact [facility] Diagnoses Encounter for screening mammogram for breast cancer Procedures JANEEN SCREENING W CONCHA SCREENING DIGITAL BREAST TOMOSYNTHESIS BI SCREENING MAMMOGRAPHY BI 2-VIEW BREAST INC CAD Kin Muñoz L, DO [address] [place] [address] [facility] [address] [place] [address] Referral ID Status Reason Start Date Expiration Date V isits Requested Visits Authorized [id number] Closed Auto-Generate d Referral 08/20/2024 09/19/2025 1 1 [facility] Advance Directives No Advanced Directives Records Found Advance Directive Response Recorded Date/ Time Living Will No October 22 020 3:18pm Power of Measuring Clerk No October 22, 2020 3:18pm Reason for Referral Specialty Diagnoses / Procedures Referred By Ramila barba Referred To Contact Cardiology Diagnoses Palpitations Tachycardia Chest tightness SOB (shortness of breath) on exertion Procedures CONSULT TO CARDIOLOGY OFFICE/OUTPATIENT NEW HIGH MDM 60-74 MINUTES Clara Hrenandez APRN.FABRIC SEPARATOR OPERATOR [address] [place] [address] Referral ID Status Reason Start Date Expiration Date Visits Requested Visits Authorized [id number] Authorized PCP Requested Referral 01/24/2023 01/24/2024 1 1 Specialty Diagnoses / Procedures Referred By Ramila barba Referred To Contact Diagnoses Family history of breast cancer in mother Family history of lymphoma Procedures CONSULT TO MEDICAL GENETICS - CANCER MEDICAL GENETICS COUNSELING EACH 30 MINUTES Kin Muñoz, [address] [place] [address] [facility] [address] [place] [address] Referral ID Status Reason Start Date Expiration Date Visits Requested Visits Authorized [id number] Pending Review PCP Requested Referral Auto-Generate d Referral 4 09/23/2025 1 1 Summary Purpose Family History No Family History Records FoundNo Family History Records Found Additional Source Comments Goals (unrecognized section and content) Goals may be documented in a n alternate sectionGoals may be documented in an alternate section Source Comments (unrecognize d section and content) In the event this informatio n is protected by the Federal Confidentiality of Alcohol and Drug Abuse Patient Records regulations: The Federal rules restrict any use of the information to criminally investigate or prosecute any alcohol or drug abuse patient.[facility] TownshipIn the event this information is protected by the Federal Confidentiality of Alcohol and Drug Abuse Patient Records regulations: The Federal rules restrict any use of the information to criminally investigate or prosecute any alcohol or drug abuse patient.[facility] TownshipIn the event this information is protected by the Federal Confidentiality of Alcohol and Drug Abuse Patient Records regulations: The Federal rules restrict any use of the information to criminally investigate or prosecute any alcohol or drug abuse patient.[facility] TownshipIn the event this information is protected by the Federal Confidentiality of Alcohol and Drug Abuse Patient Records regulations: The Federal rules restrict any use of the information to criminally investigate or prosecute any alcohol or drug abuse patient.[facility] TownshipIn the event this information is protected by the Federal Confidentiality of Alcohol and Drug Abuse Patient Records regulations: The Federal rules restrict any use of the information to criminally investigate or prosecute any alcohol or drug abuse patient.[facility] TownshipIn the event this information is protected by the Federal Confidentiality of Alcohol and Drug Abuse Patient Records regulations: The Federal rules restrict any use of the information to criminally investigate or prosecute any alcohol or drug abuse patient.[facility] TownshipIn the event this information is protected by the Federal Confidentiality of Alcohol and Drug Abuse Patient Records regulations: The Federal rules restrict any use of the information to criminally investigate or prosecute any alcohol or drug abuse patient.[facility] TownshipIn the event this information is protected by the Federal Confidentiality of Alcohol and Drug Abuse Patient Records regulations: The Federal rules restrict any use of the information to criminally investigate or prosecute any alcohol or drug abuse patient.[facility] TownshipIn the event this information is protected by the Federal Confidentiality of Alcohol and Drug Abuse Patient Records regulations: The Federal rules restrict any use of the information to criminally investigate or prosecute any alcohol or drug abuse patient.[facility] TownshipIn the event this information is protected by the Federal Confidentiality of Alcohol and Drug Abuse Patient Records regulations: The Federal rules restrict any use of the information to criminally investigate or prosecute any alcohol or drug abuse patient.[facility] TownshipIn the event this information is protected by the Federal Confidentiality of Alcohol and Drug Abuse Patient Records regulations: The Federal rules restrict any use of the information to criminally investigate or prosecute any alcohol or drug abuse patient.[facility] TownshipIn the event this information is protected by the Federal Confidentiality of Alcohol and Drug Abuse Patient Records regulations: The Federal rules restrict any use of the information to criminally investigate or prosecute any alcohol or drug abuse patient.[facility] TownshipIn the event this information is protected by the Federal Confidentiality of Alcohol and Drug Abuse Patient Records regulations: The Federal rules restrict any use of the information to criminally investigate or prosecute any alcohol or drug abuse patient.[facility] TownshipIn the event this information is protected by the Federal Confidentiality of Alcohol and Drug Abuse Patient Records regulations: The Federal rules restrict any use of the information to criminally investigate or prosecute any alcohol or drug abuse patient.[facility] TownshipIn the event this information is protected by the Federal Confidentiality of Alcohol and Drug Abuse Patient Records regulations: The Federal rules restrict any use of the information to criminally investigate or prosecute any alcohol or drug abuse patient.[facility] TownshipIn the event this information is protected by the Federal Confidentiality of Alcohol and Drug Abuse Patient Records regulations: The Federal rules restrict any use of the information to criminally investigate or prosecute any alcohol or drug abuse patient.[facility] TownshipIn the event this information is protected by the Federal Confidentiality of Alcohol and Drug Abuse Patient Records regulations: The Federal rules restrict any use of the information to criminally investigate or prosecute any alcohol or drug abuse patient.[facility] TownshipIn the event this information is protected by the Federal Confidentiality of Alcohol and Drug Abuse Patient Records regulations: The Federal rules restrict any use of the information to criminally investigate or prosecute any alcohol or drug abuse patient.[facility] TownshipIn the event this information is protected by the Federal Confidentiality of Alcohol and Drug Abuse Patient Records regulations: The Federal rules restrict any use of the information to criminally investigate or prosecute any alcohol or drug abuse patient.[facility] TownshipIn the event this information is protected by the Federal Confidentiality of Alcohol and Drug Abuse Patient Records regulations: The Federal rules restrict any use of the information to criminally investigate or prosecute any alcohol or drug abuse patient.[facility] TownshipIn the event this information is protected by the Federal Confidentiality of Alcohol and Drug Abuse Patient Records regulations: The Federal rules restrict any use of the information to criminally investigate or prosecute any alcohol or drug abuse patient.[facility] TownshipIn the event this information is protected by the Federal Confidentiality of Alcohol and Drug Abuse Patient Records regulations: The Federal rules restrict any use of the information to criminally investigate or prosecute any alcohol or drug abuse patient.[facility] TownshipIn the event this information is protected by the Federal Confidentiality of Alcohol and Drug Abuse Patient Records regulations: The Federal rules restrict any use of the information to criminally investigate or prosecute any alcohol or drug abuse patient.[facility] TownshipIn the event this information is protected by the Federal Confidentiality of Alcohol and Drug Abuse Patient Records regulations: The Federal rules restrict any use of the information to criminally investigate or prosecute any alcohol or drug abuse patient.[facility] TownshipIn the event this information is protected by the Federal Confidentiality of Alcohol and Drug Abuse Patient Records regulations: The Federal rules restrict any use of the information to criminally investigate or prosecute any alcohol or drug abuse patient.[facility] TownshipIn the event this information is protected by the Federal Confidentiality of Alcohol and Drug Abuse Patient Records regulations: The Federal rules restrict any use of the information to criminally investigate or prosecute any alcohol or drug abuse patient.[facility] TownshipIn the event this information is protected by the Federal Confidentiality of Alcohol and Drug Abuse Patient Records regulations: The Federal rules restrict any use of the information to criminally investigate or prosecute any alcohol or drug abuse patient.[facility] TownshipIn the event this information is protected by the Federal Confidentiality of Alcohol and Drug Abuse Patient Records regulations: The Federal rules restrict any use of the information to criminally investigate or prosecute any alcohol or drug abuse patient.[facility] TownshipIn the event this information is protected by the Federal Confidentiality of Alcohol and Drug Abuse Patient Records regulations: The Federal rules restrict any use of the information to criminally investigate or prosecute any alcohol or drug abuse patient.[facility] TownshipIn the event this information is protected by the Federal Confidentiality of Alcohol and Drug Abuse Patient Records regulations: The Federal rules restrict any use of the information to criminally investigate or prosecute any alcohol or drug abuse patient.[facility] TownshipIn the event this information is protected by the Federal Confidentiality of Alcohol and Drug Abuse Patient Records regulations: The Federal rules restrict any use of the information to criminally investigate or prosecute any alcohol or drug abuse patient.[facility] TownshipIn the event this information is protected by the Federal Confidentiality of Alcohol and Drug Abuse Patient Records regulations: The Federal rules restrict any use of the information to criminally investigate or prosecute any alcohol or drug abuse patient.[facility] TownshipIn the event this information is protected by the Federal Confidentiality of Alcohol and Drug Abuse Patient Records regulations: The Federal rules restrict any use of the information to criminally investigate or prosecute any alcohol or drug abuse patient.[facility] TownshipIn the event this information is protected by the Federal Confidentiality of Alcohol and Drug Abuse Patient Records regulations: The Federal rules restrict any use of the information to criminally investigate or prosecute any alcohol or drug abuse patient.[facility] TownshipIn the event this information is protected by the Federal Confidentiality of Alcohol and Drug Abuse Patient Records regulations: The Federal rules restrict any use of the information to criminally investigate or prosecute any alcohol or drug abuse patient.[facility] TownshipIn the event this information is protected by the Federal Confidentiality of Alcohol and Drug Abuse Patient Records regulations: The Federal rules restrict any use of the information to criminally investigate or prosecute any alcohol or drug abuse patient.[facility] TownshipIn the event this information is protected by the Federal Confidentiality of Alcohol and Drug Abuse Patient Records regulations: The Federal rules restrict any use of the information to criminally investigate or prosecute any alcohol or drug abuse patient.[facility] TownshipIn the event this information is protected by the Federal Confidentiality of Alcohol and Drug Abuse Patient Records regulations: The Federal rules restrict any use of the information to criminally investigate or prosecute any alcohol or drug abuse patient.[facility] TownshipIn the event this information is protected by the Federal Confidentiality of Alcohol and Drug Abuse Patient Records regulations: The Federal rules restrict any use of the information to criminally investigate or prosecute any alcohol or drug abuse patient.[facility] TownshipIn the event this information is protected by the Federal Confidentiality of Alcohol and Drug Abuse Patient Records regulations: The Federal rules restrict any use of the information to criminally investigate or prosecute any alcohol or drug abuse patient.[facility] TownshipIn the event this information is protected by the Federal Confidentiality of Alcohol and Drug Abuse Patient Records regulations: The Federal rules restrict any use of the information to criminally investigate or prosecute any alcohol or drug abuse patient.[facility] TownshipIn the event this information is protected by the Federal Confidentiality of Alcohol and Drug Abuse Patient Records regulations: The Federal rules restrict any use of the information to criminally investigate or prosecute any alcohol or drug abuse patient.[facility] TownshipIn the event this information is protected by the Federal Confidentiality of Alcohol and Drug Abuse Patient Records regulations: The Federal rules restrict any use of the information to criminally investigate or prosecute any alcohol or drug abuse patient.[facility] TownshipIn the event this information is protected by the Federal Confidentiality of Alcohol and Drug Abuse Patient Records regulations: The Federal rules restrict any use of the information to criminally investigate or prosecute any alcohol or drug abuse patient.[facility] TownshipIn the event this information is protected by the Federal Confidentiality of Alcohol and Drug Abuse Patient Records regulations: The Federal rules restrict any use of the information to criminally investigate or prosecute any alcohol or drug abuse patient.[facility] TownshipIn the event this information is protected by the Federal Confidentiality of Alcohol and Drug Abuse Patient Records regulations: The Federal rules restrict any use of the information to criminally investigate or prosecute any alcohol or drug abuse patient.[facility] TownshipIn the event this information is protected by the Federal Confidentiality of Alcohol and Drug Abuse Patient Records regulations: The Federal rules restrict any use of the information to criminally investigate or prosecute any alcohol or drug abuse patient.[facility] TownshipIn the event this information is protected by the Federal Confidentiality of Alcohol and Drug Abuse Patient Records regulations: The Federal rules restrict any use of the information to criminally investigate or prosecute any alcohol or drug abuse patient.[facility] Reason for Visit (unrecogniz ed section and content) Reason Comments Chest Congestion sinus, cough, left e ar pain x 2 weeks Reason Comments Vaginal Problem Reason Comments Yearly Exam Reason Comments Results New Medication Reason Comments Refill Request Reason Comments Results Reason Comments Cough Cough, congestion x 3 weeks Reason Comments Viral Syndrome Concern for influenz a- Cough , congestion x 3 days Reason Comments abnormal heart rate For past month start ed out being every once in a while now it became more often. Chest feels funny when this happens and lft arm pit. Reason Comments Results Reason Comments Physical Reason Comments New Cardiac Patient Reason Comments New Patient Palpitations Specialty Diagnoses / Procedures Referred By Ramila barba Referred To Contact Cardiology Diagnoses Palpitations Tachycardia Procedures CONSULT TO CARDIOLOGY OFFICE/OUTPATIENT NEW HIGH MDM 60-74 MINUTES Kin Muñoz DO [address] [place] [address] Referral ID Status Reason Start Date Expiration Date V isits Requested Visits Authorized [id number] Closed PCP Requested Referral 02/17/2023 02/17/2024 1 1 Reason Comments Yearly Exam Reason Onset Date Comments Refill Request 07/07/2024 Reason Comments Follow Up Reason Comments Radiology XR Reason Comments Patient Question Reason Comments Anxiety Situational Insomnia Reason Comments Nasal Congestion Sinus issues, RUCHI ea r pain x 2 weeks Reason Comments Medication Request Reason Comments change in pharmacy Reason Onset Date Comments Refill Request 05/12/2025 Care Teams (unrecognized sec tion and content) Poultry Pathologist Relationship Specialty Start Date End Date Kin Muñoz DO [address] [place], [place] [id number] PCP - General Family Practice 07/05/16 Poultry Pathologist Relationship Specialty Start Date End Date Kin Muñoz DO [address] [place], [place] [id number] PCP - General Family Practice 07/05/16 Poultry Pathologist Relationship Specialty Start Date End Date Kin Muñoz, DO [address] [place] [address] PCP - General Family Practice 07/05/16 Poultry Pathologist Relationship Specialty Start Date End Date Kin Muñoz, DO [address] [place] [address] PCP - General Family Practice 07/05/16 Poultry Pathologist Relationship Specialty Start Date End Date Kin Muñoz, DO [address] [place] [address] PCP - General Family Practice 07/05/16 Poultry Pathologist Relationship Specialty Start Date End Date Kin Muñoz, DO [address] [place] [address] PCP - General Family Practice 07/05/16 Poultry Pathologist Relationship Specialty Start Date End Date Kin Muñoz, DO [address] [place] [address] PCP - General Family Medicine 07/05/16 Poultry Pathologist Relationship Specialty Start Date End Date Kin Muñoz, DO [address] [place] [address] PCP - General Family Medicine 07/05/16 Poultry Pathologist Relationship Specialty Start Date End Date Kin Muñoz, DO [address] [place] [address] PCP - General Family Medicine 07/05/16 Poultry Pathologist Relationship Specialty Start Date End Date Kin Muñoz, DO [address] [place] [address] PCP - General Family Medicine 07/05/16 Poultry Pathologist Relationship Specialty Start Date End Date Kin Muñoz, DO [address] [place] [address] PCP - General Family Medicine 07/05/16 Poultry Pathologist Relationship Specialty Start Date End Date Kin Muñoz, DO [address] [place] [address] PCP - General Family Medicine 07/05/16 Poultry Pathologist Relationship Specialty Start Date End Date Kin Muñoz DO [address] [place] [address] PCP - General Family Medicine 07/05/16 Poultry Pathologist Relationship Specialty Start Date End Date Kin Muñoz DO [address] [place] [address] PCP - General Family Medicine 07/05/16 Poultry Pathologist Relationship Specialty Start Date End Date Kin Muñoz DO [address] [place] [address] PCP - General Family Medicine 07/05/16 Poultry Pathologist Relationship Specialty Start Date End Date Kin Muñoz DO [address] [place] [address] PCP - General Family Medicine 07/05/16 Poultry Pathologist Relationship Specialty Start Date End Date Kin Muñoz DO [address] [place] [address] PCP - General Family Medicine 07/05/16 Poultry Pathologist Relationship Specialty Start Date End Date Kin Muñoz DO [address] [place] [address] PCP - General Family Medicine 07/05/16 Poultry Pathologist Relationship Specialty Start Date End Date Kin Muñoz DO [address] [place] [address] PCP - General Family Medicine 07/05/16 Poultry Pathologist Relationship Specialty Start Date End Date Kin Muñoz DO [address] [facility] [place] [address] PCP - General Family Medicine 07/05/16 Poultry Pathologist Relationship Specialty Start Date End Date Kin Muñoz DO [address] [facility] [place] [address] PCP - General Family Medicine 07/05/16 Poultry Pathologist Relationship Specialty Start Date End Date Kin Muñoz DO [address] [place] [address] PCP - General Family Medicine 07/05/16 Poultry Pathologist Relationship Specialty Start Date End Date Kin Muñoz DO [address] [facility] [place] [address] PCP - General Family Medicine 07/05/16 Poultry Pathologist Relationship Specialty Start Date End Date Kin Muñoz DO [address] [facility] [place] [address] PCP - General Family Medicine 07/05/16 Poultry Pathologist Relationship Specialty Start Date End Date Kin Muñoz DO [address] [facility] [place] [address] PCP - General Family Medicine 07/05/16 Poultry Pathologist Relationship Specialty Start Date End Date Kin Muñoz DO [address] [facility] [place] [address] PCP - General Family Medicine 07/05/16 Poultry Pathologist Relationship Specialty Start Date End Date Kin Muñoz DO [address] [facility] [place] [address] PCP - General Family Medicine 07/05/16 Poultry Pathologist Relationship Specialty Start Date End Date Kin Muñoz DO [address] [place] [address] PCP - General Family Medicine 07/05/16 Poultry Pathologist Relationship Specialty Start Date End Date Kin Muñoz DO [address] [facility] [place] [address] PCP - General Family Medicine 07/05/16 Poultry Pathologist Relationship Specialty Start Date End Date Kin Muñoz DO [address] [facility] [place] [address] PCP - General Family Medicine 07/05/16 Poultry Pathologist Relationship Specialty Start Date End Date Kin Muñoz DO [address] [facility] [place] [address] PCP - General Family Medicine 07/05/16 Poultry Pathologist Relationship Specialty Start Date End Date Kin Muñoz DO [address] [facility] [place] [address] PCP - General Family Medicine 07/05/16 Muna Rosario, NURSING HOME ASSISTANT.FABRIC SEPARATOR OPERATOR [address] [facility] [place] [address] Dope Mixer Family Medicine 11/02/24 Clara Hernandez APRN.FABRIC SEPARATOR OPERATOR [address] [facility] [place] [address] Dope Mixer Family Medicine 11/02/24 Poultry Pathologist Relationship Specialty Start Date End Date Kin Muñoz DO [address] [facility] [place] [address] PCP - General Family Medicine 07/05/16 Muna Rosario, NURSING HOME ASSISTANT.FABRIC SEPARATOR OPERATOR [address] [place] [address] Dope Mixer Family [facility] 11/02/24 02/13/25 Clara Hernandez, NURSING HOME ASSISTANT.FABRIC SEPARATOR OPERATOR [address] [place] [address] Dope Mixer [facility] 11/02/24 Poultry Pathologist Relationship Specialty Start Date End Date Kin Muñoz DO [address] [place] [address] PCP - General Family Medicine 07/05/16 Clara Hernandez, NURSING HOME ASSISTANT.FABRIC SEPARATOR OPERATOR [address] [place] [address] [facility] Poultry Pathologist Relationship Specialty Start Date End Date Kin Muñoz DO [address] [place] [address] PCP - General Family Medicine 07/05/16 Clara Hernandez, NURSING HOME ASSISTANT.FABRIC SEPARATOR OPERATOR [address] [place] [address] [facility] 11/02/24 Poultry Pathologist Relationship Specialty Start Date End Date Kin Muñoz DO [address] [place] [address] PCP - General Family Medicine 07/05/16 Clara Hernandez, NURSING HOME ASSISTANT.FABRIC SEPARATOR OPERATOR [address] [place] [address] Dope Mixer Family Medicine 11/02/24 Poultry Pathologist Relationship Specialty Start Date End Date Kin Muñoz DO [address] [place] [address] PCP - General Family Medicine 07/05/16 Clara Hernandez, NURSING HOME ASSISTANT.FABRIC SEPARATOR OPERATOR [address] [place] [address] Dope Mixer Family Medicine 11/02/24 Poultry Pathologist Relationship Specialty Start Date End Date Kin Muñoz DO [address] [place] [address] PCP - General Family Medicine 07/05/16 Clara Hernandez, NURSING HOME ASSISTANT.FABRIC SEPARATOR OPERATOR [address] [place] [address] Dope Mixer Family Medicine 11/02/24 Deedee Beckett, NURSING HOME ASSISTANT.FABRIC SEPARATOR OPERATOR [address] [place] [address] [facility] Poultry Pathologist Relationship Specialty Start Date End Date Kin Muñoz DO [address] [place] [address] PCP - General Family Medicine 07/05/16 Clara Hernandez, NURSING HOME ASSISTANT.FABRIC SEPARATOR OPERATOR [address] [place] [address] Dope Mixer Family Medicine 11/02/24 Deedee Beckett, NURSING HOME ASSISTANT.FABRIC SEPARATOR OPERATOR [address] [place] [address] [facility] 05/11/25 Poultry Pathologist Relationship Specialty Start Date End Date Kin Muñoz DO [address] [place], [place] [id number] PCP - General Family Medicine 07/05/16 Clara Hernandez APRN.FABRIC SEPARATOR OPERATOR [address] [place], [place] [id number] [facility] 11/02/24 Deedee Beckett NURSING HOME ASSISTANT.FABRIC SEPARATOR OPERATOR [address] [place], [place] [id number] [facility] 05/11/25 INFORMATION SOURCE (unrecogn ized section and content) DATE CREATED AUTHOR 12/29/2024 [facility] DATE CREATED AUTHOR [facility] FOR RECORDS PERTAINING TO PATIENTS WHO ARE OR HAVE BEEN ENROLLED IN A CHEMICAL DEPENDENCY/SUBSTANCEABUSE PROGRAM, SOME INFORMATION MAY BE OMITTED. This clinical summary was aggregated from multiple sources. Caution should be exercised in using it in the provision of clinical care. This summary normalizes information from multiple sources, and as a consequence, information in this document may materially change the coding, format and clinical context of patient data. In addition, data may be omitted in some cases. CLINICAL DECISIONS SHOULD BE BASED ON THE PRIMARY CLINICAL RECORDS. [employer] provides no warranty or guarantee of the accuracy or completeness of information in this document.
== END | disposition home or self-care (01) ==
LOC: MTLAB 13:13
PROVIDERS: PCP Student in an Organized Health Care Education/Training Program; Referring Provider Internal Medicine Rheumatology; Visit Provider Internal Medicine Rheumatology
DX: M06.4 Inflammatory polyarthropathy (principal); M21.40 Flat foot [pes planus] (acquired), unspecified foot
CPT/HCPCS: 36415; 80053; 85025